=== PATIENT | female | born 1935 | race Caucasian/White ===

== ENCOUNTER → 2016-12-01 | Outpatient (CLI) | payer MEDICARE ==
[~2016-12-01] MED LIST: ASPIRIN81 M1 PO; BACTRIM DS 8001 TA1 PO; CENTRUM1 TA1 PO; CLINDAMYCIN HC300 MG PO; CLINDAMYCIN150 MG PO; COLACE100 MG PO; COUMADIN2.5 M1 PO; COUMADIN5 M2 PO; COUMADIN6 M2 PO; COUMADIN7.5 MG PO; DOCUSATE CALCI100 MG PO; ECOTRIN81 MG PO; ENALAPRIL PO; ENALAPRIL10 MG PO; FEROSUL325 MG PO; HCT PO; KEFLEX500 M1 PO; KEFLEX500 MG PO; LASIX20 MG PO; LASIX40 MG PO; MACROBID100 M1 PO; METOLAZONE10 MG PO; METOPROLOL SUCC25 M2 PO; MUPIROCIN15 GM TP; NORCO 5-325 TA1 EACH PO; POTASSIUM-9999 MG PO; PRINIVIL5 M1 PO; SLOW-K 8MEQ8 MEQ PO; STOOL SOFTENER100 M3 PO; VASERETIC 10 MG1 TAB PO
[2016-12-01 12:20] LABS: PROTHROMBIN TIME 21.5 SECONDS (9.0-12.4)
== END | disposition home or self-care (01) ==
LOC: LAB 11:22
DX: Z79.01 Long term (current) use of anticoagulants (principal)

== ENCOUNTER → 2017-01-29 | Outpatient (CLI) | payer MEDICARE ==
[2017-01-29 12:17] LABS: INTERNATIONAL NORM RATIO 1.8 (2.0-3.5)
== END | disposition home or self-care (01) ==
LOC: LAB 11:20
DX: R06.02 Shortness of breath (principal); I10 Essential (primary) hypertension; R60.0 Localized edema; R06.2 Wheezing; Z79.01 Long term (current) use of anticoagulants

== ENCOUNTER 2017-02-02 20:35 | Inpatient (IN) | payer MEDICARE ==
[2017-02-02] VITALS (7 sets, daily range): BP systolic 153–222; BP diastolic 62–100
[~2017-02-02] VITALS: Ht 170.1 cm; Wt 103.5 kg
[2017-02-02 21:14] LABS: BASO % 0.5 % (0.0-1.0); EOS # 0.2 10*3/uL (0.0-0.4); EOS % 3.7 % (1.0-4.0); HEMOGLOBIN 14.2 g/dl (12.0-16.0); LYMPH # 2.5 10*3/uL (1.3-4.4); LYMPH % 38.1 % (27.0-41.0); MEAN CELL VOLUME 94.4 fl (81.0-99.0); MEAN CORPUSCULAR HGB 31.9 pg (27.0-31.0); MEAN CORPUSCULAR HGB CONC 33.8 g/dl (33.0-37.0); MEAN PLATELET VOLUME 9.3 fl (9.6-12.3); MONO # 0.5 10*3/uL (0.1-1.0); MONO % 8.3 % (3.0-9.0); NEUT # 3.2 10*3/uL (2.3-7.9); NEUT % 49.2 % (47.0-73.0); PLATELET COUNT AUTOMATED 163 10*3/uL (130-400); RED BLOOD COUNT 4.45 10*6/uL (4.10-5.10); RED CELL DISTRI WIDTH 14.4 % (0-14.5); WHITE BLOOD COUNT 6.5 10*3/uL (4.8-10.8)
[2017-02-02 21:24] LABS: INTERNATIONAL NORM RATIO 1.6 (2.0-3.5)
[2017-02-02] MEDS ORDERED: LOPRESSOR50 M1 PO (21:34)
[2017-02-02 21:35] LABS: ALBUMIN 2.8 gm/dl (3.1-4.5); ALKALINE PHOSPHATASE 150 U/L (45-117); BILIRUBIN, TOTAL 0.3 mg/dl (0.2-1.0); BUN 33 mg/dl (7-24); CARBON DIOXIDE 20 mmol/L (21-32); CHLORIDE 110 mmol/L (98-107); CPK 63 U/L (26-192); EST GLOM FILT AFRICAN AMERICAN 30 ml/min; GLUCOSE 97 mg/dL (65-99); POTASSIUM 4.1 mmol/L (3.5-5.1); SGOT/AST 33 IU/L (3-35); SGPT/ALT 20 U/L (12-78); SODIUM 142 mmol/L (136-145)
[2017-02-02 21:36] LABS: CKMB 1.4 ng/ml (0.5-3.6)
[2017-02-02 21:38] LABS: TROPONIN I < 0.015 ng/ml (<0.045)
[2017-02-02 23:53] LABS: BILIRUBIN NEGATIVE (NEGATIVE); BLOOD 1+ (NEGATIVE); CLARITY SL CLOUDY (CLEAR); COLOR YELLOW (YELLOW); GLUCOSE NEGATIVE (NEGATIVE); KETONE NEGATIVE (NEGATIVE); LEUKO ESTERASE 2+ (NEGATIVE); NITRITE NEGATIVE (NEGATIVE); PROTEIN 2+ (NEGATIVE); SPECIFIC GRAVITY 1.025 (1.005-1.030); UROBILINOGEN 0.2 E.U./dl (0.2-1.0)
[2017-02-03 00:08] LABS: EPITHELIAL CELLS 35-40
[2017-02-03 00:09] LABS: BACTERIA TRACE; URINE REFLEX COMMENT YES (NO)
[2017-02-03 00:25] VITALS: BP 212/82
[2017-02-03 01:45] VITALS: BP 178/60
[2017-02-03 04:16] LABS: BASO % 0.5 % (0.0-1.0); EOS # 0.3 10*3/uL (0.0-0.4); EOS % 3.9 % (1.0-4.0); HEMOGLOBIN 13.1 g/dl (12.0-16.0); LYMPH # 1.8 10*3/uL (1.3-4.4); LYMPH % 28.8 % (27.0-41.0); MEAN CELL VOLUME 92.9 fl (81.0-99.0); MEAN CORPUSCULAR HGB 31.2 pg (27.0-31.0); MEAN CORPUSCULAR HGB CONC 33.6 g/dl (33.0-37.0); MEAN PLATELET VOLUME 9.1 fl (9.6-12.3); MONO # 0.6 10*3/uL (0.1-1.0); MONO % 8.6 % (3.0-9.0); NEUT # 3.7 10*3/uL (2.3-7.9); PLATELET COUNT AUTOMATED 137 10*3/uL (130-400); RED CELL DISTRI WIDTH 14.4 % (0-14.5); WHITE BLOOD COUNT 6.4 10*3/uL (4.8-10.8)
[2017-02-03 04:33] LABS: ALBUMIN 2.6 gm/dl (3.1-4.5); BILIRUBIN, TOTAL 0.4 mg/dl (0.2-1.0); MAGNESIUM 1.8 mg/dL (1.5-2.1); POTASSIUM 3.6 mmol/L (3.5-5.1)
[2017-02-03 04:34] LABS: FREE T4 1.17 ng/dl (0.76-1.46); INTERNATIONAL NORM RATIO 1.7 (2.0-3.5); PROTHROMBIN TIME 18.8 SECONDS (9.0-12.4)
[2017-02-03 04:39] LABS: THYROID STIM HORMONE (HS) 3.12 uIU/ml (0.358-4.75)
[2017-02-03 06:18] LABS: VITAMIN D, 25-HYDROXY 25.8 ng/mL (30-100)
[2017-02-03 06:19] LABS: FOLIC ACID > 24.00 ng/mL (>5.38)
[2017-02-03 08:00] VITALS: BP 150/68
[2017-02-03 12:00] VITALS: BP 136/54
[2017-02-03 16:00] VITALS: BP 128/71
[2017-02-03 20:00] VITALS: BP 145/60
[2017-02-04] VITALS: BP 119/49
[2017-02-04 07:04] LABS: INTERNATIONAL NORM RATIO 1.8 (2.0-3.5); PROTHROMBIN TIME 19.8 SECONDS (9.0-12.4)
[2017-02-04 08:00] VITALS: BP 144/84
[2017-02-04] MEDS ORDERED: AMLODIPINE BESYL5 MG PO (10:59)
[2017-02-04 12:00] VITALS: BP 144/84
== END 2017-02-04 13:36 | disposition home or self-care (01) | DRG 305 ==
LOC: ED 20:35 → 5E 21:52 → EDHOLD 21:52 → 5E 22:16
PROVIDERS: Emergency Medicine; Internal Medicine; Internal Medicine Hospice and Palliative Medicine
DX: I16.1 Hypertensive emergency (principal); E44.0 Moderate protein-calorie malnutrition; L97.909 Non-pressure chronic ulcer of unspecified part of unspecified lower leg with unspecified severity; D68.59 Other primary thrombophilia; N18.3 Chronic kidney disease, stage 3 (moderate); R74.8 Abnormal levels of other serum enzymes; I12.9 Hypertensive chronic kidney disease with stage 1 through stage 4 chronic kidney disease, or unspecified chronic kidney disease; I25.10 Atherosclerotic heart disease of native coronary artery without angina pectoris; E66.09 Other obesity due to excess calories; I89.0 Lymphedema, not elsewhere classified; Z96.653 Presence of artificial knee joint, bilateral; I25.2 Old myocardial infarction; Z86.718 Personal history of other venous thrombosis and embolism; Z98.42 Cataract extraction status, left eye; Z98.41 Cataract extraction status, right eye; Z90.710 Acquired absence of both cervix and uterus; Z82.3 Family history of stroke; Z88.1 Allergy status to other antibiotic agents; Z79.82 Long term (current) use of aspirin; Z79.01 Long term (current) use of anticoagulants; Z79.899 Other long term (current) drug therapy; Z68.35 Body mass index [BMI] 35.0-35.9, adult

== ENCOUNTER 2017-04-04 20:30 | Inpatient (IN) | payer MEDICARE ==
[~2017-04-04] VITALS: Ht 170.1 cm; Wt 106.4 kg
--- NOTE | ~2017-04-04 | CON ---
[place], [place] REPORT OF CONSULTATION NAME: DEEPTI BEST [facility] #: [id number] UNIT #: [id number] ROOM: 404 DOCTOR: ROSITA QUIROZ DPM BIRTHDATE: [birth year] DOS: 04/07/2017 SUBJECTIVE: The patient was seen for followup of venous stasis ulcerations, venous insufficiency of both lower extremities. The patient has been seen previously by Dr. Toro and also at the wound care center. PAST MEDICAL HISTORY: The patient has a past medical history of coronary artery disease, chronic ulcer lower extremity, chronic kidney disease stage 3, hypertension, history of DVT, history of MO, lymphedema, chronic protein calorie malnutrition, obesity. PAST SURGICAL HISTORY: History of bilateral knee replacement, history of bilateral cataract extraction, history of cardiac catheterization, history of hysterectomy. SOCIAL HISTORY: Denies alcohol, tobacco or illicit drug use. FAMILY HISTORY: Father of hernia. Mother , CVA. ALLERGIES: Cipro. PHYSICAL EXAMINATION: EXTREMITIES: Lower extremity examination: Pedal pulses diminished due to edema, venous insufficiency, and bilateral lower extremity. There is decreased hair growth bilateral. There is edema both lower extremities with venous stasis noted bilateral partial thickness ulceration of the anterior lower right leg, but no full thickness breakdown, no signs of abscess, no signs of purulent drainage or foul odor, venous insufficiency noted bilateral. Results of the patient's venous Doppler ordered by Dr. Toro yesterday was negative for DVT, bilateral. ASSESSMENT: Edema, venous insufficiency, venous stasis, bilateral lower extremity. PLAN: Evaluation and management. Unna boots were applied to both lower extremities. The patient is being discharged later today and will follow at the office next week for evaluation of both lower extremities. ROSITA QUIROZ DPM CM:CONSTR:REPORT OF CONSULTATION 1215 04/07/17 6931 interface
[~2017-04-04 20:30] MED LIST changes: +AMLODIPINE BESYL5 MG PO; +LOPRESSOR50 M1 PO
[2017-04-04 20:48] VITALS: BP 173/69
[2017-04-04 21:19] LABS: BASO % 0.5 % (0.0-1.0); EOS # 0.3 10*3/uL (0.0-0.4); EOS % 4.9 % (1.0-4.0); HEMATOCRIT 40.4 % (37.0-47.0); HEMOGLOBIN 13.4 g/dl (12.0-16.0); LYMPH % 34.5 % (27.0-41.0); MEAN CELL VOLUME 94.8 fl (81.0-99.0); MEAN CORPUSCULAR HGB 31.5 pg (27.0-31.0); MEAN CORPUSCULAR HGB CONC 33.2 g/dl (33.0-37.0); MEAN PLATELET VOLUME 9.3 fl (9.6-12.3); MONO # 0.4 10*3/uL (0.1-1.0); MONO % 6.8 % (3.0-9.0); NEUT # 3.2 10*3/uL (2.3-7.9); NEUT % 53.1 % (47.0-73.0); PLATELET COUNT AUTOMATED 145 10*3/uL (130-400); RED BLOOD COUNT 4.26 10*6/uL (4.10-5.10); RED CELL DISTRI WIDTH 14.4 % (0-14.5); WHITE BLOOD COUNT 5.9 10*3/uL (4.8-10.8)
[2017-04-04 21:35] LABS: ALBUMIN 2.8 gm/dl (3.1-4.5); BILIRUBIN, TOTAL 0.3 mg/dl (0.2-1.0); POTASSIUM 4.6 mmol/L (3.5-5.1); TOTAL PROTEIN 6.7 gm/dL (6.4-8.2)
[2017-04-04 22:54] VITALS: BP 180/65
[2017-04-05 00:03] VITALS: BP 180/65
[2017-04-05 00:30] VITALS: BP 157/61
[2017-04-05 00:36] LABS: CKMB 1.3 ng/ml (0.5-3.6)
[2017-04-05 06:19] LABS: BASO % 0.1 % (0.0-1.0); EOS # 0.3 10*3/uL (0.0-0.4); EOS % 3.7 % (1.0-4.0); HEMATOCRIT 41.2 % (37.0-47.0); HEMOGLOBIN 13.7 g/dl (12.0-16.0); LYMPH % 14.9 % (27.0-41.0); MEAN CELL VOLUME 95.2 fl (81.0-99.0); MEAN CORPUSCULAR HGB 31.6 pg (27.0-31.0); MEAN CORPUSCULAR HGB CONC 33.3 g/dl (33.0-37.0); MEAN PLATELET VOLUME 9.9 fl (9.6-12.3); MONO # 0.4 10*3/uL (0.1-1.0); MONO % 5.3 % (3.0-9.0); NEUT # 5.2 10*3/uL (2.3-7.9); NEUT % 75.7 % (47.0-73.0); PLATELET COUNT AUTOMATED 157 10*3/uL (130-400); RED BLOOD COUNT 4.33 10*6/uL (4.10-5.10); RED CELL DISTRI WIDTH 14.4 % (0-14.5); WHITE BLOOD COUNT 6.8 10*3/uL (4.8-10.8)
[2017-04-05 06:31] LABS: CKMB 1.2 ng/ml (0.5-3.6)
[2017-04-05 06:54] LABS: ALBUMIN 2.8 gm/dl (3.1-4.5); BILIRUBIN, TOTAL 0.4 mg/dl (0.2-1.0); MAGNESIUM 1.9 mg/dL (1.5-2.1); PHOSPHOROUS 3.3 mg/dL (2.5-4.9); TOTAL PROTEIN 6.6 gm/dL (6.4-8.2)
[2017-04-05 07:01] LABS: INTERNATIONAL NORM RATIO 2.4 (2.0-3.5); PROTHROMBIN TIME 27.2 SECONDS (9.0-12.4)
[2017-04-05 07:54] LABS: VITAMIN D, 25-HYDROXY 18.7 ng/mL (30-100)
[2017-04-05 08:00] VITALS: BP 152/56
[2017-04-05 12:00] VITALS: BP 148/67
[2017-04-05 16:00] VITALS: BP 152/66
[2017-04-05 20:00] VITALS: BP 137/53
[2017-04-06] VITALS: BP 105/52
[2017-04-06 06:42] LABS: BASO % 0.2 % (0.0-1.0); EOS # 0.3 10*3/uL (0.0-0.4); EOS % 7.3 % (1.0-4.0); HEMATOCRIT 37.1 % (37.0-47.0); HEMOGLOBIN 11.9 g/dl (12.0-16.0); LYMPH % 23.6 % (27.0-41.0); MEAN CELL VOLUME 96.4 fl (81.0-99.0); MEAN CORPUSCULAR HGB 30.9 pg (27.0-31.0); MEAN CORPUSCULAR HGB CONC 32.1 g/dl (33.0-37.0); MEAN PLATELET VOLUME 9.8 fl (9.6-12.3); MONO # 0.3 10*3/uL (0.1-1.0); MONO % 5.7 % (3.0-9.0); NEUT # 2.7 10*3/uL (2.3-7.9); PLATELET COUNT AUTOMATED 122 10*3/uL (130-400); RED BLOOD COUNT 3.85 10*6/uL (4.10-5.10); RED CELL DISTRI WIDTH 14.6 % (0-14.5); WHITE BLOOD COUNT 4.4 10*3/uL (4.8-10.8)
[2017-04-06 07:15] LABS: INTERNATIONAL NORM RATIO 2.7 (2.0-3.5); PROTHROMBIN TIME 30.1 SECONDS (9.0-12.4)
[2017-04-06 08:00] VITALS: BP 131/70
[2017-04-06 12:00] VITALS: BP 122/50
[2017-04-06 16:00] VITALS: BP 142/62
[2017-04-06 20:00] VITALS: BP 147/71
[2017-04-07] VITALS: BP 142/66
[2017-04-07 06:31] LABS: BASO % 0.4 % (0.0-1.0); EOS # 0.4 10*3/uL (0.0-0.4); EOS % 8.1 % (1.0-4.0); HEMATOCRIT 35.9 % (37.0-47.0); HEMOGLOBIN 11.8 g/dl (12.0-16.0); LYMPH # 1.1 10*3/uL (1.3-4.4); LYMPH % 20.4 % (27.0-41.0); MEAN CELL VOLUME 96.8 fl (81.0-99.0); MEAN CORPUSCULAR HGB 31.8 pg (27.0-31.0); MEAN CORPUSCULAR HGB CONC 32.9 g/dl (33.0-37.0); MEAN PLATELET VOLUME 9.7 fl (9.6-12.3); MONO # 0.3 10*3/uL (0.1-1.0); MONO % 6.5 % (3.0-9.0); NEUT # 3.4 10*3/uL (2.3-7.9); NEUT % 64.4 % (47.0-73.0); PLATELET COUNT AUTOMATED 124 10*3/uL (130-400); RED BLOOD COUNT 3.71 10*6/uL (4.10-5.10); RED CELL DISTRI WIDTH 14.6 % (0-14.5); WHITE BLOOD COUNT 5.2 10*3/uL (4.8-10.8)
[2017-04-07 06:45] LABS: ALBUMIN 2.3 gm/dl (3.1-4.5); BILIRUBIN, TOTAL 0.3 mg/dl (0.2-1.0); POTASSIUM 4.4 mmol/L (3.5-5.1); TOTAL PROTEIN 5.6 gm/dL (6.4-8.2)
[2017-04-07 07:09] LABS: INTERNATIONAL NORM RATIO 2.2 (2.0-3.5); PROTHROMBIN TIME 24.9 SECONDS (9.0-12.4)
[2017-04-07 08:00] VITALS: BP 150/66
[2017-04-07] MEDS ORDERED: DOXYCYCLINE100 M3 PO (09:37)
[2017-04-07] MEDS ORDERED: D-1000 185 MG-11 TAB PO (09:37)
== END 2017-04-07 14:36 | disposition home or self-care (01) | DRG 602 ==
LOC: ED 20:30 → 4E 21:33 → EDHOLD 21:33 → 4E 21:59
PROVIDERS: Internal Medicine; Internal Medicine Hospice and Palliative Medicine; Physician Assistant
PROC: 2W1LX6Z Compression of Right Lower Extremity using Pressure Dressing (ICD-10-PCS; principal; 2017-04-07)
PROC: 2W1MX6Z Compression of Left Lower Extremity using Pressure Dressing (ICD-10-PCS; principal; 2017-04-07)
DX: L03.116 Cellulitis of left lower limb (principal); E43 Unspecified severe protein-calorie malnutrition; D68.59 Other primary thrombophilia; L97.901 Non-pressure chronic ulcer of unspecified part of unspecified lower leg limited to breakdown of skin; D69.6 Thrombocytopenia, unspecified; I87.2 Venous insufficiency (chronic) (peripheral); R00.1 Bradycardia, unspecified; N18.3 Chronic kidney disease, stage 3 (moderate); L03.115 Cellulitis of right lower limb; I25.10 Atherosclerotic heart disease of native coronary artery without angina pectoris; I87.8 Other specified disorders of veins; I12.9 Hypertensive chronic kidney disease with stage 1 through stage 4 chronic kidney disease, or unspecified chronic kidney disease; E66.09 Other obesity due to excess calories; E55.9 Vitamin D deficiency, unspecified; Z96.653 Presence of artificial knee joint, bilateral; D64.9 Anemia, unspecified; R53.83 Other fatigue; I25.2 Old myocardial infarction; Z90.710 Acquired absence of both cervix and uterus; Z98.42 Cataract extraction status, left eye; Z98.41 Cataract extraction status, right eye; Z82.3 Family history of stroke; Z86.718 Personal history of other venous thrombosis and embolism; Z88.1 Allergy status to other antibiotic agents; Z79.82 Long term (current) use of aspirin; Z79.01 Long term (current) use of anticoagulants; Z79.899 Other long term (current) drug therapy; Z68.35 Body mass index [BMI] 35.0-35.9, adult

== ENCOUNTER → 2017-06-15 | Outpatient (CLI) | payer MEDICARE ==
[~2017-06-15] MED LIST changes: +D-1000 185 MG-11 TAB PO; +DOXYCYCLINE100 M3 PO
--- NOTE | ~2017-06-15 | WRIGHTHP ---
[place], [place] PATIENT HISTORY AND PHYSICAL EXAM NAME: DEEPTI BEST [facility] #: [id number] UNIT #: [id number] ROOM: DOCTOR: SHANA QuezadaKATHY BIRTHDATE: [birth year] DOS: 06/15/2017 NEW PATIENT EVALUATION This patient is new to me, but not new to the clinic. CHIEF COMPLAINT: Chronic ulcer of the right lower extremity. HISTORY OF PRESENT ILLNESS: This is an 81-year-old female with a history of venous insufficiency. She has been to the Wound Care Clinic before for an ulcer of the right leg, which did seem to respond to compression therapy. She had seen Dr. Stephen in the past. She has had a recurrence; however, of this ulcer and has been following up with Dr. Toro, who has been using Unna boots on her, which do seem to help when the Unna boot is being applied, but as soon the Unna boot has been taken off, the wound re-opens quite frequently, so it has been open for approximately the past 2 months. The Unna boots have not really seemed to help this time and she continues to have a lot of drainage coming even through the Unna boot. She has no fevers, chills or pain and the wound seems to be draining clear fluid. Her right leg is swollen and it has not been any more swollen than on normal occasion. She has had a recent venous Doppler done a few months ago, which was unremarkable. The patient does report being admitted to the hospital back in March for cellulitis of the left leg. PAST MEDICAL HISTORY: Significant for coronary artery disease, chronic ulcer of the lower extremity, chronic kidney disease, hypertension, history of DVT. She does not recall if it was the right leg or the left leg, but she does have chronic edema of the right lower extremity noted, history of myocardial infarction, hypercoagulable state, history of lymphedema, moderate protein calorie malnutrition, obesity due to excess calories. She is status post bilateral knee replacement, history of cataract extraction, cardiac catheterization and hysterectomy. She reports being evaluated by Vascular, it sounds like she has had studies on the veins before. She said she saw some specialist in [place], who said that her veins were okay. SOCIAL HISTORY: She denies alcohol consumption. She is a nontobacco user. FAMILY HISTORY: Significant for hernia in the father, CVA in the mother. ALLERGIES: CIPRO. MEDICATIONS: She was on while she was here in March because of medications not updated on the list. Presently, it is amlodipine 5 mg daily, aspirin 81 daily, Colace 100 twice a day, iron sulfate 325 p.o. b.i.d., Lasix 40 p.o. daily, metoprolol 50 p.o. b.i.d., multivitamin 1 tablet p.o. daily, potassium Slow-K 8 mEq daily and morphine 5 mg daily. REVIEW OF SYSTEMS: She says her breathing is okay. She denies any change in her breathing, no increase in edema, no chest pains, no shortness of breath. No [place], [place] PATIENT HISTORY AND PHYSICAL EXAM NAME: DEEPTI BEST [facility] #: [id number] UNIT #: [id number] ROOM: DOCTOR: KATHY SALDANA M.D. BIRTHDATE: [birth year] nausea, vomiting, abdominal pains, or diarrhea. She does not have any pain with her wound. She does have a lymphedema pump, which she uses a half an hour a day, but she says she really has not used it for the past 2 weeks now since the wound has been draining more. She also reports that she has Jobst stockings as well as ____ stockings, which she says she is not able to get them on at this time either. PHYSICAL EXAMINATION: GENERAL: This is an elderly female who appears about her stated age, slightly obese, pleasant and cooperative to examination. VITAL SIGNS: Stable. Blood pressure is slightly elevated at 160/66, pulse is 60, respirations 18, temperature is 97.8. HEENT: Oropharynx is clear. Extraocular movements are intact. She does have several areas of what appear to be actinic keratoses and a chronic ulceration noted on the right forehead that may be secondary to a squamous cell lesion. It is fairly small. NECK: No JVD. LUNGS: Clear. CARDIOVASCULAR: S1, S2 regular rate and rhythm. Systolic murmur is appreciable. ABDOMEN: Soft, obese and nontender. EXTREMITIES: She has evidence of chronic lymphedema, venous stasis. She has areas of what appear to be healed areas on the left lower extremity. The right lower extremity has chronic hemosiderin staining on the anterior tibia. There is an open wound that is present, it is essentially superficial cluster of an open area. I would not actually classify more as an ulcer, but it is open secondary to weeping from lymphedema and the measurements are 9.5 x 6.5 x 0.1. There is really no visible necrotic tissue, but there is some maceration noted. There is no evidence of cellulitis or an infection. Her BABAR was 1.11 on the right. Her pedal pulses are difficult to feel secondary to her edema. Her toes are warm. Capillary refill is normal. She has no calf tenderness. NEUROLOGIC: Seems to be alert and nonfocal. ASSESSMENT AND PLAN: Chronic venous stasis ulceration complicated by lymphedema, uncontrolled edema. At this point, the area is weepy. I would like to use a dressing to dry it up if we can such as Maxorb Ag and use Adaptic to help prevent the dressing from sticking to the wound. We will use a 3-layer compression wrap. She did have that applied in the past and tolerated it well. Her BABAR seems sufficient at this time, so we will go ahead and use at 3-layer multi-layer wrap and have her come back in 2 days for a wrap change In the meantime, we will see if we can get Home Health to come in to help change the wrap. It sounds like she needs to have the wrap changed more than once a week due to the drainage. Hopefully, when we get the drainage under control, she can go back to using her lymphedema pump. Followup is in 2 days for nursing visit and the wound clinic in 1 week. [place], [place] PATIENT HISTORY AND PHYSICAL EXAM NAME: DEEPTI BEST [facility] #: [id number] UNIT #: [id number] ROOM: DOCTOR: KATHY SALDANA M.D. BIRTHDATE: [birth year] KATHY SALDANA MD CM:HISPHYS:PATIENT HISTORY AND PHYSICAL EXAMINATION 161 21 KATHY SALDANA M.D. 06/15/17 172 interface
== END | disposition home or self-care (01) ==
LOC: WOUNDCARE 12:56
DX: I87.2 Venous insufficiency (chronic) (peripheral) (principal); L97.811 Non-pressure chronic ulcer of other part of right lower leg limited to breakdown of skin; I12.9 Hypertensive chronic kidney disease with stage 1 through stage 4 chronic kidney disease, or unspecified chronic kidney disease; N18.9 Chronic kidney disease, unspecified; I25.10 Atherosclerotic heart disease of native coronary artery without angina pectoris; I25.2 Old myocardial infarction; I89.0 Lymphedema, not elsewhere classified; E66.01 Morbid (severe) obesity due to excess calories; E44.0 Moderate protein-calorie malnutrition; Z68.1 Body mass index [BMI] 19.9 or less, adult; Z90.710 Acquired absence of both cervix and uterus; Z98.49 Cataract extraction status, unspecified eye; Z86.718 Personal history of other venous thrombosis and embolism

== ENCOUNTER → 2017-06-17 | Outpatient (CLI) | payer MEDICARE ==
[~2017-06-17] MED LIST changes: +Rocaltrol0.25 MCG PO; +SODIUM BICARBO650 MG PO
== END ==
LOC: WOUNDCARE 02:59
DX: I87.2 Venous insufficiency (chronic) (peripheral) (principal); L97.811 Non-pressure chronic ulcer of other part of right lower leg limited to breakdown of skin

== ENCOUNTER → 2017-06-24 | Outpatient (CLI) | payer MEDICARE ==
--- NOTE | ~2017-06-24 | PR ---
[place], [place] PROGRESS NOTE NAME: DEEPTI BEST [facility] #: [id number] UNIT #: [id number] ROOM: DOCTOR: SHANA QuezadaKATHY BIRTHDATE: [birth year] DOS: 06/24/2017 CHIEF COMPLAINT: Followup of ulcerations of the right lower extremity. SUBJECTIVE: This is an 81-year-old female with a history of venous insufficiency, which is chronic and recurrent. She was seen for the first time in the Wound Clinic last week. A 3-layer compression wrap was applied and she comes in for followup wound care appointment. The wound was relatively superficial, but with weeping quite a bit of clear fluid. She reports no problems with the wrap. She has home health coming and changing it as well. Apparently, it is being changed twice a week. She has no pain. No fevers or chills. She also does have a new wound, which she just noticed today on the left anterior leg. She went to wash her leg a little bit too aggressively and tore off a very small amount of skin. She has a new wound on her left leg. OBJECTIVE: VITAL SIGNS: Stable. Temperature is 98.4, pulse of 62, respirations 18, blood pressure is 170/70. EXTREMITIES: The wound, which is located on the anterior lower extremity is measuring slightly smaller at 5.5 x 7 x 0.1. Essentially, it is a superficial cluster of weeping skin, but it does appear slightly improved from last week. There is some devitalized hyperkeratosis on the area. This was debrided selectively with forceps and scissors. There was no bleeding. I would say approximately 50% of the area was debrided of devitalized tissue. The patient tolerated the debridement well. Forceps and scissors were utilized. Cetacaine spray was used for topical anesthesia. The patient tolerated the debridement well. On the left leg, she has a 1.1 x 1.5 x 0.1 superficial wound, it is clean. There is no necrotic tissue. Unfortunately, an BABAR was attempted last week on the left leg, but she was noncompressible. The issue was 1.11 on the right. ASSESSMENT AND PLAN: Venous stasis ulceration which is recurrent. She also has evidence of lymphedema. Her edema is definitely improved. The ulceration seems to be stable and starting to dry up a bit. I would like to continue with the Adaptic and a Maxorb and three-layer compression wrap for the left leg. We will also use Adaptic and Maxorb for the left leg as well and Tubigrip for edema control. She said she had some vascular studies done recently within probably this past year at a vascular lab somewhere in [place], [place]. She is going to call us and let us know who the doctor was. we will try to obtain those records, so hopefully see what her arterial status is of the left leg, in case we need to do compression on the left leg. I also think that the patient might benefit from lymphedema therapy. So I have encouraged her to followup with him. Followup in the Wound Clinic in one week. [place], [place] [facility]GR[id number] #: [id number] ROOM: DOCTOR: KATHY SALDANA M.D. BIRTHDATE: [birth year] KATHY SALDANA MD CM:VINOD 1354 21 KATHY SALDANA M.D. 06/24/172221 interface
== END | disposition home or self-care (01) ==
LOC: WOUNDCARE 03:16
DX: I87.2 Venous insufficiency (chronic) (peripheral) (principal); L97.811 Non-pressure chronic ulcer of other part of right lower leg limited to breakdown of skin; I89.0 Lymphedema, not elsewhere classified

== ENCOUNTER → 2017-06-25 | Day surgery (SDC) | payer MEDICARE ==
[~2017-06-25] VITALS: Ht 170.1 cm; Wt 99.8 kg
--- NOTE | ~2017-06-25 | PROC NOTE ---
[place], [place] PROCEDURE NOTE NAME: DEEPTI BEST [facility] #: [id number] UNIT #: [id number] ROOM: DOCTOR: GLENN ARMAS MD BIRTHDATE: [birth year] DOS: 06/25/2017 PREOPERATIVE DIAGNOSIS: Forehead skin lesions x2. POSTOPERATIVE DIAGNOSIS: Forehead skin lesions x2. PROCEDURE: Excision of forehead skin lesions x2. SURGEON: Glenn Armas MD [employer]LOOR WORK[employer] [place]AY: MS3. ANESTHESIA: MAC. INDICATIONS: This is an 81-year-old lady with a longstanding history of forehead skin lesions who is here for the above-mentioned procedure. The procedure and its complications were explained to the patient in detail preoperatively. Complications that were discussed included but were not limited to bleeding, infection, hematoma/seroma/abscess formation, and prolonged pain. She agreed to proceed. DESCRIPTION OF PROCEDURE: After identifying the patient, the patient was brought to the operating suite and laid in the supine position. After time-out procedure was called, IV sedation was administered and the parts were painted and draped in the usual sterile fashion. An elliptical incision was marked and 1% lidocaine with epinephrine was injected for local anesthesia. Incision was made with the help of a knife and the lesions were excised in the entirety, first the right-sided lesion was excised with the help of a knife and then the one on the midline was excised in an elliptical fashion. They were sent for histopathological diagnosis separately. Hemostasis was achieved with the help of electrocautery. Thereafter, the edges of the skin were approximated with the help of 3-0 Vicryl in an interrupted subcuticular fashion. Dressing was placed. The patient tolerated the procedure well and was taken to the recovery room in stable fashion. There were no complications. Dr. Glenn Armas, the attending surgeon, was present throughout the operating case. Glenn Armas MD CM:PROCNOTE:PROCEDURE NOTE 1215 [id number] GLENN ARMAS MD
[2017-06-25 10:25] VITALS: BP 193/60
[2017-06-25 12:05] VITALS: BP 148/57
[2017-06-25 12:20] VITALS: BP 148/55
[2017-06-25 12:35] VITALS: BP 165/60
== END | disposition home or self-care (01) ==
LOC: SDC 06-22 12:30
DX: L57.0 Actinic keratosis (principal); Z88.8 Allergy status to other drugs, medicaments and biological substances; Z86.718 Personal history of other venous thrombosis and embolism; Z79.01 Long term (current) use of anticoagulants; I12.9 Hypertensive chronic kidney disease with stage 1 through stage 4 chronic kidney disease, or unspecified chronic kidney disease; N18.4 Chronic kidney disease, stage 4 (severe); I25.10 Atherosclerotic heart disease of native coronary artery without angina pectoris; I25.2 Old myocardial infarction; Z79.899 Other long term (current) drug therapy; Z96.653 Presence of artificial knee joint, bilateral; Z90.710 Acquired absence of both cervix and uterus; Z98.890 Other specified postprocedural states

== ENCOUNTER → 2017-07-01 | Outpatient (CLI) | payer MEDICARE ==
--- NOTE | ~2017-07-01 | PR ---
[place], [place] PROGRESS NOTE NAME: DEEPTI BEST [facility] #: [id number] UNIT #: [id number] ROOM: DOCTOR: SHANA QuezadaKATHY BIRTHDATE: [birth year] DOS: 07/01/2017 CHIEF COMPLAINT: Followup of ulcerations of the right lower extremity. HISTORY OF PRESENT ILLNESS: This is an 81-year-old female with chronic venous insufficiency and severe lymphedema who has been coming to the wound clinic now for 2 weeks. She has been on 3-layer compression wraps and seems to like the 3-layer wraps better than the Unna boot that she has had in the past. She has home health coming and offers no specific complaints. PHYSICAL EXAMINATION: VITAL SIGNS: Temperature is 98, pulse is 64, respirations 18, and blood pressure is 170/64. The wound on the right lower extremity is measuring slightly larger 8 cm x 7 cm x 0.1 cm. There is some fibrin slough and devitalized tissue around this area. The entire area is relatively superficial and has the appearance of the stasis dermatitis, so it is a little bit larger than last week and somewhat macerated. A selective debridement was done. The tissue removed was just devitalized tissue only, fibrin, slough, biofilm, and hyperkeratosis. This was accomplished with a curette. The patient tolerated the debridement well. There was no bleeding. Post-debridement measurements are unchanged. Cetacaine spray was used for topical anesthesia and the left lower leg wound is measuring smaller at 0.7 cm x 1.2 cm and it looks stable and improved as well. ASSESSMENT AND PLAN: Chronic venous stasis ulceration and lymphedema, which seems to be a little bit more erythematous to me than last week. I would like to start the doxycycline empirically 100 twice a day and get rid of the Adaptic as there is some maceration noted. It is definitely not draining as much according to the patient and the family and we can use collagen and a Maxorb over this AG for absorptive purposed. The 3-layer wrap will be continued. I did ask her to go ahead and try her lymphedema pump as well and see if this improves things. Also, she should be seen by lymphedema management as well for lymphedema therapy. This should help her. Followup is in one week. [place], [place] PROGRESS NOTE NAME: DEEPTI BEST UNIT #: [id number] ROOM: DOCTOR: KATHY SALDANA M.D. BIRTHDATE: [birth year] KATHY SALDANA MD CM:VINOD 1500 0638 KATHY SALDANA M.D. 07/02/17 0638 interface
== END ==
LOC: WOUNDCARE 03:04
DX: I87.2 Venous insufficiency (chronic) (peripheral) (principal); L97.811 Non-pressure chronic ulcer of other part of right lower leg limited to breakdown of skin; I89.0 Lymphedema, not elsewhere classified

== ENCOUNTER → 2017-07-08 | Outpatient (CLI) | payer MEDICARE ==
--- NOTE | ~2017-07-08 | PR ---
[place], [place] PROGRESS NOTE NAME: DEEPTI BEST [facility] #: [id number] UNIT #: [id number] ROOM: DOCTOR: SHANA QuezadaKATHY BIRTHDATE: [birth year] DOS: 07/08/2017 WOUND CARE PROGRESS NOTE CHIEF COMPLAINT: Followup of ulcers of the bilateral lower extremities. SUBJECTIVE: This is an 81-year-old female with a history of venous insufficiency and chronic lymphedema and recurrent stasis dermatitis and weeping wounds. She has been following up in the Wound Clinic for 3 weeks now. She has been tolerating a 3-layer compression wrap on the right leg without any problem. She kept the three-layer compression wrap on for 1 week and did not have any problems. There was no strike through or pain or discomfort. She has a followup appointment with the Lymphedema Clinic this Thursday. OBJECTIVE: VITAL SIGNS: Stable. Temperature is 97.9, pulse of 62, respirations are 18. The wound on the right lower extremity is initially measuring 8 x 7 x 0.1; however, that is encompassing a lot of dry scaling areas where it is definitely much improved. The distal part of the wound; however, does have some obvious necrotic tissue still present. The lower extremity wound on the left leg is definitely improving and it is only measuring 0.4 x 0.5 x 0.1. There is little bit of devitalized tissue present as well. Debridement was done today. Selective forceps and scissors were utilized to remove devitalized tissue, dried, adherent fibrin and slough on the right anterior leg. Post-debridement, the open area was actually 3 x 4.7 x 0.1. The patient tolerated the debridement well. There was no bleeding. A curette was utilized to remove the devitalized tissue from the left lower extremity wound and that was tolerated well. There was no bleeding, it was still slightly open post-debridement 0.5 x 0.4 x 0.1. ASSESSMENT AND PLAN: Chronic venous stasis ulcerations and lymphedema that seemed to be responding to the present dressings and compression wrap. Now, lot of the wound is drying up nicely, it is not macerated, definitely the open area is much less. At this point, we would like to use Aquaphor to the dry skin and continue with a 3-layer wrap for now. She does have lymphedema appointment coming up on Thursday, so hopefully they will be able to advise something that she can use for lymphedema management, especially at home. She does have a history of chronic renal failure, has not had any recent lab work, so I did advise her to go ahead and get some lab work with her next Coumadin check. We want to see what her renal function has been doing. Follow up in Wound Clinic in one week. We can use a Tubigrip on the left leg that is what she has been using and seems to be responding well to it. [place], [place] PROGRESS [id number] #: [id number] ROOM: DOCTOR: KATHY SALDANA M.D. BIRTHDATE: [birth year] KATHY SALDANA MD CM:VINOD 1648 1356 KATHY SALDANA M.D. 07/09/17 1356 interface
[2017-07-08 15:06] LABS: BASO % 0.5 % (0.0-1.0); EOS # 0.2 10*3/uL (0.0-0.4); EOS % 3.5 % (1.0-4.0); HEMATOCRIT 42.1 % (37.0-47.0); HEMOGLOBIN 14.1 g/dl (12.0-16.0); LYMPH # 1.9 10*3/uL (1.3-4.4); LYMPH % 44.2 % (27.0-41.0); MEAN CELL VOLUME 96.6 fl (81.0-99.0); MEAN CORPUSCULAR HGB 32.3 pg (27.0-31.0); MEAN CORPUSCULAR HGB CONC 33.5 g/dl (33.0-37.0); MEAN PLATELET VOLUME 10.3 fl (9.6-12.3); MONO # 0.4 10*3/uL (0.1-1.0); MONO % 8.7 % (3.0-9.0); NEUT # 1.8 10*3/uL (2.3-7.9); NEUT % 42.9 % (47.0-73.0); PLATELET COUNT AUTOMATED 75 10*3/uL (130-400); RED BLOOD COUNT 4.36 10*6/uL (4.10-5.10); RED CELL DISTRI WIDTH 14.9 % (0-14.5); WHITE BLOOD COUNT 4.2 10*3/uL (4.8-10.8)
[2017-07-08 15:33] LABS: ALBUMIN 2.8 gm/dl (3.1-4.5); CREATININE 2.29 mg/dL (0.55-1.02); POTASSIUM 3.9 mmol/L (3.5-5.1); TOTAL PROTEIN 6.8 gm/dL (6.4-8.2)
== END | disposition home or self-care (01) ==
LOC: LAB 03:44 → WOUNDCARE 03:44
PROVIDERS: Internal Medicine
DX: L97.911 Non-pressure chronic ulcer of unspecified part of right lower leg limited to breakdown of skin (principal); L97.921 Non-pressure chronic ulcer of unspecified part of left lower leg limited to breakdown of skin; I87.2 Venous insufficiency (chronic) (peripheral); I82.591 Chronic embolism and thrombosis of other specified deep vein of right lower extremity; R79.89 Other specified abnormal findings of blood chemistry

== ENCOUNTER → 2017-07-15 | Outpatient (CLI) | payer MEDICARE ==
[~2017-07-15] MED LIST changes: +AMLODIPINE BESY10 MG PO
--- NOTE | ~2017-07-15 | PR ---
[place], [place] PROGRESS NOTE NAME: DEEPTI BEST [facility] #: [id number] UNIT #: [id number] ROOM: DOCTOR: SHANA QuezadaKATHY BIRTHDATE: [birth year] DOS: 07/15/2017 CHIEF COMPLAINT: Followup of ulcer of the right lower extremity. SUBJECTIVE: This is an 81-year-old female with a history of venous insufficiency and lymphedema and a chronic and recurrent open wound of the right lower extremity. She was evaluated at the Lymphedema Clinic last week and has had lymphedema manual drainage and compression wraps performed. The wound last week was definitely much improved and had started to dry up and was definitely measuring smaller. However, yesterday, the wound was dressed by present lymphedema therapist and she did have lotion applied and manual decompression to the area and today when the wrap was removed, although the measurements are better, the wound is definitely more weepy and seems to have extended a bit. There is some devitalized tissue noted. She has no pain, fevers, or chills. Overall drainage is well controlled. OBJECTIVE: VITAL SIGNS: Stable. Temperature 97.7, pulse 60, respirations 16, and blood pressure 120/60. WOUND: The wound is measuring smaller at 3 x 2.2 x 0.1; however, within that measurement, there is a lot of devitalized tissue, which was removed with forceps and scissors. There was really no bleeding. This is a selective debridement only. The patient tolerated the debridement well. Unfortunately, the post-debridement measurements are bigger as there are a few scattered clustered areas that are noted and so the measurements post-debridement are bigger at 11.2 x 5.5 x 0.1 and within those are large amounts of epithelialization and just a few clustered wounds, superficial wounds throughout. ASSESSMENT AND PLAN: Venous stasis ulcer with lymphedema. Overall, I think her wound looked better last week. I think that part of the starting with the lymphedema wrap and doing the manual therapy may have mobilized some of the fluid and is possibly starting to come through the wound and causing a little bit more weepiness and I think this is the reason that she has some increased wound margins today. We will continue with collagen and an alginate and have her use lymphedema wraps that the lymphedema therapist used until she sees them again. She is going to have lymphedema therapy twice a week, and hopefully we will see her in the Wound Clinic next week as well. Hopefully, the wound will be a little drier operator next time. Follow up in one week. [place], [place] PROGRESS NOTE NAME: DEEPTI BEST UNIT #: [id number] ROOM: DOCTOR: KATHY SALDANA M.D. BIRTHDATE: [birth year] KATHY SALDANA MD CM:VINOD 1428 0515 KATHY SALDANA M.D. 07/16/17 0515 interface
== END | disposition home or self-care (01) ==
LOC: WOUNDCARE 01:43
DX: I87.2 Venous insufficiency (chronic) (peripheral) (principal); L97.811 Non-pressure chronic ulcer of other part of right lower leg limited to breakdown of skin; I89.0 Lymphedema, not elsewhere classified

== ENCOUNTER 2017-07-17 09:39 | Inpatient (IN) | payer MEDICARE ==
[~2017-07-17] VITALS: Ht 170.1 cm; Wt 109.0 kg
[2017-07-17 09:39] VITALS: BP 162/96
[~2017-07-17 09:39] MED LIST changes: -AMLODIPINE BESY10 MG PO
[2017-07-17 10:21] LABS: BASO % 0.3 % (0.0-1.0); EOS # 0.1 10*3/uL (0.0-0.4); EOS % 3.6 % (1.0-4.0); HEMATOCRIT 41.2 % (37.0-47.0); HEMOGLOBIN 13.6 g/dl (12.0-16.0); LYMPH # 1.5 10*3/uL (1.3-4.4); LYMPH % 41.6 % (27.0-41.0); MEAN CELL VOLUME 95.8 fl (81.0-99.0); MEAN CORPUSCULAR HGB 31.6 pg (27.0-31.0); MEAN PLATELET VOLUME 11.1 fl (9.6-12.3); MONO # 0.4 10*3/uL (0.1-1.0); MONO % 10.8 % (3.0-9.0); NEUT # 1.6 10*3/uL (2.3-7.9); NEUT % 43.7 % (47.0-73.0); PLATELET COUNT AUTOMATED 73 10*3/uL (130-400); RED CELL DISTRI WIDTH 15.1 % (0-14.5); WHITE BLOOD COUNT 3.6 10*3/uL (4.8-10.8)
[2017-07-17 10:32] LABS: ACT PARTIAL THROMBO TIME 34.9 SECONDS (20.8-31.5)
[2017-07-17 10:35] LABS: ALBUMIN 2.6 gm/dl (3.1-4.5); ALKALINE PHOSPHATASE 127 U/L (45-117); BUN 32 mg/dl (7-24); CHLORIDE 107 mmol/L (98-107); CREATININE 2.32 mg/dL (0.55-1.02); LIPASE 227 U/L (73-393); MAGNESIUM 1.9 mg/dL (1.5-2.1); POTASSIUM 3.9 mmol/L (3.5-5.1); SGOT/AST 39 IU/L (3-35); SGPT/ALT 18 U/L (12-78); SODIUM 139 mmol/L (136-145); TOTAL PROTEIN 6.3 gm/dL (6.4-8.2)
[2017-07-17 10:38] LABS: TROPONIN I < 0.015 ng/ml (<0.045)
[2017-07-17 14:13] VITALS: BP 165/96
[2017-07-17 14:45] VITALS: BP 160/95
[2017-07-17 16:00] VITALS: BP 151/51
[2017-07-17 20:00] VITALS: BP 158/74
[2017-07-18] VITALS: BP 151/55
[2017-07-18 07:17] LABS: BASO % 0.6 % (0.0-1.0); EOS # 0.2 10*3/uL (0.0-0.4); EOS % 4.5 % (1.0-4.0); HEMATOCRIT 39.8 % (37.0-47.0); HEMOGLOBIN 13.3 g/dl (12.0-16.0); LYMPH # 1.6 10*3/uL (1.3-4.4); LYMPH % 47.6 % (27.0-41.0); MEAN CELL VOLUME 97.3 fl (81.0-99.0); MEAN CORPUSCULAR HGB 32.5 pg (27.0-31.0); MEAN CORPUSCULAR HGB CONC 33.4 g/dl (33.0-37.0); MEAN PLATELET VOLUME 10.7 fl (9.6-12.3); MONO # 0.4 10*3/uL (0.1-1.0); MONO % 11.7 % (3.0-9.0); NEUT # 1.2 10*3/uL (2.3-7.9); NEUT % 35.6 % (47.0-73.0); PLATELET COUNT AUTOMATED 74 10*3/uL (130-400); RED BLOOD COUNT 4.09 10*6/uL (4.10-5.10); RED CELL DISTRI WIDTH 15.2 % (0-14.5); WHITE BLOOD COUNT 3.3 10*3/uL (4.8-10.8)
[2017-07-18 07:30] LABS: CREATININE 2.25 mg/dL (0.55-1.02); MAGNESIUM 1.9 mg/dL (1.5-2.1); PHOSPHOROUS 3.4 mg/dL (2.5-4.9); POTASSIUM 3.8 mmol/L (3.5-5.1)
[2017-07-18 07:37] LABS: THYROID STIM HORMONE (HS) 3.12 uIU/ml (0.358-4.75)
[2017-07-18 07:51] LABS: INTERNATIONAL NORM RATIO 1.8 (2.0-3.5)
[2017-07-18 07:58] LABS: VITAMIN D, 25-HYDROXY 37.2 ng/mL (30-100)
[2017-07-18 08:00] VITALS: BP 185/63
[2017-07-18 12:00] VITALS: BP 154/57
[2017-07-18 16:00] VITALS: BP 154/84
[2017-07-18 20:00] VITALS: BP 176/66
[2017-07-19] VITALS: BP 152/75
[2017-07-19 06:52] LABS: BASO % 0.3 % (0.0-1.0); EOS # 0.2 10*3/uL (0.0-0.4); EOS % 4.5 % (1.0-4.0); HEMATOCRIT 38.6 % (37.0-47.0); HEMOGLOBIN 12.8 g/dl (12.0-16.0); LYMPH # 1.3 10*3/uL (1.3-4.4); MEAN CELL VOLUME 97.2 fl (81.0-99.0); MEAN CORPUSCULAR HGB 32.2 pg (27.0-31.0); MEAN CORPUSCULAR HGB CONC 33.2 g/dl (33.0-37.0); MEAN PLATELET VOLUME 10.1 fl (9.6-12.3); MONO # 0.3 10*3/uL (0.1-1.0); MONO % 9.5 % (3.0-9.0); NEUT # 1.6 10*3/uL (2.3-7.9); NEUT % 47.7 % (47.0-73.0); PLATELET COUNT AUTOMATED 77 10*3/uL (130-400); RED BLOOD COUNT 3.97 10*6/uL (4.10-5.10); RED CELL DISTRI WIDTH 15.1 % (0-14.5); WHITE BLOOD COUNT 3.4 10*3/uL (4.8-10.8)
[2017-07-19 06:58] LABS: INTERNATIONAL NORM RATIO 1.7 (2.0-3.5)
[2017-07-19 07:04] LABS: CREATININE 2.14 mg/dL (0.55-1.02); POTASSIUM 4.1 mmol/L (3.5-5.1)
[2017-07-19 08:00] VITALS: BP 175/62
[2017-07-19] MEDS ORDERED: AMLODIPINE BESY10 MG PO (10:39)
== END 2017-07-19 11:22 | disposition home or self-care (01) | DRG 308 ==
LOC: ED 09:39 → EDHOLD 12:27 → 5E 12:40
PROVIDERS: Internal Medicine; Nurse Practitioner Family; ADMIT Internal Medicine
DX: R00.1 Bradycardia, unspecified (principal); E43 Unspecified severe protein-calorie malnutrition; N18.4 Chronic kidney disease, stage 4 (severe); D68.59 Other primary thrombophilia; D69.6 Thrombocytopenia, unspecified; I13.10 Hypertensive heart and chronic kidney disease without heart failure, with stage 1 through stage 4 chronic kidney disease, or unspecified chronic kidney disease; D72.819 Decreased white blood cell count, unspecified; M19.90 Unspecified osteoarthritis, unspecified site; R74.0 Nonspecific elevation of levels of transaminase and lactic acid dehydrogenase [LDH]; E55.9 Vitamin D deficiency, unspecified; Z96.653 Presence of artificial knee joint, bilateral; I25.10 Atherosclerotic heart disease of native coronary artery without angina pectoris; E66.09 Other obesity due to excess calories; T46.1X5A Adverse effect of calcium-channel blockers, initial encounter; Z88.1 Allergy status to other antibiotic agents; Z98.42 Cataract extraction status, left eye; Z98.41 Cataract extraction status, right eye; Z90.710 Acquired absence of both cervix and uterus; I25.2 Old myocardial infarction; Z86.718 Personal history of other venous thrombosis and embolism; Z68.37 Body mass index [BMI] 37.0-37.9, adult; Z79.01 Long term (current) use of anticoagulants; Z79.82 Long term (current) use of aspirin; Z79.899 Other long term (current) drug therapy; Y92.89 Other specified places as the place of occurrence of the external cause; Z82.3 Family history of stroke; Z83.3 Family history of diabetes mellitus; Z82.49 Family history of ischemic heart disease and other diseases of the circulatory system; Z80.8 Family history of malignant neoplasm of other organs or systems; Z83.79 Family history of other diseases of the digestive system

== ENCOUNTER → 2017-07-29 | Outpatient (CLI) | payer MEDICARE ==
[~2017-07-29] MED LIST changes: +AMLODIPINE BESY10 MG PO
== END | disposition home or self-care (01) ==
LOC: WOUNDCARE 01:59
DX: I87.331 Chronic venous hypertension (idiopathic) with ulcer and inflammation of right lower extremity (principal); L97.811 Non-pressure chronic ulcer of other part of right lower leg limited to breakdown of skin; I87.2 Venous insufficiency (chronic) (peripheral); I10 Essential (primary) hypertension; I89.0 Lymphedema, not elsewhere classified; Z90.710 Acquired absence of both cervix and uterus

== ENCOUNTER → 2017-08-05 | Outpatient (CLI) | payer MEDICARE | END | disposition home or self-care (01) | LOC: WOUNDCARE 02:30 | DX: I87.331 Chronic venous hypertension (idiopathic) with ulcer and inflammation of right lower extremity (principal); L97.811 Non-pressure chronic ulcer of other part of right lower leg limited to breakdown of skin; S81.812D Laceration without foreign body, left lower leg, subsequent encounter; I89.0 Lymphedema, not elsewhere classified; Z90.710 Acquired absence of both cervix and uterus; X58.XXXD Exposure to other specified factors, subsequent encounter ==

== ENCOUNTER → 2017-08-12 | Outpatient (CLI) | payer MEDICARE | END | disposition home or self-care (01) | LOC: WOUNDCARE 01:11 | DX: I87.333 Chronic venous hypertension (idiopathic) with ulcer and inflammation of bilateral lower extremity (principal); L97.811 Non-pressure chronic ulcer of other part of right lower leg limited to breakdown of skin; L97.821 Non-pressure chronic ulcer of other part of left lower leg limited to breakdown of skin; I10 Essential (primary) hypertension; I89.0 Lymphedema, not elsewhere classified; Z90.710 Acquired absence of both cervix and uterus ==

== ENCOUNTER → 2017-08-24 | Outpatient (CLI) | payer MEDICARE | END | disposition home or self-care (01) | LOC: WOUNDCARE 03:44 | DX: S81.802D Unspecified open wound, left lower leg, subsequent encounter (principal); I87.331 Chronic venous hypertension (idiopathic) with ulcer and inflammation of right lower extremity; L97.811 Non-pressure chronic ulcer of other part of right lower leg limited to breakdown of skin; I10 Essential (primary) hypertension; I89.0 Lymphedema, not elsewhere classified; Z90.710 Acquired absence of both cervix and uterus; X58.XXXD Exposure to other specified factors, subsequent encounter ==

== ENCOUNTER → 2017-08-31 | Outpatient (CLI) | payer MEDICARE | END | disposition home or self-care (01) | LOC: WOUNDCARE 13:30 | DX: I87.331 Chronic venous hypertension (idiopathic) with ulcer and inflammation of right lower extremity (principal); L97.811 Non-pressure chronic ulcer of other part of right lower leg limited to breakdown of skin; I89.0 Lymphedema, not elsewhere classified; Z90.710 Acquired absence of both cervix and uterus ==

== ENCOUNTER → 2017-09-09 | Outpatient (CLI) | payer MEDICARE | END | disposition home or self-care (01) | LOC: WOUNDCARE 14:03 | DX: I87.331 Chronic venous hypertension (idiopathic) with ulcer and inflammation of right lower extremity (principal); L97.811 Non-pressure chronic ulcer of other part of right lower leg limited to breakdown of skin; I89.0 Lymphedema, not elsewhere classified; Z90.710 Acquired absence of both cervix and uterus ==

== ENCOUNTER → 2017-09-16 | Outpatient (CLI) | payer MEDICARE | END | disposition home or self-care (01) | LOC: WOUNDCARE 04:26 | DX: I87.331 Chronic venous hypertension (idiopathic) with ulcer and inflammation of right lower extremity (principal); L97.811 Non-pressure chronic ulcer of other part of right lower leg limited to breakdown of skin; I89.0 Lymphedema, not elsewhere classified; Z90.710 Acquired absence of both cervix and uterus ==

== ENCOUNTER → 2017-10-20 | Outpatient (CLI) | payer MEDICARE ==
[2017-10-20 12:11] LABS: CREATININE 2.42 mg/dL (0.55-1.02); POTASSIUM 4.2 mmol/L (3.5-5.1); TOTAL PROTEIN 6.8 gm/dL (6.4-8.2)
== END | disposition home or self-care (01) ==
LOC: LAB 11:21
PROVIDERS: Internal Medicine
DX: N18.4 Chronic kidney disease, stage 4 (severe) (principal)

== ENCOUNTER → 2017-11-24 | Outpatient (CLI) | payer MEDICARE | END | disposition home or self-care (01) | LOC: CARD 13:30 | DX: I08.3 Combined rheumatic disorders of mitral, aortic and tricuspid valves (principal); I11.0 Hypertensive heart disease with heart failure; I50.30 Unspecified diastolic (congestive) heart failure ==

== ENCOUNTER → 2017-12-18 | Outpatient (CLI) | payer MEDICARE ==
[2017-12-18 11:16] LABS: BASO % 0.5 % (0.0-1.0); EOS # 0.2 10*3/uL (0.0-0.4); EOS % 3.4 % (1.0-4.0); HEMATOCRIT 37.9 % (37.0-47.0); HEMOGLOBIN 12.8 g/dl (12.0-16.0); LYMPH # 1.9 10*3/uL (1.3-4.4); MEAN CELL VOLUME 97.2 fl (81.0-99.0); MEAN CORPUSCULAR HGB 32.8 pg (27.0-31.0); MEAN CORPUSCULAR HGB CONC 33.8 g/dl (33.0-37.0); MEAN PLATELET VOLUME 9.8 fl (9.6-12.3); MONO # 0.4 10*3/uL (0.1-1.0); MONO % 9.5 % (3.0-9.0); NEUT % 44.4 % (47.0-73.0); PLATELET COUNT AUTOMATED 85 10*3/uL (130-400); RED CELL DISTRI WIDTH 14.8 % (0-14.5); WHITE BLOOD COUNT 4.4 10*3/uL (4.8-10.8)
[2017-12-18 11:51] LABS: ALBUMIN 2.9 gm/dl (3.1-4.5); CREATININE 2.57 mg/dL (0.55-1.02); POTASSIUM 4.1 mmol/L (3.5-5.1); TOTAL PROTEIN 6.6 gm/dL (6.4-8.2)
[2017-12-18 11:57] LABS: THYROID STIM HORMONE (HS) 3.16 uIU/ml (0.358-4.75)
== END | disposition home or self-care (01) ==
LOC: LAB 10:46
PROVIDERS: Internal Medicine
DX: I11.0 Hypertensive heart disease with heart failure (principal); E55.9 Vitamin D deficiency, unspecified; I50.32 Chronic diastolic (congestive) heart failure

== ENCOUNTER → 2018-01-13 | Outpatient (CLI) | payer MEDICARE | END | disposition home or self-care (01) | LOC: US 12:22 | DX: I80.291 Phlebitis and thrombophlebitis of other deep vessels of right lower extremity (principal); I87.331 Chronic venous hypertension (idiopathic) with ulcer and inflammation of right lower extremity; I73.9 Peripheral vascular disease, unspecified ==

== ENCOUNTER → 2018-01-13 | Outpatient (CLI) | payer MEDICARE | LOC: WOUNDCARE 01:35 | DX: I87.331 Chronic venous hypertension (idiopathic) with ulcer and inflammation of right lower extremity (principal); L97.212 Non-pressure chronic ulcer of right calf with fat layer exposed; I89.0 Lymphedema, not elsewhere classified; Z90.710 Acquired absence of both cervix and uterus ==

== ENCOUNTER → 2018-01-19 | Outpatient (CLI) | payer MEDICARE | END | disposition home or self-care (01) | LOC: US 01:28 | DX: I25.10 Atherosclerotic heart disease of native coronary artery without angina pectoris (principal); I73.9 Peripheral vascular disease, unspecified; L97.212 Non-pressure chronic ulcer of right calf with fat layer exposed; I10 Essential (primary) hypertension ==

== ENCOUNTER 2018-01-25 18:26 | Inpatient (IN) | payer MEDICARE ==
[~2018-01-25] VITALS: Ht 170.2 cm; Wt 102.2 kg
[2018-01-25 18:29] VITALS: BP 150/98
[2018-01-25 19:18] LABS: BASO % 0.4 % (0.0-1.0); EOS # 0.2 10*3/uL (0.0-0.4); EOS % 3.2 % (1.0-4.0); HEMATOCRIT 36.4 % (37.0-47.0); HEMOGLOBIN 12.4 g/dl (12.0-16.0); LYMPH % 35.7 % (27.0-41.0); MEAN CORPUSCULAR HGB 32.4 pg (27.0-31.0); MEAN CORPUSCULAR HGB CONC 34.1 g/dl (33.0-37.0); MEAN PLATELET VOLUME 9.5 fl (9.6-12.3); MONO # 0.5 10*3/uL (0.1-1.0); MONO % 9.5 % (3.0-9.0); NEUT # 2.8 10*3/uL (2.3-7.9); NEUT % 50.8 % (47.0-73.0); PLATELET COUNT AUTOMATED 101 10*3/uL (130-400); RED BLOOD COUNT 3.83 10*6/uL (4.10-5.10); RED CELL DISTRI WIDTH 13.8 % (0-14.5); WHITE BLOOD COUNT 5.6 10*3/uL (4.8-10.8)
[2018-01-25 19:29] LABS: ACT PARTIAL THROMBO TIME 35.9 SECONDS (20.8-31.5)
[2018-01-25 19:37] LABS: ALBUMIN 3.3 gm/dl (3.1-4.5); ALKALINE PHOSPHATASE 149 U/L (45-117); BUN 64 mg/dl (7-24); CHLORIDE 103 mmol/L (98-107); CREATININE 2.82 mg/dL (0.55-1.02); POTASSIUM 3.4 mmol/L (3.5-5.1); SGOT/AST 30 IU/L (3-35); SGPT/ALT 22 U/L (12-78); SODIUM 136 mmol/L (136-145); TOTAL PROTEIN 7.2 gm/dL (6.4-8.2)
[2018-01-25 19:38] LABS: TROPONIN I < 0.015 ng/ml (<0.045)
[2018-01-25 21:33] VITALS: BP 138/72
[2018-01-26] VITALS: BP 160/63
[2018-01-26 07:00] LABS: BASO % 0.4 % (0.0-1.0); EOS # 0.1 10*3/uL (0.0-0.4); EOS % 2.2 % (1.0-4.0); HEMATOCRIT 35.3 % (37.0-47.0); LYMPH # 2.1 10*3/uL (1.3-4.4); LYMPH % 41.2 % (27.0-41.0); MEAN CELL VOLUME 95.9 fl (81.0-99.0); MEAN CORPUSCULAR HGB 32.6 pg (27.0-31.0); MEAN PLATELET VOLUME 9.5 fl (9.6-12.3); MONO # 0.5 10*3/uL (0.1-1.0); MONO % 9.7 % (3.0-9.0); NEUT # 2.3 10*3/uL (2.3-7.9); NEUT % 46.3 % (47.0-73.0); PLATELET COUNT AUTOMATED 104 10*3/uL (130-400); RED BLOOD COUNT 3.68 10*6/uL (4.10-5.10); RED CELL DISTRI WIDTH 13.8 % (0-14.5)
[2018-01-26 07:19] LABS: INTERNATIONAL NORM RATIO 1.9 (2.0-3.5)
[2018-01-26 07:21] LABS: CREATININE 2.77 mg/dL (0.55-1.02); PHOSPHOROUS 4.3 mg/dL (2.5-4.9); POTASSIUM 3.7 mmol/L (3.5-5.1)
[2018-01-26 07:53] LABS: THYROID STIM HORMONE (HS) 3.73 uIU/ml (0.358-4.75)
[2018-01-26 08:00] VITALS: BP 143/52
[2018-01-26 08:40] LABS: VITAMIN D, 25-HYDROXY 28.6 ng/mL (30-100)
[2018-01-26] MEDS ORDERED: METOLAZONE2.5 MG PO (10:55)
[2018-01-26] MEDS ORDERED: COREG12.5 M1 PO (10:56)
[2018-01-26 12:00] VITALS: BP 152/76
[2018-01-26 20:00] VITALS: BP 160/60
[2018-01-26 23:02] VITALS: BP 147/93
[2018-01-27] VITALS: BP 114/43
[2018-01-27 06:20] LABS: CREATININE 2.8 mg/dL (0.55-1.02); POTASSIUM 3.8 mmol/L (3.5-5.1)
[2018-01-27 06:24] LABS: BASO % 0.5 % (0.0-1.0); EOS # 0.1 10*3/uL (0.0-0.4); EOS % 1.8 % (1.0-4.0); HEMOGLOBIN 10.9 g/dl (12.0-16.0); LYMPH # 1.5 10*3/uL (1.3-4.4); LYMPH % 27.6 % (27.0-41.0); MEAN CELL VOLUME 96.1 fl (81.0-99.0); MEAN CORPUSCULAR HGB 32.7 pg (27.0-31.0); MEAN CORPUSCULAR HGB CONC 34.1 g/dl (33.0-37.0); MEAN PLATELET VOLUME 9.8 fl (9.6-12.3); MONO # 0.6 10*3/uL (0.1-1.0); MONO % 10.8 % (3.0-9.0); NEUT # 3.3 10*3/uL (2.3-7.9); NEUT % 59.1 % (47.0-73.0); PLATELET COUNT AUTOMATED 81 10*3/uL (130-400); RED BLOOD COUNT 3.33 10*6/uL (4.10-5.10); RED CELL DISTRI WIDTH 14.2 % (0-14.5); WHITE BLOOD COUNT 5.5 10*3/uL (4.8-10.8)
[2018-01-27 06:30] LABS: INTERNATIONAL NORM RATIO 1.8 (2.0-3.5)
[2018-01-27 08:00] VITALS: BP 125/53
[2018-01-27 12:00] VITALS: BP 133/97
[2018-01-27 16:00] VITALS: BP 125/51
[2018-01-27 20:00] VITALS: BP 112/45
[2018-01-28] VITALS: BP 114/56
[2018-01-28 06:17] LABS: BASO % 0.5 % (0.0-1.0); EOS # 0.2 10*3/uL (0.0-0.4); EOS % 5.4 % (1.0-4.0); HEMATOCRIT 31.8 % (37.0-47.0); HEMOGLOBIN 10.8 g/dl (12.0-16.0); LYMPH # 1.3 10*3/uL (1.3-4.4); LYMPH % 30.5 % (27.0-41.0); MEAN CORPUSCULAR HGB 32.9 pg (27.0-31.0); MEAN PLATELET VOLUME 9.7 fl (9.6-12.3); MONO # 0.4 10*3/uL (0.1-1.0); MONO % 9.8 % (3.0-9.0); NEUT # 2.2 10*3/uL (2.3-7.9); NEUT % 53.6 % (47.0-73.0); PLATELET COUNT AUTOMATED 69 10*3/uL (130-400); RED BLOOD COUNT 3.28 10*6/uL (4.10-5.10); RED CELL DISTRI WIDTH 14.1 % (0-14.5); WHITE BLOOD COUNT 4.1 10*3/uL (4.8-10.8)
[2018-01-28 06:44] LABS: INTERNATIONAL NORM RATIO 1.6 (2.0-3.5)
[2018-01-28 06:46] LABS: CREATININE 2.79 mg/dL (0.55-1.02); POTASSIUM 3.7 mmol/L (3.5-5.1)
[2018-01-28 08:00] VITALS: BP 126/45
[2018-01-28 12:00] VITALS: BP 117/44
[2018-01-28 16:00] VITALS: BP 114/38
[2018-01-28 20:00] VITALS: BP 130/51
[2018-01-29] VITALS: BP 120/50
[2018-01-29 07:27] LABS: CREATININE 3.11 mg/dL (0.55-1.02); POTASSIUM 3.8 mmol/L (3.5-5.1)
[2018-01-29 07:43] LABS: INTERNATIONAL NORM RATIO 1.5 (2.0-3.5)
[2018-01-29 08:00] VITALS: BP 128/48
[2018-01-29 12:00] VITALS: BP 110/50
[2018-01-29] MEDS ORDERED: DOXYCYCLINE100 M3 PO (14:18)
[2018-01-29] MEDS ORDERED: COUMADIN6 M2 PO (14:21)
[2018-01-29] MEDS ORDERED: KEFLEX500 M1 PO (14:24)
== END 2018-01-29 15:50 | disposition other institution (70) | DRG 592 ==
LOC: ED 18:26 → 4E 22:40 → EDHOLD 22:40 → 4E 23:09
PROVIDERS: Hospitalist; Internal Medicine; Internal Medicine Nephrology; Nurse Practitioner Family; Student in an Organized Health Care Education/Training Program
DX: L97.911 Non-pressure chronic ulcer of unspecified part of right lower leg limited to breakdown of skin (principal); N17.0 Acute kidney failure with tubular necrosis; N18.4 Chronic kidney disease, stage 4 (severe); D68.59 Other primary thrombophilia; D69.6 Thrombocytopenia, unspecified; E44.1 Mild protein-calorie malnutrition; I73.9 Peripheral vascular disease, unspecified; L08.9 Local infection of the skin and subcutaneous tissue, unspecified; M48.07 Spinal stenosis, lumbosacral region; I12.9 Hypertensive chronic kidney disease with stage 1 through stage 4 chronic kidney disease, or unspecified chronic kidney disease; R74.8 Abnormal levels of other serum enzymes; E87.6 Hypokalemia; M19.90 Unspecified osteoarthritis, unspecified site; E55.9 Vitamin D deficiency, unspecified; D72.821 Monocytosis (symptomatic); R73.9 Hyperglycemia, unspecified; M16.11 Unilateral primary osteoarthritis, right hip; Z96.653 Presence of artificial knee joint, bilateral; I89.0 Lymphedema, not elsewhere classified; I25.10 Atherosclerotic heart disease of native coronary artery without angina pectoris; E66.09 Other obesity due to excess calories; Z68.35 Body mass index [BMI] 35.0-35.9, adult; Z86.718 Personal history of other venous thrombosis and embolism; Z88.1 Allergy status to other antibiotic agents; I25.2 Old myocardial infarction; Z83.79 Family history of other diseases of the digestive system; Z98.42 Cataract extraction status, left eye; Z98.41 Cataract extraction status, right eye; Z90.710 Acquired absence of both cervix and uterus; Z83.3 Family history of diabetes mellitus; Z82.49 Family history of ischemic heart disease and other diseases of the circulatory system; Z80.9 Family history of malignant neoplasm, unspecified; Z79.899 Other long term (current) drug therapy; Z79.82 Long term (current) use of aspirin

== ENCOUNTER → 2018-02-10 | Outpatient (CLI) | payer MEDICARE ==
[~2018-02-10] MED LIST changes: +COREG12.5 M1 PO; +COUMADIN0.5 MG PO; +Lasix80 MG PO; +METOLAZONE2.5 MG PO; +NORVASC2.5 MG PO
== END | disposition home or self-care (01) ==
LOC: WOUNDCARE 03:57
DX: I87.331 Chronic venous hypertension (idiopathic) with ulcer and inflammation of right lower extremity (principal); L97.212 Non-pressure chronic ulcer of right calf with fat layer exposed; I80.291 Phlebitis and thrombophlebitis of other deep vessels of right lower extremity; I89.0 Lymphedema, not elsewhere classified; I10 Essential (primary) hypertension; Z90.710 Acquired absence of both cervix and uterus

== ENCOUNTER 2018-02-11 09:55 | Inpatient (IN) | payer MEDICARE ==
[~2018-02-11] VITALS: Ht 170.1 cm; Wt 104.1 kg
--- NOTE | ~2018-02-11 | CON ---
[place], [place] REPORT OF CONSULTATION NAME: DEEPTI BEST [facility] #: [id number] UNIT #: [id number] ROOM: 408 DOCTOR: LAVELL WYNN DPM BIRTHDATE: [birth year] DOS: SUBJECTIVE: This patient is seen as consulted for evaluation of a right leg ulcer. The patient does go to the wound care center here in the hospital and is seen routinely by them. She was admitted with nosebleed. She was just seen by wound care a couple of hours ago and they applied a 3-layer compression wrap to her right leg. Nurse did take a picture of the wound, it is small superficial and not infected. PAST MEDICAL HISTORY: Positive for coronary artery disease, chronic lower extremity ulcer, hypertension, chronic kidney disease, history of DVT, history of PR, lymphedema, osteoarthritis, peripheral arterial disease, spinal stenosis, vitamin D deficiency. ALLERGIES: CIPROFLOXACIN. CURRENT MEDICATIONS: Include Coumadin, Zithromax, Feosol, Colace, Coreg, Norvasc, Zaroxolyn, vancomycin, Zosyn, DuoNeb, Lasix, Restoril, [place]. OBJECTIVE: EXTREMITIES: Upon lower extremity physical examination, there is dependent edema noted bilaterally. It appears they just applied a 3-layer compression wrap to the right leg. There is no strike through drainage. No malodor. Negative Homans sign noted bilaterally. There is some again dependent edema noted bilaterally. The patient's wound appears to be being managed by wound care and again they just put a 3-layer compression on which can stay on up to 7 days. ASSESSMENT: Right leg wound edema bilaterally, venous insufficiency. PLAN: Consult is performed. Continue with 3-layer compression on the right leg as prescribed by the wound care center. The patient will continue to follow upon discharge with them, but right now, continue with current management. Thank you for the opportunity to take part in the care of this patient. LAVELL WYNN DPM CM:CONSTR:REPORT OF CONSULTATION 1202 02/12/18 1351 interface
[~2018-02-11 09:55] MED LIST changes: -COUMADIN0.5 MG PO; -Lasix80 MG PO; -NORVASC2.5 MG PO
[2018-02-11 09:56] VITALS: BP 158/65
[2018-02-11] MEDS ORDERED: COUMADIN5 M2 PO (10:00)
[2018-02-11] MEDS ORDERED: COUMADIN0.5 MG PO (10:02)
[2018-02-11] MEDS ORDERED: Lasix80 MG PO (10:10)
[2018-02-11] MEDS ORDERED: NORVASC2.5 MG PO (10:11)
[2018-02-11] MEDS ORDERED: METOLAZONE2.5 MG PO (10:11)
[2018-02-11 10:23] LABS: BASO % 0.5 % (0.0-1.0); EOS # 0.2 10*3/uL (0.0-0.4); EOS % 4.3 % (1.0-4.0); HEMATOCRIT 33.5 % (37.0-47.0); HEMOGLOBIN 11.1 g/dl (12.0-16.0); LYMPH # 1.2 10*3/uL (1.3-4.4); LYMPH % 31.6 % (27.0-41.0); MEAN CELL VOLUME 97.4 fl (81.0-99.0); MEAN CORPUSCULAR HGB 32.3 pg (27.0-31.0); MEAN CORPUSCULAR HGB CONC 33.1 g/dl (33.0-37.0); MEAN PLATELET VOLUME 9.1 fl (9.6-12.3); MONO # 0.3 10*3/uL (0.1-1.0); NEUT % 54.3 % (47.0-73.0); PLATELET COUNT AUTOMATED 54 10*3/uL (130-400); RED BLOOD COUNT 3.44 10*6/uL (4.10-5.10); RED CELL DISTRI WIDTH 14.9 % (0-14.5); WHITE BLOOD COUNT 3.8 10*3/uL (4.8-10.8)
[2018-02-11 10:32] LABS: ACT PARTIAL THROMBO TIME 37.9 SECONDS (20.8-31.5); INTERNATIONAL NORM RATIO 2.9 (2.0-3.5)
[2018-02-11 10:39] LABS: ALBUMIN 2.9 gm/dl (3.1-4.5); CREATININE 2.75 mg/dL (0.55-1.02); POTASSIUM 4.1 mmol/L (3.5-5.1); TOTAL PROTEIN 6.3 gm/dL (6.4-8.2)
[2018-02-11 11:43] VITALS: BP 150/66
[2018-02-11 16:00] VITALS: BP 160/58
[2018-02-11 19:00] VITALS: BP 160/58
[2018-02-12] VITALS: BP 120/60
[2018-02-12 05:29] LABS: ALBUMIN 2.5 gm/dl (3.1-4.5); CREATININE 2.72 mg/dL (0.55-1.02); PHOSPHOROUS 3.8 mg/dL (2.5-4.9); POTASSIUM 3.9 mmol/L (3.5-5.1); TOTAL PROTEIN 5.7 gm/dL (6.4-8.2)
[2018-02-12 06:11] LABS: BASO % 0.3 % (0.0-1.0); EOS # 0.2 10*3/uL (0.0-0.4); EOS % 4.7 % (1.0-4.0); HEMATOCRIT 30.4 % (37.0-47.0); HEMOGLOBIN 9.9 g/dl (12.0-16.0); LYMPH # 0.7 10*3/uL (1.3-4.4); LYMPH % 19.9 % (27.0-41.0); MEAN CELL VOLUME 98.1 fl (81.0-99.0); MEAN CORPUSCULAR HGB 31.9 pg (27.0-31.0); MEAN CORPUSCULAR HGB CONC 32.6 g/dl (33.0-37.0); MONO # 0.3 10*3/uL (0.1-1.0); MONO % 7.5 % (3.0-9.0); NEUT # 2.4 10*3/uL (2.3-7.9); NEUT % 67.3 % (47.0-73.0); PLATELET COUNT AUTOMATED 52 10*3/uL (130-400); RED CELL DISTRI WIDTH 14.7 % (0-14.5); WHITE BLOOD COUNT 3.6 10*3/uL (4.8-10.8)
[2018-02-12 06:19] LABS: INTERNATIONAL NORM RATIO 3.4 (2.0-3.5)
[2018-02-12 08:00] VITALS: BP 122/50
[2018-02-12 12:00] VITALS: BP 102/48
[2018-02-12 16:00] VITALS: BP 121/52
[2018-02-12 20:00] VITALS: BP 110/50
[2018-02-13] VITALS: BP 124/59
[2018-02-13 06:39] LABS: HEMOGLOBIN 10.3 g/dl (12.0-16.0); MEAN CELL VOLUME 98.1 fl (81.0-99.0); MEAN CORPUSCULAR HGB 32.6 pg (27.0-31.0); MEAN CORPUSCULAR HGB CONC 33.2 g/dl (33.0-37.0); MEAN PLATELET VOLUME 10.2 fl (9.6-12.3); PLATELET COUNT AUTOMATED 54 10*3/uL (130-400); RED BLOOD COUNT 3.16 10*6/uL (4.10-5.10); RED CELL DISTRI WIDTH 14.7 % (0-14.5)
[2018-02-13 06:42] LABS: ALBUMIN 2.3 gm/dl (3.1-4.5); CREATININE 3.22 mg/dL (0.55-1.02); PHOSPHOROUS 3.9 mg/dL (2.5-4.9); POTASSIUM 3.9 mmol/L (3.5-5.1)
[2018-02-13 07:00] LABS: INTERNATIONAL NORM RATIO 3.5 (2.0-3.5)
[2018-02-13 07:04] LABS: TOTAL CELLS COUNTED 100 #CELLS
[2018-02-13 07:05] LABS: PLATELET SUFFICIENCY LOW (NORMAL); POLYCHROMASIA SLIGHT
[2018-02-13 08:00] VITALS: BP 114/40
[2018-02-13 12:00] VITALS: BP 111/48
[2018-02-13 16:00] VITALS: BP 106/64
[2018-02-13 20:00] VITALS: BP 100/64
[2018-02-14] VITALS: BP 125/65
[2018-02-14 05:52] LABS: HEMATOCRIT 30.1 % (37.0-47.0); HEMOGLOBIN 9.9 g/dl (12.0-16.0); MEAN CELL VOLUME 98.4 fl (81.0-99.0); MEAN CORPUSCULAR HGB 32.4 pg (27.0-31.0); MEAN CORPUSCULAR HGB CONC 32.9 g/dl (33.0-37.0); PLATELET COUNT AUTOMATED 52 10*3/uL (130-400); RED BLOOD COUNT 3.06 10*6/uL (4.10-5.10); RED CELL DISTRI WIDTH 14.7 % (0-14.5); WHITE BLOOD COUNT 3.3 10*3/uL (4.8-10.8)
[2018-02-14 06:21] LABS: ATYPICAL LYMPHS 1 % (0-0); PLATELET SUFFICIENCY LOW (NORMAL); TOTAL CELLS COUNTED 100 #CELLS
[2018-02-14 06:25] LABS: INTERNATIONAL NORM RATIO 2.4 (2.0-3.5)
[2018-02-14 06:32] LABS: ALBUMIN 2.4 gm/dl (3.1-4.5); POTASSIUM 3.4 mmol/L (3.5-5.1)
[2018-02-14 06:36] LABS: CREATININE 3.37 mg/dL (0.55-1.02); TOTAL PROTEIN 5.5 gm/dL (6.4-8.2)
[2018-02-14 08:00] VITALS: BP 116/52
[2018-02-14 12:00] VITALS: BP 139/85
[2018-02-14 16:00] VITALS: BP 124/42
[2018-02-14 20:00] VITALS: BP 139/51
[2018-02-15] VITALS: BP 113/48
[2018-02-15 06:21] LABS: BASO % 0.6 % (0.0-1.0); EOS # 0.5 10*3/uL (0.0-0.4); EOS % 14.6 % (1.0-4.0); HEMATOCRIT 32.2 % (37.0-47.0); HEMOGLOBIN 10.4 g/dl (12.0-16.0); LYMPH # 1.6 10*3/uL (1.3-4.4); LYMPH % 43.4 % (27.0-41.0); MEAN CELL VOLUME 97.6 fl (81.0-99.0); MEAN CORPUSCULAR HGB 31.5 pg (27.0-31.0); MEAN CORPUSCULAR HGB CONC 32.3 g/dl (33.0-37.0); MEAN PLATELET VOLUME 10.1 fl (9.6-12.3); MONO # 0.3 10*3/uL (0.1-1.0); MONO % 9.4 % (3.0-9.0); NEUT # 1.2 10*3/uL (2.3-7.9); PLATELET COUNT AUTOMATED 56 10*3/uL (130-400); RED CELL DISTRI WIDTH 14.6 % (0-14.5); WHITE BLOOD COUNT 3.6 10*3/uL (4.8-10.8)
[2018-02-15 06:26] LABS: ALBUMIN 2.4 gm/dl (3.1-4.5); POTASSIUM 3.6 mmol/L (3.5-5.1)
[2018-02-15 06:29] LABS: CREATININE 3.35 mg/dL (0.55-1.02); TOTAL PROTEIN 5.9 gm/dL (6.4-8.2)
[2018-02-15 06:38] LABS: INTERNATIONAL NORM RATIO 2.2 (2.0-3.5)
[2018-02-15 08:00] VITALS: BP 120/42
[2018-02-15 12:00] VITALS: BP 111/43
[2018-02-15 16:00] VITALS: BP 136/44
[2018-02-15 20:00] VITALS: BP 134/41
[2018-02-16] VITALS: BP 133/48
[2018-02-16 06:39] LABS: CREATININE 3.13 mg/dL (0.55-1.02); POTASSIUM 3.3 mmol/L (3.5-5.1)
[2018-02-16 06:59] LABS: INTERNATIONAL NORM RATIO 1.9 (2.0-3.5)
[2018-02-16 08:00] VITALS: BP 140/51
[2018-02-16 12:00] VITALS: BP 149/68
[2018-02-16] MEDS ORDERED: COUMADIN5 M2 PO (12:59)
[2018-02-16] MEDS ORDERED: DOXYCYCLINE100 M3 PO (13:26)
== END 2018-02-16 14:00 | disposition home health service (06) | DRG 871 ==
LOC: ED 09:55 → 4E 18:24
PROVIDERS: Emergency Medicine; Internal Medicine; Internal Medicine Nephrology
DX: A41.9 Sepsis, unspecified organism (principal); I50.33 Acute on chronic diastolic (congestive) heart failure; J18.9 Pneumonia, unspecified organism; E44.0 Moderate protein-calorie malnutrition; D68.59 Other primary thrombophilia; D69.6 Thrombocytopenia, unspecified; D72.1 Eosinophilia; E66.01 Morbid (severe) obesity due to excess calories; N18.4 Chronic kidney disease, stage 4 (severe); I13.0 Hypertensive heart and chronic kidney disease with heart failure and stage 1 through stage 4 chronic kidney disease, or unspecified chronic kidney disease; L97.919 Non-pressure chronic ulcer of unspecified part of right lower leg with unspecified severity; E87.8 Other disorders of electrolyte and fluid balance, not elsewhere classified; D72.810 Lymphocytopenia; M19.90 Unspecified osteoarthritis, unspecified site; I73.9 Peripheral vascular disease, unspecified; Y95 Nosocomial condition; E87.6 Hypokalemia; I25.10 Atherosclerotic heart disease of native coronary artery without angina pectoris; E55.9 Vitamin D deficiency, unspecified; R73.9 Hyperglycemia, unspecified; D64.9 Anemia, unspecified; R04.0 Epistaxis; Z96.653 Presence of artificial knee joint, bilateral; Z68.39 Body mass index [BMI] 39.0-39.9, adult; Z79.899 Other long term (current) drug therapy; Z86.718 Personal history of other venous thrombosis and embolism; Z98.42 Cataract extraction status, left eye; Z98.41 Cataract extraction status, right eye; Z90.710 Acquired absence of both cervix and uterus; I25.2 Old myocardial infarction; Z79.01 Long term (current) use of anticoagulants; Z88.1 Allergy status to other antibiotic agents; Z82.49 Family history of ischemic heart disease and other diseases of the circulatory system; Z83.3 Family history of diabetes mellitus; Z80.8 Family history of malignant neoplasm of other organs or systems

== ENCOUNTER → 2018-02-17 | Outpatient (CLI) | payer MEDICARE ==
[~2018-02-17] MED LIST changes: +COUMADIN0.5 MG PO; +Lasix80 MG PO; +NORVASC2.5 MG PO
== END | disposition home or self-care (01) ==
LOC: WOUNDCARE 00:33
DX: I87.331 Chronic venous hypertension (idiopathic) with ulcer and inflammation of right lower extremity (principal); L97.212 Non-pressure chronic ulcer of right calf with fat layer exposed; I80.291 Phlebitis and thrombophlebitis of other deep vessels of right lower extremity; I89.0 Lymphedema, not elsewhere classified; Z90.710 Acquired absence of both cervix and uterus

== ENCOUNTER → 2018-02-24 | Outpatient (CLI) | payer MEDICARE | END | disposition home or self-care (01) | LOC: WOUNDCARE 01:45 | DX: I87.331 Chronic venous hypertension (idiopathic) with ulcer and inflammation of right lower extremity (principal); L97.212 Non-pressure chronic ulcer of right calf with fat layer exposed; I80.291 Phlebitis and thrombophlebitis of other deep vessels of right lower extremity; I89.0 Lymphedema, not elsewhere classified; Z90.710 Acquired absence of both cervix and uterus ==

== ENCOUNTER → 2018-03-03 | Outpatient (CLI) | payer MEDICARE | END | disposition home or self-care (01) | LOC: WOUNDCARE 01:47 | DX: I87.331 Chronic venous hypertension (idiopathic) with ulcer and inflammation of right lower extremity (principal); L97.212 Non-pressure chronic ulcer of right calf with fat layer exposed; I89.0 Lymphedema, not elsewhere classified; I80.291 Phlebitis and thrombophlebitis of other deep vessels of right lower extremity; Z90.710 Acquired absence of both cervix and uterus ==

== ENCOUNTER 2018-03-04 11:40 | Emergency (ER) | payer MEDICARE ==
[~2018-03-04] VITALS: Wt 94.8 kg
[2018-03-04 11:48] VITALS: BP 127/67
== END 2018-03-04 13:26 | disposition home or self-care (01) ==
LOC: ED 11:40
DX: S86.912A Strain of unspecified muscle(s) and tendon(s) at lower leg level, left leg, initial encounter (principal); I25.10 Atherosclerotic heart disease of native coronary artery without angina pectoris; I13.0 Hypertensive heart and chronic kidney disease with heart failure and stage 1 through stage 4 chronic kidney disease, or unspecified chronic kidney disease; N18.4 Chronic kidney disease, stage 4 (severe); I50.9 Heart failure, unspecified; I25.2 Old myocardial infarction; E66.01 Morbid (severe) obesity due to excess calories; M19.90 Unspecified osteoarthritis, unspecified site; Z96.653 Presence of artificial knee joint, bilateral; Z86.718 Personal history of other venous thrombosis and embolism; Z98.890 Other specified postprocedural states; Z79.899 Other long term (current) drug therapy; Z88.1 Allergy status to other antibiotic agents; Z79.01 Long term (current) use of anticoagulants; X58.XXXA Exposure to other specified factors, initial encounter; Y93.89 Activity, other specified; Y92.89 Other specified places as the place of occurrence of the external cause; Y99.9 Unspecified external cause status

== ENCOUNTER → 2018-03-12 | Outpatient (CLI) | payer MEDICARE | END | disposition home or self-care (01) | LOC: WOUNDCARE 02:02 | DX: I87.331 Chronic venous hypertension (idiopathic) with ulcer and inflammation of right lower extremity (principal); L97.212 Non-pressure chronic ulcer of right calf with fat layer exposed; I80.291 Phlebitis and thrombophlebitis of other deep vessels of right lower extremity; I89.0 Lymphedema, not elsewhere classified; I10 Essential (primary) hypertension; Z90.710 Acquired absence of both cervix and uterus ==

== ENCOUNTER → 2018-04-14 | Outpatient (CLI) | payer MEDICARE | END | disposition home or self-care (01) | LOC: WOUNDCARE 01:29 | DX: I87.331 Chronic venous hypertension (idiopathic) with ulcer and inflammation of right lower extremity (principal); I80.291 Phlebitis and thrombophlebitis of other deep vessels of right lower extremity; L97.212 Non-pressure chronic ulcer of right calf with fat layer exposed; L97.828 Non-pressure chronic ulcer of other part of left lower leg with other specified severity; Z90.710 Acquired absence of both cervix and uterus ==

== ENCOUNTER → 2018-04-21 | Outpatient (CLI) | payer MEDICARE | END | disposition home or self-care (01) | LOC: WOUNDCARE 00:29 | DX: I87.331 Chronic venous hypertension (idiopathic) with ulcer and inflammation of right lower extremity (principal); L97.212 Non-pressure chronic ulcer of right calf with fat layer exposed; I80.291 Phlebitis and thrombophlebitis of other deep vessels of right lower extremity; I89.0 Lymphedema, not elsewhere classified; Z90.710 Acquired absence of both cervix and uterus ==

== ENCOUNTER → 2018-04-28 | Outpatient (CLI) | payer MEDICARE | END | disposition home or self-care (01) | LOC: WOUNDCARE 03:43 | DX: I87.331 Chronic venous hypertension (idiopathic) with ulcer and inflammation of right lower extremity (principal); L97.212 Non-pressure chronic ulcer of right calf with fat layer exposed; I80.291 Phlebitis and thrombophlebitis of other deep vessels of right lower extremity; I89.0 Lymphedema, not elsewhere classified; Z90.710 Acquired absence of both cervix and uterus; Z96.653 Presence of artificial knee joint, bilateral ==

== ENCOUNTER → 2018-05-05 | Outpatient (CLI) | payer MEDICARE ==
[~2018-05-05] MED LIST changes: +AUGMENTIN 875875 MG PO
== END | disposition home or self-care (01) ==
LOC: WOUNDCARE 03:14
DX: I87.331 Chronic venous hypertension (idiopathic) with ulcer and inflammation of right lower extremity (principal); L97.212 Non-pressure chronic ulcer of right calf with fat layer exposed; L97.828 Non-pressure chronic ulcer of other part of left lower leg with other specified severity; I80.291 Phlebitis and thrombophlebitis of other deep vessels of right lower extremity; I89.0 Lymphedema, not elsewhere classified; Z90.710 Acquired absence of both cervix and uterus

== ENCOUNTER → 2018-05-11 | Outpatient (CLI) | payer MEDICARE | END | disposition home or self-care (01) | LOC: WOUNDCARE 03:19 | DX: I87.331 Chronic venous hypertension (idiopathic) with ulcer and inflammation of right lower extremity (principal); L97.212 Non-pressure chronic ulcer of right calf with fat layer exposed; I80.291 Phlebitis and thrombophlebitis of other deep vessels of right lower extremity; I89.0 Lymphedema, not elsewhere classified; Z90.710 Acquired absence of both cervix and uterus ==

== ENCOUNTER → 2018-05-19 | Outpatient (CLI) | payer MEDICARE ==
[2018-05-19 12:35] LABS: BILIRUBIN NEGATIVE (NEGATIVE); BLOOD 1+ (NEGATIVE); CLARITY CLOUDY (CLEAR); COLOR YELLOW (YELLOW); GLUCOSE NEGATIVE (NEGATIVE); KETONE NEGATIVE (NEGATIVE); LEUKO ESTERASE 3+ (NEGATIVE); NITRITE NEGATIVE (NEGATIVE); UROBILINOGEN 0.2 E.U./dl (0.2-1.0)
[2018-05-19 12:40] LABS: URINE CREATININE RANDOM 87.1 mg/dL
[2018-05-19 12:42] LABS: BASO % 0.4 % (0.0-1.0); EOS # 0.3 10*3/uL (0.0-0.4); EOS % 3.8 % (1.0-4.0); HEMATOCRIT 35.1 % (37.0-47.0); HEMOGLOBIN 11.3 g/dl (12.0-16.0); LYMPH # 3.9 10*3/uL (1.3-4.4); LYMPH % 48.3 % (27.0-41.0); MEAN CELL VOLUME 95.9 fl (81.0-99.0); MEAN CORPUSCULAR HGB 30.9 pg (27.0-31.0); MEAN CORPUSCULAR HGB CONC 32.2 g/dl (33.0-37.0); MEAN PLATELET VOLUME 9.9 fl (9.6-12.3); MONO # 0.6 10*3/uL (0.1-1.0); MONO % 7.2 % (3.0-9.0); NEUT # 3.3 10*3/uL (2.3-7.9); NEUT % 40.2 % (47.0-73.0); PLATELET COUNT AUTOMATED 110 10*3/uL (130-400); RED BLOOD COUNT 3.66 10*6/uL (4.10-5.10); WHITE BLOOD COUNT 8.1 10*3/uL (4.8-10.8)
[2018-05-19 13:04] LABS: ALBUMIN 3.1 gm/dl (3.1-4.5); CREATININE 2.7 mg/dL (0.55-1.02); PHOSPHOROUS 3.5 mg/dL (2.5-4.9); POTASSIUM 3.6 mmol/L (3.5-5.1)
[2018-05-19 13:20] LABS: FERRITIN 202.7 ng/mL (10.0-291.0); VITAMIN D, 25-HYDROXY 27.2 ng/mL (30-100)
[2018-05-19 13:21] LABS: PTH INTACT 204.4 pg/mL (18.5-88.0)
[2018-05-19 13:48] LABS: BACTERIA 2+; EPITHELIAL CELLS TNTC; RBC 16-20 rbc/hpf (0-2); WBC TNTC wbc/hpf (0-5)
== END | disposition home or self-care (01) ==
LOC: WOUNDCARE 04:24 → LAB 04:24 → WOUNDCARE 14:12
PROVIDERS: Internal Medicine Nephrology
DX: I12.9 Hypertensive chronic kidney disease with stage 1 through stage 4 chronic kidney disease, or unspecified chronic kidney disease (principal); N18.4 Chronic kidney disease, stage 4 (severe); I51.7 Cardiomegaly; J84.10 Pulmonary fibrosis, unspecified; D63.1 Anemia in chronic kidney disease; N25.81 Secondary hyperparathyroidism of renal origin; E55.9 Vitamin D deficiency, unspecified; R06.02 Shortness of breath; Z79.899 Other long term (current) drug therapy

== ENCOUNTER → 2018-05-26 | Outpatient (CLI) | payer MEDICARE | END | disposition home or self-care (01) | LOC: WOUNDCARE 02:06 | DX: I87.331 Chronic venous hypertension (idiopathic) with ulcer and inflammation of right lower extremity (principal); L97.212 Non-pressure chronic ulcer of right calf with fat layer exposed; L97.222 Non-pressure chronic ulcer of left calf with fat layer exposed; I80.291 Phlebitis and thrombophlebitis of other deep vessels of right lower extremity; I89.0 Lymphedema, not elsewhere classified; Z90.710 Acquired absence of both cervix and uterus; Z96.653 Presence of artificial knee joint, bilateral ==

== ENCOUNTER → 2018-06-02 | Outpatient (CLI) | payer MEDICARE | END | disposition home or self-care (01) | LOC: WOUNDCARE 03:37 | DX: I87.331 Chronic venous hypertension (idiopathic) with ulcer and inflammation of right lower extremity (principal); L97.212 Non-pressure chronic ulcer of right calf with fat layer exposed; L97.222 Non-pressure chronic ulcer of left calf with fat layer exposed; I80.291 Phlebitis and thrombophlebitis of other deep vessels of right lower extremity; I89.0 Lymphedema, not elsewhere classified; I73.9 Peripheral vascular disease, unspecified; Z90.710 Acquired absence of both cervix and uterus; Z96.653 Presence of artificial knee joint, bilateral ==

== ENCOUNTER 2018-06-07 18:53 | Inpatient (IN) | payer MEDICARE ==
[~2018-06-07] VITALS: Ht 170.1 cm; Wt 94.1 kg
[2018-06-07] VITALS (7 sets, daily range): BP systolic 125–198; BP diastolic 47–92
--- NOTE | ~2018-06-07 | PR ---
[place], [place] PROGRESS NOTE NAME: DEEPTI BEST [facility] #: [id number] UNIT #: [id number] ROOM: 424 DOCTOR: JOSE ROBERTO MURCIA MD BIRTHDATE: [birth year] DOS: 06/09/2018 I saw the patient with Internal Medicine resident, Dr. Richy Yates on 06/09/2018. I independently confirmed appropriate portions of the history and examination. I discussed my findings with the patient and Dr. Yates, I agree with Dr. Yates's comments as listed on 06/09/2018. She presented with a urinary tract infection and elevated troponins due to a type 2 myocardial injury. Clinically, she is doing well with appropriate therapy of her infection. No other invasive or advanced cardiac diagnostics or therapeutics are planned at this time. [facility] and I thank the hospitalist physicians for asking our advice regarding her care. JOSE ROBERTO MURCIA MD CM:PNTRANS [phone] JOSE ROBERTO MURCIA MD 06/11/18 0616 interface
--- NOTE | ~2018-06-07 | EKG ---
[place], [place] ELECTROCARDIOGRAM REPORT NAME: DEEPTI BEST UNIT #: [id number] ROOM: 424 DOCTOR: JALYN DRAFT REPORT BIRTHDATE: [birth year] [facility] Test Date: 2018-06-07 Test Time: 19:51:00 Pat Name: DEEPTI BEST Department: Room: 424 Gender: F Fiberglass Container Winding Operator: Lashell Johnson : 1935 Requested By: FRED LOWE Order Number: [id number] Reading MD: Gio Parker MD Measurements Intervals [place] Rate: 84 P: 38 UT: 181 QRS: 24 QRSD: 151 T: -13 QT: 386 QTc: 457 Interpretive Statements Sinus rhythm Right bundle branch block Electronically Signed On 06-08-2018 20:35:17 PDT by Gio Parker MD CM:EKGRPT:ELECTROCARDIOGRAM REPORT 50 34 FRED PRADHAN DRAFT REPORT FRED LOWE DO
[~2018-06-07 18:53] MED LIST changes: -AUGMENTIN 875875 MG PO
[2018-06-07 20:01] LABS: BASO % 0.2 % (0.0-1.0); EOS # 0.2 10*3/uL (0.0-0.4); EOS % 1.9 % (1.0-4.0); HEMOGLOBIN 12.3 g/dl (12.0-16.0); LYMPH # 2.4 10*3/uL (1.3-4.4); LYMPH % 21.3 % (27.0-41.0); MEAN CELL VOLUME 94.6 fl (81.0-99.0); MEAN CORPUSCULAR HGB 31.5 pg (27.0-31.0); MEAN CORPUSCULAR HGB CONC 33.2 g/dl (33.0-37.0); MONO # 0.4 10*3/uL (0.1-1.0); NEUT % 72.3 % (47.0-73.0); PLATELET COUNT AUTOMATED 126 10*3/uL (130-400); RED BLOOD COUNT 3.91 10*6/uL (4.10-5.10); RED CELL DISTRI WIDTH 14.9 % (0-14.5); WHITE BLOOD COUNT 11.1 10*3/uL (4.8-10.8)
[2018-06-07 20:39] LABS: ACT PARTIAL THROMBO TIME 33.9 SECONDS (20.8-31.5); INTERNATIONAL NORM RATIO 1.9 (2.0-3.5)
[2018-06-07 20:41] LABS: BILIRUBIN NEGATIVE (NEGATIVE); BLOOD TRACE-INTACT (NEGATIVE); CLARITY SL CLOUDY (CLEAR); COLOR YELLOW (YELLOW); GLUCOSE NEGATIVE (NEGATIVE); KETONE NEGATIVE (NEGATIVE); LEUKO ESTERASE 2+ (NEGATIVE); NITRITE NEGATIVE (NEGATIVE); UROBILINOGEN 0.2 E.U./dl (0.2-1.0)
[2018-06-07 20:47] LABS: BACTERIA 2+; WBC TNTC wbc/hpf (0-5)
[2018-06-07 21:44] LABS: ALBUMIN 3.1 gm/dl (3.1-4.5); CREATININE 2.84 mg/dL (0.55-1.02); POTASSIUM 3.7 mmol/L (3.5-5.1); TOTAL PROTEIN 6.9 gm/dL (6.4-8.2)
[2018-06-07 21:46] LABS: TROPONIN I 0.139 ng/ml (<0.045)
[2018-06-08 04:00] VITALS: BP 111/42
[2018-06-08 05:35] LABS: INTERNATIONAL NORM RATIO 1.9 (2.0-3.5)
[2018-06-08 05:53] LABS: BASO % 0.2 % (0.0-1.0); CREATININE 2.75 mg/dL (0.55-1.02); EOS % 0.3 % (1.0-4.0); FREE T4 0.97 ng/dl (0.76-1.46); HEMATOCRIT 33.6 % (37.0-47.0); LYMPH # 3.6 10*3/uL (1.3-4.4); LYMPH % 30.8 % (27.0-41.0); MEAN CELL VOLUME 95.5 fl (81.0-99.0); MEAN CORPUSCULAR HGB 31.3 pg (27.0-31.0); MEAN CORPUSCULAR HGB CONC 32.7 g/dl (33.0-37.0); MEAN PLATELET VOLUME 10.1 fl (9.6-12.3); MONO # 0.4 10*3/uL (0.1-1.0); MONO % 3.7 % (3.0-9.0); NEUT # 7.5 10*3/uL (2.3-7.9); NEUT % 64.8 % (47.0-73.0); PHOSPHOROUS 3.7 mg/dL (2.5-4.9); PLATELET COUNT AUTOMATED 104 10*3/uL (130-400); POTASSIUM 3.7 mmol/L (3.5-5.1); RED BLOOD COUNT 3.52 10*6/uL (4.10-5.10); RED CELL DISTRI WIDTH 14.9 % (0-14.5); WHITE BLOOD COUNT 11.5 10*3/uL (4.8-10.8)
[2018-06-08 06:00] LABS: THYROID STIM HORMONE (HS) 1.61 uIU/ml (0.358-4.75)
[2018-06-08 08:00] VITALS: BP 130/50
[2018-06-08 12:00] VITALS: BP 139/51
[2018-06-08 16:00] VITALS: BP 151/58
[2018-06-08 20:00] VITALS: BP 140/54
[2018-06-09] VITALS: BP 155/64
[2018-06-09 06:05] LABS: CREATININE 2.57 mg/dL (0.55-1.02); POTASSIUM 3.5 mmol/L (3.5-5.1)
[2018-06-09 06:22] LABS: BASO % 0.5 % (0.0-1.0); EOS # 0.3 10*3/uL (0.0-0.4); EOS % 5.3 % (1.0-4.0); HEMATOCRIT 31.7 % (37.0-47.0); HEMOGLOBIN 10.3 g/dl (12.0-16.0); LYMPH % 33.3 % (27.0-41.0); MEAN CELL VOLUME 96.6 fl (81.0-99.0); MEAN CORPUSCULAR HGB 31.4 pg (27.0-31.0); MEAN CORPUSCULAR HGB CONC 32.5 g/dl (33.0-37.0); MONO # 0.3 10*3/uL (0.1-1.0); MONO % 5.4 % (3.0-9.0); NEUT # 3.3 10*3/uL (2.3-7.9); NEUT % 55.2 % (47.0-73.0); PLATELET COUNT AUTOMATED 97 10*3/uL (130-400); RED BLOOD COUNT 3.28 10*6/uL (4.10-5.10); RED CELL DISTRI WIDTH 15.3 % (0-14.5); WHITE BLOOD COUNT 6.1 10*3/uL (4.8-10.8)
[2018-06-09 06:31] LABS: INTERNATIONAL NORM RATIO 2.1 (2.0-3.5)
[2018-06-09 06:49] LABS: TROPONIN I 0.225 ng/ml (<0.045)
[2018-06-09 12:00] VITALS: BP 145/63
[2018-06-09 16:00] VITALS: BP 152/64
[2018-06-09 20:00] VITALS: BP 162/65
[2018-06-10] VITALS: BP 123/50
[2018-06-10 07:07] LABS: BASO % 0.2 % (0.0-1.0); EOS # 0.4 10*3/uL (0.0-0.4); HEMATOCRIT 31.4 % (37.0-47.0); HEMOGLOBIN 10.2 g/dl (12.0-16.0); LYMPH # 1.8 10*3/uL (1.3-4.4); MEAN CELL VOLUME 97.2 fl (81.0-99.0); MEAN CORPUSCULAR HGB 31.6 pg (27.0-31.0); MEAN CORPUSCULAR HGB CONC 32.5 g/dl (33.0-37.0); MEAN PLATELET VOLUME 9.6 fl (9.6-12.3); MONO # 0.3 10*3/uL (0.1-1.0); MONO % 5.7 % (3.0-9.0); NEUT # 2.8 10*3/uL (2.3-7.9); NEUT % 52.9 % (47.0-73.0); PLATELET COUNT AUTOMATED 106 10*3/uL (130-400); RED BLOOD COUNT 3.23 10*6/uL (4.10-5.10); RED CELL DISTRI WIDTH 15.2 % (0-14.5); WHITE BLOOD COUNT 5.3 10*3/uL (4.8-10.8)
[2018-06-10 07:13] LABS: INTERNATIONAL NORM RATIO 1.9 (2.0-3.5)
[2018-06-10 07:17] LABS: CREATININE 2.59 mg/dL (0.55-1.02); POTASSIUM 3.7 mmol/L (3.5-5.1)
[2018-06-10 08:00] VITALS: BP 110/52
[2018-06-10] MEDS ORDERED: AUGMENTIN 875875 MG PO (11:50)
[2018-06-10 12:00] VITALS: BP 105/53
[2018-06-20] MEDS ORDERED: MACROBID100 M1 PO (12:27)
== END 2018-06-10 13:49 | disposition home or self-care (01) | DRG 853 ==
LOC: ED 18:53 → ICCU 21:51 → 4E 21:51 → EDHOLD 21:51 → ICCU 22:08 → 4E 06-08 13:23
PROVIDERS: Internal Medicine; Student in an Organized Health Care Education/Training Program
PROC: 0JBP0ZZ Excision of Left Lower Leg Subcutaneous Tissue and Fascia, Open Approach (ICD-10-PCS; principal; 2018-06-09)
DX: A41.9 Sepsis, unspecified organism (principal); G93.41 Metabolic encephalopathy; I21.4 Non-ST elevation (NSTEMI) myocardial infarction; E44.0 Moderate protein-calorie malnutrition; D69.6 Thrombocytopenia, unspecified; E87.8 Other disorders of electrolyte and fluid balance, not elsewhere classified; N18.4 Chronic kidney disease, stage 4 (severe); I50.32 Chronic diastolic (congestive) heart failure; E66.01 Morbid (severe) obesity due to excess calories; E83.51 Hypocalcemia; I13.0 Hypertensive heart and chronic kidney disease with heart failure and stage 1 through stage 4 chronic kidney disease, or unspecified chronic kidney disease; I21.9 Acute myocardial infarction, unspecified; N39.0 Urinary tract infection, site not specified; I16.1 Hypertensive emergency; I24.8 Other forms of acute ischemic heart disease; D64.9 Anemia, unspecified; I35.0 Nonrheumatic aortic (valve) stenosis; M19.90 Unspecified osteoarthritis, unspecified site; R65.20 Severe sepsis without septic shock; I87.2 Venous insufficiency (chronic) (peripheral); R79.1 Abnormal coagulation profile; Z96.653 Presence of artificial knee joint, bilateral; I73.9 Peripheral vascular disease, unspecified; I25.10 Atherosclerotic heart disease of native coronary artery without angina pectoris; I25.2 Old myocardial infarction; Z98.42 Cataract extraction status, left eye; Z98.41 Cataract extraction status, right eye; Z90.710 Acquired absence of both cervix and uterus; Z83.79 Family history of other diseases of the digestive system; Z86.718 Personal history of other venous thrombosis and embolism; Z88.1 Allergy status to other antibiotic agents; Z79.899 Other long term (current) drug therapy; Z79.82 Long term (current) use of aspirin; Z68.32 Body mass index [BMI] 32.0-32.9, adult

== ENCOUNTER → 2018-06-11 | Outpatient (CLI) | payer MEDICARE ==
[~2018-06-11] MED LIST changes: +AUGMENTIN 875875 MG PO
== END | disposition home or self-care (01) ==
LOC: WOUNDCARE 06-09 10:47
DX: I87.333 Chronic venous hypertension (idiopathic) with ulcer and inflammation of bilateral lower extremity (principal); L97.212 Non-pressure chronic ulcer of right calf with fat layer exposed; L97.222 Non-pressure chronic ulcer of left calf with fat layer exposed; I80.291 Phlebitis and thrombophlebitis of other deep vessels of right lower extremity; I89.0 Lymphedema, not elsewhere classified

== ENCOUNTER → 2018-07-21 | Outpatient (CLI) | payer MEDICARE | END | disposition home or self-care (01) | LOC: WOUNDCARE 04:18 | DX: I87.331 Chronic venous hypertension (idiopathic) with ulcer and inflammation of right lower extremity (principal); L97.212 Non-pressure chronic ulcer of right calf with fat layer exposed; I80.291 Phlebitis and thrombophlebitis of other deep vessels of right lower extremity; L97.222 Non-pressure chronic ulcer of left calf with fat layer exposed; I89.0 Lymphedema, not elsewhere classified ==

== ENCOUNTER → 2018-07-28 | Outpatient (CLI) | payer MEDICARE | END | disposition home or self-care (01) | LOC: WOUNDCARE 00:41 | DX: I87.331 Chronic venous hypertension (idiopathic) with ulcer and inflammation of right lower extremity (principal); L97.212 Non-pressure chronic ulcer of right calf with fat layer exposed; L97.222 Non-pressure chronic ulcer of left calf with fat layer exposed; I80.291 Phlebitis and thrombophlebitis of other deep vessels of right lower extremity; I89.0 Lymphedema, not elsewhere classified ==

== ENCOUNTER → 2018-08-02 | Outpatient (CLI) | payer MEDICARE | END | disposition home or self-care (01) | LOC: WOUNDCARE 09:48 | DX: I87.331 Chronic venous hypertension (idiopathic) with ulcer and inflammation of right lower extremity (principal); L97.212 Non-pressure chronic ulcer of right calf with fat layer exposed; L97.222 Non-pressure chronic ulcer of left calf with fat layer exposed; I80.291 Phlebitis and thrombophlebitis of other deep vessels of right lower extremity; I89.0 Lymphedema, not elsewhere classified ==

== ENCOUNTER → 2018-08-11 | Outpatient (CLI) | payer MEDICARE | END | disposition home or self-care (01) | LOC: WOUNDCARE 01:20 | DX: I87.331 Chronic venous hypertension (idiopathic) with ulcer and inflammation of right lower extremity (principal); L97.212 Non-pressure chronic ulcer of right calf with fat layer exposed; L97.222 Non-pressure chronic ulcer of left calf with fat layer exposed; I80.291 Phlebitis and thrombophlebitis of other deep vessels of right lower extremity; I89.0 Lymphedema, not elsewhere classified ==

== ENCOUNTER → 2018-08-18 | Outpatient (CLI) | payer MEDICARE | END | disposition home or self-care (01) | LOC: WOUNDCARE 01:30 | DX: I87.331 Chronic venous hypertension (idiopathic) with ulcer and inflammation of right lower extremity (principal); L97.212 Non-pressure chronic ulcer of right calf with fat layer exposed; L97.222 Non-pressure chronic ulcer of left calf with fat layer exposed; I80.291 Phlebitis and thrombophlebitis of other deep vessels of right lower extremity; I89.0 Lymphedema, not elsewhere classified ==

== ENCOUNTER → 2018-08-25 | Outpatient (CLI) | payer MEDICARE | END | disposition home or self-care (01) | LOC: WOUNDCARE 04:27 | DX: I87.333 Chronic venous hypertension (idiopathic) with ulcer and inflammation of bilateral lower extremity (principal); L97.212 Non-pressure chronic ulcer of right calf with fat layer exposed; L97.222 Non-pressure chronic ulcer of left calf with fat layer exposed; I80.291 Phlebitis and thrombophlebitis of other deep vessels of right lower extremity; I89.0 Lymphedema, not elsewhere classified ==

== ENCOUNTER → 2018-09-08 | Outpatient (CLI) | payer MEDICARE | END | disposition home or self-care (01) | LOC: WOUNDCARE 04:32 | DX: I87.331 Chronic venous hypertension (idiopathic) with ulcer and inflammation of right lower extremity (principal); L97.222 Non-pressure chronic ulcer of left calf with fat layer exposed; L97.212 Non-pressure chronic ulcer of right calf with fat layer exposed; I80.291 Phlebitis and thrombophlebitis of other deep vessels of right lower extremity; I89.0 Lymphedema, not elsewhere classified; N28.9 Disorder of kidney and ureter, unspecified ==

== ENCOUNTER → 2018-09-15 | Outpatient (CLI) | payer MEDICARE ==
[2018-09-15 12:26] LABS: BASO % 0.4 % (0.0-1.0); EOS # 0.2 10*3/uL (0.0-0.4); EOS % 2.1 % (1.0-4.0); HEMATOCRIT 31.2 % (37.0-47.0); HEMOGLOBIN 10.5 g/dl (12.0-16.0); LYMPH # 2.7 10*3/uL (1.3-4.4); LYMPH % 37.6 % (27.0-41.0); MEAN CELL VOLUME 96.3 fl (81.0-99.0); MEAN CORPUSCULAR HGB 32.4 pg (27.0-31.0); MEAN CORPUSCULAR HGB CONC 33.7 g/dl (33.0-37.0); MEAN PLATELET VOLUME 9.5 fl (9.6-12.3); MONO # 0.5 10*3/uL (0.1-1.0); MONO % 6.9 % (3.0-9.0); NEUT # 3.8 10*3/uL (2.3-7.9); NEUT % 52.9 % (47.0-73.0); PLATELET COUNT AUTOMATED 128 10*3/uL (130-400); RED BLOOD COUNT 3.24 10*6/uL (4.10-5.10); RED CELL DISTRI WIDTH 15.2 % (0-14.5); WHITE BLOOD COUNT 7.1 10*3/uL (4.8-10.8)
[2018-09-15 12:37] LABS: ALBUMIN 2.8 gm/dl (3.1-4.5); CREATININE 2.77 mg/dL (0.55-1.02); PHOSPHOROUS 3.8 mg/dL (2.5-4.9); POTASSIUM 3.9 mmol/L (3.5-5.1)
[2018-09-15 13:10] LABS: FERRITIN 152.4 ng/mL (10.0-291.0); VITAMIN D, 25-HYDROXY 30.4 ng/mL (30-100)
[2018-09-15 13:11] LABS: PTH INTACT 184.3 pg/mL (18.5-88.0)
== END | disposition home or self-care (01) ==
LOC: LAB 11:13 → WOUNDCARE 11:13
PROVIDERS: Internal Medicine Nephrology
DX: I87.333 Chronic venous hypertension (idiopathic) with ulcer and inflammation of bilateral lower extremity (principal); L97.212 Non-pressure chronic ulcer of right calf with fat layer exposed; L97.222 Non-pressure chronic ulcer of left calf with fat layer exposed; I80.291 Phlebitis and thrombophlebitis of other deep vessels of right lower extremity; I89.0 Lymphedema, not elsewhere classified; N18.4 Chronic kidney disease, stage 4 (severe)

== ENCOUNTER → 2018-09-16 | Outpatient (CLI) | payer MEDICARE ==
[2018-09-16 12:04] LABS: BILIRUBIN NEGATIVE (NEGATIVE); BLOOD NEGATIVE (NEGATIVE); CLARITY SL CLOUDY (CLEAR); COLOR YELLOW (YELLOW); GLUCOSE NEGATIVE (NEGATIVE); KETONE NEGATIVE (NEGATIVE); LEUKO ESTERASE TRACE (NEGATIVE); NITRITE NEGATIVE (NEGATIVE); SPECIFIC GRAVITY <= 1.005 (1.005-1.030); UROBILINOGEN 0.2 E.U./dl (0.2-1.0)
[2018-09-16 12:14] LABS: BACTERIA TRACE; URINE CREATININE RANDOM 33.9 mg/dL; WBC 16-20 wbc/hpf (0-5)
== END | disposition home or self-care (01) ==
LOC: LAB 10:48
PROVIDERS: Internal Medicine Nephrology
DX: E55.9 Vitamin D deficiency, unspecified (principal); N18.4 Chronic kidney disease, stage 4 (severe); D63.1 Anemia in chronic kidney disease; N25.81 Secondary hyperparathyroidism of renal origin; Z79.899 Other long term (current) drug therapy

== ENCOUNTER → 2018-09-29 | Outpatient (CLI) | payer MEDICARE | END | disposition home or self-care (01) | LOC: WOUNDCARE 02:59 | DX: I87.313 Chronic venous hypertension (idiopathic) with ulcer of bilateral lower extremity (principal); L97.212 Non-pressure chronic ulcer of right calf with fat layer exposed; L97.222 Non-pressure chronic ulcer of left calf with fat layer exposed; I80.291 Phlebitis and thrombophlebitis of other deep vessels of right lower extremity; I89.0 Lymphedema, not elsewhere classified ==

== ENCOUNTER → 2018-10-06 | Outpatient (CLI) | payer MEDICARE | END | disposition home or self-care (01) | LOC: WOUNDCARE 04:45 | DX: I87.333 Chronic venous hypertension (idiopathic) with ulcer and inflammation of bilateral lower extremity (principal); L97.222 Non-pressure chronic ulcer of left calf with fat layer exposed; L97.212 Non-pressure chronic ulcer of right calf with fat layer exposed; I89.0 Lymphedema, not elsewhere classified ==

== ENCOUNTER → 2018-10-14 | Outpatient (CLI) | payer MEDICARE | END | disposition home or self-care (01) | LOC: WOUNDCARE 04:14 | DX: I87.333 Chronic venous hypertension (idiopathic) with ulcer and inflammation of bilateral lower extremity (principal); L97.212 Non-pressure chronic ulcer of right calf with fat layer exposed; L97.222 Non-pressure chronic ulcer of left calf with fat layer exposed; I89.0 Lymphedema, not elsewhere classified ==

== ENCOUNTER → 2018-10-20 | Outpatient (CLI) | payer MEDICARE | END | disposition home or self-care (01) | LOC: WOUNDCARE 02:32 | DX: I87.333 Chronic venous hypertension (idiopathic) with ulcer and inflammation of bilateral lower extremity (principal); L97.222 Non-pressure chronic ulcer of left calf with fat layer exposed; L97.212 Non-pressure chronic ulcer of right calf with fat layer exposed; I89.0 Lymphedema, not elsewhere classified; I10 Essential (primary) hypertension; I73.9 Peripheral vascular disease, unspecified ==

== ENCOUNTER → 2018-10-27 | Outpatient (CLI) | payer MEDICARE | END | disposition home or self-care (01) | LOC: WOUNDCARE 02:22 | DX: I87.331 Chronic venous hypertension (idiopathic) with ulcer and inflammation of right lower extremity (principal); L97.212 Non-pressure chronic ulcer of right calf with fat layer exposed; L97.222 Non-pressure chronic ulcer of left calf with fat layer exposed; I10 Essential (primary) hypertension; I89.0 Lymphedema, not elsewhere classified ==

== ENCOUNTER → 2018-11-03 | Outpatient (CLI) | payer MEDICARE ==
[~2018-11-03] MED LIST changes: +AMOXICILLIN500 M3 PO; +BUMETANIDE2 MG PO; +VITAMIN B-650 M1 PO; +VITAMIN D-32000 UNI1 PO
== END | disposition home or self-care (01) ==
LOC: WOUNDCARE 11:23
DX: I87.333 Chronic venous hypertension (idiopathic) with ulcer and inflammation of bilateral lower extremity (principal); L97.212 Non-pressure chronic ulcer of right calf with fat layer exposed; L97.222 Non-pressure chronic ulcer of left calf with fat layer exposed; I89.0 Lymphedema, not elsewhere classified

== ENCOUNTER → 2018-11-10 | Outpatient (CLI) | payer MEDICARE ==
[~2018-11-10] MED LIST changes: +AMITRIPTYLINE10 MG PO; +CARVEDILOL6.25 MG PO; +CELEXA10 MG PO; +CELEXA20 MG PO; +Coumadin5 MG PO; +EFFER-K20 MEQ PO; +FERROUS SULFAT325 MG PO; +K-TAB20 MEQ PO; +KEFLEX250 MG PO; +OMEPRAZOLE D/R20 MG PO; +POTASSIUM CHLO20 ME3 PO; +SODIUM BICARBO325 M1 PO; +VIBRAMYCIN100 MG PO; +Zaroxolyn,Diul2.5 MG PO; +[UNRECOGNIZED DRUG - OTHER] PO
== END | disposition home or self-care (01) ==
LOC: WOUNDCARE 01:46
DX: I87.333 Chronic venous hypertension (idiopathic) with ulcer and inflammation of bilateral lower extremity (principal); L97.212 Non-pressure chronic ulcer of right calf with fat layer exposed; L97.222 Non-pressure chronic ulcer of left calf with fat layer exposed; I89.0 Lymphedema, not elsewhere classified; I73.9 Peripheral vascular disease, unspecified

== ENCOUNTER → 2018-11-17 | Outpatient (CLI) | payer MEDICARE ==
[~2018-11-17] MED LIST changes: -AMITRIPTYLINE10 MG PO; -CARVEDILOL6.25 MG PO; -CELEXA10 MG PO; -CELEXA20 MG PO; -Coumadin5 MG PO; -EFFER-K20 MEQ PO; -FERROUS SULFAT325 MG PO; -K-TAB20 MEQ PO; -KEFLEX250 MG PO; -OMEPRAZOLE D/R20 MG PO; -POTASSIUM CHLO20 ME3 PO; -SODIUM BICARBO325 M1 PO; -VIBRAMYCIN100 MG PO; -Zaroxolyn,Diul2.5 MG PO; -[UNRECOGNIZED DRUG - OTHER] PO
[2018-11-17 12:55] LABS: BASO % 0.1 % (0.0-1.0); EOS # 0.1 10*3/uL (0.0-0.4); EOS % 1.4 % (1.0-4.0); HEMATOCRIT 30.1 % (37.0-47.0); HEMOGLOBIN 10.3 g/dl (12.0-16.0); LYMPH # 2.5 10*3/uL (1.3-4.4); LYMPH % 25.9 % (27.0-41.0); MEAN CELL VOLUME 94.7 fl (81.0-99.0); MEAN CORPUSCULAR HGB 32.4 pg (27.0-31.0); MEAN CORPUSCULAR HGB CONC 34.2 g/dl (33.0-37.0); MEAN PLATELET VOLUME 9.1 fl (9.6-12.3); MONO # 0.7 10*3/uL (0.1-1.0); NEUT # 6.3 10*3/uL (2.3-7.9); NEUT % 65.1 % (47.0-73.0); PLATELET COUNT AUTOMATED 165 10*3/uL (130-400); RED BLOOD COUNT 3.18 10*6/uL (4.10-5.10); RED CELL DISTRI WIDTH 14.6 % (0-14.5); WHITE BLOOD COUNT 9.7 10*3/uL (4.8-10.8)
[2018-11-17 13:16] LABS: ALBUMIN 2.9 gm/dl (3.1-4.5); CREATININE 3.58 mg/dL (0.55-1.02); PHOSPHOROUS 5.1 mg/dL (2.5-4.9); POTASSIUM 3.3 mmol/L (3.5-5.1)
== END | disposition home or self-care (01) ==
LOC: WOUNDCARE 05:04 → LAB 05:04 → WOUNDCARE 10:52
PROVIDERS: Internal Medicine Nephrology
DX: N18.4 Chronic kidney disease, stage 4 (severe) (principal)

== ENCOUNTER → 2018-11-24 | Outpatient (CLI) | payer MEDICARE ==
[~2018-11-24] MED LIST changes: +AMITRIPTYLINE10 MG PO; +CARVEDILOL6.25 MG PO; +CELEXA10 MG PO; +CELEXA20 MG PO; +Coumadin5 MG PO; +EFFER-K20 MEQ PO; +FERROUS SULFAT325 MG PO; +K-TAB20 MEQ PO; +KEFLEX250 MG PO; +OMEPRAZOLE D/R20 MG PO; +POTASSIUM CHLO20 ME3 PO; +SODIUM BICARBO325 M1 PO; +VIBRAMYCIN100 MG PO; +Zaroxolyn,Diul2.5 MG PO; +[UNRECOGNIZED DRUG - OTHER] PO
== END | disposition home or self-care (01) ==
LOC: WOUNDCARE 01:48
DX: I87.331 Chronic venous hypertension (idiopathic) with ulcer and inflammation of right lower extremity (principal); L97.212 Non-pressure chronic ulcer of right calf with fat layer exposed; L97.222 Non-pressure chronic ulcer of left calf with fat layer exposed; I89.0 Lymphedema, not elsewhere classified; I87.8 Other specified disorders of veins; I73.9 Peripheral vascular disease, unspecified

== ENCOUNTER → 2018-12-01 | Outpatient (CLI) | payer MEDICARE ==
[~2018-12-01] MED LIST changes: -AMITRIPTYLINE10 MG PO; -CARVEDILOL6.25 MG PO; -CELEXA10 MG PO; -CELEXA20 MG PO; -Coumadin5 MG PO; -EFFER-K20 MEQ PO; -FERROUS SULFAT325 MG PO; -K-TAB20 MEQ PO; -KEFLEX250 MG PO; -OMEPRAZOLE D/R20 MG PO; -POTASSIUM CHLO20 ME3 PO; -SODIUM BICARBO325 M1 PO; -VIBRAMYCIN100 MG PO; -Zaroxolyn,Diul2.5 MG PO; -[UNRECOGNIZED DRUG - OTHER] PO
== END | disposition home or self-care (01) ==
LOC: WOUNDCARE 02:59
DX: I87.331 Chronic venous hypertension (idiopathic) with ulcer and inflammation of right lower extremity (principal); L97.212 Non-pressure chronic ulcer of right calf with fat layer exposed; L97.222 Non-pressure chronic ulcer of left calf with fat layer exposed; I89.0 Lymphedema, not elsewhere classified; I80.291 Phlebitis and thrombophlebitis of other deep vessels of right lower extremity

== ENCOUNTER 2018-12-05 12:20 | Inpatient (IN) | payer MEDICARE ==
[~2018-12-05] VITALS: Ht 170.2 cm; Wt 89.4 kg
--- NOTE | ~2018-12-05 | EKG ---
[place], [place] ELECTROCARDIOGRAM REPORT NAME: DEEPTI BEST UNIT #: [id number] ROOM: 523 DOCTOR: EPIPHANY DRAFT REPORT BIRTHDATE: [birth year] [facility] Test Date: 2018-12-05 Test Time: 12:34:28 Pat Name: DEEPTI BEST Department: Room: 523 Gender: F Metrologist: : 1935 Requested By: VERO HILLMAN DNP Order Number: [id number] Reading MD: Gio Parker MD Measurements Intervals [place] Rate: 54 P: 4 WY: 203 QRS: 9 QRSD: 181 T: -15 QT: 472 QTc: 448 Interpretive Statements Sinus bradycardia Right bundle branch block Compared to ECG 10/28/2018 15:10:19 No significant changes Electronically Signed On 12-06-2018 21:18:42 PST by Gio Parker MD CM:EKGRPT:ELECTROCARDIOGRAM REPORT 1234 VERO HILLMAN DNP EPIPHANY DRAFT REPORT VERO HILLMAN DNP
[~2018-12-05 12:20] MED LIST changes: -AMOXICILLIN500 M3 PO; -BUMETANIDE2 MG PO; -VITAMIN B-650 M1 PO; -VITAMIN D-32000 UNI1 PO
[2018-12-05 12:26] VITALS: BP 150/57
[2018-12-05 13:03] LABS: BILIRUBIN NEGATIVE (NEGATIVE); BLOOD 2+ (NEGATIVE); CLARITY SL CLOUDY (CLEAR); COLOR YELLOW (YELLOW); GLUCOSE NEGATIVE (NEGATIVE); KETONE NEGATIVE (NEGATIVE); LEUKO ESTERASE 1+ (NEGATIVE); NITRITE NEGATIVE (NEGATIVE); PH 5.5 (5.0-9.0); SPECIFIC GRAVITY 1.015 (1.005-1.030); UROBILINOGEN 0.2 E.U./dl (0.2-1.0)
[2018-12-05 13:13] LABS: RBC 21-30 rbc/hpf (0-2)
[2018-12-05 13:14] LABS: BACTERIA 1+
[2018-12-05 13:21] LABS: BASO % 0.1 % (0.0-1.0); EOS # 0.1 10*3/uL (0.0-0.4); EOS % 1.2 % (1.0-4.0); HEMATOCRIT 28.2 % (37.0-47.0); HEMOGLOBIN 9.8 g/dl (12.0-16.0); LYMPH % 27.4 % (27.0-41.0); MEAN CELL VOLUME 92.5 fl (81.0-99.0); MEAN CORPUSCULAR HGB 32.1 pg (27.0-31.0); MEAN CORPUSCULAR HGB CONC 34.8 g/dl (33.0-37.0); MEAN PLATELET VOLUME 8.6 fl (9.6-12.3); MONO # 0.5 10*3/uL (0.1-1.0); MONO % 7.1 % (3.0-9.0); NEUT # 4.7 10*3/uL (2.3-7.9); NEUT % 63.8 % (47.0-73.0); PLATELET COUNT AUTOMATED 144 10*3/uL (130-400); RED BLOOD COUNT 3.05 10*6/uL (4.10-5.10); RED CELL DISTRI WIDTH 14.3 % (0-14.5); WHITE BLOOD COUNT 7.3 10*3/uL (4.8-10.8)
[2018-12-05 13:37] LABS: ACT PARTIAL THROMBO TIME 56.9 SECONDS (20.8-31.5)
[2018-12-05 13:38] LABS: ALBUMIN 2.7 gm/dl (3.1-4.5); ALKALINE PHOSPHATASE 118 U/L (45-117); BUN 119 mg/dl (7-24); CHLORIDE 103 mmol/L (98-107); CREATININE 3.86 mg/dL (0.55-1.02); POTASSIUM 2.6 mmol/L (3.5-5.1); SGOT/AST 22 IU/L (3-35); SGPT/ALT 17 U/L (12-78); SODIUM 139 mmol/L (136-145); TOTAL PROTEIN 6.6 gm/dL (6.4-8.2)
[2018-12-05 13:39] LABS: INTERNATIONAL NORM RATIO 4.8 (2.0-3.5)
[2018-12-05 13:41] LABS: TROPONIN I < 0.015 ng/ml (<0.045)
[2018-12-05 15:40] VITALS: BP 151/63
[2018-12-05] MEDS ORDERED: BUMETANIDE2 MG PO (15:44)
[2018-12-05] MEDS ORDERED: VITAMIN D-32000 UNI1 PO (15:46)
[2018-12-05] MEDS ORDERED: VITAMIN B-650 M1 PO (15:48)
[2018-12-05] MEDS ORDERED: METOLAZONE2.5 MG PO (15:49)
--- NOTE | 2018-12-05 15:50 | NUR ---
A 83, admitted to 5E, under the services of VIOLETA Singh DO with a diagnosis of SYNCOPE, DIZZY, HYPOKALEMIA. Chief complaint is DIZZINESS. Patient arrived via stretcher from ER. Monitor applied. Initial assessment completed. Vital signs taken and recorded. VIOLETA SINGH DO notified of admission to the unit. Orders received. See assessment for past medical history, medications and allergies. Patient and/or family oriented to unit. [facility] visitation policy reviewed. Clothing/patient valuable form completed. ANITA WATSON
--- NOTE | 2018-12-05 15:53 | NUR ---
MED REC UPDATED BY LIST PROVIDED BY FAMILY.
--- NOTE | 2018-12-05 17:52 | NUR ---
DR CHILD ANSWERING SERVICE NOTIFIED OF CONSULT
--- NOTE | 2018-12-05 18:16 | NUR ---
DR CLEMENTE SALINAS NOTIFIED OF SMALL AMOUNT OF VAGINAL BLEEDING NOTED PT STATES " IT PROB FROM THEM STRAIGHT CATH ME IN ER' DR SALINAS STATES TO MONITOR IT FOR NOW
[2018-12-05 20:00] VITALS: BP 137/48
--- NOTE | 2018-12-05 22:38 | NUR ---
24 HR chart check completed.
--- NOTE | 2018-12-05 23:00 | NUR ---
BEDSIDE REPORT OBTAINED FROM [facility]. PATIENT IS RESTING IN BED EYES CLOSED. NO DISTRESS NOTED , RESP ARE ERND ON ROOM AIR. BED IS LOCKED IN LOWEST POSITION, ALARM MAINTAINED. CALL LIGHT LEFT WITHIN REACH.
[2018-12-06] VITALS: BP 133/39
--- NOTE | 2018-12-06 04:47 | NUR ---
PATIENT ASSISTED TO BATHROOM. BLOOD SPOTTING STILL NOTED TO UNDERGARMENTS. [facility] PROVIDED AND ASSISTED BACK TO BED. CALL LIGHT LEFT WITHIN REACH.
[2018-12-06 06:35] LABS: BASO % 0.3 % (0.0-1.0); EOS # 0.2 10*3/uL (0.0-0.4); EOS % 2.3 % (1.0-4.0); HEMATOCRIT 28.1 % (37.0-47.0); HEMOGLOBIN 9.7 g/dl (12.0-16.0); LYMPH % 30.5 % (27.0-41.0); MEAN CORPUSCULAR HGB 32.1 pg (27.0-31.0); MEAN CORPUSCULAR HGB CONC 34.5 g/dl (33.0-37.0); MEAN PLATELET VOLUME 8.7 fl (9.6-12.3); MONO # 0.5 10*3/uL (0.1-1.0); MONO % 7.8 % (3.0-9.0); NEUT # 3.8 10*3/uL (2.3-7.9); NEUT % 58.8 % (47.0-73.0); PLATELET COUNT AUTOMATED 151 10*3/uL (130-400); RED BLOOD COUNT 3.02 10*6/uL (4.10-5.10); RED CELL DISTRI WIDTH 14.4 % (0-14.5); WHITE BLOOD COUNT 6.4 10*3/uL (4.8-10.8)
[2018-12-06 06:49] LABS: ACT PARTIAL THROMBO TIME 59.3 SECONDS (20.8-31.5)
[2018-12-06 06:53] LABS: ALBUMIN 2.5 gm/dl (3.1-4.5); CREATININE 3.39 mg/dL (0.55-1.02); FREE T4 1.35 ng/dl (0.76-1.46); INTERNATIONAL NORM RATIO 4.8 (2.0-3.5); PHOSPHOROUS 4.6 mg/dL (2.5-4.9); POTASSIUM 3.1 mmol/L (3.5-5.1); TOTAL PROTEIN 6.2 gm/dL (6.4-8.2)
[2018-12-06 06:58] LABS: THYROID STIM HORMONE (HS) 2.05 uIU/ml (0.358-4.75)
[2018-12-06 08:00] LABS: VITAMIN D, 25-HYDROXY 39.1 ng/mL (30-100)
[2018-12-06 08:03] VITALS: BP 128/48
--- NOTE | 2018-12-06 11:03 | NUR ---
PATIENT POSITIVE FOR ORTHOSTATIC BLOOD PRESSURE FROM SITTING TO STANDING, AND REPORTS DIZZINESS WITH STANDING. SEE ORTHO BP FLOW SCREEN FOR DETAILS.
--- NOTE | 2018-12-06 11:30 | NUR ---
Water Control Station Engineer in to talk to patient. Patient states lives at HOME with ALONE, 3 SONS LIVE NEAR BY AND HELP HER. There are NO steps in the home. Physician: REYNA WALKER Pharmacy: [facility]: [facility] Patient's level of ADLs: INDEPENDENT Patient has working utilities: YES DME: [facility] Follow-up physician's appointment after d/c: WILL BE MADE BY HOSPITALIST NURSE DIRECTOR ON DISCHARGE Does patient want to access PORTAL?: NO Discharge plan PT STATES SHE LIVES AT HOME ALONE AND HER 3 SONS LIVE BY AND ARE AT HER HOUSE DAILY. SHE ALSO STATES THAT SHE HAS HOME HEALTH WITH [facility]. PT STATES SHE PLANS ON GOING HOME ON DISCHARGE WITH RESUMPTION OF [facility]. STATES ONE OF HER SONS WILL TAKE HER HOME ON DISCHARGE. WILL CONTINUE TO FOLLOW. MIC VALDOVINOS
[2018-12-06 11:42] VITALS: BP 94/44
--- NOTE | 2018-12-06 11:43 | NUR ---
BP 94/44 MANUALLY WITH PATIENT SITTING UP IN CHAIR.
--- NOTE | 2018-12-06 13:59 | NUR ---
Nursing screen received and chart review completed. Patient admitted with dizziness and near syncope. If patient has a decline in ADLs or safety consider Occupational Therapy referral. Thank you. Nova Rivera OTR/L
--- NOTE | 2018-12-06 14:40 | NUR ---
ORDER TO RESUME HOME HEALTH FAXED TO [facility].
--- NOTE | 2018-12-06 14:59 | NUR ---
DEEPTI BEST [id number] Please refer to the physician's history and physical for past medical history, comorbid conditions, and allergies. Diagnosis: DYSPNEA ON EXERTION,DIZZINESS,NEAR SYNCOPE, Matt Score: 17,AT RISK WOUND DESCRIPTIONS: Location of the wound: left lateral lower leg Type of wound: Thickness: Partial Size: 9.3CM x 2.2CM x 0.1CM Tunneling: none Undermining: none Sinus Tract: none Presence of Exudate: Serous Amount: Light Color: Red Odor: None Periwound Skin Appearance: Erythema Wound edges: approximated Pain (associated with wound): denied at time of assessment How does patient state this happened? patient unsure how this happened. Patient states her legs "itch all time." If wound is on legs/feet or hands, capillary refill time, pulses, color temp, sensation: Cap refill < 3 seconds. Patient's right leg dry and scaly. No open areas noted. No drainage noted. Surface the patient is resting on: Isoflex SKIN PREVENTION RECOMMENDATION: 1. Pressure redistribution support surface as appropriate 2. Elevate heels 3. Remove boots/TEDS every shift and reapply 4. Head of bed 30 degrees as tolerated 5. Assess nutrition and hydration 6. Manage moisture 7. Avoid the use of containment devices while in bed 8. Use absorptive products on surfaces limit layers of linens on bed 9. Turn and reposition every 1-2 hours in bed and every 1 hour in chair as tolerated 10. Weight shifts every 15 minutes while up in chair 11. Offloading with pillows or device to keep heels elevated off bed 12. Monitor skin at least every shift 13. Inspect under medical devices twice a day WOUND TREATMENT RECOMMENDATIONS: Cleanse Left and right lower leg with soap and water. Apply hydrocortisone 0.5% cream to leg avoiding open areas. Apply adaptic to open area to left lateral lower leg cover with 4x4s, kerlix and coban.
--- NOTE | 2018-12-06 15:35 | NUR ---
CLEANSED DRAINING WOUND TO LEFT LEG WITH NSS, APPLIED HYDROGEL AND OPTIFOAM GENTLE AND COVERED WITH STOCKINETTE.
--- NOTE | 2018-12-06 15:56 | NUR ---
Dr. Harris notified of wound care recommendations.
[2018-12-06 16:00] VITALS: BP 117/58
--- NOTE | 2018-12-06 18:59 | NUR ---
PATIENT CONTINUES TO HAVE POSITIVE ORTHOSTATIC HYPOTENSION RESULTS. SEE ORTHOSTATIC BP FLOW SCREEN FOR DETAILS.
[2018-12-06 20:00] VITALS: BP 122/46
--- NOTE | 2018-12-06 20:43 | NUR ---
PATIENT PULLED UP IN THE BED AND REPOSITIONED FOR COMFORT. PT REQUESTED AND RECEIVED PO TYLENOL PER PRN ORDER FOR C/O PAIN IN R LEG 04/18. WILL MONITOR EFFECTIVENESS. CALL LIGHT LEFT IN REACH.
[2018-12-07] VITALS: BP 125/40
[2018-12-07 08:00] VITALS: BP 118/52
--- NOTE | 2018-12-07 08:41 | NUR ---
MEDICATED WITH PRN PO DULCOLAX FOR CONSTIPATION.
[2018-12-07 12:00] VITALS: BP 149/59
--- NOTE | 2018-12-07 13:40 | NUR ---
DR. CHILD IN TO SEE PATIENT RE: PLAN OF CARE. PER DR. CHILD PATIENT OK FOR DISCHARGE. DR PATTON NOTIFIED.
--- NOTE | 2018-12-07 15:21 | NUR ---
PATIENT HAS FOLLOW UP APPOINTMENT IN THE WOUND CARE CENTER at 1130 am.
[2018-12-07 16:00] VITALS: BP 151/60
--- NOTE | 2018-12-07 16:15 | NUR ---
Discharge instructions reviewed with patient. Patient receptive and verbalizes understanding. Follow-up care arranged. Written instructions given to patient. PALMIRA SUBRAMANIAN
--- NOTE | 2018-12-07 16:22 | NUR ---
PATIENT AWAITING RIDE HOME FROM HER SON FOR DISCHARGE.
--- NOTE | 2018-12-07 16:58 | NUR ---
PATIENT DISCHARGED TO [facility] BY WHEELCHAIR, ACCOMPANIED BY [facility], FOR TRANSPORT HOME BY PRIVATE VEHICLE WITH HER SON.
--- NOTE | 2018-12-08 07:41 | NUR ---
PHYSICAL THERAPY Nursing screen received. Patient discharged at is time. Thank you. Keeley Venegas,PT
[2019-01-11] MEDS ORDERED: AUGMENTIN 875875 MG PO (23:19)
[2019-01-11] MEDS ORDERED: AMOXICILLIN500 M3 PO (23:26)
[2019-02-23] MEDS ORDERED: EFFER-K20 MEQ PO (16:19)
[2019-02-23] MEDS ORDERED: [UNRECOGNIZED DRUG - OTHER] PO (16:20)
[2019-02-23] MEDS ORDERED: AMITRIPTYLINE10 MG PO (16:22)
[2019-02-23] MEDS ORDERED: Zaroxolyn,Diul2.5 MG PO (16:22)
[2019-02-26] MEDS ORDERED: VIBRAMYCIN100 MG PO (14:21)
[2019-02-26] MEDS ORDERED: Zaroxolyn,Diul2.5 MG PO (14:21)
== END 2018-12-07 16:58 | disposition home health service (06) | DRG 682 ==
LOC: ED 12:20 → EDHOLD 13:51 → 5E 13:51
PROVIDERS: Nurse Practitioner Family; ADMIT Internal Medicine
DX: N17.9 Acute kidney failure, unspecified (principal); E43 Unspecified severe protein-calorie malnutrition; J98.59 Other diseases of mediastinum, not elsewhere classified; N39.0 Urinary tract infection, site not specified; D68.9 Coagulation defect, unspecified; I50.32 Chronic diastolic (congestive) heart failure; I13.2 Hypertensive heart and chronic kidney disease with heart failure and with stage 5 chronic kidney disease, or end stage renal disease; Z68.30 Body mass index [BMI] 30.0-30.9, adult; N18.5 Chronic kidney disease, stage 5; R55 Syncope and collapse; K46.9 Unspecified abdominal hernia without obstruction or gangrene; R06.82 Tachypnea, not elsewhere classified; D64.9 Anemia, unspecified; L89.891 Pressure ulcer of other site, stage 1; M48.00 Spinal stenosis, site unspecified; I35.0 Nonrheumatic aortic (valve) stenosis; E87.8 Other disorders of electrolyte and fluid balance, not elsewhere classified; I87.2 Venous insufficiency (chronic) (peripheral); Z96.653 Presence of artificial knee joint, bilateral; E87.6 Hypokalemia; E21.3 Hyperparathyroidism, unspecified; I89.0 Lymphedema, not elsewhere classified; I25.10 Atherosclerotic heart disease of native coronary artery without angina pectoris; M19.90 Unspecified osteoarthritis, unspecified site; E66.01 Morbid (severe) obesity due to excess calories; I73.9 Peripheral vascular disease, unspecified; I25.2 Old myocardial infarction; Z86.718 Personal history of other venous thrombosis and embolism; Z88.1 Allergy status to other antibiotic agents; Z98.41 Cataract extraction status, right eye; Z98.42 Cataract extraction status, left eye; Z90.710 Acquired absence of both cervix and uterus; Z82.49 Family history of ischemic heart disease and other diseases of the circulatory system; Z83.3 Family history of diabetes mellitus; Z80.9 Family history of malignant neoplasm, unspecified; Z83.79 Family history of other diseases of the digestive system; Z79.899 Other long term (current) drug therapy; Z79.01 Long term (current) use of anticoagulants

== ENCOUNTER → 2018-12-24 | Outpatient (CLI) | payer MEDICARE ==
[~2018-12-24] MED LIST changes: +AMITRIPTYLINE10 MG PO; +AMOXICILLIN500 M3 PO; +BUMETANIDE2 MG PO; +CARVEDILOL6.25 MG PO; +CELEXA10 MG PO; +CELEXA20 MG PO; +Coumadin5 MG PO; +EFFER-K20 MEQ PO; +FERROUS SULFAT325 MG PO; +K-TAB20 MEQ PO; +KEFLEX250 MG PO; +OMEPRAZOLE D/R20 MG PO; +POTASSIUM CHLO20 ME3 PO; +SODIUM BICARBO325 M1 PO; +VIBRAMYCIN100 MG PO; +VITAMIN B-650 M1 PO; +VITAMIN D-32000 UNI1 PO; +Zaroxolyn,Diul2.5 MG PO; +[UNRECOGNIZED DRUG - OTHER] PO
== END | disposition home or self-care (01) ==
LOC: WOUNDCARE 02:36
DX: I87.333 Chronic venous hypertension (idiopathic) with ulcer and inflammation of bilateral lower extremity (principal); L97.212 Non-pressure chronic ulcer of right calf with fat layer exposed; L97.222 Non-pressure chronic ulcer of left calf with fat layer exposed; I80.291 Phlebitis and thrombophlebitis of other deep vessels of right lower extremity; I89.0 Lymphedema, not elsewhere classified

== ENCOUNTER → 2018-12-30 | Outpatient (CLI) | payer MEDICARE | END | disposition home or self-care (01) | LOC: WOUNDCARE 03:09 | DX: I87.333 Chronic venous hypertension (idiopathic) with ulcer and inflammation of bilateral lower extremity (principal); L97.212 Non-pressure chronic ulcer of right calf with fat layer exposed; L97.222 Non-pressure chronic ulcer of left calf with fat layer exposed; I89.0 Lymphedema, not elsewhere classified; I80.291 Phlebitis and thrombophlebitis of other deep vessels of right lower extremity ==

== ENCOUNTER → 2019-01-05 | Outpatient (CLI) | payer MEDICARE | LOC: WOUNDCARE 01:14 | DX: S81.802D Unspecified open wound, left lower leg, subsequent encounter (principal); S81.801D Unspecified open wound, right lower leg, subsequent encounter; I89.0 Lymphedema, not elsewhere classified; I10 Essential (primary) hypertension; X58.XXXD Exposure to other specified factors, subsequent encounter ==

== ENCOUNTER → 2019-01-26 | Outpatient (CLI) | payer MEDICARE | END | disposition home or self-care (01) | LOC: WOUNDCARE 01:51 | DX: I87.333 Chronic venous hypertension (idiopathic) with ulcer and inflammation of bilateral lower extremity (principal); L97.212 Non-pressure chronic ulcer of right calf with fat layer exposed; L97.222 Non-pressure chronic ulcer of left calf with fat layer exposed; I80.291 Phlebitis and thrombophlebitis of other deep vessels of right lower extremity; I89.0 Lymphedema, not elsewhere classified; N28.9 Disorder of kidney and ureter, unspecified ==

== ENCOUNTER → 2019-01-27 | Outpatient (CLI) | payer MEDICARE ==
[2019-01-27 13:55] LABS: BILIRUBIN NEGATIVE (NEGATIVE); BLOOD TRACE-LYSED (NEGATIVE); CLARITY SL CLOUDY (CLEAR); COLOR YELLOW (YELLOW); GLUCOSE NEGATIVE (NEGATIVE); KETONE NEGATIVE (NEGATIVE); LEUKO ESTERASE 3+ (NEGATIVE); NITRITE NEGATIVE (NEGATIVE); PH 5.5 (5.0-9.0); UROBILINOGEN 0.2 E.U./dl (0.2-1.0)
[2019-01-27 14:05] LABS: URINE CREATININE RANDOM 36.2 mg/dL
[2019-01-27 14:13] LABS: BACTERIA 3+; WBC TNTC wbc/hpf (0-5)
== END | disposition home or self-care (01) ==
LOC: LAB 13:28
PROVIDERS: Internal Medicine Nephrology
DX: N18.4 Chronic kidney disease, stage 4 (severe) (principal); D63.1 Anemia in chronic kidney disease; Z79.899 Other long term (current) drug therapy

== ENCOUNTER → 2019-02-02 | Outpatient (CLI) | payer MEDICARE | END | disposition home or self-care (01) | LOC: WOUNDCARE 01:25 | DX: I87.333 Chronic venous hypertension (idiopathic) with ulcer and inflammation of bilateral lower extremity (principal); L97.212 Non-pressure chronic ulcer of right calf with fat layer exposed; L97.222 Non-pressure chronic ulcer of left calf with fat layer exposed; I89.0 Lymphedema, not elsewhere classified; I80.291 Phlebitis and thrombophlebitis of other deep vessels of right lower extremity; I10 Essential (primary) hypertension ==

== ENCOUNTER → 2019-02-16 | Outpatient (CLI) | payer MEDICARE | END | disposition home or self-care (01) | LOC: WOUNDCARE 02:46 | DX: I87.333 Chronic venous hypertension (idiopathic) with ulcer and inflammation of bilateral lower extremity (principal); L97.212 Non-pressure chronic ulcer of right calf with fat layer exposed; L97.222 Non-pressure chronic ulcer of left calf with fat layer exposed; I89.0 Lymphedema, not elsewhere classified; I80.291 Phlebitis and thrombophlebitis of other deep vessels of right lower extremity ==

== ENCOUNTER → 2019-03-02 | Outpatient (CLI) | payer MEDICARE | END | disposition home or self-care (01) | LOC: WOUNDCARE 01:38 | DX: I87.333 Chronic venous hypertension (idiopathic) with ulcer and inflammation of bilateral lower extremity (principal); L97.212 Non-pressure chronic ulcer of right calf with fat layer exposed; L97.222 Non-pressure chronic ulcer of left calf with fat layer exposed; I89.0 Lymphedema, not elsewhere classified; I73.9 Peripheral vascular disease, unspecified; I87.8 Other specified disorders of veins; N28.9 Disorder of kidney and ureter, unspecified ==

== ENCOUNTER → 2019-03-09 | Outpatient (CLI) | payer MEDICARE | END | disposition home or self-care (01) | LOC: WOUNDCARE 01:23 → EDSTATUS 15:59 | DX: I87.333 Chronic venous hypertension (idiopathic) with ulcer and inflammation of bilateral lower extremity (principal); L97.218 Non-pressure chronic ulcer of right calf with other specified severity; L97.222 Non-pressure chronic ulcer of left calf with fat layer exposed; I89.0 Lymphedema, not elsewhere classified; I80.291 Phlebitis and thrombophlebitis of other deep vessels of right lower extremity; N28.9 Disorder of kidney and ureter, unspecified ==

== ENCOUNTER 2019-03-17 19:21 | Inpatient (IN) | payer MEDICARE ==
[~2019-03-17] VITALS: Ht 162.6 cm; Wt 88.5 kg
--- NOTE | ~2019-03-17 | PR ---
[place], [place] PROGRESS NOTE NAME: DEEPTI BEST [facility] #: [id number] UNIT #: [id number] ROOM: 409 DOCTOR: CORBY CHILD MD BIRTHDATE: [birth year] DOS: 03/21/2019 NEPHROLOGY PROGRESS NOTE TIME OF SERVICE: 10:30 SUBJECTIVE: The patient was in dialysis earlier this morning. Dialysis nurses were able to get an arterial needle, but unable to get a venous needle with adequate flow and she was not able to get any treatment today. Her Thursday treatment was complicated by a venous infiltrate about 45 minutes into treatment. In total, she really has not received much dialysis at all. That said she has a stable potassium. Her breathing is stable. She has saturations of 98% on room air and afebrile. PT has been working with her. There was some talk of her going to a retirement facility. She does have some mild anemia. We did not give her any further Procrit shots since admission as there was some question whether or not she may have had some reaction from it, but I doubt that was the case as does her granddaughter when I spoke with her on Thursday. She had a good Mother's Day. She had a good weekend. In general, she is eating and drinking except she does not like the food. Her creatinine is stable and her urine output continues. Her weight is fairly stable. I had a call out to the granddaughter today to inquire as to the plan whether the patient would be going home versus retirement facility. There is no case management note at this point yet OBJECTIVE: VITAL SIGNS: 97.7, 66, 18, 114/40, 96% on room air. GENERAL: She is awake and alert, age appropriate woman lying comfortably in bed. Speech is clear and cogent. Orientation is intact. No JVD, no lymphadenopathy. No chest tightness, bruit or wheezing. Slightly diminished at the base. CARDIOVASCULAR: Regular rate. No rub. No palpable lift or heave. ABDOMEN: Soft, nontender, nondistended, without rebound or guarding. EXTREMITIES: With mild edema dependent areas stable and at her baseline. No other cyanosis. 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 LABORATORIES AND DIAGNOSTICS: Sodium is 137, potassium 3.7, chloride 100, bicarbonate 25, BUN 58, creatinine 3.8, EGFR 11, glucose 86, calcium 9.2, phosphorus 4.2, albumin 2.5, calcium 9.2. White blood cell count 5, hemoglobin 8.8, platelets 113 and stable. ASSESSMENT AND PLAN: 1. Chronic kidney disease, stage 5. Overall, renal function remains stable. We did try to initiate dialysis, but she has had inefficient treatment on Thursday and no treatment today because of difficulty with venous needle cannulation. I think she will require a fistulogram and what I will recommend would be an outpatient followup with her regular vascular surgeon at [facility], Dr. Velasquez or Ranulfo and at this time I would recommend she is stable for discharge from renal standpoint to either home or retirement facility as long as they are able to get her to her outpatient vascular surgeon. I suspect she needs a fistulogram and if there is a problem with her fistula, [place], [place] PROGRESS NOTE NAME: DEEPTI BEST UNIT #: [id number] ROOM: 409 DOCTOR: CORBY CHILD MD BIRTHDATE: [birth year] she may require a tunneled dialysis catheter placement, but I would like to avoid this if at all possible as does the patient. Her anemia is stable. I will resume Procrit shots as an outpatient and continue oral iron. Metabolic bone disease parameters are acceptable with mild adjusted hypercalcemia, but phosphorus is well controlled. 2. Volume and hypertension. Continue diuretics, but hold metolazone and use p.r.n. only for edema or shortness of breath. Electrolytes and acid base are otherwise stable. Case was discussed with the nurse and dialysis. CORBY CHILD MD CM:PNTRANS [id number] CORBY CHILD MD 03/22/19 0615 interface
--- NOTE | ~2019-03-17 | EKG ---
[place], [place] ELECTROCARDIOGRAM REPORT NAME: DEEPTI BEST UNIT #: [id number] ROOM: 409 DOCTOR: EPIPHANY DRAFT REPORT BIRTHDATE: [birth year] [facility] Test Date: 2019-03-17 Test Time: 20:49:19 Pat Name: DEEPTI BEST Department: Room: 409 Gender: F Railcar Switchman: Lou Lazaro : 1935 Requested By: RU SCOTT Order Number: [id number] Reading MD: Collin Ford MD Measurements Intervals [place] Rate: 64 P: -45 NE: 194 QRS: 0 QRSD: 156 T: -8 QT: 450 QTc: 465 Interpretive Statements Sinus or ectopic atrial rhythm Right bundle branch block Compared to ECG 02/23/2019 12:24:04 Ectopic atrial rhythm now present Sinus rhythm no longer present Electronically Signed On 03-21-2019 14:25:24 PDT by Collin Ford MD CM:EKGRPT:ELECTROCARDIOGRAM REPORT [id number] RU SCOTT DO EPIPHRAYMUNDO DRAFT REPORT RU SCOTT DO
[~2019-03-17 19:21] MED LIST changes: -CARVEDILOL6.25 MG PO; -CELEXA10 MG PO; -CELEXA20 MG PO; -Coumadin5 MG PO; -FERROUS SULFAT325 MG PO; -K-TAB20 MEQ PO; -KEFLEX250 MG PO; -OMEPRAZOLE D/R20 MG PO; -POTASSIUM CHLO20 ME3 PO; -SODIUM BICARBO325 M1 PO
[2019-03-17 19:25] VITALS: BP 136/43
[2019-03-17 20:55] LABS: BASO % 0.2 % (0.0-1.0); EOS # 0.1 10*3/uL (0.0-0.4); EOS % 2.2 % (1.0-4.0); HEMATOCRIT 28.8 % (37.0-47.0); HEMOGLOBIN 9.3 g/dl (12.0-16.0); LYMPH # 2.4 10*3/uL (1.3-4.4); MEAN CELL VOLUME 97.6 fl (81.0-99.0); MEAN CORPUSCULAR HGB 31.5 pg (27.0-31.0); MEAN CORPUSCULAR HGB CONC 32.3 g/dl (33.0-37.0); MEAN PLATELET VOLUME 8.8 fl (9.6-12.3); MONO # 0.5 10*3/uL (0.1-1.0); MONO % 8.8 % (3.0-9.0); NEUT # 2.5 10*3/uL (2.3-7.9); NEUT % 44.6 % (47.0-73.0); PLATELET COUNT AUTOMATED 106 10*3/uL (130-400); RED BLOOD COUNT 2.95 10*6/uL (4.10-5.10); RED CELL DISTRI WIDTH 14.2 % (0-14.5); WHITE BLOOD COUNT 5.5 10*3/uL (4.8-10.8)
[2019-03-17 20:56] LABS: BILIRUBIN NEGATIVE (NEGATIVE); BLOOD NEGATIVE (NEGATIVE); CLARITY CLEAR (CLEAR); COLOR YELLOW (YELLOW); GLUCOSE NEGATIVE (NEGATIVE); KETONE NEGATIVE (NEGATIVE); LEUKO ESTERASE 1+ (NEGATIVE); NITRITE NEGATIVE (NEGATIVE); SPECIFIC GRAVITY <= 1.005 (1.005-1.030); UROBILINOGEN 0.2 E.U./dl (0.2-1.0)
[2019-03-17 21:03] LABS: BACTERIA 1+; HYALINE CAST 0-2
[2019-03-17 21:08] LABS: INTERNATIONAL NORM RATIO 2.4 (2.0-3.5)
[2019-03-17 21:10] LABS: ALBUMIN 2.8 gm/dl (3.1-4.5); ALKALINE PHOSPHATASE 95 U/L (45-117); BUN 67 mg/dl (7-24); CHLORIDE 97 mmol/L (98-107); CREATININE 4.08 mg/dL (0.55-1.02); POTASSIUM 3.9 mmol/L (3.5-5.1); SGOT/AST 21 IU/L (3-35); SGPT/ALT 14 U/L (12-78); SODIUM 136 mmol/L (136-145); TOTAL PROTEIN 6.1 gm/dL (6.4-8.2)
[2019-03-17 21:12] LABS: TROPONIN I < 0.015 ng/ml (<0.045)
--- NOTE | 2019-03-17 22:21 | NUR ---
DR SCOTT WAS IN AND SPOKE WITH THE PATIENT AND HER FAMILY ABOUT ADMITTING THE PATIENT. VERBAL UNDERSTANDING WAS NOTED
[2019-03-17 22:49] VITALS: BP 148/48
--- NOTE | 2019-03-17 22:52 | NUR ---
NURSE REPORT GIVEN TO THIS RN.PT RESTING IN BED WITH FAMILY AT BEDSIDE.NO COMPLAINTS AT THIS TIME.PT EDHOLD AWAITING ADMISSION TO THE FLOOR UNIT.
--- NOTE | 2019-03-17 23:04 | NUR ---
THE PT WAS TRANSFERED FROM AND ED BED TO A IN-PATIENT BED
[2019-03-18] VITALS (8 sets, daily range): BP systolic 123–157; BP diastolic 34–68
--- NOTE | 2019-03-18 00:24 | NUR ---
THIS RN SPOKE WITH DR JEFFREY WHO PER VERBAL ORDER REQUEST TO HAVE DR CHILD CONTACTED FOR ORDERS FOR PT.
--- NOTE | 2019-03-18 00:31 | NUR ---
CONSULT CALLED TO DR. CHILD'S ANSWERING SERVICE.
--- NOTE | 2019-03-18 01:09 | NUR ---
REPORT RECEIVED FROM ALEXA CARBALLO
--- NOTE | 2019-03-18 03:41 | NUR ---
PT ASSISTED ON AND OFF BEDPAN.
--- NOTE | 2019-03-18 04:35 | NUR ---
RESTIG QUIETLY. NO COMPLAINTS.
--- NOTE | 2019-03-18 06:19 | NUR ---
RESTING QUIETLY. NO SIGN OF DISTRESS.
[2019-03-18 06:20] LABS: BASO % 0.2 % (0.0-1.0); EOS # 0.1 10*3/uL (0.0-0.4); EOS % 3.1 % (1.0-4.0); HEMATOCRIT 28.2 % (37.0-47.0); HEMOGLOBIN 8.9 g/dl (12.0-16.0); LYMPH # 2.2 10*3/uL (1.3-4.4); LYMPH % 47.6 % (27.0-41.0); MEAN CELL VOLUME 98.6 fl (81.0-99.0); MEAN CORPUSCULAR HGB 31.1 pg (27.0-31.0); MEAN CORPUSCULAR HGB CONC 31.6 g/dl (33.0-37.0); MEAN PLATELET VOLUME 9.3 fl (9.6-12.3); MONO # 0.4 10*3/uL (0.1-1.0); MONO % 9.3 % (3.0-9.0); NEUT # 1.8 10*3/uL (2.3-7.9); NEUT % 39.6 % (47.0-73.0); PLATELET COUNT AUTOMATED 118 10*3/uL (130-400); RED BLOOD COUNT 2.86 10*6/uL (4.10-5.10); RED CELL DISTRI WIDTH 14.1 % (0-14.5); WHITE BLOOD COUNT 4.5 10*3/uL (4.8-10.8)
--- NOTE | 2019-03-18 06:28 | NUR ---
EASILY AWAKENED. RESP EASY AND NONLABORED ON ROOM AIR. CALL LIGHT IN REACH. PLEASANT AND COOPERATIVE.
[2019-03-18 06:37] LABS: ALBUMIN 2.5 gm/dl (3.1-4.5); CREATININE 4.01 mg/dL (0.55-1.02); FREE T4 1.38 ng/dl (0.76-1.46); PHOSPHOROUS 4.9 mg/dL (2.5-4.9); POTASSIUM 3.4 mmol/L (3.5-5.1); TOTAL PROTEIN 5.7 gm/dL (6.4-8.2)
[2019-03-18 06:42] LABS: VITAMIN D, 25-HYDROXY 42.8 ng/mL (30-100)
[2019-03-18 06:43] LABS: THYROID STIM HORMONE (HS) 1.5 uIU/ml (0.358-4.75)
[2019-03-18 06:59] LABS: INTERNATIONAL NORM RATIO 2.3 (2.0-3.5)
--- NOTE | 2019-03-18 08:02 | NUR ---
PT SITTING UP IN BED WITH NO VOICED COMPLAINTS AT THIS TIME.
--- NOTE | 2019-03-18 09:25 | NUR ---
A 83, admitted to , under the services of RORO Negro DO with a diagnosis of WEAKNESS,RENAL FAILURE ACUTE ON CHRONIC. Chief complaint is WEAKNESS. Patient arrived via ambulatory from ER. Monitor applied. Initial assessment completed. Vital signs taken and recorded. RORO NEGRO DO notified of admission to the unit. Orders received. See assessment for past medical history, medications and allergies. Patient and/or family oriented to unit. [facility] visitation policy reviewed. Clothing/patient valuable form completed. BHARAT ESTEBAN
--- NOTE | 2019-03-18 10:32 | NUR ---
MED REC UP TO DATE PER [facility]. DR LOVELL NOTIFIED.
--- NOTE | 2019-03-18 11:00 | NUR ---
PHYSICAL THERAPY Patient evaluated on 4, full evaluation to follow. Continue with PT as per plan of care with fall, UIT and acute debility precautions. Will require SNF. PAtient is moderate complexity via chart review, tests and evaluation: 13430. Thank you for this referral. Keeley Venegas,PT
--- NOTE | 2019-03-18 11:13 | NUR ---
Occupational Therapy evaluation completed on 4 with full eval to follow. Precautions include fall risk,impaired strength, balance, safety with moderate complexity 39775 via chart review, testing and evaluation. Recommend OT per pOC and SNF to enable safe return home alone. Thank you for this referral. Wendy Rivera OTR/l
--- NOTE | 2019-03-18 13:52 | NUR ---
case management visits with patient, son present, patient lives at home alone with family checking in on her, she states she thinks she needs to go to a [facility] for [facility]hab. [facility] and [facility] as second choice, case management faxed patient's inforamtion to Sheryl at [facility]
--- NOTE | 2019-03-18 14:05 | NUR ---
AWAITING WOUND CARE ORDERS.
--- NOTE | 2019-03-18 14:24 | NUR ---
WOUND CARE ORDERS PLACED BY DR LOVELL.
--- NOTE | 2019-03-18 22:00 | NUR ---
PT RESTING IN BED, EYES OPEN, ALERT ORIENTED AND PLEASANT MOOD. WITH NO COMPLAINTS VOICED AT THIS TIME. SPOKE WITH PT FAMILY REGARDING HER DIALYSIS TREATMENT ON 03/19/19. PT DENIES NEEDING ANYTHING AT THIS TIME. WILL CONTINUE TO MONITOR. CALL LIGHT IN REACH.
[2019-03-19] VITALS: BP 148/58
[2019-03-19 06:10] LABS: ALBUMIN 2.5 gm/dl (3.1-4.5); BASO % 0.2 % (0.0-1.0); CREATININE 3.9 mg/dL (0.55-1.02); EOS # 0.2 10*3/uL (0.0-0.4); EOS % 3.4 % (1.0-4.0); HEMATOCRIT 28.2 % (37.0-47.0); LYMPH # 2.4 10*3/uL (1.3-4.4); LYMPH % 47.7 % (27.0-41.0); MEAN CELL VOLUME 98.3 fl (81.0-99.0); MEAN CORPUSCULAR HGB 31.4 pg (27.0-31.0); MEAN CORPUSCULAR HGB CONC 31.9 g/dl (33.0-37.0); MEAN PLATELET VOLUME 9.4 fl (9.6-12.3); MONO # 0.4 10*3/uL (0.1-1.0); MONO % 8.6 % (3.0-9.0); NEUT % 39.7 % (47.0-73.0); PHOSPHOROUS 5.1 mg/dL (2.5-4.9); PLATELET COUNT AUTOMATED 119 10*3/uL (130-400); POTASSIUM 3.5 mmol/L (3.5-5.1); RED BLOOD COUNT 2.87 10*6/uL (4.10-5.10); RED CELL DISTRI WIDTH 14.1 % (0-14.5)
--- NOTE | 2019-03-19 06:29 | NUR ---
PT RESTING IN BED AT THIS TIME. RESPIRATIONS EASY AND UNLABORED ON ROOM AIR. NO S/S OF DISTRESS NOTED. NO COMPLAINTS VOICED. WILL CONTINUE TO MONITOR. CALL LIGHT IN REACH.
[2019-03-19 08:00] VITALS: BP 110/58
[2019-03-19 08:39] LABS: INTERNATIONAL NORM RATIO 2.3 (2.0-3.5)
[2019-03-19 12:00] VITALS: BP 114/36
[2019-03-19 16:00] VITALS: BP 138/49
[2019-03-19 20:00] VITALS: BP 112/40
[2019-03-20] VITALS: BP 126/45
[2019-03-20 06:05] LABS: CREATININE 3.72 mg/dL (0.55-1.02); PHOSPHOROUS 4.6 mg/dL (2.5-4.9); POTASSIUM 3.6 mmol/L (3.5-5.1)
[2019-03-20 06:07] LABS: HEMATOCRIT 26.7 % (37.0-47.0); HEMOGLOBIN 8.5 g/dl (12.0-16.0); MEAN CELL VOLUME 98.5 fl (81.0-99.0); MEAN CORPUSCULAR HGB 31.4 pg (27.0-31.0); MEAN CORPUSCULAR HGB CONC 31.8 g/dl (33.0-37.0); MEAN PLATELET VOLUME 9.2 fl (9.6-12.3); PLATELET COUNT AUTOMATED 102 10*3/uL (130-400); RED BLOOD COUNT 2.71 10*6/uL (4.10-5.10); RED CELL DISTRI WIDTH 14.3 % (0-14.5)
[2019-03-20 07:00] LABS: INTERNATIONAL NORM RATIO 2.6 (2.0-3.5)
[2019-03-20 07:35] LABS: ATYPICAL LYMPHS 2 % (0-0); TOTAL CELLS COUNTED 100 #CELLS
[2019-03-20 07:39] LABS: PLATELET SUFFICIENCY LOW (NORMAL)
--- NOTE | 2019-03-20 08:00 | NUR ---
PT SEEN AT THIS TIME. PT STILL SLEEPING. PT IS IN BED. NO SIGNS OR SYMPTOMS OF DISTRESS OR SHORTNESS OF BREATH AT THIS TIME. BED IN LOWEST LOCKED POSITION AND CALL LIGHT WITHIN REACH.
--- NOTE | 2019-03-20 10:00 | NUR ---
PT SEEN AT THIS TIME. PT SITTING IN CHAIR EATING BREAKFAST. FAMILY IN THE ROOM. PT IS TAKEN OFF OF THE MONITOR FOR A SHOWER. PT HAS NO COMPLAINTS AT THIS TIME. WILL CONTINUE TO MONITOR.
[2019-03-20 12:00] VITALS: BP 118/50
--- NOTE | 2019-03-20 12:31 | NUR ---
PHYSICAL THERAPY Patient seen this PM for her therapy session-- sitting in recliner chair upon arrival. Pt completed STS transfer chair>FWW requiring CGA-SBA, followed by gait training with use of FWW and CGA for strength, endurance and balance ~150'x2-- with emphasis on obstacle/spatial awareness. Pt demo no LOB during gait. RESEARCH LABORATORY SPECIALIST providing cues for walker proximity, increased step height, upright posture and safety. Seated B LE ther-ex peformed for LE strength, endurance and function; marchkaty, LARebekah, hip ABD/ADD (OKC), donnie PF/DF 2x10 reps. Intermittent rest breaks provided throughout. Bed mobility: pt completed sit>supine requiring SBA this date. Pt supine in bed at session end with call light within reach. Libby Saxena, RESEARCH LABORATORY SPECIALIST
[2019-03-20 13:07] LABS: HEPATITIS B SURFACE AG Negative (Negative); HEPATITIS C VIRUS ANTIBODY <0.1 s/co (0.0-0.9)
--- NOTE | 2019-03-20 14:00 | NUR ---
FAMILY IN ROOM WITH PATIENT. PT IN BED. BED IN LOWEST LOCKED POSITION. TUBEY RIPSAW GRADER TAKEN OFF AT THIS TIME PER PATIENTS WISHES. CALL LIGHT WITHIN REACH.
--- NOTE | 2019-03-20 14:29 | NUR ---
Discharge instructions reviewed with patient/family. Patient receptive and verbalizes understanding. Follow-up care arranged. Written instructions given to patient/family. RADHA LANDEROS
[2019-03-20 16:00] VITALS: BP 133/44
--- NOTE | 2019-03-20 17:36 | NUR ---
PT UP WALKING IN HALLS WITH WALKER. STEADY GAIT ASSESSED. PT IS ALERT AND ORIENTED. TUBEY POWER DIGGER OPERATOR REAPPLIED.
[2019-03-20 18:00] VITALS: BP 118/49
[2019-03-20 20:00] VITALS: BP 149/53
[2019-03-21] VITALS: BP 120/44
[2019-03-21 06:28] LABS: BASO % 0.4 % (0.0-1.0); EOS # 0.2 10*3/uL (0.0-0.4); EOS % 3.6 % (1.0-4.0); HEMATOCRIT 27.5 % (37.0-47.0); HEMOGLOBIN 8.8 g/dl (12.0-16.0); LYMPH # 2.2 10*3/uL (1.3-4.4); LYMPH % 43.5 % (27.0-41.0); MEAN CELL VOLUME 98.2 fl (81.0-99.0); MEAN CORPUSCULAR HGB 31.4 pg (27.0-31.0); MEAN PLATELET VOLUME 9.1 fl (9.6-12.3); MONO # 0.3 10*3/uL (0.1-1.0); MONO % 6.8 % (3.0-9.0); NEUT # 2.3 10*3/uL (2.3-7.9); NEUT % 45.5 % (47.0-73.0); PLATELET COUNT AUTOMATED 113 10*3/uL (130-400); RED CELL DISTRI WIDTH 14.3 % (0-14.5)
[2019-03-21 06:37] LABS: ALBUMIN 2.5 gm/dl (3.1-4.5); CREATININE 3.8 mg/dL (0.55-1.02); PHOSPHOROUS 4.2 mg/dL (2.5-4.9); POTASSIUM 3.7 mmol/L (3.5-5.1)
[2019-03-21 07:02] LABS: INTERNATIONAL NORM RATIO 2.5 (2.0-3.5)
[2019-03-21 08:00] VITALS: BP 114/40
--- NOTE | 2019-03-21 08:29 | NUR ---
DEEPTI BEST [id number] Please refer to the physician's history and physical for past medical history, comorbid conditions, and allergies. Diagnosis: WEAKNESS,RENAL FAILURE ACUTE ON CHRONIC Matt Score: 18,AT RISK WOUND DESCRIPTIONS: Wound Number: 1 Location of the wound: right anterior lower extremity Thickness: Partial Size: 2.0cm x 1.2cm x 0.1cm Tunneling: none Undermining: none Sinus Tract: none Presence of Exudate: Serous Amount: Light Color: Red Odor: None Periwound Skin Appearance: Erythema Wound edges: approximated Pain (associated with wound): none at time of assessment How does patient state this happened? pt states this is an ongoing issue and follows up in the wound care center Wound Number: 2 Coccyx is red and blanchable at time of assessment. No open areas or drainage noted at time of assessment. Wound Number: 3 Location of the wound: right medial buttocks proximal Type of wound: stage 2 Thickness: Partial Size: 1.5cm x 0.5cm x 0.1cm Tunneling: none Undermining: none Sinus Tract: none Presence of Exudate: Serosanguineous Amount: Light Color: Red Odor: None Periwound Skin Appearance: Macerated Wound edges: approximated Pain (associated with wound): none at time of assessment How does patient state this happened? pt stated this has been going on for about 2 weeks Wound Number: 4 Location of the wound: right medial buttocks distal Type of wound: stage 2 Thickness: Partial Size: 1.0cm x 0.7cm x 0.1cm Tunneling: none Undermining: none Sinus Tract: none Presence of Exudate: Serosanguineous Amount: Light Color: Red Odor: None Periwound Skin Appearance: Macerated Wound edges: approximated Pain (associated with wound): none at time of assessment How does patient state this happened? pt stated this has been going on for about 2 weeks Patient's BLE's are pigment is dark in color with dry flaky skin noted. No open areas noted to the left lower extremities see above for right lower extremity. Surface the patient is resting on: Position Pro SKIN PREVENTION RECOMMENDATION: 1. Pressure redistribution support surface as appropriate 2. Elevate heels 3. Remove boots/TEDS every shift and reapply 4. Head of bed 30 degrees as tolerated 5. Assess nutrition and hydration 6. Manage moisture 7. Avoid the use of containment devices while in bed 8. Use absorptive products on surfaces limit layers of linens on bed 9. Turn and reposition every 1-2 hours in bed and every 1 hour in chair as tolerated 10. Weight shifts every 15 minutes while up in chair 11. Offloading with pillows or device to keep heels elevated off bed 12. Monitor skin at least every shift 13. Inspect under medical devices twice a day WOUND TREATMENT RECOMMENDATIONS: Wheelchair cushion when oob. Heel raiser pro boots while in bed. Continue lac-hydrin 12% BID. Clarify calazime order: Cleanse right medial buttock proximal and right medial buttock distal with nss and apply sureprep around the wound calazime to wound bed every shift and prn for soiling.
--- NOTE | 2019-03-21 09:00 | NUR ---
case management visits with patient, patient will be going to the [facility] when medically stable, case mangaement will follow
--- NOTE | 2019-03-21 09:35 | NUR ---
Dr. Barry notified of wound care recommendations.
--- NOTE | 2019-03-21 11:30 | NUR ---
case management recieved a message from holly at [facility] that insurance authorization was obtained, informed Holly that patient will potentially be ready for discharge tomorrow, case management will follow, hospitalist nurse director notified that insurance authorization has been obtained
[2019-03-21 12:00] VITALS: BP 105/43
--- NOTE | 2019-03-21 13:00 | NUR ---
OT Note Pt was seen this PM 1;1 for 20 minutes of OT session. Upon arrival pt was laying supine in bed. Pt identified by name and and had complaints of left UE pain 2/3 out of 10. Pt transferred to EOB supine to sit with min A and sit to stand with stand by assist. Dressing task was addressed while standing that consisted of donning robe requiring min assist to put arms in due to limited ROM. Functional mobility completed with w/w for UE support and contact guard assist for safety awareness due to being impulsive. Pt transferred on and off standard commode with stand by assist needing verbal cues to complete turn before sitting for safety precautions. Self-care tasks at sink side were completed consisting of washing hands with CGA for safety. Pt then completed functional mobility back to bed side, where she sat on EOB with contact guard. Attempted to complete AROM to left UE over shoulder flexion, internal rotation, and abduction. However, pt was unable to complete AROM due to pain in left UE requiring AAROM. Pt then completed AROM to BUE over all planes of motion for 1x10 to increase and restore max funtion use during daily and self care tasks. Educated and provided pt with AROM handout. Pt performed bed mobility sit to supine with min assist. Pt was left lying supine in bed with call light in reach. Continue with rec D/C to SNF. Richar PATTERSON/Student SARAH Tripp/Becky
--- NOTE | 2019-03-21 14:00 | NUR ---
PHYSICAL THERAPY Patient seen this pm 1:1 for therapy visit and was in the bathroom with family member present upon therapist arrival. Patient voices no new c/o's at this time and ambulates BATTERY VENT PLUG INSERTER/CGA, 50'x 2, demonstrating slow, "waddling" gait pattern, with decreased stride. Patient fatigues easily with bouts of mild SOB and able to take 5-6 steps backward with caution. Patient returned to bedside chair and remained with call light and telephone. Patient would benefit from SNF to improve standing balance, activity tolerance and safe, functional mobility to return to PLOF. Will continue per POC as tolerated, total treatment time 16 minutes. Nicola Almazan, PRACTICAL NURSE CLINICAL COORDINATOR
[2019-03-21 16:00] VITALS: BP 120/50
--- NOTE | 2019-03-21 19:50 | NUR ---
24 HOUR CHART CHECK COMPLETE.
[2019-03-21 20:00] VITALS: BP 121/49
[2019-03-22] VITALS: BP 111/43
[2019-03-22 06:41] LABS: BASO % 0.2 % (0.0-1.0); EOS # 0.2 10*3/uL (0.0-0.4); EOS % 3.7 % (1.0-4.0); HEMATOCRIT 25.3 % (37.0-47.0); LYMPH # 2.3 10*3/uL (1.3-4.4); LYMPH % 46.2 % (27.0-41.0); MEAN CELL VOLUME 98.4 fl (81.0-99.0); MEAN CORPUSCULAR HGB 31.1 pg (27.0-31.0); MEAN CORPUSCULAR HGB CONC 31.6 g/dl (33.0-37.0); MEAN PLATELET VOLUME 9.4 fl (9.6-12.3); MONO # 0.4 10*3/uL (0.1-1.0); MONO % 7.5 % (3.0-9.0); NEUT # 2.1 10*3/uL (2.3-7.9); NEUT % 42.2 % (47.0-73.0); PLATELET COUNT AUTOMATED 111 10*3/uL (130-400); RED BLOOD COUNT 2.57 10*6/uL (4.10-5.10); RED CELL DISTRI WIDTH 14.2 % (0-14.5); WHITE BLOOD COUNT 4.9 10*3/uL (4.8-10.8)
[2019-03-22 07:05] LABS: ALBUMIN 2.3 gm/dl (3.1-4.5); CREATININE 3.76 mg/dL (0.55-1.02); PHOSPHOROUS 4.9 mg/dL (2.5-4.9); POTASSIUM 3.6 mmol/L (3.5-5.1); TOTAL PROTEIN 5.3 gm/dL (6.4-8.2)
[2019-03-22 08:00] VITALS: BP 115/49
--- NOTE | 2019-03-22 08:32 | NUR ---
IN TO SEE PT AT THIS TIME. PT SITTING UP IN CHAIR AND PHYSICAL THERAPY IN WITH PATIENT. NO SIGNS OF SOB OR DISTRESS. PT HAS NO COMPLAINTS. WILL CONTINUE TO MONITOR.
--- NOTE | 2019-03-22 08:39 | NUR ---
PHYSICAL THERAPY Informed consent given. Patient has no complaint of pain. Patient performed sit to stand with CGA X 1. Patient stood with no assistive device for 1 minute with 1 LOB with MIN A X 1 to correct. Patient stood staggered stance for 1 minutes 8 seconds with CGA X 1 with 1 LOB which she corrected herself. Patient sit to stand 5 x in 31 seconds. Patient ambulated 60' x 1 with CGA X 1 with no LOB. Patient ambulated another 60' x 1 with CGA X 1 with no LOB. Patient performed TUG TEST IN 37 seconds with wh walker and CGA X 1 AND no lob. Patient was left in seated position with call light within reach, tray table in front of patient. Patient was 1:1 with this SHAKE TABLE OPERATOR for 23 minutes total. NITHYA GRAY SHAKE TABLE OPERATOR
--- NOTE | 2019-03-22 09:00 | NUR ---
case management visits with patient, educated her that insurance authorization for [facility] was obtained and she could potentially be discharged today, patient states her son will transport her, case management will follow
--- NOTE | 2019-03-22 11:21 | NUR ---
OT NOTE Pt was seen this A.M. 1:1 for 25 minute OT session. Upon arrival pt was supine in bed. Pt identified by name and and had no complaints at this time. Pt transferred supine to sit EOB with Ld for assist with UB. While sitting EOB pt completed AROM to BUE over all planes of motion for 1 X 10 to increase and restore maximum functional use during ADL/IADL tasks. Pt's LUE required AAROM over shoulder flexion, abduction, and internal rotation due to lmitied range with pain. Sit to stand completed from bed level with Ld and use of w/w for UE support. Functional mobility completed into the bathroom with CGA for safety and use of w/w. There she transferred on/off standard commode with CGA for safety. Pt then stood sink side while washing her hands and face with CGA. Functional mobility completed back to the EOB where she transferred sit to supine with SBA. There she was left supine in bed with call light in hand, tray table in place, and phone in reach. Continue with rec D/C plan to SNF. SARAH Tripp/Becky
[2019-03-22 12:00] VITALS: BP 115/63
--- NOTE | 2019-03-22 12:07 | NUR ---
case management received the discharge order, contacted [facility] at [facility] and informed her that patient is discharged and will be brought to their facility by her son. no other needs at this time
--- NOTE | 2019-03-22 13:12 | NUR ---
NURSE TO NURSE REPORT CALLED TO CRISTI
--- NOTE | 2019-03-22 13:13 | NUR ---
Discharge instructions reviewed with patient/family. Patient receptive and verbalizes understanding. Follow-up care arranged. Written instructions given to patient/family. RADHA LANDEROS
--- NOTE | 2019-03-22 15:15 | NUR ---
PHYSICAL THERAPY CO-SIGN I approve of the Phyical Therapy notes written above. CESAR RODRIGES PT
--- NOTE | 2019-03-23 08:22 | NUR ---
OCCUPATIONAL THERAPY CO-SIGN I approve of the Occupational Therapy notes written above. FIORELLA AGUIRRE OTR/Becky
== END 2019-03-22 13:13 | disposition other institution (70) | DRG 70 ==
LOC: ED 19:21 → 4E 22:36 → EDHOLD 22:36 → 4E 03-18 09:00
PROVIDERS: Emergency Medicine; Internal Medicine; Internal Medicine Nephrology; Student in an Organized Health Care Education/Training Program; ADMIT Internal Medicine
DX: G93.41 Metabolic encephalopathy (principal); N17.0 Acute kidney failure with tubular necrosis; E43 Unspecified severe protein-calorie malnutrition; I50.32 Chronic diastolic (congestive) heart failure; N39.0 Urinary tract infection, site not specified; I13.0 Hypertensive heart and chronic kidney disease with heart failure and stage 1 through stage 4 chronic kidney disease, or unspecified chronic kidney disease; N18.5 Chronic kidney disease, stage 5; E87.6 Hypokalemia; D69.6 Thrombocytopenia, unspecified; D72.819 Decreased white blood cell count, unspecified; I89.0 Lymphedema, not elsewhere classified; I25.10 Atherosclerotic heart disease of native coronary artery without angina pectoris; E78.5 Hyperlipidemia, unspecified; M19.90 Unspecified osteoarthritis, unspecified site; Z96.653 Presence of artificial knee joint, bilateral; M48.00 Spinal stenosis, site unspecified; I73.9 Peripheral vascular disease, unspecified; E66.01 Morbid (severe) obesity due to excess calories; I35.0 Nonrheumatic aortic (valve) stenosis; I87.2 Venous insufficiency (chronic) (peripheral); I48.0 Paroxysmal atrial fibrillation; D53.9 Nutritional anemia, unspecified; Z79.01 Long term (current) use of anticoagulants; Z88.1 Allergy status to other antibiotic agents; I25.2 Old myocardial infarction; Z98.42 Cataract extraction status, left eye; Z98.41 Cataract extraction status, right eye; Z90.711 Acquired absence of uterus with remaining cervical stump; Z82.49 Family history of ischemic heart disease and other diseases of the circulatory system; Z83.3 Family history of diabetes mellitus; Z80.9 Family history of malignant neoplasm, unspecified; Z68.33 Body mass index [BMI] 33.0-33.9, adult

== ENCOUNTER → 2019-05-04 | Outpatient (CLI) | payer MEDICARE ==
[~2019-05-04] MED LIST changes: +CARVEDILOL6.25 MG PO; +CELEXA10 MG PO; +CELEXA20 MG PO; +Coumadin5 MG PO; +FERROUS SULFAT325 MG PO; +K-TAB20 MEQ PO; +KEFLEX250 MG PO; +OMEPRAZOLE D/R20 MG PO; +POTASSIUM CHLO20 ME3 PO; +SODIUM BICARBO325 M1 PO
== END | disposition home or self-care (01) ==
LOC: WOUNDCARE 00:45
DX: I87.331 Chronic venous hypertension (idiopathic) with ulcer and inflammation of right lower extremity (principal); L97.211 Non-pressure chronic ulcer of right calf limited to breakdown of skin; I73.9 Peripheral vascular disease, unspecified; I89.0 Lymphedema, not elsewhere classified; Z90.710 Acquired absence of both cervix and uterus; Z96.653 Presence of artificial knee joint, bilateral

== ENCOUNTER 2019-05-06 14:42 | Inpatient (IN) | payer MEDICARE ==
[~2019-05-06] VITALS: Ht 162.6 cm; Wt 86.7 kg
--- NOTE | ~2019-05-06 | EKG ---
[place], [place] ELECTROCARDIOGRAM REPORT NAME: DEEPTI BEST UNIT #: [id number] ROOM: 410 DOCTOR: JALYN DRAFT REPORT BIRTHDATE: [birth year] [facility] Test Date: 2019-05-06 Test Time: 20:30:44 Pat Name: DEEPTI BEST Department: Room: 410 Gender: F Outside Installer Apprentice: ONEIDA : 1935 Requested By: SHERIDAN MEDINA Order Number: [id number] Reading MD: Collin Ford MD Measurements Intervals [place] Rate: 80 P: -9 AZ: 274 QRS: -2 QRSD: 159 T: -25 QT: 444 QTc: 513 Interpretive Statements Sinus rhythm Prolonged [place] interval Right bundle branch block Baseline wander in lead(s) V4,V6 Compared to ECG 05/06/2019 17:33:14 First degree AV block now present Electronically Signed On 05-07-2019 15:24:49 PDT by Collin Ford MD CM:EKGRPT:ELECTROCARDIOGRAM REPORT [id number] SHERIDAN MEDINA DO EPIPHRAYMUNDO DRAFT REPORT SHERIDAN MEDINA DO
--- NOTE | ~2019-05-06 | EKG ---
[place], [place] ELECTROCARDIOGRAM REPORT NAME: DEEPTI BEST UNIT #: [id number] ROOM: 410 DOCTOR: JALYN DRAFT REPORT BIRTHDATE: [birth year] [facility] Test Date: 2019-05-06 Test Time: 17:33:14 Pat Name: DEEPTI BEST Department: Room: 410 Gender: F Fine Hairer: Alexandra Kolb : 1935 Requested By: SHERIDAN MEDINA Order Number: [id number] Reading MD: Collin Ford MD Measurements Intervals [place] Rate: 60 P: 23 CT: 185 QRS: 0 QRSD: 156 T: -6 QT: 475 QTc: 475 Interpretive Statements Sinus rhythm Right bundle branch block Compared to ECG 03/17/2019 20:49:19 Ectopic atrial rhythm no longer present Electronically Signed On 05-06-2019 15:00:51 PDT by Collin Ford MD CM:EKGRPT:ELECTROCARDIOGRAM REPORT [id number] SHERIDAN PRADHAN DRAFT REPORT SHERIDAN MEDINA DO
[2019-05-06 14:42] VITALS: BP 154/50
[~2019-05-06 14:42] MED LIST changes: -CARVEDILOL6.25 MG PO; -CELEXA10 MG PO; -CELEXA20 MG PO; -Coumadin5 MG PO; -FERROUS SULFAT325 MG PO; -K-TAB20 MEQ PO; -KEFLEX250 MG PO; -OMEPRAZOLE D/R20 MG PO; -POTASSIUM CHLO20 ME3 PO; -SODIUM BICARBO325 M1 PO
[2019-05-06 15:34] LABS: BASO % 0.5 % (0.0-1.0); EOS # 0.1 10*3/uL (0.0-0.4); EOS % 1.6 % (1.0-4.0); HEMATOCRIT 28.6 % (37.0-47.0); HEMOGLOBIN 9.4 g/dl (12.0-16.0); LYMPH % 44.6 % (27.0-41.0); MEAN CELL VOLUME 95.7 fl (81.0-99.0); MEAN CORPUSCULAR HGB 31.4 pg (27.0-31.0); MEAN CORPUSCULAR HGB CONC 32.9 g/dl (33.0-37.0); MEAN PLATELET VOLUME 9.2 fl (9.6-12.3); MONO # 0.3 10*3/uL (0.1-1.0); MONO % 6.3 % (3.0-9.0); NEUT # 2.1 10*3/uL (2.3-7.9); NEUT % 46.8 % (47.0-73.0); PLATELET COUNT AUTOMATED 84 10*3/uL (130-400); RED BLOOD COUNT 2.99 10*6/uL (4.10-5.10); RED CELL DISTRI WIDTH 14.5 % (0-14.5); WHITE BLOOD COUNT 4.4 10*3/uL (4.8-10.8)
[2019-05-06 15:46] LABS: ACT PARTIAL THROMBO TIME 32.1 SECONDS (20.0-32.1); INTERNATIONAL NORM RATIO 1.3 (2.0-3.5)
[2019-05-06 15:53] LABS: ALBUMIN 2.8 gm/dl (3.1-4.5); ALKALINE PHOSPHATASE 91 U/L (45-117); BUN 54 mg/dl (7-24); CHLORIDE 101 mmol/L (98-107); CREATININE 4.35 mg/dL (0.55-1.02); POTASSIUM 3.8 mmol/L (3.5-5.1); SGOT/AST 18 IU/L (3-35); SGPT/ALT 13 U/L (12-78); SODIUM 139 mmol/L (136-145); TOTAL PROTEIN 6.2 gm/dL (6.4-8.2)
[2019-05-06 15:58] LABS: BILIRUBIN NEGATIVE (NEGATIVE); BLOOD TRACE-INTACT (NEGATIVE); CLARITY CLEAR (CLEAR); COLOR YELLOW (YELLOW); GLUCOSE NEGATIVE (NEGATIVE); KETONE NEGATIVE (NEGATIVE); LEUKO ESTERASE 2+ (NEGATIVE); NITRITE NEGATIVE (NEGATIVE); UROBILINOGEN 0.2 E.U./dl (0.2-1.0)
[2019-05-06 16:09] LABS: TROPONIN I < 0.015 ng/ml (<0.045)
[2019-05-06 16:13] LABS: BACTERIA 1+; WBC 41-50 wbc/hpf (0-5)
--- NOTE | 2019-05-06 16:20 | NUR ---
RIGHT LEG NOTED TO HAVE WRAP ON IT, PT STATES SHE SEES WOUND CARE FOR THIS AND THE DRESSING JUST GOT WRAPPED TODAY AND DOES NOT WANT IT TAKEN OFF. VERO TRAVIS NOTIFIED.
[2019-05-06] MEDS ORDERED: BUMETANIDE2 MG PO (17:28)
[2019-05-06] MEDS ORDERED: POTASSIUM CHLO20 ME3 PO ×2 (17:30→17:34)
--- NOTE | 2019-05-06 17:30 | NUR ---
A 83, admitted to 4E, under the services of JORDY Freeman DO with a diagnosis of DIZZINESS, RENAL FAILURE, PANCYTOPENIA. Chief complaint is WEAKNESS, DIZZINESS. Patient arrived via bed from ER. Monitor applied. Initial assessment completed. Vital signs taken and recorded. JORDY FREEMAN DO notified of admission to the unit. Orders received. See assessment for past medical history, medications and allergies. Patient and/or family oriented to unit. [facility] visitation policy reviewed. Clothing/patient valuable form completed. NICOLETTE MUNOZ
[2019-05-06] MEDS ORDERED: SODIUM BICARBO325 M1 PO (17:31)
[2019-05-06] MEDS ORDERED: CELEXA10 MG PO (17:32)
[2019-05-06] MEDS ORDERED: METOLAZONE2.5 MG PO (17:33)
--- NOTE | 2019-05-06 17:42 | NUR ---
DR. CHILD'S ANSWERING SERVICE NOTIFIED OF CONSULT.
[2019-05-06 18:37] VITALS: BP 174/83
[2019-05-06 20:00] VITALS: BP 137/52
[2019-05-07] VITALS: BP 128/55
--- NOTE | 2019-05-07 02:38 | NUR ---
24 HR chart check completed.
[2019-05-07 06:32] LABS: BASO % 0.5 % (0.0-1.0); EOS # 0.1 10*3/uL (0.0-0.4); EOS % 2.8 % (1.0-4.0); HEMATOCRIT 29.1 % (37.0-47.0); HEMOGLOBIN 9.2 g/dl (12.0-16.0); LYMPH # 1.9 10*3/uL (1.3-4.4); LYMPH % 43.7 % (27.0-41.0); MEAN CORPUSCULAR HGB 30.4 pg (27.0-31.0); MEAN CORPUSCULAR HGB CONC 31.6 g/dl (33.0-37.0); MEAN PLATELET VOLUME 9.7 fl (9.6-12.3); MONO # 0.4 10*3/uL (0.1-1.0); MONO % 8.7 % (3.0-9.0); NEUT # 1.9 10*3/uL (2.3-7.9); NEUT % 44.1 % (47.0-73.0); RED BLOOD COUNT 3.03 10*6/uL (4.10-5.10); RED CELL DISTRI WIDTH 14.4 % (0-14.5); WHITE BLOOD COUNT 4.2 10*3/uL (4.8-10.8)
[2019-05-07 06:33] LABS: PLATELET COUNT AUTOMATED 119 10*3/uL (130-400)
[2019-05-07 06:47] LABS: ALBUMIN 2.8 gm/dl (3.1-4.5); CREATININE 3.91 mg/dL (0.55-1.02); POTASSIUM 3.5 mmol/L (3.5-5.1)
[2019-05-07 09:35] LABS: INTERNATIONAL NORM RATIO 1.3 (2.0-3.5)
[2019-05-07 12:00] VITALS: BP 130/42
[2019-05-07 16:00] VITALS: BP 153/51
[2019-05-07 20:00] VITALS: BP 159/52
[2019-05-08] VITALS: BP 139/56
[2019-05-08 03:47] VITALS: BP 122/64
[2019-05-08 06:09] LABS: BASO % 0.3 % (0.0-1.0); EOS # 0.2 10*3/uL (0.0-0.4); HEMATOCRIT 28.4 % (37.0-47.0); HEMOGLOBIN 9.1 g/dl (12.0-16.0); LYMPH # 1.7 10*3/uL (1.3-4.4); LYMPH % 43.8 % (27.0-41.0); MEAN CELL VOLUME 95.9 fl (81.0-99.0); MEAN CORPUSCULAR HGB 30.7 pg (27.0-31.0); MEAN PLATELET VOLUME 9.8 fl (9.6-12.3); MONO # 0.3 10*3/uL (0.1-1.0); MONO % 7.1 % (3.0-9.0); NEUT # 1.7 10*3/uL (2.3-7.9); NEUT % 44.8 % (47.0-73.0); PLATELET COUNT AUTOMATED 99 10*3/uL (130-400); RED BLOOD COUNT 2.96 10*6/uL (4.10-5.10); RED CELL DISTRI WIDTH 14.3 % (0-14.5); WHITE BLOOD COUNT 3.8 10*3/uL (4.8-10.8)
[2019-05-08 06:28] LABS: POTASSIUM 3.5 mmol/L (3.5-5.1)
[2019-05-08 06:40] LABS: INTERNATIONAL NORM RATIO 1.5 (2.0-3.5)
[2019-05-08 06:55] LABS: CREATININE 3.64 mg/dL (0.55-1.02)
--- NOTE | 2019-05-08 08:30 | NUR ---
Patient resting quietly with no c/o discomfort. Respirations easy and regular. Vital signs stable. No overt distress. DONITA PHILLIPS R
[2019-05-08 12:00] VITALS: BP 123/52
[2019-05-08 16:00] VITALS: BP 151/52
[2019-05-08 20:00] VITALS: BP 151/47
[2019-05-09] VITALS: BP 152/68
[2019-05-09 04:09] VITALS: BP 142/78
[2019-05-09 07:25] LABS: BASO % 0.3 % (0.0-1.0); EOS # 0.1 10*3/uL (0.0-0.4); EOS % 3.1 % (1.0-4.0); HEMATOCRIT 28.5 % (37.0-47.0); HEMOGLOBIN 9.2 g/dl (12.0-16.0); LYMPH # 1.7 10*3/uL (1.3-4.4); LYMPH % 42.9 % (27.0-41.0); MEAN CELL VOLUME 95.6 fl (81.0-99.0); MEAN CORPUSCULAR HGB 30.9 pg (27.0-31.0); MEAN CORPUSCULAR HGB CONC 32.3 g/dl (33.0-37.0); MEAN PLATELET VOLUME 9.4 fl (9.6-12.3); MONO # 0.3 10*3/uL (0.1-1.0); NEUT # 1.8 10*3/uL (2.3-7.9); NEUT % 46.4 % (47.0-73.0); PLATELET COUNT AUTOMATED 80 10*3/uL (130-400); RED BLOOD COUNT 2.98 10*6/uL (4.10-5.10); RED CELL DISTRI WIDTH 14.5 % (0-14.5); WHITE BLOOD COUNT 3.9 10*3/uL (4.8-10.8)
[2019-05-09 07:35] LABS: CREATININE 3.36 mg/dL (0.55-1.02); POTASSIUM 3.3 mmol/L (3.5-5.1)
--- NOTE | 2019-05-09 07:43 | NUR ---
PHYSICAL THERAPY Nursing screen received. Chart review complete. Recommend normal daily mobility with nursing prn. If difficulties with mobilty arise, please order PT when medically appropriate. Thank you. Keeley Venegas,PT
--- NOTE | 2019-05-09 07:44 | NUR ---
DEEPTI BEST [id number] Please refer to the physician's history and physical for past medical history, comorbid conditions, and allergies. Diagnosis: DIZZINESS CHRONIC KIDNEY DISEASE PANCYTOPENIA Matt Score: 17,AT RISK WOUND DESCRIPTIONS: Patient's LLE's are pigment is dark in color with dry flaky skin noted. No open areas noted to the left lower extremity. Left heel red and blanchable at time of assessment. Right lower extremity dressing intact from wound care center patient wishes the dressing stay in place until her visit on thursday. No strike through drainage noted at time of assessment. Surface the patient is resting on: Isoflex SKIN PREVENTION RECOMMENDATION: 1. Pressure redistribution support surface as appropriate 2. Elevate heels 3. Remove boots/TEDS every shift and reapply 4. Head of bed 30 degrees as tolerated 5. Assess nutrition and hydration 6. Manage moisture 7. Avoid the use of containment devices while in bed 8. Use absorptive products on surfaces limit layers of linens on bed 9. Turn and reposition every 1-2 hours in bed and every 1 hour in chair as tolerated 10. Weight shifts every 15 minutes while up in chair 11. Offloading with pillows or device to keep heels elevated off bed 12. Monitor skin at least every shift 13. Inspect under medical devices twice a day WOUND TREATMENT RECOMMENDATIONS: Heel raiser pro boot to bilateral heels while in bed. Lac-hydrin 12% BID. Follow up in wound care center on 05/11/19 @ 1:00pm with Geneva THORNTON.
[2019-05-09 07:49] LABS: INTERNATIONAL NORM RATIO 1.8 (2.0-3.5)
[2019-05-09 08:00] VITALS: BP 158/58
--- NOTE | 2019-05-09 08:56 | NUR ---
Dr. Harris notified of wound care recommendations.
--- NOTE | 2019-05-09 09:00 | NUR ---
Clinical Practitioner in to talk to patient. Patient states lives at home with alone. There are no steps in the home. Physician: frank mondragon Pharmacy: [facility] Home health services: none Patient's level of ADLs: MINIMAL ASSIST Patient has working utilities: all working DME: walker Follow-up physician's appointment after d/c: will be made by hospitalist nurse director upon discharge Does patient want to access PORTAL?: no Discharge plan discussed with patient, patient lives at home alone, she has sone that check on her on a daily basis, discussed with patient a short term skill nursing for rehab prior to going home, patient declines, also discussed with her VNA and she also declines this, patient stated she would be going home when able and denies any home needs, case management will follow. LAUREANO LI
--- NOTE | 2019-05-09 10:11 | NUR ---
ECHO BEING PERFORMED AT THE BEDSIDE.
--- NOTE | 2019-05-09 11:45 | NUR ---
PHYSICAL THERAPY Patient evaluated on 4, full evaluation to follow. Continue with PT as per plan of care with fall and acute debility precautions. Home with home health RN, PT and aides, as prior. PAtient is moderate complexity via chart review, tests and evaluation: 99387. Thank you for this referral. Keeley Venegas,PT
[2019-05-09 12:00] VITALS: BP 142/80
--- NOTE | 2019-05-09 12:38 | NUR ---
Occupational Therapy evaluation completed on 4 with full eval to follow. Precautions include fall risk,dizziness,slow rate of performance, impaired ROM both shoulders, moderate arthritic jt changes right>hand, moderate complexity level 60608 via chart review, testing and evaluation. Recommend return home with home health SN, OT,PT. Thank you for this referral. Wendy Rivera OTR/l
[2019-05-09] MEDS ORDERED: CARVEDILOL6.25 MG PO (14:20)
--- NOTE | 2019-05-09 14:21 | NUR ---
IN TO SEE PATIENT.
[2019-05-09] MEDS ORDERED: KEFLEX250 MG PO (14:26)
--- NOTE | 2019-05-09 16:18 | NUR ---
Nursing screen received and Occupational Therapy referral received. Thank you. Wendy Rivera Otr/L
--- NOTE | 2019-05-09 17:06 | NUR ---
Discharge instructions reviewed with patient/family. Patient receptive and verbalizes understanding. Follow-up care arranged. Written instructions given to patient/family. BRITT DAVIES.
== END 2019-05-09 17:06 | disposition home or self-care (01) | DRG 689 ==
LOC: ED 14:42 → 4E 16:44 → EDHOLD 16:44 → 4E 17:05
PROVIDERS: Internal Medicine; Nurse Practitioner Family; Student in an Organized Health Care Education/Training Program; ADMIT Emergency Medicine
PROC: 30233R1 Transfusion of Nonautologous Platelets into Peripheral Vein, Percutaneous Approach (ICD-10-PCS; principal; 2019-05-06)
DX: N39.0 Urinary tract infection, site not specified (principal); N17.0 Acute kidney failure with tubular necrosis; N18.5 Chronic kidney disease, stage 5; I13.2 Hypertensive heart and chronic kidney disease with heart failure and with stage 5 chronic kidney disease, or end stage renal disease; D61.818 Other pancytopenia; I50.32 Chronic diastolic (congestive) heart failure; L97.909 Non-pressure chronic ulcer of unspecified part of unspecified lower leg with unspecified severity; Z68.45 Body mass index [BMI] 70 or greater, adult; R00.1 Bradycardia, unspecified; R55 Syncope and collapse; I48.91 Unspecified atrial fibrillation; I25.10 Atherosclerotic heart disease of native coronary artery without angina pectoris; E66.01 Morbid (severe) obesity due to excess calories; M19.90 Unspecified osteoarthritis, unspecified site; I73.9 Peripheral vascular disease, unspecified; R73.9 Hyperglycemia, unspecified; Z96.653 Presence of artificial knee joint, bilateral; I89.0 Lymphedema, not elsewhere classified; I87.2 Venous insufficiency (chronic) (peripheral); I35.0 Nonrheumatic aortic (valve) stenosis; I25.2 Old myocardial infarction; Z86.718 Personal history of other venous thrombosis and embolism; Z88.8 Allergy status to other drugs, medicaments and biological substances; Z79.01 Long term (current) use of anticoagulants; Z79.899 Other long term (current) drug therapy; Z90.710 Acquired absence of both cervix and uterus; Z98.42 Cataract extraction status, left eye; Z98.41 Cataract extraction status, right eye; Z83.3 Family history of diabetes mellitus; Z82.49 Family history of ischemic heart disease and other diseases of the circulatory system; Z83.79 Family history of other diseases of the digestive system; Z80.8 Family history of malignant neoplasm of other organs or systems

== ENCOUNTER 2019-05-16 14:07 | Inpatient (IN) | payer MEDICARE ==
[~2019-05-16] VITALS: Ht 170.2 cm; Wt 88.5 kg
--- NOTE | ~2019-05-16 | EKG ---
[place], [place] ELECTROCARDIOGRAM REPORT NAME: DEEPTI BEST UNIT #: [id number] ROOM: 410 DOCTOR: DIAZANY DRAFT REPORT BIRTHDATE: [birth year] [facility] [place] [facility] Test Date: 2019-05-16 Test Time: 14:54:10 Pat Name: DEEPTI BEST Department: Room: 410 Gender: F Neurology Epilepsy Physician: 17 : 1935 Requested By: EMERSON BELCHER Order Number: [id number] Reading MD: Collin Ford MD Measurements Intervals [place] Rate: 55 P: 2 NC: 168 QRS: -11 QRSD: 158 T: -17 QT: 498 QTc: 477 Interpretive Statements Sinus rhythm Right bundle branch block Compared to ECG 05/06/2019 20:30:44 First degree AV block no longer present Electronically Signed On 05-18-2019 5:51:02 PDT by Collin Ford MD CM:EKGRPT:ELECTROCARDIOGRAM REPORT [id number] EMERSON PRADHAN DRAFT REPORT EMERSON BELCHER DO
--- NOTE | ~2019-05-16 | CON ---
[place], [place] REPORT OF CONSULTATION NAME[id number] UNIT #: [id number] ROOM: 410 DOCTOR: DIANE SANDRINE BIRTHDATE: [birth year] DOS: 05/17/2019 RENAL CONSULTATION REASON FOR CONSULTATION: Chronic kidney disease. HISTORY OF PRESENT ILLNESS: The patient is a pleasant 83-year-old female, a vague historian, prior history of coronary artery disease with aortic stenosis, atrial fibrillation. She has chronic venous stasis dermatitis of both lower extremities, diastolic heart failure, hypertension, NSTEMI, details of this are unclear, CKD stage V and follows in our office with Dr. Parker. Baseline creatinine is approximately 3.5, fluctuating up to 4. She had an AV fistula and AV graft created in the past, both of which have thrombosed. Recent concerns of her depression as well, presents to this institution yesterday after she apparently lost consciousness. She apparently for the past month has been feeling fatigued, has been eating somewhat poorly per her own words. She has not felt like cooking. She walked out to her sling yesterday, apparently was sitting there when per H and P she lost consciousness. The patient does recall walking out to the sling and her next memory is waking up in the ambulance. Per the H and P, the family stated that she suddenly passed out with her eyes rolling up into her head. Reportedly, she was incontinent of bowel and bladder, but no reported tonic-clonic type movements were appreciated. The patient denied any prodromal symptoms of chest pain, palpitations, presyncope, nausea or dyspnea diaphoresis. In the Emergency Room, she was given a gram of Rocephin with a 1 liter bolus of saline with an additional 500 mL bolus of saline. She underwent a CT scan of the head that did not show any acute findings. A chest x-ray was performed, which showed haziness at the left lung base. No other anomalies were noted. Admission lab work notable for a white count of 5.9, hemoglobin of 10.0. Note previous hemoglobin most recently from 05/09/2019 was 9.2. She had a normal differential. Chemistries revealed a potassium of 3.4, BUN and creatinine of 64 and 4.18, glucose was 97. Chemistry is otherwise unremarkable. She had blood and urine cultures obtained and she has been started on ceftriaxone 1 gram IV daily for question of a UTI. Urinalysis in the Emergency Room was yellow and cloudy in color, specific gravity 1.015 with 1+ protein, 1+ blood, 3+ leukocyte esterase; however, there are numerous epithelial cells. Urine cultures are pending. Since being admitted, she has been afebrile. Hemoglobin is stable. States that she is still feeling fatigued. Otherwise, offers no additional complaints. She denies any specific uremic symptoms at present. Denies cough, hemoptysis, orthopnea, PND, dyspnea. Denies dysuria, suprapubic pain, or CVA pain. She denies any fevers, chills, rigors, or diaphoresis preceding this admission or currently. PAST MEDICAL HISTORY: See above. ALLERGIES: LISTED TO CIPROFLOXACIN. CURRENT MEDICATIONS: Aquaphor daily, hydrocortisone topically b.i.d., Coumadin as directed, Rocephin 1 gram IV every day, multivitamin 1 p.o. every day, iron sulfate 325 mg b.i.d., K-Dur 20 mEq b.i.d. now discontinued, Celexa 10 mg daily, carvedilol 6.25 mg q. 12 hours, normal saline IV at 100 mL an hour, Dulcolax 5 [place], [place] REPORT OF CONSULTATION NAME: DEEPTI BEST UNIT #: [id number] ROOM: [facility] DOCTOR: SANDRINE CONTRERAS DO BIRTHDATE: [birth year] mg daily. SOCIAL HISTORY: She resides at home. FAMILY HISTORY: Noncontributory. REVIEW OF SYSTEMS: Please see HPI. Full 10-point review of systems was performed. We obtained the above noted measures, was unremarkable except as noted in HPI. PHYSICAL EXAMINATION: VITAL SIGNS: Blood pressure 151/58, pulse 53, respirations 18, temperature is 97.4 degrees Fahrenheit. GENERAL APPEARANCE: An obese elderly female, awake, alert, oriented x 3, currently in no apparent distress. HEAD AND NECK: Conjunctivae are pink and moist. Oral mucosa is pink and moist. There is no carotid bruit, thyromegaly, adenopathy. There is no JVD appreciated HEART: Currently, regular without an S3 or rub. A murmur could not be appreciated. LUNGS: Exhibit crackles at the right base, otherwise clear to auscultation and percussion. ABDOMEN: Soft, positive bowel sounds x 4, nontender, without CVA tenderness noted. No rebound, guarding or rigidity noted. No abdominal or flank bruits appreciated. NEUROLOGIC: Grossly nonfocal motor and sensation. EXTREMITIES: No clubbing or cyanosis. She has trace pedal edema noted. Pulses positive by radial, absent dorsalis pedis. SKIN: Warm and dry. LABORATORY DATA: Labs from today, WBCs are 4.4, hemoglobin 9.3, hematocrit 28.4, platelets 76,000. Sodium is 140, potassium 3.3, chloride of 102, CO2 of 28, BUN 61, creatinine 4.36, glucose is 91, phosphorus 5.1, magnesium 2.0, calcium 9.1, albumin is 2.5, corrected calcium is 10.3. Total protein is 5.7, ALT is 11, AST is 24, alkaline phosphatase is 90. Troponin Is x 3 are negative. Urinalysis is noted. Urine cultures are pending. Blood cultures are pending. ASSESSMENT AND PLAN: 1. Chronic kidney disease, stage V, volume status is satisfactory. Electrolytes are notable for low potassium. She is on supplementation. No clearcut uremic signs or symptoms, though it is somewhat concerning with her poor appetite and fatigue of one month duration. This may be infectious in nature . 2. Hypokalemia, being supplemented. 3. Hypertension. Blood pressure under satisfactory control. 4. Syncope, etiology is unclear. Cardiology is evaluating the patient does not feel it is cardiac in nature, may be due to volume depletion, apparently she is on diuretics as an outpatient, has been eating poorly. 5. Questionable urinary tract infection. No symptoms. Urine culture is pending, but the urinalysis itself appeared dirty. [place], [place] REPORT OF CONSULTATION NAME: DEEPTI BEST Becky UNIT #: [id number] ROOM: 410 DOCTOR: SANDRINE CONTRERAS DO BIRTHDATE: [birth year] RECOMMENDATIONS: Agree with current management. Follow intake and output as well as renal function and electrolytes closely and await results of pending culture studies. No indication for renal replacement therapy given, we will check a chest x-ray. Thank you for allowing us to participate in the care of the patient. SANDRINE CONTRERAS DO CM:CONSTR:REPORT OF CONSULTATION 1654 06/02/19 0801 interface
--- NOTE | ~2019-05-16 | PROC NOTE ---
[place], [place] PROCEDURE NOTE NAME: DEEPTI BEST [facility] #: [id number] UNIT #: [id number] ROOM: 410 DOCTOR: DINORA ZEE BIRTHDATE: [birth year] DOS: 05/18/2019 MODIFIED BARIUM SWALLOW LOCATION: [facility], room 410, bed 1. ORDERING PHYSICIAN: Dr. Resendez. RADIOLOGIST: Dr. Gan. BACKGROUND INFORMATION: The patient is an 83-year-old female who was seen for modified barium swallow. This test was ordered due to difficulty swallowing. The patient was admitted with UTI, metabolic encephalopathy, and sepsis after passing out at home. Further history includes SC, hypertension, renal disease, malnutrition and CHF. The patient endorsed difficulty swallowing as well as decreased appetite at home. A CT of the chest revealed a large hiatal hernia with chronic dilatation of esophagus and atelectasis of left lower lobe. The patient received a regular diet and thin liquid. For the assessment, she was alert and able to follow all commands. Oral peripheral examination revealed presence of upper and lower dentures. Lower dentures were noted to be ill-fitting. Lingual, labial, and buccal skills were within normal limits in terms of strength, range of motion, and coordination. The patient was able to volitionally cough and swallow. METHODS AND MATERIALS USED FOR THE EXAM: The patient was positioned in the lateral plane and the exam was viewed under fluoroscopy. The patient was presented with a variety of consistencies to assess swallowing skills including applesauce mixed with barium presented in half teaspoon amounts, barium-coated cookie taken in bite size piece and thin liquid barium taken by cup and straw. The patient was given the cup and swallowed in sip size amounts with both small sips and larger sips as well with chin neutral and chin down. ORAL PHASE: Unremarkable. PHARYNGEAL PHASE: The pharyngeal swallow occurred within a timely manner with all consistencies given. Following the swallow, there was no residue in the pharynx. Silent aspiration occurred with thin liquids due to reduced laryngeal elevation and epiglottic function. Aspiration occurred inconsistently with thin liquids taken both by straw and cup. When implementing a chin tuck maneuver, no penetration or aspiration occurred. ESOPHAGEAL PHASE: This phase of the swallow was not formally assessed during this examination. IMPRESSIONS AND RECOMMENDATIONS: Based upon assessment results, this 83-year-old patient presents with a mild pharyngeal stage dysphagia characterized by silent aspiration with thin liquids. This occurred inconsistently and both with cup and straw. When implementing a chin tuck maneuver, no penetration or aspiration occurred. Recommend the patient continue with regular diet and thin liquid using a chin tuck with liquids. Followup [place], [place] PROCEDURE NOTE NAME: DEEPTI BEST UNIT #: [id number] ROOM: 410 DOCTOR: DINORA ZEE BIRTHDATE: [birth year] therapy is recommended focusing on adherence to safe swallow precautions and pharyngeal strengthening exercises. Results and recommendations were shared with the patient and her nurse and they verbalized understanding. Thank you very much for this referral. Should you have any questions regarding this patient, please contact the speech pathologist at [phone]. DINORA ZEE CM:PROCNOTE:PROCEDURE NOTE [id number] DINORA ZEE
--- NOTE | ~2019-05-16 | PR ---
[place], [place] PROGRESS NOTE NAME: DEEPTI BEST UNIT #: [id number] ROOM: 410 DOCTOR: TUSHAR OLSEN MD BIRTHDATE: [birth year] DOS: 05/19/2019 NEPHROLOGY FOLLOWUP NOTE SUBJECTIVE: The patient was seen and examined. She appears to be doing well. She denies shortness of breath, nausea, vomiting, fevers or chills. She is eating better. She is awaiting placement. PHYSICAL EXAMINATION: VITAL SIGNS: Temperature 98.5, pulse 60, respiration 20, blood pressure 146/58. HEENT: Shows no JVD. RESPIRATORY: Clear. No wheeze. HEART: S1, S2. No rub. ABDOMEN: Soft, nontender. There is no organomegaly. EXTREMITIES: Showed no edema. LABORATORY DATA: Hemoglobin 8.5, white count 3.4 and platelets 55. Sodium is 140, potassium 3.7, CO2 of 27, BUN 56, creatinine 3.36, glucose 85 and calcium 9.3. ASSESSMENT AND PLAN: 1. Stage 4-5 chronic kidney disease. The patient did appear to have an acute element which is resolving. Renal function is stable and at baseline. Continue ongoing supportive care. Dose medications for creatinine clearance. Replace electrolytes as felt needed. 2. Anemia/pancytopenia. The patient will be evaluated for Epogen as an outpatient. This can be discussed with Dr. Parker. 3. Metabolic acidosis. Continue sodium bicarbonate tablets. 4. Hypertension. Continue medications. Blood pressure is stable. 5. Questionable syncope/change in mental status. The patient has a questionable urinary tract infection and is on antibiotics and has what appears to be improvement and resolution of her mental status issues. The patient is stable from a renal standpoint for discharge to a care home facility. She can follow up with Dr. Parker as an outpatient. [place], [place] PROGRESS NOTE NAME: DEEPTI BEST UNIT #: [id number] ROOM: 410 DOCTOR: TUSHAR OLSEN MD BIRTHDATE: [birth year] TUSHAR OLSEN MD CM:PNTRANS [id number] TUSHAR OLSEN MD 05/20/19 0111 interface
--- NOTE | ~2019-05-16 | EKG ---
[place], [place] ELECTROCARDIOGRAM REPORT NAME: DEEPTI BEST UNIT #: [id number] ROOM: 410 DOCTOR: JALYN DRAFT REPORT BIRTHDATE: [birth year] [facility] Test Date: 2019-05-17 Test Time: 10:20:42 Pat Name: DEEPTI BEST Department: Room: 410 1 Gender: F Assessor: : 1935 Requested By: DEREK BRUMFIELD Order Number: [id number] Reading MD: Collin Ford MD Measurements Intervals [place] Rate: 61 P: 2 MD: 196 QRS: -3 QRSD: 164 T: -25 QT: 491 QTc: 495 Interpretive Statements Sinus rhythm Right bundle branch block Baseline wander in lead(s) II,III,aVR,aVL,aVF,V3,V5 Compared to ECG 05/06/2019 20:30:44 First degree AV block no longer present Electronically Signed On 05-18-2019 5:57:28 PDT by Collin Ford MD CM:EKGRPT:ELECTROCARDIOGRAM REPORT [id number] DEREK GUNDERSON DRAFT REPORT DEREK BRUMFIELD
--- NOTE | ~2019-05-16 | PR ---
[place], [place] PROGRESS NOTE NAME: DEEPTI BEST [facility] #: [id number] UNIT #: [id number] ROOM: 410 DOCTOR: RAÚL COLONTUSHAR Shilo BIRTHDATE: [birth year] DOS: 05/18/2019 NEPHROLOGY FOLLOWUP NOTE SUBJECTIVE: The patient was seen and examined. Her son was at the bedside. We had an extensive discussion. She just came back from what sounds like an MBS. She tells me she feels better today and apparently she was better appearing as per her son. She has not had nausea or vomiting. PHYSICAL EXAMINATION: VITAL SIGNS: Temperature 98.2, pulse 55, respiratory rate 18, blood pressure 152/56. HEENT: Shows no JVD. LUNGS: Diminished breath sounds with no wheeze. HEART: S1, S2. No rub. ABDOMEN: Soft, nontender. EXTREMITIES: Showed no edema. SKIN: Showed no rash. LABORATORY DATA: Hemoglobin 9.0, white count 3.5, platelets 71. Sodium 139, potassium 3.4, CO2 of 25, BUN 57, creatinine 3.7, glucose 88, calcium 9.3, phosphorus 4.4, magnesium 2.0, albumin 2.5. ASSESSMENT AND PLAN: 1. Stage 5 chronic kidney disease. The patient's creatinine is near baseline. Continue supportive care. Replace potassium and electrolytes as needed. Dose meds for current creatinine clearance. Continue sodium bicarbonate tablets for metabolic acidosis, which seems to be controlled. Currently, there is no urgent need for dialysis. We did discuss her poor nutrition situation and fatigue that her renal failure may be playing a role due to uremia. We will continue to monitor her progress and hopefully dialysis can be avoided. She has had failed dialysis access now on 2 occasions and unfortunately if dialysis will be needed, dialysis catheter will have to be placed. Again, for now there is no urgent need and we will continue to monitor. 2. Anemia/pancytopenia. Transfuse as needed. Continue to follow counts. She will require erythropoietin stimulating agents at some point. 3. Questionable syncope/change in mental status. Apparently, the patient has a questionable urinary tract infection and is on antibiotics. She appears to be stable presently. 4. Malnutrition/dysphagia. The patient did have an MBS today. We will await results. From a renal standpoint, she would be stable for discharge. [place], [place] PROGRESS NOTE NAME: DEEPTI BEST UNIT #: [id number] ROOM: 410 DOCTOR: RAÚL COLON,TUSHAR Lao BIRTHDATE: [birth year] TUSHAR OLSEN MD CM:PNTRANS [phone] TUSHAR OLSEN MD 05/19/19 0236 interface
[~2019-05-16 14:07] MED LIST changes: +CARVEDILOL6.25 MG PO; +CELEXA10 MG PO; +KEFLEX250 MG PO; +POTASSIUM CHLO20 ME3 PO; +SODIUM BICARBO325 M1 PO
[2019-05-16 14:15] VITALS: BP 157/48
[2019-05-16 15:00] LABS: BASO % 0.3 % (0.0-1.0); EOS # 0.1 10*3/uL (0.0-0.4); EOS % 1.9 % (1.0-4.0); HEMATOCRIT 29.9 % (37.0-47.0); LYMPH # 2.5 10*3/uL (1.3-4.4); LYMPH % 42.4 % (27.0-41.0); MEAN CELL VOLUME 93.1 fl (81.0-99.0); MEAN CORPUSCULAR HGB 31.2 pg (27.0-31.0); MEAN CORPUSCULAR HGB CONC 33.4 g/dl (33.0-37.0); MEAN PLATELET VOLUME 9.5 fl (9.6-12.3); MONO # 0.4 10*3/uL (0.1-1.0); MONO % 5.9 % (3.0-9.0); NEUT # 2.9 10*3/uL (2.3-7.9); NEUT % 49.2 % (47.0-73.0); PLATELET COUNT AUTOMATED 84 10*3/uL (130-400); RED BLOOD COUNT 3.21 10*6/uL (4.10-5.10); RED CELL DISTRI WIDTH 14.3 % (0-14.5); WHITE BLOOD COUNT 5.9 10*3/uL (4.8-10.8)
[2019-05-16 15:11] LABS: ACT PARTIAL THROMBO TIME 35.7 SECONDS (20.0-32.1); INTERNATIONAL NORM RATIO 1.7 (2.0-3.5)
[2019-05-16 15:16] LABS: ALBUMIN 2.7 gm/dl (3.1-4.5); ALKALINE PHOSPHATASE 97 U/L (45-117); BUN 64 mg/dl (7-24); CHLORIDE 99 mmol/L (98-107); CREATININE 4.18 mg/dL (0.55-1.02); LIPASE 166 U/L (73-393); POTASSIUM 3.4 mmol/L (3.5-5.1); SGOT/AST 23 IU/L (3-35); SGPT/ALT 14 U/L (12-78); SODIUM 136 mmol/L (136-145); TOTAL PROTEIN 6.6 gm/dL (6.4-8.2)
[2019-05-16 15:18] LABS: TROPONIN I < 0.015 ng/ml (<0.045)
--- NOTE | 2019-05-16 15:20 | NUR ---
LACTIC ACID @ 2.4 PER LAB,DR BELCHER NOTIFIED.
[2019-05-16 15:25] LABS: BILIRUBIN NEGATIVE (NEGATIVE); BLOOD 1+ (NEGATIVE); CLARITY CLOUDY (CLEAR); COLOR YELLOW (YELLOW); GLUCOSE NEGATIVE (NEGATIVE); KETONE NEGATIVE (NEGATIVE); LEUKO ESTERASE 3+ (NEGATIVE); NITRITE NEGATIVE (NEGATIVE); PH 8.5 (5.0-9.0); SPECIFIC GRAVITY 1.015 (1.005-1.030); UROBILINOGEN 0.2 E.U./dl (0.2-1.0)
[2019-05-16 15:36] LABS: BACTERIA 2+; EPITHELIAL CELLS 51-100; WBC 51-100 wbc/hpf (0-5)
[2019-05-16 17:54] VITALS: BP 150/80
--- NOTE | 2019-05-16 18:15 | NUR ---
A 83, admitted to , under the services of JORDY Freeman DO with a diagnosis of UTI,METABOLIC ENCEPHALOPATHY,SEVERE SEPSIS. Chief complaint is CHANGE IN MENTAL STATUS. Patient arrived via stretcher from ER. Monitor applied. Initial assessment completed. Vital signs taken and recorded. JORDY FREEMAN DO notified of admission to the unit. Orders received. See assessment for past medical history, medications and allergies. Patient and/or family oriented to unit. [facility] visitation policy reviewed. Clothing/patient valuable form completed. LEVI TRINH
[2019-05-16 18:33] VITALS: BP 151/70
--- NOTE | 2019-05-16 23:14 | NUR ---
24 HR chart check completed.
[2019-05-17] VITALS: BP 152/58
[2019-05-17 06:16] LABS: BASO % 0.2 % (0.0-1.0); EOS # 0.2 10*3/uL (0.0-0.4); EOS % 4.1 % (1.0-4.0); HEMATOCRIT 28.4 % (37.0-47.0); HEMOGLOBIN 9.3 g/dl (12.0-16.0); LYMPH # 1.6 10*3/uL (1.3-4.4); LYMPH % 35.7 % (27.0-41.0); MEAN CORPUSCULAR HGB 30.8 pg (27.0-31.0); MEAN CORPUSCULAR HGB CONC 32.7 g/dl (33.0-37.0); MEAN PLATELET VOLUME 9.9 fl (9.6-12.3); MONO # 0.3 10*3/uL (0.1-1.0); MONO % 7.3 % (3.0-9.0); NEUT # 2.3 10*3/uL (2.3-7.9); PLATELET COUNT AUTOMATED 76 10*3/uL (130-400); RED BLOOD COUNT 3.02 10*6/uL (4.10-5.10); RED CELL DISTRI WIDTH 14.4 % (0-14.5); WHITE BLOOD COUNT 4.4 10*3/uL (4.8-10.8)
[2019-05-17 06:28] LABS: ALBUMIN 2.5 gm/dl (3.1-4.5); CREATININE 4.06 mg/dL (0.55-1.02); PHOSPHOROUS 5.1 mg/dL (2.5-4.9); POTASSIUM 3.3 mmol/L (3.5-5.1); TOTAL PROTEIN 5.7 gm/dL (6.4-8.2)
--- NOTE | 2019-05-17 07:36 | NUR ---
PHYSICAL THERAPY Nursing screen received. PT orders also received. Thank you. Keeley Venegas,PT
--- NOTE | 2019-05-17 07:42 | NUR ---
DEEPTI BEST [id number] Please refer to the physician's history and physical for past medical history, comorbid conditions, and allergies. Diagnosis: UTI METABOLIC ENCEPHALOPATHY Matt Score: 16,AT RISK WOUND DESCRIPTIONS: Patient's BLE's are pigment is dark in color with dry flaky skin noted. Several partial thickness areas noted. No drainage at time of assessment. Pericare provided for patient due to stool in underpants. Underpants changed at this time and pericare provided. Scant amount of serous drainage noted. Multiple small partial thickness areas open at time of assessment. Surface patient is resting on: Isoflex SKIN PREVENTION RECOMMENDATION: 1. Pressure redistribution support surface as appropriate 2. Elevate heels 3. Remove boots/TEDS every shift and reapply 4. Head of bed 30 degrees as tolerated 5. Assess nutrition and hydration 6. Manage moisture 7. Avoid the use of containment devices while in bed 8. Use absorptive products on surfaces limit layers of linens on bed 9. Turn and reposition every 1-2 hours in bed and every 1 hour in chair as tolerated 10. Weight shifts every 15 minutes while up in chair 11. Offloading with pillows or device to keep heels elevated off bed 12. Monitor skin at least every shift 13. Inspect under medical devices twice a day WOUND TREATMENT RECOMMENDATIONS: Orders from wound care center: Cleanse with normal saline. Apply hydrocortisone and aquaphore to red areas. Apply abd. and kerlix. Change three times a week. Do not use coban or any compression until after ultrasound and results are back Heel raiser pro boots to bilateral feet while in bed. Wheelchair cushion when oob. Cleanse buttocks with soap and water and apply calazime every shift and prn for soiling. Patient stated she has a follow up appointment in the wound care center on Thursday at 1:00pm.
[2019-05-17 08:00] VITALS: BP 146/56
--- NOTE | 2019-05-17 08:19 | NUR ---
CALLED DR. MENDENHALL AND [facility] ANSWERING [facility] NOTIFIED OF CONSULTS.
--- NOTE | 2019-05-17 08:25 | NUR ---
Nursing screen received and Occupational Therapy referral received. Thank you. Wendy Rivera OTR/L
--- NOTE | 2019-05-17 08:40 | NUR ---
PATIENT CALLED RN TO ROOM COUGHING AND SPIT UP A LITTLE BIT OF BRIGHT RED BLOOD WITH ONE CLOT ON WASH RAG. DR. BRUMFIELD AWARE.
[2019-05-17 09:44] LABS: ACT PARTIAL THROMBO TIME 39.1 SECONDS (20.0-32.1); INTERNATIONAL NORM RATIO 1.8 (2.0-3.5)
--- NOTE | 2019-05-17 09:53 | NUR ---
Dr. Resendez notified of wound care recommendations.
--- NOTE | 2019-05-17 10:36 | NUR ---
SPEECH PATHOLOGY Orders for MBS received and chart review completed. Clinician was informed that this is to be scheduled for tomorrow due to patient undergoing other procedures today. Will complete assessment tomorrow with results to follow. Thank you for this referral. DINORA ZEE MSCCC-LAUNDRY HELPER
--- NOTE | 2019-05-17 11:37 | NUR ---
Occupational therapy eval completed on 4 with full eval to follow. Precautions include fall risk, bed alarm, IV UE, moderate complexity level 16496 via chart review, testing, and eval. Recommend OT per POC and SNF to allow safe return to prior level of independence. Thank you for this referral. Orlin Rivera OTR/l
--- NOTE | 2019-05-17 11:48 | NUR ---
Naphthalene Operator Helper in to talk to patient. Patient states lives at home with alone. There are few steps in the home. Physician: frank mondragon Pharmacy: [facility] Home health services: none Patient's level of ADLs: MINIMAL ASSIST Patient has working utilities: all working DME: [facility]er Follow-up physician's appointment after d/c: will be made by hospitalist nurse director upon discharge Does patient want to access PORTAL?: no Discharge plan discussed with patient, son present, patient currently lives at home alone, she is having difficulty with adls and ambulation, discussed with her and her son a short term [facility] for rehab prior to going back home, both were in agreement with this, given choice of facilities they chose [facility], development planner will make referral to [place]. patient will need an approval from insurance company prior to going to the [place]. LAUREANO LI
[2019-05-17 12:00] VITALS: BP 147/62
--- NOTE | 2019-05-17 12:00 | NUR ---
Nutritional Support Services Note: Pt and her family reported her appetite has decreased in past few months dt her not having a desire to cook and nothing sounds appealing to her. It was stated she only eats when encouraged/monitored. She has severe temporal wasting, as well as protein calorie malnutrition so HS snack high in PRO is recommended. She refused Ensure because she said it gives her diarrhea. She and her family requested an appetite stimulant (option: Megace) to increase her PO intake. Richar CHANU CPD Student
--- NOTE | 2019-05-17 12:10 | NUR ---
PHYSICAL THERAPY Patient evaluated on 4, full evaluation to follow. Continue with PT as per plan of care with fall, bed alarm and acute debility precautions. Will require SNF. PAtient is moderate complexity via chart review, tests and evaluation: 36329. Thank you for this referral. Keeley Venegas,PT
--- NOTE | 2019-05-17 12:36 | NUR ---
Patient requested referral to the [facility]hab [facility]. Contacted facility and faxed referral. waiting on review/acceptance and benefits check.
--- NOTE | 2019-05-17 14:42 | NUR ---
Patient has been [facility], asked facility to start precert. Waiting on auth.
[2019-05-17 16:00] VITALS: BP 151/58
[2019-05-17 20:00] VITALS: BP 147/53
--- NOTE | 2019-05-17 20:00 | NUR ---
RESTING IN BED WITH HOB SLIGHT ELEVATED. HEP LOCK INTACT TO RIGHT THUMB. PT. VOICES NO C/O AT THIS TIME. CALL LIGHT WITHIN REACH.
--- NOTE | 2019-05-17 22:00 | NUR ---
TOOK PO MEDICATIONS WITHOUT DIFFICULTY. VOICES NO C/O. CALL LIGHT WITHIN REACH.
[2019-05-18] VITALS: BP 139/48
--- NOTE | 2019-05-18 04:00 | NUR ---
RESTING IN BED WITH EYES CLOSED. RESPIRATIONS EASY & UNLABORED ON ROOM AIR. CALL LIGHT WITHIN REACH.
[2019-05-18 07:10] LABS: BASO % 0.3 % (0.0-1.0); EOS # 0.2 10*3/uL (0.0-0.4); EOS % 4.8 % (1.0-4.0); LYMPH # 1.4 10*3/uL (1.3-4.4); LYMPH % 40.2 % (27.0-41.0); MEAN CELL VOLUME 94.3 fl (81.0-99.0); MEAN CORPUSCULAR HGB 30.3 pg (27.0-31.0); MEAN CORPUSCULAR HGB CONC 32.1 g/dl (33.0-37.0); MEAN PLATELET VOLUME 9.9 fl (9.6-12.3); MONO # 0.2 10*3/uL (0.1-1.0); MONO % 6.8 % (3.0-9.0); NEUT # 1.7 10*3/uL (2.3-7.9); NEUT % 47.6 % (47.0-73.0); PLATELET COUNT AUTOMATED 71 10*3/uL (130-400); RED BLOOD COUNT 2.97 10*6/uL (4.10-5.10); RED CELL DISTRI WIDTH 14.4 % (0-14.5); WHITE BLOOD COUNT 3.5 10*3/uL (4.8-10.8)
[2019-05-18 07:16] LABS: ALBUMIN 2.5 gm/dl (3.1-4.5); CREATININE 3.74 mg/dL (0.55-1.02); PHOSPHOROUS 4.4 mg/dL (2.5-4.9); POTASSIUM 3.4 mmol/L (3.5-5.1); TOTAL PROTEIN 5.9 gm/dL (6.4-8.2)
[2019-05-18 07:46] LABS: INTERNATIONAL NORM RATIO 1.8 (2.0-3.5)
--- NOTE | 2019-05-18 09:00 | NUR ---
case management visits with patient, patient has been referred to [facility] and is waiting insurance authorization before going, case management/digital sales planner are following
--- NOTE | 2019-05-18 09:50 | NUR ---
Dr. Resendez notified of wound care recommendations.
[2019-05-18 12:00] VITALS: BP 152/56
--- NOTE | 2019-05-18 12:15 | NUR ---
OT NOTE Pt was seen this P.M. 1:1 for 15 minute OT session. Upon arrival pt was supine in bed. Pt identified by name and and had complaints of increased fatigue due to "not sleeping last night." Pt transferred supine to sit EOB with Ld for assist with UB. Multiple sit to stand transfers completed from bed level with Ld MORILLO. Challenged pt's static standing tolerance needed for increased I in self care tasks and functional transfers. Pt was able to tolerate aprox 1-2 minutes at a time before sitting due to fatigue. Pt then completed functional mobility around the room with Ld MORILLO. Pt declined any ADL tasks at this time stating she had just done them. Pt transferred back into bed sit to supine with Ld and was repositioned with maxA x 2. There she was left with call light in hand, tray table in place, and bed alarm activated for safety. Continue with rec D/C plan to SNF. SARAH Tripp/Becky
--- NOTE | 2019-05-18 12:16 | NUR ---
PHYSICAL THERAPY Patient seen this pm 1;1 for therapy visit and was supine in bed upon therapist arrival. Patient reports not sleeping well last night, stating she feels exhausted. Patient is scheduled for MBS this pm and voices no c/o's pain at this time. Patient agreed to and transfers supine to sit EOB MIN A x 1, needing a minutes or so of static sitting to collect herself. Patient performed sit to stand transfer, CGA and ambulates RETURN AGENT/CGA, 50'x 1, demonstrating very slow gamal, decreased stride and increased fatigue. Patient returned to supine in bed and needed assist with bed positioning, while remaining in bed with call light, tray table, and telephone. Will continue per POC as tolerated, total treatment time 13 minutes. Nicola Almazan, FOOD SERVICES DIRECTOR
--- NOTE | 2019-05-18 14:03 | NUR ---
SPEECH PATHOLOGY Modified barium swallow completed due to difficulty swallowing. Patient was admitted with UTI, sepsis and metabolic encephalopathy after passing out at home. Further history includes LA, HTN, renal disease, CHF. Patient endorsed difficulty swallowing as well as decreased appetite at home. CT of chest revealed a large hiatal hernia with chronic dilatation of esophagus and atelectasis of left lower lobe. Patient receives a regular diet and thin liquid. Patient wore upper and lower dentures, with noted ill fitting bottoms. She was assessed with puree, solid and thin liquids by straw and cup. Results revealed a mild pharyngeal stage dysphagia characterized by silent aspiration with thin liquids. This occurred inconsistently with cup and straw. When implementing a chin tuck, no penetration or aspiration occurred. Recommend patient continue with regular diet and thin liquid, using a chin tuck with liquids. Follow up therapy is recommended focusing on adherence to safe swallow precautions and pharyngeal strengthening exercises. Results and ashwini. were shared with patient and her nurse and they verbalized understanding. Dictated report to follow. Thank you for this referral. DINORA ZEE MSCCC-RESEARCH ELECTRICIAN
--- NOTE | 2019-05-18 14:13 | NUR ---
Patient accepted to the [facility]hab [facility], precert started 05/17/19, waiting on auth.
[2019-05-18 20:00] VITALS: BP 153/60
[2019-05-19] VITALS: BP 160/65
[2019-05-19 06:48] LABS: BASO % 0.3 % (0.0-1.0); EOS # 0.1 10*3/uL (0.0-0.4); EOS % 3.6 % (1.0-4.0); HEMATOCRIT 26.5 % (37.0-47.0); HEMOGLOBIN 8.5 g/dl (12.0-16.0); LYMPH # 1.6 10*3/uL (1.3-4.4); LYMPH % 47.8 % (27.0-41.0); MEAN CELL VOLUME 94.3 fl (81.0-99.0); MEAN CORPUSCULAR HGB 30.2 pg (27.0-31.0); MEAN CORPUSCULAR HGB CONC 32.1 g/dl (33.0-37.0); MEAN PLATELET VOLUME 9.8 fl (9.6-12.3); MONO # 0.2 10*3/uL (0.1-1.0); MONO % 5.3 % (3.0-9.0); NEUT # 1.4 10*3/uL (2.3-7.9); NEUT % 42.7 % (47.0-73.0); PLATELET COUNT AUTOMATED 55 10*3/uL (130-400); RED BLOOD COUNT 2.81 10*6/uL (4.10-5.10); RED CELL DISTRI WIDTH 14.5 % (0-14.5); WHITE BLOOD COUNT 3.4 10*3/uL (4.8-10.8)
[2019-05-19 07:09] LABS: CREATININE 3.36 mg/dL (0.55-1.02); POTASSIUM 3.7 mmol/L (3.5-5.1)
[2019-05-19 07:18] LABS: INTERNATIONAL NORM RATIO 1.8 (2.0-3.5)
[2019-05-19 08:00] VITALS: BP 146/58
--- NOTE | 2019-05-19 08:33 | NUR ---
PHYSICAL THERAPY Patient gives informed consent for treatment. Patient was identified by name and . Patient has no complaints this AM. Patient was sitting at EOB upon this KETTLE COORDINATOR arriving in the patient's room. Patient performed sit to stand transfer with MIN A X 1. Patient performed gait with Wh Walker and CGA X 1 for 60' x 2 and 1 LOB requiring MIN A X 1 to correct from therapist. Patient performed TUG TEST in 33 seconds total with patient using UEs to sit to stand out of low chair during test. 5 Xs sit to stand out of low chair in 25 seconds with use of UEs to push off of armrests of chair. Patient performed standing tolerance 30 seconds eyes open and 30 seconds eyes close closed and no LOB during EO and 1 LOB during EC. Patient sit to stand out of LOW CHAIR wih SBA. Patient ambulated another 30' x 1 with SBA and Wh Walker and no LOB. Patient was left sitting on EOB with call light within reach and tray table in front of patient. Patient was 1:1 with this KETTLE COORDINATOR for 25 minutes. NITHYA GRAY KETTLE COORDINATOR
--- NOTE | 2019-05-19 08:54 | NUR ---
SPEECH PATHOLOGY Patient was seen for dysphagia treatment this am. She was alert and cooperative. Clinician reviewed results and ashwini. from yesterday's MBS. Patient's questions were answered and she verbalized understanding of information provided. Pharyngeal exercises were introduced and performed with cue and model. Patient then took sips of liquid. She needed minimal cues to correctly implement chin tuck. She admitted that she forgot to use chin tuck yesterday evening but that her family reminded her. She was recommended to continue to use chin tuck for safety. Continue therapy plan to ensure safe tolerance of diet. DINORA ZEE MSCCC-ADJUNCT BUSINESS INSTRUCTOR
--- NOTE | 2019-05-19 09:00 | NUR ---
case management visits with patient, patient will be going to [facility]hab [facility] when medically stable and insurance precert has been obtained, no other needs at this time
--- NOTE | 2019-05-19 10:23 | NUR ---
Follow up with Geneva THORNTON in wound care clinic on 05/27/19 @ 1:00pm, call [phone] with any concerns
--- NOTE | 2019-05-19 10:25 | NUR ---
Dr. Resendez notified of wound care recommendations.
[2019-05-19 12:00] VITALS: BP 136/50
--- NOTE | 2019-05-19 12:35 | NUR ---
Patient has received auth for [facility]. Patient is ok to go if medically stable for discharge.
--- NOTE | 2019-05-19 13:40 | NUR ---
OT NOTE Pt was seen this P.M. 1:1 for 20 minute OT session. Upon arrival pt was supine in bed. Pt identified by name and and had no complaints at this time. Pt transferred supine to sit EOB with Ld for assist with UB. Sit to stand completed from bed level with CGA for safety and use of w/w for UE support. Functional mobility completed into the bathroom with CGA and use of w/w for UE support. There she transferred on to standard commode with CGA and off with Ld due to low surface. Clothing management completed with Ld and toilet hygiene completed with supervision while seated. Pt then stood sink side while washing her hands with CGA for safety. Pt then sat EOB for a seated rest break. Challenged pt's static standing tolerance needed for increased I in self care tasks and functional transfers. Pt was able to tolerate aprox 6 minutes at a time before sitting due to fatigue. Pt transferred sit to supine with SBA. There she was left with call light in hand, tray table in place, and bed alarm activated for safety. Continue with rec D/C plan to SNF. SARAH Tripp/Becky
--- NOTE | 2019-05-19 14:13 | NUR ---
INFORMED OF UC RESULTS AND INFORMED THAT ROCEPHIN IS NOT SENSITIVE
--- NOTE | 2019-05-19 14:20 | NUR ---
PHYSICAL THERAPY Patient ambulated 60' x 3 with Wh Walker and Close Supervision with 1 LOB requiring MIN A X 1 to correct. Patient transfers in and out of bed with MIN A X 1. Patient's TUG TEST was performed this AM. 5 Xs STS test also performed this AM. Patient was left in supine with head of bed elevated , bed alarm activated, and call light within reach. Her son was visitng in the room. Patient was 1:1 with this ANESTHESIOLOGY PHYSICIAN ASSISTANT for 12 minutes total. NITHYA GRAY ANESTHESIOLOGY PHYSICIAN ASSISTANT
[2019-05-19 16:00] VITALS: BP 149/51
[2019-05-19 20:00] VITALS: BP 148/66
[2019-05-20] VITALS: BP 145/53
[2019-05-20 06:42] LABS: HEMATOCRIT 26.6 % (37.0-47.0); HEMOGLOBIN 8.6 g/dl (12.0-16.0); MEAN CORPUSCULAR HGB 30.7 pg (27.0-31.0); MEAN CORPUSCULAR HGB CONC 32.3 g/dl (33.0-37.0); MEAN PLATELET VOLUME 10.4 fl (9.6-12.3); PLATELET COUNT AUTOMATED 51 10*3/uL (130-400); RED CELL DISTRI WIDTH 14.2 % (0-14.5); WHITE BLOOD COUNT 3.3 10*3/uL (4.8-10.8)
[2019-05-20 06:49] LABS: CREATININE 3.24 mg/dL (0.55-1.02); POTASSIUM 3.7 mmol/L (3.5-5.1)
[2019-05-20 07:15] LABS: INTERNATIONAL NORM RATIO 1.9 (2.0-3.5)
--- NOTE | 2019-05-20 07:55 | NUR ---
Patient has received auth for [facility]; If patient is not discharged today we will have to restart precert.
[2019-05-20 08:00] VITALS: BP 152/74
[2019-05-20 08:07] LABS: TOTAL CELLS COUNTED 100 #CELLS
[2019-05-20 08:08] LABS: PLATELET SUFFICIENCY LOW (NORMAL)
--- NOTE | 2019-05-20 09:30 | NUR ---
PRESENT ON FLOOR. INFORMED OF RECEN PLT COUNT AND INR LEVEL. STATED OK'D TO GIVE COUMADIN TODAY.
--- NOTE | 2019-05-20 09:52 | NUR ---
OT NOTE PATIENT SEEN 1:1 OT THIS DATE. PATIENT IDENTIIFED BY NAME AND DATE OF .PATIENT REPORTS NO COMPLAIN OF PAIN. PATIENT COMPLETED 10 MINUTES OF OT THIS DATE. PATIENT COMPLETED GROOMING TASK STANDING BRUSHING TEETH AND COMBING HAIR AT SINK CGA WITH VERBAL CUES TO PACE SELF WITH TASK. COMPLETD FUNCTIONAL AMBULATION BATHROOM TO BED CGA AND STAND TO SIT CGA. PATIENT WITH NURSING END OF SESSION THIS DATE. CONTINE TOWARDS PLAN OF CARE. ANGEL SMITH/Becky
--- NOTE | 2019-05-20 10:24 | NUR ---
SPEECH THERAPY Patient seen for follow up speech therapy treatment during morning meal. Patient observed independently utilizing compensatory chin tuck maneuver upon clinicain arrival. Patient educated on results and recommendations of MBS, and patient reported that she was remembering to use chin tuck. Adjustments were made to improve patient's technique of chin tuck maneuver, to ensure chin is completely tucked before the swallow, and maintains tucked throughout duration of swallow. Patient demonstrating appropraite use and carryover of chin tuck maneuver throughout meal, and was also observed to use chin tuck while taking oral medications with clinicain cues. Patient educated on impotance of continued use of chin tuck once she leaves this facility. Pharyngeal exercises continued with limited trials this date. Hard/effortful swallow performed 3 times, and patient not able to perform Mehdelsohn maneuver. Patient demonstrating independent use and carryover of compensatory chin tuck maneuver. Continue toward plan of care for pharyngeal strengthening exercises. Kimmie Costa MA CCC-SUPERVISOR WORD PROCESSING
--- NOTE | 2019-05-20 10:49 | NUR ---
PHYSICAL THERAPY PT SITTINGIN RECLINER WITH WITH FEEL ELEVATED UPON ARRIVAL WITH NO ALARM ON. PT IDENTIFIED BY NAME AND . PT AGREED TO ALL PT TREATMENT THIS VISIT. PT HADNO REPORT OF PAIN THIS WITH. PT PERFORMED THE FOLLOWING SEATED EXERCISES TO INCREASE LE AND TRUNK STRENGTH. EACH EXERCISES DONE 15X EACH WITH VC'S AND DEMO FOR EACH EXERCISE TECHNIQUE. LAQ, MARCH, TOE RAISE, HEEL RAISE, GLUT SET, HIP ADD, TRUNK FLEX. PT ASKED FOR A SHORT BREAK AFTER THESE EXERCISES DUE TO C/O A SLIGHT FATIGUE. PT PERFORMED STS TO AND FROM CHAIR WITH SBA AND VC'S FOR SAFETY AND TECHNIQUE. PT HAD GOOD CARRY OVER WITH VC'S. PT GAIT TRAINED 30FT X 1 WITH CGA PT IS UNSTEADY AT TIME AND HAS SLIGHT SHUFFLING GAIT. VC'S FOR HEEL TOE GAIT GIVEN. PT IN RECLINER WITH LE ELEVATED WITH PHONE AND CALL LIGHT IN HAND. PT STATED SHE DIDNT WANT HER TRAY AT THIS TIME. PT SEEN 1:1 FOR 19MINS. JAI BECERRIL PTA
[2019-05-20 12:00] VITALS: BP 146/47
--- NOTE | 2019-05-20 13:40 | NUR ---
PHYSICAL THERAPY CO-SIGN I approve of the Phyical Therapy notes written above. CESAR RODRIGES PT
--- NOTE | 2019-05-20 14:18 | NUR ---
Patient is discharged to [facility], family is here to transport. NH notified.
--- NOTE | 2019-05-20 14:40 | NUR ---
nurse to nurse report called to [facility]hab [facility] to amarilis
--- NOTE | 2019-05-20 14:40 | NUR ---
Discharge instructions reviewed with patient/family. Patient receptive and verbalizes understanding. Follow-up care arranged. Written instructions given to patient/family. IV CATH REMOVED, DIVIDEND DEPOSIT VOUCHER CLERK ACCOUNTED FOR. WOUND PICTURES TAKEN. FAMILY TAKING TO REHAB SUITE IN PERSONAL VEHICLE ANDRE GALLAGHER
--- NOTE | 2019-05-24 08:28 | NUR ---
OCCUPATIONAL THERAPY CO-SIGN I approve of the Occupational Therapy notes written above. FIORELLA AGUIRRE OTR/Becky
--- NOTE | 2019-05-24 16:46 | NUR ---
PHYSICAL THERAPY CO-SIGN I approve of the Physical Therapy notes written above. MARIANN PAZ
== END 2019-05-20 14:40 | disposition other institution (70) | DRG 70 ==
LOC: ED 14:07 → EDHOLD 16:29 → 4E 16:29
PROVIDERS: Family Medicine; Internal Medicine; Student in an Organized Health Care Education/Training Program; ADMIT Emergency Medicine
PROC: BD1BYZZ Fluoroscopy of Mouth/Oropharynx using Other Contrast (ICD-10-PCS; principal; 2019-05-18)
DX: G93.41 Metabolic encephalopathy (principal); E43 Unspecified severe protein-calorie malnutrition; N17.0 Acute kidney failure with tubular necrosis; N39.0 Urinary tract infection, site not specified; L97.919 Non-pressure chronic ulcer of unspecified part of right lower leg with unspecified severity; I50.32 Chronic diastolic (congestive) heart failure; N18.5 Chronic kidney disease, stage 5; D68.59 Other primary thrombophilia; I13.2 Hypertensive heart and chronic kidney disease with heart failure and with stage 5 chronic kidney disease, or end stage renal disease; D68.9 Coagulation defect, unspecified; D61.818 Other pancytopenia; I45.10 Unspecified right bundle-branch block; Z66 Do not resuscitate; T45.515A Adverse effect of anticoagulants, initial encounter; L89.151 Pressure ulcer of sacral region, stage 1; I48.2 Chronic atrial fibrillation; M48.00 Spinal stenosis, site unspecified; R31.9 Hematuria, unspecified; Z96.653 Presence of artificial knee joint, bilateral; Z82.49 Family history of ischemic heart disease and other diseases of the circulatory system; I89.0 Lymphedema, not elsewhere classified; I25.10 Atherosclerotic heart disease of native coronary artery without angina pectoris; M19.90 Unspecified osteoarthritis, unspecified site; I73.9 Peripheral vascular disease, unspecified; E66.01 Morbid (severe) obesity due to excess calories; I35.0 Nonrheumatic aortic (valve) stenosis; I87.2 Venous insufficiency (chronic) (peripheral); E87.6 Hypokalemia; B95.2 Enterococcus as the cause of diseases classified elsewhere; Z88.1 Allergy status to other antibiotic agents; I25.2 Old myocardial infarction; Z86.718 Personal history of other venous thrombosis and embolism; Z98.41 Cataract extraction status, right eye; Z98.42 Cataract extraction status, left eye; Z90.710 Acquired absence of both cervix and uterus; Z83.3 Family history of diabetes mellitus; Z80.9 Family history of malignant neoplasm, unspecified; Y92.89 Other specified places as the place of occurrence of the external cause; Z68.29 Body mass index [BMI] 29.0-29.9, adult

== ENCOUNTER → 2019-06-08 | Outpatient (CLI) | payer MEDICARE ==
[2019-06-08 13:04] LABS: HEMATOCRIT 27.6 % (37.0-47.0); HEMOGLOBIN 9.1 g/dl (12.0-16.0); LYMPH # 1.7 10*3/uL (1.3-4.4); LYMPH % 42.3 % (27.0-41.0); MEAN CELL VOLUME 94.5 fl (81.0-99.0); MEAN CORPUSCULAR HGB 31.2 pg (27.0-31.0); MEAN PLATELET VOLUME 9.3 fl (9.6-12.3); MONO # 0.2 10*3/uL (0.1-1.0); MONO % 5.6 % (3.0-9.0); NEUT # 2.1 10*3/uL (2.3-7.9); NEUT % 50.9 % (47.0-73.0); PLATELET COUNT AUTOMATED 59 10*3/uL (130-400); RED BLOOD COUNT 2.92 10*6/uL (4.10-5.10); RED CELL DISTRI WIDTH 16.4 % (0-14.5); WHITE BLOOD COUNT 4.1 10*3/uL (4.8-10.8)
[2019-06-08 13:27] LABS: ALBUMIN 3.1 gm/dl (3.1-4.5); CREATININE 4.02 mg/dL (0.55-1.02); PHOSPHOROUS 4.1 mg/dL (2.5-4.9); POTASSIUM 3.6 mmol/L (3.5-5.1)
[2019-06-08 13:55] LABS: FERRITIN 177.1 ng/mL (10.0-291.0); PTH INTACT 236.7 pg/mL (18.5-88.0)
[2019-06-08 13:56] LABS: VITAMIN D, 25-HYDROXY 43.7 ng/mL (30-100)
[2019-06-09 08:08] LABS: HEPATITIS B SURFACE AB 006395 Non Reactive (.); HEPATITIS B SURFACE AG Negative (Negative); HEPATITIS C VIRUS ANTIBODY <0.1 s/co (0.0-0.9)
== END | disposition home or self-care (01) ==
LOC: LAB 12:36
PROVIDERS: Internal Medicine Nephrology
DX: N25.81 Secondary hyperparathyroidism of renal origin (principal); D63.1 Anemia in chronic kidney disease; N18.5 Chronic kidney disease, stage 5; N39.0 Urinary tract infection, site not specified; Z79.899 Other long term (current) drug therapy

== ENCOUNTER → 2019-06-09 | Outpatient (CLI) | payer MEDICARE ==
[~2019-06-09] MED LIST changes: +CELEXA20 MG PO; +Coumadin5 MG PO; +FERROUS SULFAT325 MG PO; +K-TAB20 MEQ PO; +OMEPRAZOLE D/R20 MG PO
[2019-06-09 11:40] LABS: BILIRUBIN NEGATIVE (NEGATIVE); BLOOD NEGATIVE (NEGATIVE); CLARITY SL CLOUDY (CLEAR); COLOR YELLOW (YELLOW); GLUCOSE NEGATIVE (NEGATIVE); KETONE NEGATIVE (NEGATIVE); LEUKO ESTERASE 2+ (NEGATIVE); NITRITE NEGATIVE (NEGATIVE); PH 6.5 (5.0-9.0); SPECIFIC GRAVITY <= 1.005 (1.005-1.030); UROBILINOGEN 0.2 E.U./dl (0.2-1.0)
[2019-06-09 12:10] LABS: BACTERIA 2+; EPITHELIAL CELLS 15-20; WBC TNTC wbc/hpf (0-5)
== END | disposition home or self-care (01) ==
LOC: LAB 11:11
PROVIDERS: Internal Medicine Nephrology
DX: N25.81 Secondary hyperparathyroidism of renal origin (principal); D63.1 Anemia in chronic kidney disease; N18.5 Chronic kidney disease, stage 5; E55.9 Vitamin D deficiency, unspecified; Z79.899 Other long term (current) drug therapy

== ENCOUNTER → 2019-06-15 | Outpatient (CLI) | payer MEDICARE | END | disposition home or self-care (01) | LOC: US 05-20 13:00 | DX: I73.9 Peripheral vascular disease, unspecified (principal); I10 Essential (primary) hypertension ==

== ENCOUNTER → 2019-06-17 | Day surgery (SDC) | payer MEDICARE ==
[~2019-06-17] VITALS: Ht 170.1 cm; Wt 88.0 kg
--- NOTE | ~2019-06-17 | O ---
[place], [place] OPERATIVE NOTE NAME: DEEPTI BEST UNIT #: [id number] ROOM: DOCTOR: SABINO COLON,NATALIYA BIRTHDATE: [birth year] DOS: 06/17/2019 GASTROENDOSCOPIC REPORT HISTORY OF PRESENT ILLNESS: An 83-year-old patient who has presented with chief complaint of drop in H and H has agreed only to be studied by EGD. No colonoscopy was accepted by her. She is off the aspirin. She is already on iron pills. ALLERGIES: CIPROFLOXACIN. FAMILY HISTORY: Noncontributory. PAST SURGICAL HISTORY: Hysterectomy, bilateral total knee. PAST MEDICAL HISTORY: Myocardial infarction, degenerative joint disease, hypertension, constipation, renal insufficiency, and atrial fibrillation. SOCIAL HISTORY: Nonsmoker, nonalcohol consumer. PROCEDURE: Today's procedure part of investigation is panendoscopy plus biopsy. PREMEDICATION: Propofol. SCOPE: Olympus forward-viewing gastroscope Q10 video. REPORT: After putting the patient in left lateral position and application of lubricant to the scope, the scope was introduced. Thereafter, under direct visualization, advanced through the length of esophagus without difficulty. Gastric pouch was entered. Large hiatal hernia was noticed. A few spots of drops of old blood in the stomach was identified. Gastritis was seen. Antrum approach. Antral biopsy obtained. Duodenal bulb, second and third part within normal limits. GI reflection of the scope confirms moderate size hiatal hernia. The patient extubated, tolerated the procedure well. IMPRESSION: Hiatal hernia, moderate size gastritis, gastric erosions, status post antral biopsy. PLAN AND DISCUSSION: We will continue with Protonix 40 mg 1 every day, antireflux measures with elevation of the head of the bed. I have discussed with the daughter regarding the need of colonoscopy on her. However, so far I have no concern neither from family or patient for organizing a colonoscopy. A case was presented to the daughter. [place], [place] OPERATIVE NOTE NAME: DEEPTI BEST UNIT #: [id number] ROOM: DOCTOR: NATALIYA GALLO MD BIRTHDATE: [birth year] NATALIYA GALLO MD CM:OPRECORD:OPERATIVE NOTE [id number] NATALIYA GALLO MD 06/17/19 1421 interface
[2019-06-17 10:03] VITALS: BP 131/78
[2019-06-17 12:50] VITALS: BP 127/38
[2019-06-17 13:13] VITALS: BP 130/84
== END | disposition home or self-care (01) ==
LOC: US 05-20 13:00 → SDC 05-20 13:00
DX: K29.50 Unspecified chronic gastritis without bleeding (principal); D64.9 Anemia, unspecified; K44.9 Diaphragmatic hernia without obstruction or gangrene; I11.0 Hypertensive heart disease with heart failure; I50.9 Heart failure, unspecified; E66.9 Obesity, unspecified; Z68.30 Body mass index [BMI] 30.0-30.9, adult; I25.2 Old myocardial infarction; Z98.890 Other specified postprocedural states; Z88.8 Allergy status to other drugs, medicaments and biological substances; Z79.899 Other long term (current) drug therapy; Z90.710 Acquired absence of both cervix and uterus; Z96.653 Presence of artificial knee joint, bilateral; Z80.9 Family history of malignant neoplasm, unspecified; Z83.3 Family history of diabetes mellitus; Z82.49 Family history of ischemic heart disease and other diseases of the circulatory system

== ENCOUNTER 2019-06-20 12:22 | Inpatient (IN) | payer MEDICARE ==
[~2019-06-20] VITALS: Ht 162.5 cm; Wt 85.0 kg
--- NOTE | ~2019-06-20 | EKG ---
[place], [place] ELECTROCARDIOGRAM REPORT NAME: DEEPTI BEST UNIT #: [id number] ROOM: 408 DOCTOR: JALYN DRAFT REPORT BIRTHDATE: [birth year] [facility] Test Date: 2019-06-20 Test Time: 15:53:26 Pat Name: DEEPTI BEST Department: Room: 408 Gender: F Honeycomb Decapper: Alexandra Kolb : 1935 Requested By: SUHAIL MOURA Order Number: [id number] Reading MD: Brian Orourke MD Measurements Intervals [place] Rate: 58 P: 12 WV: 185 QRS: -15 QRSD: 155 T: -11 QT: 519 QTc: 510 Interpretive Statements Sinus bradycardia Right bundle branch block Possible inferior infarct, old Electronically Signed On 06-20-2019 16:49:13 PDT by Brian Orourke MD CM:EKGRPT:ELECTROCARDIOGRAM REPORT [id number] SUHAIL GUNDERSON DRAFT REPORT SUHAIL MOURA M.D.
--- NOTE | ~2019-06-20 | EKG ---
[place], [place] ELECTROCARDIOGRAM REPORT NAME: DEEPTI BEST UNIT #: [id number] ROOM: 408 DOCTOR: JALYN DRAFT REPORT BIRTHDATE: [birth year] [facility] Test Date: 2019-06-20 Test Time: 19:04:33 Pat Name: DEEPTI BEST Department: Room: 408 Gender: F Open Hearth Helper: SS RESP : 1935 Requested By: SUHAIL MOURA Order Number: [id number] Reading MD: Brian Orourke MD Measurements Intervals [place] Rate: 59 P: -22 [place]: 175 QRS: -3 QRSD: 151 T: -7 QT: 513 QTc: 509 Interpretive Statements Sinus bradycardia Right bundle branch block Compared to ECG 05/17/2019 10:20:42 No significant changes Electronically Signed On 06-21-2019 11:45:36 PDT by Brian Orourke MD CM:EKGRPT:ELECTROCARDIOGRAM REPORT [id number] SUHAIL GUNDERSON DRAFT REPORT SUHAIL MOURA M.D.
--- NOTE | ~2019-06-20 | CON ---
[place], [place] REPORT OF CONSULTATION NAME: [id number] UNIT #: [id number] ROOM: 408 DOCTOR: PHD ESVIN ALEXANDRU BIRTHDATE: [birth year] DOS: 06/22/2019 HISTORY OF PRESENT ILLNESS: The patient is an 83-year-old female referred by the hospitalist with concerns for visual hallucinations of her . At the present time, the patient is on the 4th floor at [facility]. She lives alone and has 4 children. Her 6 years ago. She denied alcohol, tobacco and illegal drug use. She presented to the ED for shortness of breath and generalized weakness. PAST MEDICAL HISTORY: Aortic stenosis, atrial fibrillation, coronary artery disease, chronic kidney disease stage 5, chronic ulcer of lower extremity, chronic venous stasis dermatitis of both lower extremities, diastolic congestive heart failure, Enterococcus UTI, hypertension, history of deep venous thrombosis, history of myocardial infarction, hypercoagulable state, normocytic anemia, NSTEMI, osteoarthritis, peripheral artery disease, seizure, severe protein-calorie malnutrition, spinal stenosis, syncope. MEDICATIONS: Bumex, Theragran, Celexa, Coreg, Coumadin, sodium bicarbonate, Feosol, Dulcolax, milk of magnesia, Tylenol, nystatin, [place] 5/325. NEUROLOGIC EXAMINATION: The patient was lying comfortably in bed, in no apparent distress. She was awake, alert and oriented to person, place and generally to time. She could name the current president, but not the past president. Mood was depressed. Affect was restricted in range. She denied suicidal and homicidal ideation, plan and intent. She states that she used to enjoy cooking, but she has not been doing that or eating as much as she should be. She states that she also loves to clean and she is not doing that as well. She has been socially withdrawn, not leaving the house and not enjoying things she used to she states. Speech and language were within normal limits conversationally. Thought process was linear and goal directed. There is no evidence of hallucinations or delusions. She states that she has seen her , standing over the edge of her bed and in the window of her neighbor's house when she walks outside. She states she has not seen him in some time. She is not bothered by these hallucinations. DIAGNOSIS: Unspecified depressive disorder. PLAN: The patient denies active hallucinations at this time. I left the message for Dr. Sousa regarding possible medication changes. The patient does not appear to be at risk to herself or others at this time. Thank you very much for this consult. [place], [place] REPORT OF CONSULTATION NAME: DEEPTI BEST UNIT #: [id number] ROOM: 408 DOCTOR: ESVIN, PHD ALEXANDRU BIRTHDATE: [birth year] Elisa Cleary, PhD CM:CONSTR:REPORT OF CONSULTATION 1603 06/23/19 0948 interface
--- NOTE | ~2019-06-20 | EKG ---
[place], [place] ELECTROCARDIOGRAM REPORT NAME: DEEPTI BEST UNIT #: [id number] ROOM: 408 DOCTOR: JALYN DRAFT REPORT BIRTHDATE: [birth year] [facility] Test Date: 2019-06-20 Test Time: 12:25:33 Pat Name: DEEPTI BEST Department: Room: 408 Gender: F Complaint Investigator: Alexandra Kolb : 1935 Requested By: SUHAIL MOURA Order Number: [id number] Reading MD: Brian Orourke MD Measurements Intervals [place] Rate: 61 P: 10 [place]: 155 QRS: 13 QRSD: 153 T: -3 QT: 497 QTc: 501 Interpretive Statements Sinus rhythm Right bundle branch block Compared to ECG 05/17/2019 10:20:42 No significant changes Electronically Signed On 06-20-2019 16:32:27 PDT by Brian Orourke MD CM:EKGRPT:ELECTROCARDIOGRAM REPORT [id number] SUHAIL GUNDERSON DRAFT REPORT SUHAIL MOURA M.D.
[~2019-06-20 12:22] MED LIST changes: -CELEXA20 MG PO; -Coumadin5 MG PO; -FERROUS SULFAT325 MG PO; -K-TAB20 MEQ PO; -OMEPRAZOLE D/R20 MG PO
[2019-06-20 12:46] VITALS: BP 139/56
--- NOTE | 2019-06-20 13:01 | NUR ---
Pt self transfered from bedside toliet to bed.
[2019-06-20 13:10] LABS: BASO % 0.3 % (0.0-1.0); EOS # 0.1 10*3/uL (0.0-0.4); EOS % 1.2 % (1.0-4.0); HEMATOCRIT 28.7 % (37.0-47.0); HEMOGLOBIN 9.5 g/dl (12.0-16.0); LYMPH # 2.2 10*3/uL (1.3-4.4); LYMPH % 37.4 % (27.0-41.0); MEAN CELL VOLUME 94.7 fl (81.0-99.0); MEAN CORPUSCULAR HGB 31.4 pg (27.0-31.0); MEAN CORPUSCULAR HGB CONC 33.1 g/dl (33.0-37.0); MEAN PLATELET VOLUME 9.4 fl (9.6-12.3); MONO # 0.2 10*3/uL (0.1-1.0); MONO % 3.9 % (3.0-9.0); NEUT # 3.4 10*3/uL (2.3-7.9); NEUT % 56.9 % (47.0-73.0); PLATELET COUNT AUTOMATED 123 10*3/uL (130-400); RED BLOOD COUNT 3.03 10*6/uL (4.10-5.10); RED CELL DISTRI WIDTH 16.6 % (0-14.5)
[2019-06-20 13:21] LABS: ACT PARTIAL THROMBO TIME 25.9 SECONDS (20.0-32.1)
--- NOTE | 2019-06-20 13:32 | NUR ---
Notifed by lab, Pt has lactic acid of 3.0, Blessing TRAVIS notifed.
[2019-06-20 13:50] LABS: ALBUMIN 2.8 gm/dl (3.1-4.5); ALKALINE PHOSPHATASE 95 U/L (45-117); BUN 74 mg/dl (7-24); CHLORIDE 98 mmol/L (98-107); CREATININE 5.22 mg/dL (0.55-1.02); POTASSIUM 3.7 mmol/L (3.5-5.1); SGOT/AST 24 IU/L (3-35); SGPT/ALT 12 U/L (12-78); SODIUM 136 mmol/L (136-145); TOTAL PROTEIN 6.5 gm/dL (6.4-8.2)
[2019-06-20 13:51] LABS: TROPONIN I < 0.015 ng/ml (<0.045)
--- NOTE | 2019-06-20 15:23 | NUR ---
poke with jd edwards consultant, stated that the room given for the Pt was not ready at the time and the Pt woul dbe getting another room, stated that the room would call when the room was ready.
--- NOTE | 2019-06-20 15:35 | NUR ---
Call into Pt room, stated that she was atttempting to have a Bm and noticed some blood in the toliet, luis antonio PHARMACEUTICAL SCIENTIST notifed.
--- NOTE | 2019-06-20 15:38 | NUR ---
Spoke with Pearl stated that the room with be ready in 5 mins.
[2019-06-20] MEDS ORDERED: CELEXA20 MG PO (15:39)
[2019-06-20] MEDS ORDERED: EFFER-K20 MEQ PO (15:44)
[2019-06-20] MEDS ORDERED: OMEPRAZOLE D/R20 MG PO (15:44)
--- NOTE | 2019-06-20 15:48 | NUR ---
Pt not in room at this time, Pt taking to NM at this time.
--- NOTE | 2019-06-20 15:58 | NUR ---
DR. CHILD NOTIFIED OF CONSULT, ALSO DR. SAHA NOTIFIED OF MOST RECENT LACTIC ACID RESULT.
[2019-06-20] MEDS ORDERED: Coumadin5 MG PO (17:13)
[2019-06-20] MEDS ORDERED: K-TAB20 MEQ PO (17:14)
[2019-06-20] MEDS ORDERED: Zaroxolyn,Diul2.5 MG PO (17:16)
[2019-06-20] MEDS ORDERED: VITAMIN B-650 M1 PO (17:18)
[2019-06-20] MEDS ORDERED: FERROUS SULFAT325 MG PO (17:20)
[2019-06-20] MEDS ORDERED: SODIUM BICARBO325 M1 PO (17:20)
--- NOTE | 2019-06-20 19:30 | NUR ---
PT RESTING IN BED AT THIS TIME. NO OBVIOUS SIGNS/SYMPTOMS OF PAIN OR DISCOMFORT. RESPIRATIONS EASY AND NONLABORED. SAFETY MEASURES INTACT. CALL LIGHT WIHTIN REACH. WILL CONTINUE TO MONITOR.
[2019-06-20 20:00] VITALS: BP 152/61
[2019-06-20 21:28] VITALS: BP 152/68
[2019-06-21] VITALS: BP 150/60
[2019-06-21 06:57] LABS: BASO % 0.2 % (0.0-1.0); EOS # 0.1 10*3/uL (0.0-0.4); EOS % 1.7 % (1.0-4.0); HEMATOCRIT 27.4 % (37.0-47.0); LYMPH # 1.5 10*3/uL (1.3-4.4); LYMPH % 37.9 % (27.0-41.0); MEAN CELL VOLUME 95.8 fl (81.0-99.0); MEAN CORPUSCULAR HGB 31.5 pg (27.0-31.0); MEAN CORPUSCULAR HGB CONC 32.8 g/dl (33.0-37.0); MEAN PLATELET VOLUME 9.2 fl (9.6-12.3); MONO # 0.3 10*3/uL (0.1-1.0); MONO % 6.2 % (3.0-9.0); NEUT # 2.2 10*3/uL (2.3-7.9); NEUT % 53.8 % (47.0-73.0); PLATELET COUNT AUTOMATED 95 10*3/uL (130-400); RED BLOOD COUNT 2.86 10*6/uL (4.10-5.10); RED CELL DISTRI WIDTH 16.6 % (0-14.5); WHITE BLOOD COUNT 4.1 10*3/uL (4.8-10.8)
--- NOTE | 2019-06-21 07:15 | NUR ---
DEEPTI BEST [id number] Please refer to the physician's history and physical for past medical history, comorbid conditions, and allergies. Diagnosis: DYSPNEA GENERALIZED WEAKNESS AC CHRONIC KIDNEY Matt Score: 17,AT RISK WOUND DESCRIPTIONS: Wound Number: 1 Location of the wound: right griffith Thickness: Full Size: 15.0cm x 17.0cm x 0.1cm Tunneling: none Undermining: none Sinus Tract: none Presence of Exudate: Serosanguineous Amount: Light Color: Yellow, red, brown Odor: Foul Periwound Skin Appearance: Erythema Wound edges: approximated Pain (associated with wound): none at time of assessment How does patient state this happened? pt stated she has had this area for quite sometime now and follows in the wound care center. Patient abdominal folds and bilateral groins have red satelitte areas noted at time of assessment. Musty odor noted. No drainage at time of assessment. Entire buttocks is red and blanchable at time of assessment. No open areas noted at time of assessment. No drainage noted at time of assessment. Surface the patient is resting on: Isoflex SKIN PREVENTION RECOMMENDATION: 1. Pressure redistribution support surface as appropriate 2. Elevate heels 3. Remove boots/TEDS every shift and reapply 4. Head of bed 30 degrees as tolerated 5. Assess nutrition and hydration 6. Manage moisture 7. Avoid the use of containment devices while in bed 8. Use absorptive products on surfaces limit layers of linens on bed 9. Turn and reposition every 1-2 hours in bed and every 1 hour in chair as tolerated 10. Weight shifts every 15 minutes while up in chair 11. Offloading with pillows or device to keep heels elevated off bed 12. Monitor skin at least every shift 13. Inspect under medical devices twice a day WOUND TREATMENT RECOMMENDATIONS: Wheelchair cushion when oob. Heel raiser pro boots to bilaterl feet while in bed. Cleanse abdominal folds and bilateral groin areas with soap and water pat areas dry then apply nystatin powder every 8 hours. Full thickness guidelines: Cleanse right lower extremity with nss and apply sureprep around the wound thereahoney sheet to wound bed cover with abd and lightly wrap with kerlix daily and prn for soiling. Arterial studies were done on 06/15/19 may need vascular consult regarding results. Consult podiatry for possible debridement.
[2019-06-21 07:22] LABS: CREATININE 4.69 mg/dL (0.55-1.02); PHOSPHOROUS 4.8 mg/dL (2.5-4.9); POTASSIUM 3.5 mmol/L (3.5-5.1)
--- NOTE | 2019-06-21 07:43 | NUR ---
PHYSICAL THERAPY Nursing screen received and chart reviewed. Physical therapy order received. Thank you. Gianna Hopson,PT,DPT.
[2019-06-21 08:00] VITALS: BP 144/62
--- NOTE | 2019-06-21 08:42 | NUR ---
Nursing screen received and occupational therapy referral received. Thank you. Wendy Rivera OTR/l
--- NOTE | 2019-06-21 08:57 | NUR ---
Dr. Castro notified of wound care recommendations.
--- NOTE | 2019-06-21 09:00 | NUR ---
Peanut Grader in to talk to patient. Patient states lives at home with alone. There are few steps in the home. Physician: frank mondragon Pharmacy: [facility] Home health services: none Patient's level of ADLs: MODERATE ASSIST Patient has working utilities: all working DME: walker Follow-up physician's appointment after d/c: will be made by hospitalist nurse director upon discharge Does patient want to access PORTAL?: no Discharge plan discussed with patient, she lives at home alone, she requires assistance with adls and uses a walker for ambulation, she stated she [facility] and has been home 2 weeks, she states she isn't able to function independently at home and may need to return to [facility], but wants case management to return to her room when her son is present, case management will follow. LAUREANO LI
[2019-06-21 10:18] LABS: BILIRUBIN NEGATIVE (NEGATIVE); BLOOD 2+ (NEGATIVE); CLARITY CLOUDY (CLEAR); COLOR YELLOW (YELLOW); GLUCOSE NEGATIVE (NEGATIVE); KETONE NEGATIVE (NEGATIVE); LEUKO ESTERASE 3+ (NEGATIVE); NITRITE NEGATIVE (NEGATIVE); UROBILINOGEN 0.2 E.U./dl (0.2-1.0); WBC TNTC wbc/hpf (0-5)
[2019-06-21 10:19] LABS: BACTERIA 3+
--- NOTE | 2019-06-21 10:34 | NUR ---
Occupational Therapy evaluation completed on 4 with full eval to follow. PRecautions include +2 transfer assist, lethargic, acute debility,IV UE,appears more anxious and fearful of movement,high complexity level 77857 via chart review, testing and evaluation. Recommend OT per pOC and SNF to enable max ability to function. Thank you for this referral. Wendy Rivera OTR/l
--- NOTE | 2019-06-21 11:07 | NUR ---
case management visits with patient, son present, discussed with them a short term fci for rehab. both were inagreement, they chose [facility], patient will need an isurance precert prior to going to [facility]. also discussed with them a residential plan when her skilled time is completed.encouraged both of them to talk with the social services counselor at [facility] to determine a pattern illustrator plan that is suitable to patient and also to check and see if she would qualify for any funding for the payment of the residential care. case management will follow
--- NOTE | 2019-06-21 11:55 | NUR ---
YESIU NOTIFIED OF DR. ELENA CHUNG.
[2019-06-21 12:00] VITALS: BP 155/58
--- NOTE | 2019-06-21 12:23 | NUR ---
PHYSICAL THERAPY Physical therapy evaluation complete, 4E. Full evaluation/details to follow. Moderate complexity evaluation (50086) per chart review and evaluation. PT to progress with balance, LE strength, transfers, and gait per POC. Recommend SNF at discharge. Thank you. Gianna Hopson,PT,DPT.
--- NOTE | 2019-06-21 15:06 | NUR ---
patient requesting a referral to the [facility]. Contacted facility and faxed referral. waiting on review/acceptance.
[2019-06-21 16:00] VITALS: BP 136/47
--- NOTE | 2019-06-21 19:30 | NUR ---
PT RESTING IN BED AT THIS TIME AND DENIES ANY PAIN OR DISCOMFORT. RESPIRATIONS EASY AND NONLABORED. SHE DENIES ANY NEEDS AT THIS TIME. BED LOCKED AND IN THE LOWEST POSITION, CALL LIGHT WITHIN REACH. WILL CONTINUE TO MONITOR PT.
[2019-06-21 20:00] VITALS: BP 150/50
[2019-06-22] VITALS: BP 147/55
--- NOTE | 2019-06-22 04:46 | NUR ---
Upon discharge recommend patient to follow up for wound care in outpatient setting continue current wound care orders at discharging facility.
[2019-06-22 06:36] LABS: HEMATOCRIT 27.2 % (37.0-47.0); HEMOGLOBIN 8.8 g/dl (12.0-16.0); MEAN CELL VOLUME 96.5 fl (81.0-99.0); MEAN CORPUSCULAR HGB 31.2 pg (27.0-31.0); MEAN CORPUSCULAR HGB CONC 32.4 g/dl (33.0-37.0); MEAN PLATELET VOLUME 9.3 fl (9.6-12.3); PLATELET COUNT AUTOMATED 77 10*3/uL (130-400); RED BLOOD COUNT 2.82 10*6/uL (4.10-5.10); RED CELL DISTRI WIDTH 16.7 % (0-14.5); WHITE BLOOD COUNT 3.7 10*3/uL (4.8-10.8)
[2019-06-22 06:49] LABS: INTERNATIONAL NORM RATIO 1.2 (2.0-3.5)
[2019-06-22 07:05] LABS: CREATININE 4.1 mg/dL (0.55-1.02); PHOSPHOROUS 4.7 mg/dL (2.5-4.9); POTASSIUM 3.4 mmol/L (3.5-5.1)
[2019-06-22 07:14] LABS: ATYPICAL LYMPHS 2 % (0-0); PLATELET SUFFICIENCY LOW (NORMAL); TOTAL CELLS COUNTED 100 #CELLS
[2019-06-22 08:15] VITALS: BP 156/62
--- NOTE | 2019-06-22 08:41 | NUR ---
Dr. Chen notified of wound care recommendations.
--- NOTE | 2019-06-22 09:00 | NUR ---
case management visits with patient, she will be going to [facility] for therapy prior to going back home, patient requires an insurance precert prior to going, information systems planner and case management will follow
--- NOTE | 2019-06-22 09:40 | NUR ---
PHYSICAL THERAPY Patient seen this am 1;1 for therapy visit and was supine in bed upon therapist arrival. Patient transfers supine to sit EOB with MIN A and sit to stand MIN A x 1. Patient ambulates with use of wh walker, 35'x 2, Min/CGA, demonstrating very slow, cautious gait pattern and decreased stride. Patient needed v/c for improved walker safety /navigation especially during 180 degree turn arounds. Patient returned to EOB sit and remained as OT internal medicine physician assistant arrived for a visit. Will continue per POC as tolerated, total treatment time 16 minutes. Nicola Almazan, PROJECT ADMINISTRATIVE ASSISTANT
--- NOTE | 2019-06-22 11:14 | NUR ---
Pt was treated in OT x 25 minutes beginning with a standing activity (grooming) tolerated standing x 4 minutes with CGA. Fair stand balance when grooming. Fxl mobility with w/walker required Min A due to hx of falls throughout bedroom & hallway. Call light within reach. Continue with OT POC. Yaritza PATTERSON/Becky
[2019-06-22 12:00] VITALS: BP 153/52
--- NOTE | 2019-06-22 14:48 | NUR ---
Patient has received auth for [facility], she is ok to go if medically stable for discharge.
[2019-06-22] MEDS ORDERED: Coumadin5 MG PO (15:01)
--- NOTE | 2019-06-22 15:22 | NUR ---
Patient is [facility] to the [facility]. In to discuss transportation options with her. She stated she will have her son transport, he gets off work at 3:30 and will be here shortly after that. She stated she didn't want anyone to call him, she would let him know. Notified [facility], steward/stewardess bath/nursing. Faxed dc orders
[2019-06-22 15:44] VITALS: BP 154/54
--- NOTE | 2019-06-22 16:24 | NUR ---
PHYSICAL THERAPY CO-SIGN I approve of the Physical Therapy notes written above. MARIANN PAZ PT,DPT
--- NOTE | 2019-06-22 16:30 | NUR ---
Discharge instructions reviewed with patient/family. Patient receptive and verbalizes understanding. Follow-up care arranged. Written instructions given to patient/family. PATIENT DISCHARTED TO [facility] BY WHEELCHAIR, ACCOMPANIED BY [facility], FOR TRANSPORT TO [facility] BY PRIVATE CAR WITH HER SON; DISCHARGE PACKET IN CARE OF SON. REPORT CALLED TO RECEIVING NURSE AT [facility]. PALMIRA SUBRAMANIAN
--- NOTE | 2019-06-23 16:40 | NUR ---
OCCUPATIONAL THERAPY CO-SIGN I approve of the Occupational Therapy notes written above. FIORELLA AGUIRRE OTR/Becky
== END 2019-06-22 15:24 | disposition other institution (70) | DRG 682 ==
LOC: ED 12:22 → 4E 14:27 → EDHOLD 14:27 → 4E 15:12
PROVIDERS: Emergency Medicine; Internal Medicine; ADMIT Internal Medicine
DX: N17.9 Acute kidney failure, unspecified (principal); E43 Unspecified severe protein-calorie malnutrition; E87.2 Acidosis; L97.919 Non-pressure chronic ulcer of unspecified part of right lower leg with unspecified severity; N39.0 Urinary tract infection, site not specified; I50.32 Chronic diastolic (congestive) heart failure; I13.2 Hypertensive heart and chronic kidney disease with heart failure and with stage 5 chronic kidney disease, or end stage renal disease; N18.6 End stage renal disease; I87.2 Venous insufficiency (chronic) (peripheral); I48.0 Paroxysmal atrial fibrillation; R56.9 Unspecified convulsions; I73.9 Peripheral vascular disease, unspecified; I48.91 Unspecified atrial fibrillation; Z96.653 Presence of artificial knee joint, bilateral; Z60.2 Problems related to living alone; I25.10 Atherosclerotic heart disease of native coronary artery without angina pectoris; I35.0 Nonrheumatic aortic (valve) stenosis; R79.1 Abnormal coagulation profile; D64.9 Anemia, unspecified; R00.1 Bradycardia, unspecified; D72.819 Decreased white blood cell count, unspecified; R31.9 Hematuria, unspecified; E83.41 Hypermagnesemia; M19.90 Unspecified osteoarthritis, unspecified site; M48.00 Spinal stenosis, site unspecified; D69.6 Thrombocytopenia, unspecified; F32.9 Major depressive disorder, single episode, unspecified; I25.2 Old myocardial infarction; Z88.8 Allergy status to other drugs, medicaments and biological substances; Z79.899 Other long term (current) drug therapy; Z79.01 Long term (current) use of anticoagulants; Z90.710 Acquired absence of both cervix and uterus; Z98.42 Cataract extraction status, left eye; Z98.41 Cataract extraction status, right eye; Z82.49 Family history of ischemic heart disease and other diseases of the circulatory system; Z83.3 Family history of diabetes mellitus; Z84.89 Family history of other specified conditions; Z80.8 Family history of malignant neoplasm of other organs or systems; Z87.440 Personal history of urinary (tract) infections; Z86.718 Personal history of other venous thrombosis and embolism; Z68.32 Body mass index [BMI] 32.0-32.9, adult

== ENCOUNTER → 2019-07-13 | Outpatient (CLI) | payer MEDICARE ==
[~2019-07-13] MED LIST changes: +CELEXA20 MG PO; +Coumadin5 MG PO; +FERROUS SULFAT325 MG PO; +K-TAB20 MEQ PO; +OMEPRAZOLE D/R20 MG PO
[2019-07-13 16:13] LABS: BASO % 0.1 % (0.0-1.0); EOS % 0.3 % (1.0-4.0); HEMATOCRIT 22.9 % (37.0-47.0); HEMOGLOBIN 7.5 g/dl (12.0-16.0); LYMPH # 1.9 10*3/uL (1.3-4.4); LYMPH % 26.9 % (27.0-41.0); MEAN CORPUSCULAR HGB 32.8 pg (27.0-31.0); MEAN CORPUSCULAR HGB CONC 32.8 g/dl (33.0-37.0); MEAN PLATELET VOLUME 9.2 fl (9.6-12.3); MONO # 0.3 10*3/uL (0.1-1.0); MONO % 4.5 % (3.0-9.0); NEUT # 4.7 10*3/uL (2.3-7.9); NEUT % 67.9 % (47.0-73.0); PLATELET COUNT AUTOMATED 71 10*3/uL (130-400); RED BLOOD COUNT 2.29 10*6/uL (4.10-5.10); RED CELL DISTRI WIDTH 19.2 % (0-14.5); WHITE BLOOD COUNT 6.9 10*3/uL (4.8-10.8)
[2019-07-13 16:42] LABS: CREATININE 4.01 mg/dL (0.55-1.02); POTASSIUM 4.3 mmol/L (3.5-5.1)
== END | disposition home or self-care (01) ==
LOC: LAB 15:50
PROVIDERS: Physician Assistant
DX: I73.9 Peripheral vascular disease, unspecified (principal); L97.211 Non-pressure chronic ulcer of right calf limited to breakdown of skin; I13.0 Hypertensive heart and chronic kidney disease with heart failure and stage 1 through stage 4 chronic kidney disease, or unspecified chronic kidney disease; I50.32 Chronic diastolic (congestive) heart failure; N18.4 Chronic kidney disease, stage 4 (severe); I89.0 Lymphedema, not elsewhere classified

== ENCOUNTER 2019-10-08 11:15 | Inpatient (IN) | payer MEDICARE ==
[~2019-10-08] VITALS: Ht 170.1 cm; Wt 89.0 kg
[2019-10-08 11:17] VITALS: BP 152/47
[2019-10-08 12:00] VITALS: BP 156/53
[2019-10-08 12:17] LABS: BASO % 0.2 % (0.0-1.0); EOS # 0.1 10*3/uL (0.0-0.4); EOS % 1.5 % (1.0-4.0); HEMATOCRIT 24.3 % (37.0-47.0); LYMPH # 2.1 10*3/uL (1.3-4.4); LYMPH % 39.1 % (27.0-41.0); MEAN CELL VOLUME 101.7 fl (81.0-99.0); MEAN CORPUSCULAR HGB 33.5 pg (27.0-31.0); MEAN CORPUSCULAR HGB CONC 32.9 g/dl (33.0-37.0); MONO # 0.3 10*3/uL (0.1-1.0); MONO % 6.1 % (3.0-9.0); NEUT # 2.8 10*3/uL (2.3-7.9); NEUT % 52.9 % (47.0-73.0); PLATELET COUNT AUTOMATED 102 10*3/uL (130-400); RED BLOOD COUNT 2.39 10*6/uL (4.10-5.10); RED CELL DISTRI WIDTH 15.1 % (0-14.5); WHITE BLOOD COUNT 5.4 10*3/uL (4.8-10.8)
[2019-10-08 12:22] LABS: BILIRUBIN NEGATIVE (NEGATIVE); BLOOD 1+ (NEGATIVE); CLARITY CLOUDY (CLEAR); COLOR YELLOW (YELLOW); GLUCOSE NEGATIVE (NEGATIVE); KETONE NEGATIVE (NEGATIVE); LEUKO ESTERASE 3+ (NEGATIVE); NITRITE NEGATIVE (NEGATIVE); PH 8.5 (5.0-9.0); UROBILINOGEN 0.2 E.U./dl (0.2-1.0)
[2019-10-08 12:35] LABS: ALBUMIN 2.6 gm/dl (3.1-4.5); CREATININE 5.45 mg/dL (0.55-1.02)
[2019-10-08 12:38] LABS: RBC 16-20 rbc/hpf (0-2)
[2019-10-08 12:39] LABS: BACTERIA 4+; WBC TNTC wbc/hpf (0-5)
[2019-10-08 14:02] VITALS: BP 148/68
[2019-10-08 14:30] VITALS: BP 156/53
--- NOTE | 2019-10-08 14:39 | NUR ---
The assessment has been completed. Time: 1429 A 84 year old FEMALE admitted to 5E under services of VIOLETA SINGH DO. Pt. arrived via bed from ER. Chief complaint: PRODUCTIVE COUGH FOR PAST WEEK, C/O BEING TIRED AND GENERAL WEAKNESS. HISSOM,MANDIE
--- NOTE | 2019-10-08 14:56 | NUR ---
DR BRUMFIELD IN TO SEE PATIENT
--- NOTE | 2019-10-08 15:24 | NUR ---
INFORMED DR CHILD'S OFFICE OF CONSULT
--- NOTE | 2019-10-08 16:41 | NUR ---
Patient resting quietly with no c/o discomfort. Respirations easy and regular. Vital signs stable. No overt distress. CALL LIGHT WITHIN REACH. HISSOM,MANDIE
[2019-10-08 16:49] VITALS: BP 148/60
--- NOTE | 2019-10-08 16:54 | NUR ---
DR. BUCKNER NOTIFIED OF PTS BLOOD PRESSURES RUNNING AROUND 150/70'S. STATED TO GIVE THE SCHEDULED DOSE OF COREG AT THE SCHEDULED TIME TONIGHT . ORDERS REPEATED BACK.
--- NOTE | 2019-10-08 18:14 | NUR ---
FAMILY AT BEDSIDE. PT RESTING IN BED. CALL LIGHT WITHIN REACH.
[2019-10-08 20:00] VITALS: BP 145/50
--- NOTE | 2019-10-08 20:15 | NUR ---
Neurological: AAOX3 Respiratory: ROOM AIR, NONLABORED Breath sounds: DIMINISHED T/O Cough: NONE NOTED Cardiovascular: DENIES CP/PRESSURE, TRACE BLE EDEMA, PPP Gastrointestinal: NORMOACTIVE X4 QUADS, DENIES N/V/D/C, ABD SOFT/NONTENDER/NONDISTENDED, BM 10/06/19 Genito/Urinary: DENIES DYSURIA, URINE ODORUS Musculoskeketal: AMBULATORY W/ ASSIST AND WALKER, MULTIPLE WOUNDS. PATIENT IS RESTING IN BED WITH EASY AND REGULAR RESPERS ON ROOM AIR. ASSESSMENT IS COMPLETE WITH NO C/O OR S/S OF DISTRESS NOTED AT THIS TIME. IV TO RIGHT AC IS PATENT WITH BLOOD RETURN. BED IS LOW, LOCKED, AND CALL LIGHT IS WITHIN REACH. WILL CONTINUE TO MONITOR, SEE SHIFT ASSESSMENT.
[2019-10-09] VITALS: BP 142/45
[2019-10-09 06:42] LABS: BASO % 0.3 % (0.0-1.0); EOS # 0.1 10*3/uL (0.0-0.4); EOS % 2.8 % (1.0-4.0); HEMATOCRIT 22.8 % (37.0-47.0); HEMOGLOBIN 7.2 g/dl (12.0-16.0); LYMPH # 1.5 10*3/uL (1.3-4.4); LYMPH % 38.8 % (27.0-41.0); MEAN CELL VOLUME 103.6 fl (81.0-99.0); MEAN CORPUSCULAR HGB 32.7 pg (27.0-31.0); MEAN CORPUSCULAR HGB CONC 31.6 g/dl (33.0-37.0); MONO # 0.3 10*3/uL (0.1-1.0); MONO % 7.1 % (3.0-9.0); NEUT % 50.7 % (47.0-73.0); PLATELET COUNT AUTOMATED 95 10*3/uL (130-400); RED CELL DISTRI WIDTH 15.6 % (0-14.5)
[2019-10-09 07:01] LABS: ALBUMIN 2.3 gm/dl (3.1-4.5); CREATININE 4.59 mg/dL (0.55-1.02); FREE T4 1.05 ng/dl (0.76-1.46); PHOSPHOROUS 4.2 mg/dL (2.5-4.9); POTASSIUM 3.9 mmol/L (3.5-5.1); TOTAL PROTEIN 5.3 gm/dL (6.4-8.2)
[2019-10-09 07:05] LABS: THYROID STIM HORMONE (HS) 1.28 uIU/ml (0.358-4.75)
[2019-10-09 07:15] LABS: ACT PARTIAL THROMBO TIME 58.9 SECONDS (20.0-32.1); INTERNATIONAL NORM RATIO 3.5 (2.0-3.5)
[2019-10-09 08:00] VITALS: BP 155/61
[2019-10-09 08:28] LABS: VITAMIN D, 25-HYDROXY 59.1 ng/mL (30-100)
--- NOTE | 2019-10-09 08:46 | NUR ---
NOTIFIED DR BRUMFIELD THAT THIS RN , TAMMY SCOTT AND KEKE TAVAREZ WERE UNABLE TO GAIN IV ACCESS AFTER 7 ATTEMPTS. WHICH INCLUDED 1 ATTEMPT WITH ULTRASOUND BY KEKE TAVAREZ.AT THIS TIME DR BRUMFIELD REQUESTED A UNIT NURSE ATTEMPT. I NOTIFIED ASHISH BAIN WHO STATED THAT THEY ARE UNAVAILABLE AT THIS TIME TO ATTEMPT IV ACCESS.
--- NOTE | 2019-10-09 11:18 | NUR ---
IV started right antecubital with #22 protective cath after 1 attempts. Site prepped with Chloroprep. Sterile dressing applied. Patient tolerated procedure well. ISAI BECERRA
[2019-10-09 12:00] VITALS: BP 139/50
--- NOTE | 2019-10-09 14:11 | NUR ---
Patient resting quietly with no c/o discomfort. Respirations easy and regular. ON ra,SPO2 98%.Vital signs stable. No overt distress. RHONDA DESIR
[2019-10-09 16:00] VITALS: BP 136/57
[2019-10-09 20:00] VITALS: BP 147/50
--- NOTE | 2019-10-09 20:30 | NUR ---
IN TO ASSESS PATIENT, PATIENT ALERT AND ORIENTED, PLEASANT AND COOPERATIVE. BREATHING IS EASY AND REGULAR ON ROOM AIR. IV FLUIDS INFUSING PER ORDER. LUNGS DIMINISHED T/O WITH FAINT CRACKLES TO BASES. +1 PITTING EDEMA NOTED. NORMOACTIVE BOWELS X4 QUADS. PATIENT STATES SHE MOVED HER BOWELS TODAY. CALL LIGHT WIHTIN REACH,WILL MONITOR
--- NOTE | 2019-10-09 21:56 | NUR ---
PATIENTS GROIN EXCORIATED AND REDDENED. STATES IT'S BOTHERING HER. ORDER RECIEVED FROM DR. PATTON FOR MAINATIN
--- NOTE | 2019-10-09 22:30 | NUR ---
PRN NYSTATIN GIVEN FOR PT COMPLAINTS OF EXCORIATION UNDER ABD FOLDS AND GROIN. CALL LIGHT WITHIN REACH, WILL LIBIA
[2019-10-10] VITALS (10 sets, daily range): BP systolic 120–175; BP diastolic 41–80
--- NOTE | 2019-10-10 00:33 | NUR ---
PATIENT RESTING IN BED. NO DISTRESS NOTED. IV FLUIDS INFUSING PER ORDER. CALL LIGHT WITHIN REACH, WILL MONITOR
--- NOTE | 2019-10-10 02:40 | NUR ---
PATIENT SLEEPING, NO DISTRESS NOTED. CALL LIGHT WITHIN REACH
--- NOTE | 2019-10-10 04:43 | NUR ---
IV BAG CHANGED. PATIENT SLEEPING. NO DISTRESS NOTED. CALL LIGHT WITHIN REACH
--- NOTE | 2019-10-10 04:45 | NUR ---
24 HR chart check completed.
[2019-10-10 06:13] LABS: BASO % 0.2 % (0.0-1.0); EOS # 0.2 10*3/uL (0.0-0.4); EOS % 2.9 % (1.0-4.0); HEMATOCRIT 22.2 % (37.0-47.0); HEMOGLOBIN 7.1 g/dl (12.0-16.0); LYMPH # 1.8 10*3/uL (1.3-4.4); MEAN CELL VOLUME 103.3 fl (81.0-99.0); MEAN PLATELET VOLUME 8.8 fl (9.6-12.3); MONO # 0.4 10*3/uL (0.1-1.0); MONO % 7.3 % (3.0-9.0); NEUT # 3.1 10*3/uL (2.3-7.9); NEUT % 57.2 % (47.0-73.0); PLATELET COUNT AUTOMATED 86 10*3/uL (130-400); RED BLOOD COUNT 2.15 10*6/uL (4.10-5.10); RED CELL DISTRI WIDTH 15.3 % (0-14.5); WHITE BLOOD COUNT 5.5 10*3/uL (4.8-10.8)
[2019-10-10 06:40] LABS: CREATININE 4.09 mg/dL (0.55-1.02); POTASSIUM 3.9 mmol/L (3.5-5.1)
--- NOTE | 2019-10-10 06:44 | NUR ---
NOTIFIED DR. PATTON OF PATIENTS WEIGHT GAIN. NOTIFIED HIM PATIENT HAS FINE RALES IN THE BASES BUT OTHERWISE IS JUST DIMINISHED. NOTIFIED HIM THAT PATIENT IS ON FLUIDS AT THIS TIME FOR ACUTE ON CHRONIC RENAL FAILURE. HE STATED TO SEE WHAT DR. CHILD SAYS TODAY
--- NOTE | 2019-10-10 09:00 | NUR ---
Neurological: AAOX3 Respiratory: ROOM AIR, NONLABORED Breath sounds: DIMINISHED T/O Cough: NONE NOTED Cardiovascular: DENIES CP/PRESSURE, TRACE BLE EDEMA, PPP Gastrointestinal: NORMOACTIVE X4 QUADS, DENIES N/V/D/C, ABD SOFT/NONTENDER/NONDISTENDED, BM 10/06/19 Genito/Urinary: DENIES DYSURIA, URINE ODORUS Musculoskeketal: AMBULATORY W/ ASSIST AND WALKER, MULTIPLE WOUNDS. PATIENT IS RESTING IN BED WITH NO C/O OR S/S OF DISTRESS NOTED AT THIS TIME.BED IS LOW, LOCKED, AND CALL LIGHT IS WITHIN REACH. WILL CONTINUE TO MONITOR, SEE SHIFT ASSESSMENT.
--- NOTE | 2019-10-10 09:06 | NUR ---
DEEPTI BEST [id number] Please refer to the physician's history and physical for past medical history, comorbid conditions, and allergies. Diagnosis: UTI ACUTE ON CHRONIC KIDNEY FAILURE Matt Score: 22,LOW OR NO RISK WOUND DESCRIPTIONS: WOUND #1 LEFT MEDIAL HEEL DRY SCALY SKIN INTACT. NO DRAINAGE, ERYTHEMA OR ODOR AT TIME OF ASSESSMENT. WOUND #2 RIGHT LOWER LEG DRY SCALY. RED PARTIAL THICKNESS OPEN AREA 0.6cm X 0.4cm X 0.1cm NOTED AT TIME OF ASSESSMENT. PATIENT STATES SHE SCRATCHES THIS AREA BECAUSE OF IT BEING SO DRY. Surface the patient is resting on: Isoflex SKIN PREVENTION RECOMMENDATION: 1. Pressure redistribution support surface as appropriate 2. Elevate heels 3. Remove boots/TEDS every shift and reapply 4. Head of bed 30 degrees as tolerated 5. Assess nutrition and hydration 6. Manage moisture 7. Avoid the use of containment devices while in bed 8. Use absorptive products on surfaces limit layers of linens on bed 9. Turn and reposition every 1-2 hours in bed and every 1 hour in chair as tolerated 10. Weight shifts every 15 minutes while up in chair 11. Offloading with pillows or device to keep heels elevated off bed 12. Monitor skin at least every shift 13. Inspect under medical devices twice a day WOUND TREATMENT RECOMMENDATIONS: AQUAPHOR TO DRY AREAS ON BLE DAILY.
--- NOTE | 2019-10-10 09:40 | NUR ---
Dr. Castro notified of wound care recommendations.
[2019-10-10 11:02] LABS: IRON 37 ug/dL (50-170); TOTAL IRON BINDING CAPACITY 225 ug/dl (250-450)
--- NOTE | 2019-10-10 11:03 | NUR ---
Patient not available for Occupational Therapy evaluation as she reports she will be getting blood soon. Son present and agrees. Wendy Rivera OTR/l
--- NOTE | 2019-10-10 11:15 | NUR ---
PHYSICAL THERAPY Chart reviewed low H&H for possible blood transfusion per pt will follow Cristiana Hre PT
--- NOTE | 2019-10-10 12:25 | NUR ---
Informed consent obtained from patient for Blood transfussion by Dr. MEDINA. Patient identified by arm band. Vital signs recorded. Blood unit number verified by 2 R.N.'s. I.V. site satisfactory. Unit 1 started at a KVO rate with Normal Saline. KEKE TAVAREZ
--- NOTE | 2019-10-10 12:36 | NUR ---
GEODETIC SURVEY DIRECTOR received notice the patient would like to be referred to [facility]. GEODETIC SURVEY DIRECTOR [facility] Patient requires a PRECERT. Will need PT/OT Evals to complete referral. -SHADE Cardenas
--- NOTE | 2019-10-10 12:38 | NUR ---
Nutritional Support Services Note: Appetite is good for meals, she receives a regular diet. Family felt appetite had declined, although she is eating well here. Ht.5'6 Wt.193#. Pt refuses any type of supplement intake. Will send pt high protein snacks BID to help increase po intake. Severe protein calorie malnutrition noted. Will follow. Kristen Kim Rdn Ld
--- NOTE | 2019-10-10 14:55 | NUR ---
BLOOD TRANSFUSION COMPLETE. PATIENT TOLERATED WELL, CALL LIGHT IS WITHIN REACH.
--- NOTE | 2019-10-10 14:56 | NUR ---
Primary Care Sales Representative in to talk to patient. Patient states lives at HOME with ALONE. There are FEW steps in the home. Physician: REYNA WALKER Pharmacy: [facility] Home health services: NONE AT THIS TIME, HAS HAD [facility] IN PAST Patient's level of ADLs: MODERATE ASSIST Patient has working utilities: YES DME: WALKER Follow-up physician's appointment after d/c: WILL BE MADE BY HOSPITALIST NURSE DIRECTOR ON DISCHRE Does patient want to access PORTAL?: NO Discharge plan PT LIVES AT HOME ALONE WITH SON LIVING NEARBY AND LOOKING IN ON HER. SON IS PRESENT ON ADMISSION. PER SON AND PT THEY WANT HER TO GO TO [facility] FOR REHAB ON DISCHARGE. ACID ADJUSTER INFORMED AND WILL MAKE REFERRAL. WILL CONTINUE TO FOLLOW.. MIC VALDOVINOS
--- NOTE | 2019-10-10 22:00 | NUR ---
PATIENT RESTING IN BED. NO COMPLAINTS AT THIS TIME. BREATHING IS EASY AND REGULAR WITHOUT DISTRESS. CALL LIGHT WITHIN REACH, WILL MONITOR
[2019-10-11] VITALS: BP 152/54
--- NOTE | 2019-10-11 02:00 | NUR ---
PT SLEEPING, NO DISTRESS NOTED, CALL LIGHT WITHIN REACH
--- NOTE | 2019-10-11 05:02 | NUR ---
Recommend follow up for wound care in outpatient setting patient refused at this time.
[2019-10-11 06:34] LABS: CREATININE 3.84 mg/dL (0.55-1.02); PHOSPHOROUS 4.8 mg/dL (2.5-4.9); POTASSIUM 3.7 mmol/L (3.5-5.1)
[2019-10-11 06:38] LABS: BASO % 0.2 % (0.0-1.0); EOS # 0.2 10*3/uL (0.0-0.4); EOS % 3.3 % (1.0-4.0); HEMOGLOBIN 7.9 g/dl (12.0-16.0); LYMPH # 1.8 10*3/uL (1.3-4.4); LYMPH % 40.2 % (27.0-41.0); MEAN CORPUSCULAR HGB 31.9 pg (27.0-31.0); MEAN CORPUSCULAR HGB CONC 32.9 g/dl (33.0-37.0); MEAN PLATELET VOLUME 9.3 fl (9.6-12.3); MONO # 0.4 10*3/uL (0.1-1.0); MONO % 7.7 % (3.0-9.0); NEUT # 2.2 10*3/uL (2.3-7.9); NEUT % 48.2 % (47.0-73.0); PLATELET COUNT AUTOMATED 93 10*3/uL (130-400); RED BLOOD COUNT 2.48 10*6/uL (4.10-5.10); RED CELL DISTRI WIDTH 17.5 % (0-14.5); WHITE BLOOD COUNT 4.5 10*3/uL (4.8-10.8)
[2019-10-11 06:39] LABS: MEAN CELL VOLUME 96.8 fl (81.0-99.0)
[2019-10-11 08:00] VITALS: BP 119/51
--- NOTE | 2019-10-11 08:40 | NUR ---
Occupational Therapy evaluation completed on 5 with full eval to follow. Precautions include fall risk;bed alarm, SOB w/ min exertion, ww use,poor BUE ROM at shoulders and right hand, moderate complexity level 76100 via chart review, testing and evaluation. Recommend OT per POC and SNF to enable return home alone at independent level. Thank you. Wendy Rivera OTR/L
--- NOTE | 2019-10-11 08:59 | NUR ---
PHYSICAL THERAPY Paul completed full details to follow moderate level of [id number] recomend SNF at discharge. PT to work on transfers, amb, strengthening, balance and safety. Cristiana Her PT
--- NOTE | 2019-10-11 09:04 | NUR ---
Dr. Morgan notified of wound care recommendations.
--- NOTE | 2019-10-11 10:32 | NUR ---
Patient requires PRECERT. NEMATOLOGIST faxed PT/OT Ev[facility] to [facility]. -SHADE Cardenas
--- NOTE | 2019-10-11 11:23 | NUR ---
PT HAS BEEN REFERRED TO [facility]. WILL REQUIRE A PRECERT. WILL CONTINUE TO FOLLOW.
[2019-10-11 12:00] VITALS: BP 152/60
--- NOTE | 2019-10-11 12:22 | NUR ---
PHYSICAL THERAPY Patient was back in bed this pm when approached for therapy visit and joined by several family members upon therapist arrival. Patient also had just received her lunch and requested to be seen later today if possible. Will continue per POC as able. Nicola Almazan, AFTER SCHOOL PROGRAM ASSISTANT
--- NOTE | 2019-10-11 15:02 | NUR ---
SALVAGE SUPERVISOR spoke with patient and both her sons at bedside. SALVAGE SUPERVISOR explained no beds at [facility]. Patient son stated the patient would return home until a bed opened up at [facility] as the patients granddaughter is the PT there. Patients son asked for SALVAGE SUPERVISOR to reach out to granddaughter Yi at [phone] to confirm discharge plans. SALVAGE SUPERVISOR reached out to Yi. SALVAGE SUPERVISOR explained no time frame on when a bed could open up. Patients granddaughter agreed to have HHC in the mean time. Patient has a history with [facility] and wants them again for the patient. SALVAGE SUPERVISOR spoke with Kathya CARBALLO Hospitalist Coordinator about needing an HHC order. SALVAGE SUPERVISOR will notify Java Manager Grace. Patients son stated he would be available to transport the patient. -SHADE Cardenas
[2019-10-11 16:00] VITALS: BP 122/50
--- NOTE | 2019-10-11 19:00 | NUR ---
ASSUMED CARE FOR THIS PT AT THIS TIME. PT C/O URINARY FREQUENCY. PT REMINDED [facility] WAS RESTARTED TODAY. PT STATES SHE STILL HAS GENERALIZED WEAKNESS BUT IT HAS IMPROVED. BED ALARM ON W/CALL LIGHT IN REACH.
[2019-10-11 20:00] VITALS: BP 157/54
[2019-10-12] VITALS: BP 146/50
[2019-10-12 07:33] LABS: INTERNATIONAL NORM RATIO 1.4 (2.0-3.5)
[2019-10-12 08:00] VITALS: BP 138/70
--- NOTE | 2019-10-12 08:00 | NUR ---
VITALS STABLE. A&OX3. TIAN. PT PLEASANT. HEART SOUNDS NORMAL. RHONCHI RIGHT LUNG MID TO BASE, CLEARED WITH COUGH. ACTIVE BSX4, NON TENDER NON DISTENDED. SKIN TURGUR NON TENTING. <3 SEC CAP REFILL. GENERALIZED EDEMA IN BLE, SKIN RED, UNOPENED SCRATCH ROBLEDO NOTED ON BLE, NO DRAINAGE. RAN IV DRESSING INTACT, NO REDNESS OR SWELLING. NO COMPLAINTS OF PAIN AT THIS TIME. WILL CONTINUE TO ASSESS. MARTHA BOND
--- NOTE | 2019-10-12 08:45 | NUR ---
PHYSICAL THERAPY Patient seen this am 1:1 for therapy visit and was sitting up in her bedside chair upon therapist arrival. Patient identified by name / , voicing no new c/o's and was joined by Student Nurse during entire therapy visit. Patient transfers sit to stand from low chair surface MIN A x 1. Patient ambulates with use of wh walker, CGA, 45'x 2, demonstrating slow gamal, decreased stride and cautious gait pattern. Patient returned to bedside chair with increased fatigue and needed brief seated rest between gait trials. Patient remained semi reclined in chair with call light, tray table and telephone under Student Nurse Supervision. Will continue per POC as tolerated, total treatment time 17 minutes. Nicola Almazan, BUNCHER OPERATOR
--- NOTE | 2019-10-12 09:07 | NUR ---
PT RESTING IN CHAIR . NO DISTRESS NOTED. WILL MONITOR
--- NOTE | 2019-10-12 10:00 | NUR ---
PT RESTING QUIETLY IN CHAIR WITH EYES CLOSED. FEET ELEVATED. WILL CONTINUE TO ASSESS. MARTHA BOND
[2019-10-12 12:00] VITALS: BP 126/62
--- NOTE | 2019-10-12 13:27 | NUR ---
PT IS BEING DICHARGED TO HOME TODAY. REFERRAL FAXED TO [facility]. WILL CONTINUE TO FOLLOW.
--- NOTE | 2019-10-12 13:30 | NUR ---
Discharge instructions reviewed with patient/family. Patient receptive and verbalizes understanding. Follow-up care arranged. Written instructions given to patient/family with understanding. Heplock removed. Patient discharged via wheelchair to car with son. Condition stable. MARTHA Steele KATHY P
--- NOTE | 2019-10-13 08:01 | NUR ---
PHYSICAL THERAPY CO-SIGN I approve of the Physical Therapy notes written above. Cristiana Her PT
--- NOTE | 2019-10-14 09:15 | NUR ---
SHADE was asked by [facility] to send patient clinicals over to her as they are trying to admit the patient. Clinicals were faxed. -SHADE Cardenas
== END 2019-10-12 13:30 | disposition home health service (06) | DRG 682 ==
LOC: ED 11:15 → EDHOLD 13:33 → 5E 13:33
PROVIDERS: Internal Medicine; Internal Medicine Nephrology; Nurse Practitioner Family; ADMIT Internal Medicine
PROC: 30233N1 Transfusion of Nonautologous Red Blood Cells into Peripheral Vein, Percutaneous Approach (ICD-10-PCS; principal; 2019-10-10)
DX: N17.0 Acute kidney failure with tubular necrosis (principal); E43 Unspecified severe protein-calorie malnutrition; N39.0 Urinary tract infection, site not specified; L97.909 Non-pressure chronic ulcer of unspecified part of unspecified lower leg with unspecified severity; I13.2 Hypertensive heart and chronic kidney disease with heart failure and with stage 5 chronic kidney disease, or end stage renal disease; J98.11 Atelectasis; I50.32 Chronic diastolic (congestive) heart failure; I48.91 Unspecified atrial fibrillation; R56.9 Unspecified convulsions; I73.9 Peripheral vascular disease, unspecified; E83.41 Hypermagnesemia; N18.5 Chronic kidney disease, stage 5; D72.819 Decreased white blood cell count, unspecified; D53.9 Nutritional anemia, unspecified; I35.0 Nonrheumatic aortic (valve) stenosis; D63.8 Anemia in other chronic diseases classified elsewhere; M19.90 Unspecified osteoarthritis, unspecified site; M48.00 Spinal stenosis, site unspecified; Z96.653 Presence of artificial knee joint, bilateral; B96.20 Unspecified Escherichia coli [E. coli] as the cause of diseases classified elsewhere; R79.1 Abnormal coagulation profile; I87.2 Venous insufficiency (chronic) (peripheral); D69.6 Thrombocytopenia, unspecified; I25.10 Atherosclerotic heart disease of native coronary artery without angina pectoris; Z86.718 Personal history of other venous thrombosis and embolism; Z88.1 Allergy status to other antibiotic agents; Z98.42 Cataract extraction status, left eye; Z98.41 Cataract extraction status, right eye; Z90.711 Acquired absence of uterus with remaining cervical stump; Z83.79 Family history of other diseases of the digestive system; Z82.49 Family history of ischemic heart disease and other diseases of the circulatory system; Z83.3 Family history of diabetes mellitus; Z80.8 Family history of malignant neoplasm of other organs or systems; Z87.440 Personal history of urinary (tract) infections; I25.2 Old myocardial infarction; Z79.899 Other long term (current) drug therapy; Z79.01 Long term (current) use of anticoagulants; Z68.29 Body mass index [BMI] 29.0-29.9, adult

== ENCOUNTER 2019-10-22 10:57 | Emergency (ER) | payer MEDICARE ==
[~2019-10-22] VITALS: Ht 170.1 cm; Wt 90.3 kg
[2019-10-22 11:19] VITALS: BP 138/47
[2019-10-22 11:56] LABS: BASO % 0.3 % (0.0-1.0); EOS # 0.2 10*3/uL (0.0-0.4); EOS % 2.9 % (1.0-4.0); HEMATOCRIT 26.2 % (37.0-47.0); HEMOGLOBIN 8.2 g/dl (12.0-16.0); LYMPH # 2.3 10*3/uL (1.3-4.4); LYMPH % 37.7 % (27.0-41.0); MEAN CELL VOLUME 100.8 fl (81.0-99.0); MEAN CORPUSCULAR HGB 31.5 pg (27.0-31.0); MEAN CORPUSCULAR HGB CONC 31.3 g/dl (33.0-37.0); MONO # 0.5 10*3/uL (0.1-1.0); MONO % 8.1 % (3.0-9.0); NEUT # 3.1 10*3/uL (2.3-7.9); NEUT % 50.8 % (47.0-73.0); PLATELET COUNT AUTOMATED 111 10*3/uL (130-400); WHITE BLOOD COUNT 6.2 10*3/uL (4.8-10.8)
[2019-10-22 12:15] LABS: INTERNATIONAL NORM RATIO 4.9 (2.0-3.5)
[2019-10-22 12:31] LABS: ALBUMIN 2.5 gm/dl (3.1-4.5); CREATININE 4.34 mg/dL (0.55-1.02); TOTAL PROTEIN 5.9 gm/dL (6.4-8.2)
== END 2019-10-22 13:19 | disposition home or self-care (01) ==
LOC: ED 10:57
PROVIDERS: Nurse Practitioner Family
DX: R04.0 Epistaxis (principal); R79.1 Abnormal coagulation profile; I25.2 Old myocardial infarction; I11.0 Hypertensive heart disease with heart failure; I50.9 Heart failure, unspecified; Z79.01 Long term (current) use of anticoagulants; Z88.1 Allergy status to other antibiotic agents; Z79.899 Other long term (current) drug therapy; Z86.718 Personal history of other venous thrombosis and embolism

== ENCOUNTER 2019-11-17 19:32 | Inpatient (IN) | payer MEDICARE ==
[~2019-11-17] VITALS: Ht 170 cm; Wt 89.1 kg
[2019-11-17 19:40] VITALS: BP 159/90
[2019-11-17 20:06] LABS: BASO % 0.1 % (0.0-1.0); EOS # 0.1 10*3/uL (0.0-0.4); EOS % 0.6 % (1.0-4.0); HEMATOCRIT 27.4 % (37.0-47.0); HEMOGLOBIN 8.6 g/dl (12.0-16.0); LYMPH # 1.2 10*3/uL (1.3-4.4); LYMPH % 10.7 % (27.0-41.0); MEAN CELL VOLUME 101.5 fl (81.0-99.0); MEAN CORPUSCULAR HGB 31.9 pg (27.0-31.0); MEAN CORPUSCULAR HGB CONC 31.4 g/dl (33.0-37.0); MEAN PLATELET VOLUME 9.4 fl (9.6-12.3); MONO # 0.4 10*3/uL (0.1-1.0); MONO % 3.2 % (3.0-9.0); NEUT # 9.5 10*3/uL (2.3-7.9); PLATELET COUNT AUTOMATED 144 10*3/uL (130-400); RED CELL DISTRI WIDTH 15.9 % (0-14.5); WHITE BLOOD COUNT 11.2 10*3/uL (4.8-10.8)
[2019-11-17 20:20] LABS: ACT PARTIAL THROMBO TIME 37.6 SECONDS (20.0-32.1); INTERNATIONAL NORM RATIO 1.5 (2.0-3.5)
[2019-11-17 20:26] LABS: ALKALINE PHOSPHATASE 110 U/L (45-117); BUN 55 mg/dl (7-24); CHLORIDE 101 mmol/L (98-107); CREATININE 4.79 mg/dL (0.55-1.02); POTASSIUM 4.2 mmol/L (3.5-5.1); SGOT/AST 26 IU/L (3-35); SGPT/ALT 17 U/L (12-78); SODIUM 136 mmol/L (136-145); TOTAL PROTEIN 6.5 gm/dL (6.4-8.2)
[2019-11-17 20:29] LABS: TROPONIN I < 0.015 ng/ml (<0.045)
[2019-11-17 20:39] LABS: BILIRUBIN NEGATIVE (NEGATIVE); BLOOD TRACE-INTACT (NEGATIVE); CLARITY SL CLOUDY (CLEAR); COLOR YELLOW (YELLOW); GLUCOSE NEGATIVE (NEGATIVE); KETONE NEGATIVE (NEGATIVE); LEUKO ESTERASE 1+ (NEGATIVE); NITRITE NEGATIVE (NEGATIVE); PH 7.5 (5.0-9.0); UROBILINOGEN 0.2 E.U./dl (0.2-1.0)
[2019-11-17 21:00] VITALS: BP 176/90
[2019-11-17 21:14] LABS: BACTERIA 2+; RBC 0-2 rbc/hpf (0-2); WBC 16-20 wbc/hpf (0-5)
[2019-11-17 21:33] VITALS: BP 160/70
[2019-11-17 23:03] VITALS: BP 154/47
[2019-11-18 05:32] VITALS: BP 114/42
[2019-11-18 06:37] LABS: CREATININE 4.92 mg/dL (0.55-1.02); PHOSPHOROUS 4.3 mg/dL (2.5-4.9); POTASSIUM 3.8 mmol/L (3.5-5.1)
[2019-11-18 06:40] LABS: BASO % 0.2 % (0.0-1.0); EOS % 0.1 % (1.0-4.0); HEMATOCRIT 22.9 % (37.0-47.0); HEMOGLOBIN 7.3 g/dl (12.0-16.0); LYMPH # 1.5 10*3/uL (1.3-4.4); LYMPH % 17.1 % (27.0-41.0); MEAN CELL VOLUME 100.9 fl (81.0-99.0); MEAN CORPUSCULAR HGB 32.2 pg (27.0-31.0); MEAN CORPUSCULAR HGB CONC 31.9 g/dl (33.0-37.0); MEAN PLATELET VOLUME 9.6 fl (9.6-12.3); MONO # 0.3 10*3/uL (0.1-1.0); MONO % 3.7 % (3.0-9.0); NEUT % 78.5 % (47.0-73.0); PLATELET COUNT AUTOMATED 114 10*3/uL (130-400); RED BLOOD COUNT 2.27 10*6/uL (4.10-5.10); RED CELL DISTRI WIDTH 15.9 % (0-14.5)
[2019-11-18 06:43] LABS: THYROID STIM HORMONE (HS) 1.32 uIU/ml (0.358-4.75)
[2019-11-18 06:50] LABS: ACT PARTIAL THROMBO TIME 58.8 SECONDS (20.0-32.1); INTERNATIONAL NORM RATIO 1.6 (2.0-3.5)
[2019-11-18 09:41] LABS: VITAMIN D, 25-HYDROXY 56.8 ng/mL (30-100)
[2019-11-18 10:54] VITALS: BP 138/60
[2019-11-18 16:00] VITALS: BP 149/47
[2019-11-18 20:00] VITALS: BP 137/52
[2019-11-19] VITALS: BP 119/44
[2019-11-19 03:40] LABS: BASO % 0.3 % (0.0-1.0); EOS # 0.2 10*3/uL (0.0-0.4); EOS % 4.3 % (1.0-4.0); HEMATOCRIT 22.9 % (37.0-47.0); HEMOGLOBIN 7.4 g/dl (12.0-16.0); LYMPH # 1.3 10*3/uL (1.3-4.4); LYMPH % 32.7 % (27.0-41.0); MEAN CELL VOLUME 100.4 fl (81.0-99.0); MEAN CORPUSCULAR HGB 32.5 pg (27.0-31.0); MEAN CORPUSCULAR HGB CONC 32.3 g/dl (33.0-37.0); MEAN PLATELET VOLUME 9.1 fl (9.6-12.3); MONO # 0.2 10*3/uL (0.1-1.0); NEUT # 2.3 10*3/uL (2.3-7.9); NEUT % 56.4 % (47.0-73.0); PLATELET COUNT AUTOMATED 100 10*3/uL (130-400); RED BLOOD COUNT 2.28 10*6/uL (4.10-5.10); RED CELL DISTRI WIDTH 15.9 % (0-14.5)
[2019-11-19 03:58] LABS: ALBUMIN 2.4 gm/dl (3.1-4.5); CREATININE 4.82 mg/dL (0.55-1.02); POTASSIUM 3.7 mmol/L (3.5-5.1); TOTAL PROTEIN 5.3 gm/dL (6.4-8.2)
[2019-11-19 08:00] VITALS: BP 130/40
[2019-11-19 10:10] LABS: INTERNATIONAL NORM RATIO 1.5 (2.0-3.5)
[2019-11-19 12:55] VITALS: BP 117/48
[2019-11-19 16:00] VITALS: BP 144/62
[2019-11-19 20:00] VITALS: BP 150/60
[2019-11-20] VITALS (8 sets, daily range): BP systolic 125–1430; BP diastolic 42–75
[2019-11-20 06:06] LABS: BASO % 0.5 % (0.0-1.0); EOS # 0.2 10*3/uL (0.0-0.4); EOS % 5.4 % (1.0-4.0); HEMATOCRIT 22.3 % (37.0-47.0); HEMOGLOBIN 7.2 g/dl (12.0-16.0); LYMPH # 1.7 10*3/uL (1.3-4.4); MEAN CELL VOLUME 101.8 fl (81.0-99.0); MEAN CORPUSCULAR HGB 32.9 pg (27.0-31.0); MEAN CORPUSCULAR HGB CONC 32.3 g/dl (33.0-37.0); MEAN PLATELET VOLUME 9.7 fl (9.6-12.3); MONO # 0.4 10*3/uL (0.1-1.0); MONO % 8.8 % (3.0-9.0); NEUT # 1.8 10*3/uL (2.3-7.9); NEUT % 44.1 % (47.0-73.0); PLATELET COUNT AUTOMATED 122 10*3/uL (130-400); RED BLOOD COUNT 2.19 10*6/uL (4.10-5.10); RED CELL DISTRI WIDTH 15.8 % (0-14.5); WHITE BLOOD COUNT 4.1 10*3/uL (4.8-10.8)
[2019-11-20 06:07] LABS: ALBUMIN 2.3 gm/dl (3.1-4.5); CREATININE 4.91 mg/dL (0.55-1.02); POTASSIUM 3.6 mmol/L (3.5-5.1); TOTAL PROTEIN 5.2 gm/dL (6.4-8.2)
[2019-11-20 06:30] LABS: INTERNATIONAL NORM RATIO 1.5 (2.0-3.5)
[2019-11-21] VITALS (8 sets, daily range): BP systolic 128–170; BP diastolic 47–62
[2019-11-21 06:12] LABS: BASO % 0.3 % (0.0-1.0); EOS # 0.2 10*3/uL (0.0-0.4); EOS % 5.4 % (1.0-4.0); HEMOGLOBIN 7.3 g/dl (12.0-16.0); LYMPH # 1.6 10*3/uL (1.3-4.4); LYMPH % 44.1 % (27.0-41.0); MEAN CELL VOLUME 101.8 fl (81.0-99.0); MEAN CORPUSCULAR HGB 32.3 pg (27.0-31.0); MEAN CORPUSCULAR HGB CONC 31.7 g/dl (33.0-37.0); MEAN PLATELET VOLUME 9.4 fl (9.6-12.3); MONO # 0.4 10*3/uL (0.1-1.0); MONO % 9.4 % (3.0-9.0); NEUT # 1.5 10*3/uL (2.3-7.9); NEUT % 40.5 % (47.0-73.0); PLATELET COUNT AUTOMATED 100 10*3/uL (130-400); RED BLOOD COUNT 2.26 10*6/uL (4.10-5.10); RED CELL DISTRI WIDTH 15.4 % (0-14.5); WHITE BLOOD COUNT 3.7 10*3/uL (4.8-10.8)
[2019-11-21 06:23] LABS: INTERNATIONAL NORM RATIO 1.2 (2.0-3.5)
[2019-11-21 06:25] LABS: ACT PARTIAL THROMBO TIME 90.8 SECONDS (20.0-32.1)
[2019-11-22] VITALS: BP 165/50
[2019-11-22 06:00] LABS: CREATININE 4.36 mg/dL (0.55-1.02); POTASSIUM 3.6 mmol/L (3.5-5.1)
[2019-11-22 06:05] LABS: BASO % 0.5 % (0.0-1.0); EOS # 0.3 10*3/uL (0.0-0.4); EOS % 5.9 % (1.0-4.0); HEMATOCRIT 25.1 % (37.0-47.0); HEMOGLOBIN 8.1 g/dl (12.0-16.0); LYMPH % 45.4 % (27.0-41.0); MEAN CELL VOLUME 99.6 fl (81.0-99.0); MEAN CORPUSCULAR HGB 32.1 pg (27.0-31.0); MEAN CORPUSCULAR HGB CONC 32.3 g/dl (33.0-37.0); MEAN PLATELET VOLUME 9.7 fl (9.6-12.3); MONO # 0.4 10*3/uL (0.1-1.0); MONO % 8.6 % (3.0-9.0); NEUT # 1.8 10*3/uL (2.3-7.9); NEUT % 39.4 % (47.0-73.0); PLATELET COUNT AUTOMATED 111 10*3/uL (130-400); RED BLOOD COUNT 2.52 10*6/uL (4.10-5.10); RED CELL DISTRI WIDTH 15.6 % (0-14.5); WHITE BLOOD COUNT 4.4 10*3/uL (4.8-10.8)
[2019-11-22 06:15] LABS: INTERNATIONAL NORM RATIO 1.2 (2.0-3.5)
[2019-11-22 06:20] LABS: ACT PARTIAL THROMBO TIME 78.1 SECONDS (20.0-32.1)
[2019-11-22 08:00] VITALS: BP 168/60
[2019-11-22 16:00] VITALS: BP 150/69
[2019-11-22 20:00] VITALS: BP 114/58
[2019-11-23] VITALS: BP 125/42
[2019-11-23 06:34] LABS: INTERNATIONAL NORM RATIO 1.1 (2.0-3.5)
[2019-11-23 08:30] VITALS: BP 114/42
[2019-11-23 10:01] LABS: BASO % 0.3 % (0.0-1.0); EOS # 0.2 10*3/uL (0.0-0.4); EOS % 3.7 % (1.0-4.0); HEMATOCRIT 29.4 % (37.0-47.0); HEMOGLOBIN 9.3 g/dl (12.0-16.0); LYMPH # 1.8 10*3/uL (1.3-4.4); LYMPH % 29.5 % (27.0-41.0); MEAN CELL VOLUME 101.4 fl (81.0-99.0); MEAN CORPUSCULAR HGB 32.1 pg (27.0-31.0); MEAN CORPUSCULAR HGB CONC 31.6 g/dl (33.0-37.0); MEAN PLATELET VOLUME 9.7 fl (9.6-12.3); MONO # 0.2 10*3/uL (0.1-1.0); MONO % 3.4 % (3.0-9.0); NEUT # 3.9 10*3/uL (2.3-7.9); NEUT % 62.8 % (47.0-73.0); PLATELET COUNT AUTOMATED 145 10*3/uL (130-400); RED CELL DISTRI WIDTH 15.8 % (0-14.5); WHITE BLOOD COUNT 6.1 10*3/uL (4.8-10.8)
[2019-11-23 10:14] LABS: CREATININE 4.69 mg/dL (0.55-1.02); POTASSIUM 3.7 mmol/L (3.5-5.1)
[2019-11-23 12:30] VITALS: BP 124/46
[2019-11-23 16:00] VITALS: BP 155/56
[2019-11-23 20:00] VITALS: BP 148/48
[2019-11-24] VITALS: BP 135/38
[2019-11-24 06:13] LABS: BASO % 0.4 % (0.0-1.0); EOS # 0.2 10*3/uL (0.0-0.4); EOS % 4.5 % (1.0-4.0); HEMATOCRIT 27.8 % (37.0-47.0); HEMOGLOBIN 8.9 g/dl (12.0-16.0); LYMPH # 2.1 10*3/uL (1.3-4.4); LYMPH % 41.3 % (27.0-41.0); MEAN CELL VOLUME 101.5 fl (81.0-99.0); MEAN CORPUSCULAR HGB 32.5 pg (27.0-31.0); MEAN PLATELET VOLUME 9.6 fl (9.6-12.3); MONO # 0.3 10*3/uL (0.1-1.0); MONO % 6.7 % (3.0-9.0); NEUT # 2.4 10*3/uL (2.3-7.9); NEUT % 46.5 % (47.0-73.0); PLATELET COUNT AUTOMATED 124 10*3/uL (130-400); RED BLOOD COUNT 2.74 10*6/uL (4.10-5.10); RED CELL DISTRI WIDTH 15.6 % (0-14.5); WHITE BLOOD COUNT 5.1 10*3/uL (4.8-10.8)
[2019-11-24 06:18] LABS: ACT PARTIAL THROMBO TIME 71.8 SECONDS (20.0-32.1)
[2019-11-24 06:20] LABS: CREATININE 4.55 mg/dL (0.55-1.02); POTASSIUM 3.5 mmol/L (3.5-5.1)
[2019-11-24 08:00] VITALS: BP 152/47
[2019-11-24 12:00] VITALS: BP 143/53
[2019-11-24 16:00] VITALS: BP 155/50
[2019-11-24 20:00] VITALS: BP 148/50
[2019-11-25] VITALS: BP 154/56
[2019-11-25 06:11] LABS: BASO % 0.2 % (0.0-1.0); EOS # 0.3 10*3/uL (0.0-0.4); EOS % 5.4 % (1.0-4.0); HEMATOCRIT 27.4 % (37.0-47.0); HEMOGLOBIN 8.5 g/dl (12.0-16.0); LYMPH # 2.3 10*3/uL (1.3-4.4); LYMPH % 43.5 % (27.0-41.0); MEAN CELL VOLUME 99.6 fl (81.0-99.0); MEAN CORPUSCULAR HGB 30.9 pg (27.0-31.0); MEAN PLATELET VOLUME 9.4 fl (9.6-12.3); MONO # 0.4 10*3/uL (0.1-1.0); MONO % 7.7 % (3.0-9.0); NEUT # 2.3 10*3/uL (2.3-7.9); PLATELET COUNT AUTOMATED 130 10*3/uL (130-400); RED BLOOD COUNT 2.75 10*6/uL (4.10-5.10); RED CELL DISTRI WIDTH 15.7 % (0-14.5); WHITE BLOOD COUNT 5.2 10*3/uL (4.8-10.8)
[2019-11-25 06:43] LABS: ACT PARTIAL THROMBO TIME 60.1 SECONDS (20.0-32.1); INTERNATIONAL NORM RATIO 1.1 (2.0-3.5)
[2019-11-25 08:00] VITALS: BP 148/39
[2019-11-25 12:00] VITALS: BP 90/71
[2019-11-25 16:00] VITALS: BP 149/44
[2019-11-25 20:00] VITALS: BP 153/53
[2019-11-26] VITALS: BP 153/43
[2019-11-26 05:59] LABS: CREATININE 4.65 mg/dL (0.55-1.02); POTASSIUM 4.1 mmol/L (3.5-5.1)
[2019-11-26 06:06] LABS: BASO % 0.2 % (0.0-1.0); EOS # 0.2 10*3/uL (0.0-0.4); EOS % 5.3 % (1.0-4.0); HEMATOCRIT 26.4 % (37.0-47.0); HEMOGLOBIN 8.4 g/dl (12.0-16.0); LYMPH # 1.9 10*3/uL (1.3-4.4); LYMPH % 44.8 % (27.0-41.0); MEAN CELL VOLUME 101.1 fl (81.0-99.0); MEAN CORPUSCULAR HGB 32.2 pg (27.0-31.0); MEAN CORPUSCULAR HGB CONC 31.8 g/dl (33.0-37.0); MEAN PLATELET VOLUME 9.5 fl (9.6-12.3); MONO # 0.3 10*3/uL (0.1-1.0); MONO % 7.7 % (3.0-9.0); NEUT # 1.7 10*3/uL (2.3-7.9); NEUT % 41.5 % (47.0-73.0); PLATELET COUNT AUTOMATED 127 10*3/uL (130-400); RED BLOOD COUNT 2.61 10*6/uL (4.10-5.10); RED CELL DISTRI WIDTH 15.8 % (0-14.5); WHITE BLOOD COUNT 4.2 10*3/uL (4.8-10.8)
[2019-11-26 06:37] LABS: ACT PARTIAL THROMBO TIME 70.6 SECONDS (20.0-32.1); INTERNATIONAL NORM RATIO 1.2 (2.0-3.5)
[2019-11-26 12:00] VITALS: BP 138/41
[2019-11-26 16:00] VITALS: BP 154/50
[2019-11-26 20:00] VITALS: BP 163/58
[2019-11-27] VITALS: BP 136/57
[2019-11-27 07:05] LABS: CREATININE 4.62 mg/dL (0.55-1.02); POTASSIUM 3.9 mmol/L (3.5-5.1)
[2019-11-27 07:10] LABS: BASO % 0.4 % (0.0-1.0); EOS # 0.2 10*3/uL (0.0-0.4); EOS % 3.6 % (1.0-4.0); HEMATOCRIT 27.2 % (37.0-47.0); HEMOGLOBIN 8.6 g/dl (12.0-16.0); LYMPH # 2.1 10*3/uL (1.3-4.4); LYMPH % 46.7 % (27.0-41.0); MEAN CELL VOLUME 101.1 fl (81.0-99.0); MEAN CORPUSCULAR HGB CONC 31.6 g/dl (33.0-37.0); MEAN PLATELET VOLUME 9.2 fl (9.6-12.3); MONO # 0.4 10*3/uL (0.1-1.0); MONO % 9.3 % (3.0-9.0); NEUT # 1.8 10*3/uL (2.3-7.9); NEUT % 39.8 % (47.0-73.0); PLATELET COUNT AUTOMATED 118 10*3/uL (130-400); RED BLOOD COUNT 2.69 10*6/uL (4.10-5.10); WHITE BLOOD COUNT 4.5 10*3/uL (4.8-10.8)
[2019-11-27 07:36] LABS: ACT PARTIAL THROMBO TIME 74.7 SECONDS (20.0-32.1); INTERNATIONAL NORM RATIO 1.4 (2.0-3.5)
[2019-11-27 12:00] VITALS: BP 133/50
[2019-11-27 16:00] VITALS: BP 148/43
[2019-11-27 20:00] VITALS: BP 166/50
[2019-11-28] VITALS: BP 157/53
[2019-11-28 06:50] LABS: BASO % 0.4 % (0.0-1.0); EOS # 0.2 10*3/uL (0.0-0.4); EOS % 3.3 % (1.0-4.0); HEMATOCRIT 26.5 % (37.0-47.0); HEMOGLOBIN 8.4 g/dl (12.0-16.0); LYMPH % 41.5 % (27.0-41.0); MEAN CELL VOLUME 100.4 fl (81.0-99.0); MEAN CORPUSCULAR HGB 31.8 pg (27.0-31.0); MEAN CORPUSCULAR HGB CONC 31.7 g/dl (33.0-37.0); MEAN PLATELET VOLUME 9.5 fl (9.6-12.3); MONO # 0.4 10*3/uL (0.1-1.0); MONO % 9.1 % (3.0-9.0); NEUT # 2.2 10*3/uL (2.3-7.9); NEUT % 45.3 % (47.0-73.0); PLATELET COUNT AUTOMATED 121 10*3/uL (130-400); RED BLOOD COUNT 2.64 10*6/uL (4.10-5.10); RED CELL DISTRI WIDTH 16.2 % (0-14.5); WHITE BLOOD COUNT 4.8 10*3/uL (4.8-10.8)
[2019-11-28 06:58] LABS: CREATININE 4.71 mg/dL (0.55-1.02); POTASSIUM 3.9 mmol/L (3.5-5.1)
[2019-11-28 07:03] LABS: INTERNATIONAL NORM RATIO 1.6 (2.0-3.5)
[2019-11-28 08:00] VITALS: BP 136/46
[2019-11-28 12:00] VITALS: BP 107/31
[2019-11-28 16:00] VITALS: BP 140/58
[2019-11-28 20:00] VITALS: BP 130/39
[2019-11-29] VITALS: BP 140/38
[2019-11-29 01:30] VITALS: BP 118/40
[2019-11-29 06:16] LABS: ACT PARTIAL THROMBO TIME 70.9 SECONDS (20.0-32.1); INTERNATIONAL NORM RATIO 1.7 (2.0-3.5)
[2019-11-29 08:00] VITALS: BP 132/52
[2019-11-29 12:00] VITALS: BP 115/48
[2019-11-29 16:00] VITALS: BP 142/48
[2019-11-29 20:00] VITALS: BP 120/32
[2019-11-30] VITALS: BP 144/40; BP 154/57
[2019-11-30 06:44] LABS: ACT PARTIAL THROMBO TIME 54.2 SECONDS (20.0-32.1)
[2019-11-30 08:00] VITALS: BP 144/49
[2019-11-30 08:34] LABS: ALBUMIN 2.5 gm/dl (3.1-4.5); CREATININE 4.76 mg/dL (0.55-1.02); PHOSPHOROUS 4.3 mg/dL (2.5-4.9)
[2019-11-30 09:08] LABS: PTH INTACT 76.9 pg/mL (18.5-88.0); VITAMIN D, 25-HYDROXY 38.4 ng/mL (30-100)
[2019-11-30 12:00] VITALS: BP 132/40
[2019-11-30 16:00] VITALS: BP 135/43
[2019-11-30 20:00] VITALS: BP 119/62
[2019-12-01] VITALS: BP 154/57
[2019-12-01 06:22] LABS: ALBUMIN 2.5 gm/dl (3.1-4.5); CREATININE 4.74 mg/dL (0.55-1.02); PHOSPHOROUS 4.5 mg/dL (2.5-4.9); POTASSIUM 3.9 mmol/L (3.5-5.1)
[2019-12-01 06:29] LABS: INTERNATIONAL NORM RATIO 2.8 (2.0-3.5)
[2019-12-01 08:00] VITALS: BP 112/48
[2019-12-01 12:00] VITALS: BP 131/49
[2019-12-01] MEDS ORDERED: Metolazone5 MG PO (15:06)
[2019-12-01] MEDS ORDERED: BUMETANIDE1 MG PO (15:06)
[2019-12-01] MEDS ORDERED: COUMADIN7.5 M1 PO (15:06)
== END 2019-12-01 15:25 | disposition home health service (06) | DRG 602 ==
LOC: ED 19:32 → EDHOLD 23:34 → 4E 23:34 → 5E 11-23 17:41
PROVIDERS: Emergency Medicine; Family Medicine; Hospitalist; Internal Medicine; Internal Medicine Nephrology; Nurse Practitioner Family; Student in an Organized Health Care Education/Training Program; ADMIT Internal Medicine
PROC: 0DJ08ZZ Inspection of Upper Intestinal Tract, Via Natural or Artificial Opening Endoscopic (ICD-10-PCS; principal; 2019-11-20)
PROC: 30233N1 Transfusion of Nonautologous Red Blood Cells into Peripheral Vein, Percutaneous Approach (ICD-10-PCS; 2019-11-21)
DX: L03.116 Cellulitis of left lower limb (principal); I21.4 Non-ST elevation (NSTEMI) myocardial infarction; N39.0 Urinary tract infection, site not specified; N18.5 Chronic kidney disease, stage 5; J90 Pleural effusion, not elsewhere classified; E44.0 Moderate protein-calorie malnutrition; I50.32 Chronic diastolic (congestive) heart failure; D61.818 Other pancytopenia; I13.2 Hypertensive heart and chronic kidney disease with heart failure and with stage 5 chronic kidney disease, or end stage renal disease; L03.115 Cellulitis of right lower limb; I48.0 Paroxysmal atrial fibrillation; E83.41 Hypermagnesemia; R73.9 Hyperglycemia, unspecified; I73.9 Peripheral vascular disease, unspecified; I25.10 Atherosclerotic heart disease of native coronary artery without angina pectoris; Z51.5 Encounter for palliative care; Z66 Do not resuscitate; I87.2 Venous insufficiency (chronic) (peripheral); K25.9 Gastric ulcer, unspecified as acute or chronic, without hemorrhage or perforation; M15.0 Primary generalized (osteo)arthritis; E66.09 Other obesity due to excess calories; D53.9 Nutritional anemia, unspecified; Z96.653 Presence of artificial knee joint, bilateral; L98.9 Disorder of the skin and subcutaneous tissue, unspecified; I08.3 Combined rheumatic disorders of mitral, aortic and tricuspid valves; E83.52 Hypercalcemia; R31.29 Other microscopic hematuria; I45.10 Unspecified right bundle-branch block; K44.9 Diaphragmatic hernia without obstruction or gangrene; Z98.42 Cataract extraction status, left eye; Z88.1 Allergy status to other antibiotic agents; Z98.41 Cataract extraction status, right eye; Z90.711 Acquired absence of uterus with remaining cervical stump; I25.2 Old myocardial infarction; Z82.49 Family history of ischemic heart disease and other diseases of the circulatory system; Z83.3 Family history of diabetes mellitus; Z80.9 Family history of malignant neoplasm, unspecified; Z79.01 Long term (current) use of anticoagulants; Z79.899 Other long term (current) drug therapy; Z68.31 Body mass index [BMI] 31.0-31.9, adult

== ENCOUNTER → 2019-11-17 | Outpatient (CLI) | payer MEDICARE ==
[2019-11-17 15:46] LABS: BASO % 0.2 % (0.0-1.0); EOS # 0.1 10*3/uL (0.0-0.4); EOS % 1.2 % (1.0-4.0); HEMATOCRIT 26.3 % (37.0-47.0); HEMOGLOBIN 8.3 g/dl (12.0-16.0); LYMPH # 2.2 10*3/uL (1.3-4.4); LYMPH % 22.4 % (27.0-41.0); MEAN CORPUSCULAR HGB 31.6 pg (27.0-31.0); MEAN CORPUSCULAR HGB CONC 31.6 g/dl (33.0-37.0); MEAN PLATELET VOLUME 9.6 fl (9.6-12.3); MONO # 0.5 10*3/uL (0.1-1.0); MONO % 5.2 % (3.0-9.0); NEUT % 70.8 % (47.0-73.0); PLATELET COUNT AUTOMATED 142 10*3/uL (130-400); RED BLOOD COUNT 2.63 10*6/uL (4.10-5.10); RED CELL DISTRI WIDTH 15.9 % (0-14.5)
[2019-11-17 15:55] LABS: URINE CREATININE RANDOM 48.5 mg/dL
[2019-11-17 16:18] LABS: ALBUMIN 2.9 gm/dl (3.1-4.5); CREATININE 4.83 mg/dL (0.55-1.02); PHOSPHOROUS 4.4 mg/dL (2.5-4.9); POTASSIUM 4.1 mmol/L (3.5-5.1)
[2019-11-17 16:20] LABS: CREATININE 4.77 mg/dL (0.55-1.02); POTASSIUM 4.1 mmol/L (3.5-5.1)
[2019-11-17 16:29] LABS: FERRITIN 94.6 ng/mL (10.0-291.0); PTH INTACT 178.3 pg/mL (18.5-88.0); VITAMIN D, 25-HYDROXY 48.8 ng/mL (30-100)
== END | disposition home or self-care (01) ==
LOC: LAB 14:36
PROVIDERS: Internal Medicine Nephrology; Physician Assistant
DX: I82.591 Chronic embolism and thrombosis of other specified deep vein of right lower extremity (principal); I12.0 Hypertensive chronic kidney disease with stage 5 chronic kidney disease or end stage renal disease; N18.5 Chronic kidney disease, stage 5; M19.041 Primary osteoarthritis, right hand; R53.82 Chronic fatigue, unspecified; D50.8 Other iron deficiency anemias; D63.1 Anemia in chronic kidney disease; Z79.899 Other long term (current) drug therapy

== ENCOUNTER 2020-02-02 05:45 | Inpatient (IN) | payer MEDICARE ==
[~2020-02-02] VITALS: Ht 167.6 cm; Wt 91.2 kg
[~2020-02-02 05:45] MED LIST changes: +BUMETANIDE1 MG PO; +COUMADIN7.5 M1 PO; +Metolazone5 MG PO
[2020-02-02 05:50] VITALS: BP 183/68
--- NOTE | 2020-02-02 07:17 | NUR ---
REPORT FROM KARLA RN AT THIS TIME. PATIENT LAYING IN BED APPEARS IN NO DISTRESS. WILL CONTINUE TO MONITOR.
[2020-02-02 07:30] VITALS: BP 175/67
[2020-02-02 07:32] LABS: HEMATOCRIT 26.5 % (37.0-47.0); HEMOGLOBIN 8.4 g/dl (12.0-16.0); MEAN CELL VOLUME 97.4 fl (81.0-99.0); MEAN CORPUSCULAR HGB 30.9 pg (27.0-31.0); MEAN CORPUSCULAR HGB CONC 31.7 g/dl (33.0-37.0); PLATELET COUNT AUTOMATED 40 10*3/uL (130-400); RED BLOOD COUNT 2.72 10*6/uL (4.10-5.10); RED CELL DISTRI WIDTH 17.8 % (0-14.5); WHITE BLOOD COUNT 6.4 10*3/uL (4.8-10.8)
[2020-02-02 07:39] LABS: INTERNATIONAL NORM RATIO 1.1 (2.0-3.5)
[2020-02-02 07:49] LABS: ALBUMIN 2.3 gm/dl (3.1-4.5); CREATININE 4.14 mg/dL (0.55-1.02)
[2020-02-02 07:51] LABS: ATYPICAL LYMPHS 1 % (0-0); BURR CELLS FEW; OVALOCYTES FEW; TOTAL CELLS COUNTED 100 #CELLS
[2020-02-02 07:52] LABS: PLATELET SUFFICIENCY LOW (NORMAL)
[2020-02-02 07:59] LABS: TROPONIN I 0.052 ng/ml (<0.045)
--- NOTE | 2020-02-02 08:15 | NUR ---
ATTEMPTED TO STRAIGHT CATH PATIENT FOR URINE ALSO HAD ANOTHER NURSE ATTEMPT TO STRAIGHT CATH FOR URINE. NO URINE OBTAINED AT THIS TIME. DR SALINAS NOTIFIED.
--- NOTE | 2020-02-02 08:36 | NUR ---
OK TO SPEAK TO SHANE PER PATIENT.
[2020-02-02 09:52] LABS: BILIRUBIN NEGATIVE (NEGATIVE); BLOOD 3+ (NEGATIVE); CLARITY SL CLOUDY (CLEAR); COLOR YELLOW (YELLOW); GLUCOSE NEGATIVE (NEGATIVE); KETONE NEGATIVE (NEGATIVE); LEUKO ESTERASE 2+ (NEGATIVE); NITRITE NEGATIVE (NEGATIVE); UROBILINOGEN 0.2 E.U./dl (0.2-1.0)
[2020-02-02 09:57] LABS: BACTERIA 3+; RBC TNTC rbc/hpf (0-2)
[2020-02-02 10:38] VITALS: BP 156/62
--- NOTE | 2020-02-02 11:16 | NUR ---
PATIENT DAUGHTER IN LAW IS "JOYCE" AND PATIENT ALSO STATED "TIFF" TO BE ABLE TO CALL AND ASK ABOUT HER.
--- NOTE | 2020-02-02 11:18 | NUR ---
BEDSIDE REPORT GIVEN TO REY CARBALLO. PATIENT TRANSPORTED BY THIS NURSE TO . NO CHANGE IN PATIENT STATUS.
--- NOTE | 2020-02-02 11:34 | NUR ---
MSADMTime: N A 84 year old FEMALE admitted to 4E under services of EMERSON MICHELLE DO. Pt. arrived via bed from ER. Chief complaint: DENIES C/O AT PRESENT. REY LAGOS
[2020-02-02 12:00] VITALS: BP 144/47
--- NOTE | 2020-02-02 15:05 | NUR ---
Occupational therapy orders received and chart reviewed. Patient was supine with HOB elevated upon arrival. Patient refusing an OT evaluation at this time stating she had back pain, nausea, and was fatigued. She "just want to get some sleep." Nursing notified of patient's back pain. Will attempt OT evaluation at a later date, all needs within reach. Thank you. Liset Mathew, OTR/L
--- NOTE | 2020-02-02 15:12 | NUR ---
PHYSICAL THERAPY Physical therapy evaluation attempted. Patient reporting increased nausea, back pain, and fatigue at this time. Patient requesting pain medication and rest, stating "I'm so tired. I wish I could go to sleep." Nursing notified that patient was requesting medication for pain. Will try PT evaluation at a later date. Thank you. Gianna Hopson,PT,DPT.
[2020-02-02] MEDS ORDERED: ELIQUIS2.5 M1 PO (15:21)
[2020-02-02] MEDS ORDERED: METOLAZONE2.5 MG PO (15:31)
[2020-02-02] MEDS ORDERED: PROCRIT20000 UNIT IJ (15:32)
[2020-02-02] MEDS ORDERED: K-LOR 20MEQ20 ME1 PO (15:33)
[2020-02-02] MEDS ORDERED: SODIUM BICARBO650 MG PO (15:33)
[2020-02-02 16:00] VITALS: BP 148/51
--- NOTE | 2020-02-02 18:50 | NUR ---
DR. CHILD'S OFFICE NOTIFIED OF CONSULT.
[2020-02-02 20:00] VITALS: BP 155/71
--- NOTE | 2020-02-02 21:30 | NUR ---
PATIENT MEDICATED WITH TYLENOL FOR C/O OF BACK AND HIP PAIN.. RATES 04/18. WILL CHECK EFFECTIVENESS.
[2020-02-03] VITALS: BP 123/45
--- NOTE | 2020-02-03 01:38 | NUR ---
PATIENT MEDICATED WITH NORCO FOR HIP AND BACK PAIN. RATES 08/18. WILL CHECK EFFECTIVENESS.
--- NOTE | 2020-02-03 03:10 | NUR ---
PATIENT STILL COMPLAINING OF PAIN. REQUESTING TYLENOL. STATES THE TYLENOL GIVEN EARLIER HELPED MUCH MORE THAN THE NORCO. WILL CHECK EFFECTIVENES..
--- NOTE | 2020-02-03 04:19 | NUR ---
DEEPTI BEST [id number] Please refer to the physician's history and physical for past medical history, comorbid conditions, and allergies. Diagnosis: FALL UNSTEADY GAIT GENERAL WEAKNESS Matt Score: 15,AT RISK WOUND DESCRIPTIONS: Wound Number: 1 Location of the wound: intergluteal fold Type of wound: MASD Thickness: Partial Size: 3.0cm x 3.5cm x 0.1cm Tunneling: none Undermining: none Sinus Tract: none Presence of Exudate: Sanguineous Amount: Light Color: Red Odor: None Periwound Skin Appearance: Macerated Wound edges: approximated Pain (associated with wound): none at time of assessment How does patient state this happened? pt unable to state how this happened Patient bilateral lower extremities dry, red, flaky, warm and to touch upon assessment. No open area noted at time of assessment. Patient denied at time of assessment. Bilateral heels are red, boggy, blanchable at time of assessment. No open areas to bilateral heels at time of assessment. Surface the patient is resting on: Position Pro SKIN PREVENTION RECOMMENDATION: 1. Pressure redistribution support surface as appropriate 2. Elevate heels 3. Remove boots/TEDS every shift and reapply 4. Head of bed 30 degrees as tolerated 5. Assess nutrition and hydration 6. Manage moisture 7. Avoid the use of containment devices while in bed 8. Use absorptive products on surfaces limit layers of linens on bed 9. Turn and reposition every 1-2 hours in bed and every 1 hour in chair as tolerated 10. Weight shifts every 15 minutes while up in chair 11. Offloading with pillows or device to keep heels elevated off bed 12. Monitor skin at least every shift 13. Inspect under medical devices twice a day WOUND TREATMENT RECOMMENDATIONS: Wheelchair cushion when oob Cleanse intergluteal fold with soap and water and apply calazime every shift and prn for soiling. Cleanse bilateral lower extremities with soap and water and apply aqauphor ointment bid.
--- NOTE | 2020-02-03 04:28 | NUR ---
DEEPTI BEST [id number] Please refer to the physician's history and physical for past medical history, comorbid conditions, and allergies. Diagnosis: FALL UNSTEADY GAIT GENERAL WEAKNESS Matt Score: 15,AT RISK WOUND DESCRIPTIONS: Wound Number: 1 Location of the wound: intergluteal fold Type of wound: MASD Thickness: Partial Size: 3.0cm x 3.5cm x 0.1cm Tunneling: none Undermining: none Sinus Tract: none Presence of Exudate: Sanguineous Amount: Light Color: Red Odor: None Periwound Skin Appearance: Macerated Wound edges: approximated Pain (associated with wound): none at time of assessment How does patient state this happened? pt unable to state how this happened Patient bilateral lower extremities dry, red, flaky, warm and to touch upon assessment. No open area noted at time of assessment. Patient denied at time of assessment. Bilateral heels are red, boggy, blanchable at time of assessment. No open areas to bilateral heels at time of assessment. Surface the patient is resting on: Position Pro SKIN PREVENTION RECOMMENDATION: 1. Pressure redistribution support surface as appropriate 2. Elevate heels 3. Remove boots/TEDS every shift and reapply 4. Head of bed 30 degrees as tolerated 5. Assess nutrition and hydration 6. Manage moisture 7. Avoid the use of containment devices while in bed 8. Use absorptive products on surfaces limit layers of linens on bed 9. Turn and reposition every 1-2 hours in bed and every 1 hour in chair as tolerated 10. Weight shifts every 15 minutes while up in chair 11. Offloading with pillows or device to keep heels elevated off bed 12. Monitor skin at least every shift 13. Inspect under medical devices twice a day WOUND TREATMENT RECOMMENDATIONS: Wheelchair cushion when oob Heel raiser pro boots to bilateral feet Cleanse intergluteal fold with soap and water and apply calazime every shift and prn for soiling. Cleanse bilateral lower extremities with soap and water and apply aqauphor ointment bid. Patient states she will follow up in the wound care center upon discharge and will make her own appointment.
--- NOTE | 2020-02-03 05:00 | NUR ---
PER. DR. NAS ARCHULETA TO PUT WOUND CARE ORDERS IN.
[2020-02-03 06:32] LABS: HEMATOCRIT 23.9 % (37.0-47.0); HEMOGLOBIN 7.6 g/dl (12.0-16.0); MEAN CORPUSCULAR HGB 30.5 pg (27.0-31.0); MEAN CORPUSCULAR HGB CONC 31.8 g/dl (33.0-37.0); MEAN PLATELET VOLUME 10.1 fl (9.6-12.3); PLATELET COUNT AUTOMATED 40 10*3/uL (130-400); RED BLOOD COUNT 2.49 10*6/uL (4.10-5.10); RED CELL DISTRI WIDTH 18.1 % (0-14.5); WHITE BLOOD COUNT 7.2 10*3/uL (4.8-10.8)
[2020-02-03 07:03] LABS: PHOSPHOROUS 4.8 mg/dL (2.5-4.9); POTASSIUM 3.8 mmol/L (3.5-5.1)
[2020-02-03 07:12] LABS: FREE T4 1.47 ng/dl (0.76-1.46); THYROID STIM HORMONE (HS) 3.27 uIU/ml (0.358-4.75)
[2020-02-03 07:41] LABS: TOTAL CELLS COUNTED 100 #CELLS
[2020-02-03 07:42] LABS: BURR CELLS FEW; OVALOCYTES FEW; PLATELET SUFFICIENCY LOW (NORMAL); SCHISTOCYTES FEW; TARGET CELLS FEW
[2020-02-03 07:56] LABS: VITAMIN D, 25-HYDROXY 53.2 ng/mL (30-100)
[2020-02-03 08:00] VITALS: BP 142/46
--- NOTE | 2020-02-03 08:21 | NUR ---
IN PT ROOM AT THIS TIME TO COMPLETE ASSESSMENT, PT STATES THAT SHE IS HAVING NO PAIN AT THIS TIME. SHE IS UNCOMFORTABLE SO SHE IS REPOSITION AT THIS TIME TO BE MORE COMFORTABLE SO SHE CAN EAT HER BREAKFAST. CALL LIGHT IS WITHIN REACH, WILL CONTINUE TO MONITOR
--- NOTE | 2020-02-03 08:41 | NUR ---
JENNYFER faxed new referral information to [facility] on this date. Patient will need a precert before going to facility. Pending acceptance to facility.
--- NOTE | 2020-02-03 08:55 | NUR ---
Occupational Therapy evaluation completed on four with full evaluation to follow. Recommend occupational therapy per plan of care and SNF upon discharge. If refused, home with SN, OT, and PT with 01/06 supervision assist. Thank you for this referral. Liset Mathew OTR/L
--- NOTE | 2020-02-03 08:55 | NUR ---
PHYSICAL THERAPY Physical Therapy evaluation completed on 4E with full evaluation to follow. [place] complexity [place], [id number], per chart review and evaluation. Recommend physical therapy per plan of care and SNF upon discharge. Thank you for this referral. Gianna Hopson,PT,DPT
--- NOTE | 2020-02-03 09:00 | NUR ---
Digital Recruiter in to talk to patient. Patient states lives at home with granddaughter. There are no steps in the home. Physician: frank mondragon [facility]acy: [facility] Patient's level of ADLs: MINIMAL ASSIST Patient has working utilities: all working DME: walker Follow-up physician's appointment after d/c: will be made by hospitalist nurse director upon discharge Does patient want to access PORTAL?: no Discharge plan discussed with patient, she states she lives at home with granddaughter, she states he uses a walker for ambulation but is not able to ambulate well, discussed with her a short term long term for rehab and 24 hour care and she was agreeable only if she could go to [facility]. social group worker will send referral to [facility] and will wait on facility acceptance and insurance precert. LAUREANO LI
--- NOTE | 2020-02-03 09:51 | NUR ---
CALLED DR CHRIS TO UPDATED HIM ON PT ORTHOSTATICS AND THAT SHE WAS ASYMPTOMATIC. I ASKED IS HE WANTED ME TO HOLD COZAAR AND METOPROLOL, HE STATES IT IS FINE TO GIVE MEDS STILL
--- NOTE | 2020-02-03 10:40 | NUR ---
Precert for [facility] started on this date. Once precert obtained and patient is medically stable patient can discharge.
[2020-02-03 12:00] VITALS: BP 138/56
--- NOTE | 2020-02-03 12:50 | NUR ---
PHYSICAL THERAPY Patient seen this pm 1:1 for therapy visit and was resting semi reclined in bedside chair upon therapist arrival. Patient identified by name / and presented with R hip heat flow pad, voicing increased stiffness, feeling a bit sore. Patient stated she was too sore to attempt gait this session, however agreed to and performed seated B LE therex, all planes, 2 x 10, to increase LE strength, needing v/c to improve full AROM. Patient tolerated all treatment voicing no new c/o's and remained in semi reclined in bedside chair with call light, tray table, telephone and body alarm for safety. Will continue per POC as tolerated, total treatment time 14 minutes. Nicola Almazan, BEER MERCHANT
--- NOTE | 2020-02-03 12:51 | NUR ---
PT REFUSING HEEL PROTECTORS DUE TO NOT BEING ABLE TO MOVE WHEN THEY ARE ON AND IS REFUSING THE SEAT CUSHION. AQUAPHOR APPLIED TO BOTH LEGS AT THIS TIME
--- NOTE | 2020-02-03 15:00 | NUR ---
PHYSICAL THERAPY CO-SIGN I approve of the Physical Therapy notes written above. MARIANN PAZ PT, DPT
--- NOTE | 2020-02-03 15:39 | NUR ---
JENNYFER recieved word that precert for patient approved on this date. Once medically stable patient can be discharged to [facility]. PRECERT IS GOOD FOR 4 DAYS STARTING 02/03/2020.
[2020-02-03 16:00] VITALS: BP 125/64
[2020-02-03 20:00] VITALS: BP 152/58
--- NOTE | 2020-02-03 21:23 | NUR ---
PATIENT REQUESTING TYLENOL WITH HER NIGHT TIME MEDS FOR BACK PAIN. GIVEN AT THIS TIME, WILL CONTINUE TO MONITOR.
--- NOTE | 2020-02-03 22:32 | NUR ---
PATIENT MEDICATED WITH NORCO FOR COMPLAINTS OF HIP AND BACK PAIN. RATES 05/18. WILL CHECK EFFECTIVENESS.
--- NOTE | 2020-02-04 04:34 | NUR ---
PATIENT SLEEPING, NO SIGNS OF DISTRESS. RESPIRATIONS EASY,NON LABORED. BED IN LOWEST POSITION,CALL LIGHT WITIN REACH. WILL CONTINUE TO MONITOR.
[2020-02-04 07:04] LABS: CREATININE 3.89 mg/dL (0.55-1.02); POTASSIUM 3.6 mmol/L (3.5-5.1)
[2020-02-04 07:54] LABS: HEMATOCRIT 25.1 % (37.0-47.0); HEMOGLOBIN 7.9 g/dl (12.0-16.0); MEAN CORPUSCULAR HGB 31.2 pg (27.0-31.0); MEAN CORPUSCULAR HGB CONC 31.5 g/dl (33.0-37.0); MEAN PLATELET VOLUME 9.9 fl (9.6-12.3); PLATELET COUNT AUTOMATED 41 10*3/uL (130-400); RED BLOOD COUNT 2.53 10*6/uL (4.10-5.10); RED CELL DISTRI WIDTH 18.2 % (0-14.5); WHITE BLOOD COUNT 5.7 10*3/uL (4.8-10.8)
[2020-02-04 07:56] LABS: MEAN CELL VOLUME 99.2 fl (81.0-99.0)
[2020-02-04 08:00] VITALS: BP 153/64
[2020-02-04 08:19] LABS: TOTAL CELLS COUNTED 100 #CELLS
[2020-02-04 08:20] LABS: PLATELET SUFFICIENCY LOW (NORMAL); POLYCHROMASIA SLIGHT
[2020-02-04 12:00] VITALS: BP 143/40
[2020-02-04 16:00] VITALS: BP 166/62
[2020-02-04 20:00] VITALS: BP 151/55
[2020-02-05] VITALS: BP 152/56
[2020-02-05 06:54] LABS: HEMATOCRIT 25.4 % (37.0-47.0); MEAN CELL VOLUME 98.8 fl (81.0-99.0); MEAN CORPUSCULAR HGB 31.1 pg (27.0-31.0); MEAN CORPUSCULAR HGB CONC 31.5 g/dl (33.0-37.0); MEAN PLATELET VOLUME 10.5 fl (9.6-12.3); PLATELET COUNT AUTOMATED 43 10*3/uL (130-400); RED BLOOD COUNT 2.57 10*6/uL (4.10-5.10); RED CELL DISTRI WIDTH 18.2 % (0-14.5); WHITE BLOOD COUNT 5.2 10*3/uL (4.8-10.8)
[2020-02-05 06:55] LABS: CREATININE 3.84 mg/dL (0.55-1.02); POTASSIUM 3.9 mmol/L (3.5-5.1)
[2020-02-05 08:00] VITALS: BP 141/69
[2020-02-05 08:12] LABS: TOTAL CELLS COUNTED 100 #CELLS
[2020-02-05 08:13] LABS: PLATELET SUFFICIENCY LOW (NORMAL); SCHISTOCYTES FEW
--- NOTE | 2020-02-05 08:30 | NUR ---
Patient resting quietly with no c/o discomfort. Respirations easy and regular. Vital signs stable. No overt distress. DONITA PHILLIPS R
--- NOTE | 2020-02-05 10:00 | NUR ---
CONSULT CALLED TO DR MCKEON ANSWERING SERVICE.
[2020-02-05 12:00] VITALS: BP 136/62
[2020-02-05 16:00] VITALS: BP 165/73
[2020-02-05 20:00] VITALS: BP 149/59
--- NOTE | 2020-02-05 20:00 | NUR ---
PATIENT UP IN CHAIR. VOICES NO COMPLAINTS OR NEEDS AT THIS TIME. RESPIRATIONS EASY, NON LABORED. JENISE BACK/HIP PAIN. NO SIGNS OF DISTRESS. CALL LIGHT WITHIN REACH. WILL CONTINUE TO MONITOR.
[2020-02-06] VITALS: BP 154/53
--- NOTE | 2020-02-06 01:45 | NUR ---
PATIENT IN CHAIR SLEEPING. NO SIGNS OF DISTRESS. RESPIRATIONS EASY NON LABORED. CALL LIGHT WITHIN REACH. WILL CONTINUE TO MONITOR.
[2020-02-06 07:02] LABS: HEMATOCRIT 25.5 % (37.0-47.0); MEAN CELL VOLUME 97.3 fl (81.0-99.0); MEAN CORPUSCULAR HGB 30.5 pg (27.0-31.0); MEAN CORPUSCULAR HGB CONC 31.4 g/dl (33.0-37.0); MEAN PLATELET VOLUME 9.9 fl (9.6-12.3); PLATELET COUNT AUTOMATED 50 10*3/uL (130-400); RED BLOOD COUNT 2.62 10*6/uL (4.10-5.10); RED CELL DISTRI WIDTH 18.4 % (0-14.5); WHITE BLOOD COUNT 5.2 10*3/uL (4.8-10.8)
[2020-02-06 07:07] LABS: CREATININE 3.73 mg/dL (0.55-1.02); POTASSIUM 3.9 mmol/L (3.5-5.1)
[2020-02-06 08:00] VITALS: BP 107/93
[2020-02-06 08:07] LABS: TOTAL CELLS COUNTED 100 #CELLS
[2020-02-06 08:08] LABS: OVALOCYTES FEW; PLATELET SUFFICIENCY LOW (NORMAL); POLYCHROMASIA SLIGHT; ROULEAUX SLIGHT; SCHISTOCYTES FEW
[2020-02-06 08:09] LABS: BURR CELLS FEW; TARGET CELLS FEW
--- NOTE | 2020-02-06 08:40 | NUR ---
OT NOTE Pt was seen this A.M. 1:1 for 20 minute OT session. Upon arrival pt was sitting upright in the recliner. Pt identified by name and and had no complaints at this time. Pt transferred sit to stand from chair level with modA X 2 and education on proper hand placement for increased I and improved technique. Upon inital rise pt had LOB backwards that required Ld to correct. Functional mobility was then completed to the bathroom with CGA and use of w/w with two standing rest breaks throughout due to fatigue. Pt transferred on to standard commode with Ld and use of grab bar for UE support and off with Ld and use of grab bar. Pt then stood sink side while washing her hands with CGA for safety. Functional mobility completed back to the recliner with CGA and use of w/w again requiring two standing rest breaks throughout due to fatigue. Once pt had returned to the recliner she had complaints of fatigue. Pt was left sitting reclined in the recliner with BLE's elevated with call light in hand, tray table in place, and body alarm activated for safety. Continue with rec D/C plan to SNF. SARAH Dominguez/Becky
--- NOTE | 2020-02-06 09:53 | NUR ---
PHYSICAL THERAPY TREATMENT TIME: 08:20 AM - 08:40 AM 20 MINUTES TOTAL Patient presented to therapy in sitting in bedside chair with chair alarm attached and report of no complaints. Patient gives informed consent for treatment. Patient was identified by name and on wristband. Patient does not have spO2. Patient has no pain. Patient completed sit to stand out of bedside chair with MOD A X 1. Patient ambulated with Wh Walker with CGA for 20' x 1 to low chair where she sat with CGA and verbal cues for putting hands back on armrests of chair. Patient sit to stand out of low chair with MIN A X 1. Patient ambulated back to bedside chair with Wh Walker and CGA for 20' x 1. Patient required verbal cues for upright posture and longer step-length. Patient was left in bedside chair with call light within reach, chair alarm tested and attached to patient and LEs in upright postion. Patient was 1:1 with this INTERNATIONAL RELATIONS PROFESSOR for 20 minutes total. NITHYA GRAY INTERNATIONAL RELATIONS PROFESSOR
--- NOTE | 2020-02-06 11:18 | NUR ---
JENNYFER spoke with Sheryl at . Sheryl is working to address the change of medications before patient can go to facility.
[2020-02-06 12:00] VITALS: BP 102/56
--- NOTE | 2020-02-06 12:46 | NUR ---
MEDICATED WITH PRN ZOFRAN PER ORDER AND REQUEST.
[2020-02-06] MEDS ORDERED: ERTAPENEM1 GM IV (14:51)
[2020-02-06] MEDS ORDERED: METOLAZONE2.5 MG PO (14:59)
[2020-02-06] MEDS ORDERED: HYDROCODONE-AC1 EAC1 PO (15:00)
--- NOTE | 2020-02-06 15:00 | NUR ---
Occupational therapy message received on 02/06/2020 at 13:05. Message stating "Please put compression sleeve on arm". 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 Patient had a RUE US on 02/06/2020, negative for DVT. OTR called materials management and left a message to discuss RUE sleeve for edema management. OTR spoke a second time with patient's nurse, whom stated patient is being discharged today at 4:30pm. If patient does not discharge this date, OTR will continue to address with elevation and UE movement to improve her RUE edema. Thank you. Liset Mathew OTR/Becky
--- NOTE | 2020-02-06 15:23 | NUR ---
Patient is discharged at this time to go to [facility] via [place] [phone]. DC informaiton faxed, PA, nursing/painter cleark and family notified.
--- NOTE | 2020-02-06 16:04 | NUR ---
MEDICATED WITH NORCO PER ORDER AND REWQUEST.
--- NOTE | 2020-02-06 16:12 | NUR ---
PATIENT DISCHARGED TO [facility]IA [facility]BULANCE.
--- NOTE | 2020-02-06 16:33 | NUR ---
NURSE TO NURSE REPORT GIVEN.
--- NOTE | 2020-02-07 07:46 | NUR ---
PHYSICAL THERAPY CO-SIGN I approve of the Physical Therapy notes written above. Cristiana Her PT
--- NOTE | 2020-02-07 07:58 | NUR ---
OCCUPATIONAL THERAPY CO-SIGN I approve of the Occupational Therapy notes written above. AGUSTIN TORRES, OTR/L
== END 2020-02-06 16:15 | disposition other institution (70) | DRG 689 ==
LOC: ED 05:45 → 4E 10:21 → EDHOLD 10:21 → 4E 10:41
PROVIDERS: Emergency Medicine; Hospitalist; Internal Medicine; ADMIT Family Medicine
DX: N39.0 Urinary tract infection, site not specified (principal); E43 Unspecified severe protein-calorie malnutrition; I50.32 Chronic diastolic (congestive) heart failure; D68.59 Other primary thrombophilia; N18.5 Chronic kidney disease, stage 5; K92.1 Melena; L97.909 Non-pressure chronic ulcer of unspecified part of unspecified lower leg with unspecified severity; I48.20 Chronic atrial fibrillation, unspecified; I13.2 Hypertensive heart and chronic kidney disease with heart failure and with stage 5 chronic kidney disease, or end stage renal disease; Z16.12 Extended spectrum beta lactamase (ESBL) resistance; R26.81 Unsteadiness on feet; R80.9 Proteinuria, unspecified; R31.21 Asymptomatic microscopic hematuria; D64.9 Anemia, unspecified; I44.0 Atrioventricular block, first degree; I25.10 Atherosclerotic heart disease of native coronary artery without angina pectoris; M19.90 Unspecified osteoarthritis, unspecified site; M48.00 Spinal stenosis, site unspecified; I73.9 Peripheral vascular disease, unspecified; I87.2 Venous insufficiency (chronic) (peripheral); D69.6 Thrombocytopenia, unspecified; E66.9 Obesity, unspecified; K57.90 Diverticulosis of intestine, part unspecified, without perforation or abscess without bleeding; E55.9 Vitamin D deficiency, unspecified; K59.00 Constipation, unspecified; K21.9 Gastro-esophageal reflux disease without esophagitis; B96.89 Other specified bacterial agents as the cause of diseases classified elsewhere; S30.91XA Unspecified superficial injury of lower back and pelvis, initial encounter; X58.XXXA Exposure to other specified factors, initial encounter; Y93.89 Activity, other specified; Z86.718 Personal history of other venous thrombosis and embolism; Y99.8 Other external cause status; I25.2 Old myocardial infarction; Z88.1 Allergy status to other antibiotic agents; Z79.01 Long term (current) use of anticoagulants; Z79.899 Other long term (current) drug therapy; Z90.710 Acquired absence of both cervix and uterus; Z96.653 Presence of artificial knee joint, bilateral; Z98.42 Cataract extraction status, left eye; Z98.41 Cataract extraction status, right eye; Z68.32 Body mass index [BMI] 32.0-32.9, adult; T50.995A Adverse effect of other drugs, medicaments and biological substances, initial encounter; Y92.89 Other specified places as the place of occurrence of the external cause

== ENCOUNTER 2020-02-12 15:35 | Emergency (ER) | payer MEDICARE ==
[2020-02-12 15:35] VITALS: BP 134/78
[~2020-02-12 15:35] MED LIST changes: +ELIQUIS2.5 M1 PO; +ERTAPENEM1 GM IV; +HYDROCODONE-AC1 EAC1 PO; +K-LOR 20MEQ20 ME1 PO; +PROCRIT20000 UNIT IJ
== END 2020-02-12 21:27 | disposition home or self-care (01) ==
LOC: ED 15:35
DX: S01.01XA Laceration without foreign body of scalp, initial encounter (principal); M54.2 Cervicalgia; M54.5 Low back pain; L53.9 Erythematous condition, unspecified; R10.2 Pelvic and perineal pain; I48.91 Unspecified atrial fibrillation; I25.10 Atherosclerotic heart disease of native coronary artery without angina pectoris; K21.9 Gastro-esophageal reflux disease without esophagitis; I25.2 Old myocardial infarction; M19.90 Unspecified osteoarthritis, unspecified site; I12.0 Hypertensive chronic kidney disease with stage 5 chronic kidney disease or end stage renal disease; N18.5 Chronic kidney disease, stage 5; I50.30 Unspecified diastolic (congestive) heart failure; E66.9 Obesity, unspecified; I73.9 Peripheral vascular disease, unspecified; Z88.1 Allergy status to other antibiotic agents; Z79.899 Other long term (current) drug therapy; Z68.30 Body mass index [BMI] 30.0-30.9, adult; Z90.710 Acquired absence of both cervix and uterus; Z96.653 Presence of artificial knee joint, bilateral; Z98.61 Coronary angioplasty status; Z86.718 Personal history of other venous thrombosis and embolism; Z95.828 Presence of other vascular implants and grafts; W01.0XXA Fall on same level from slipping, tripping and stumbling without subsequent striking against object, initial encounter; Y93.E8 Activity, other personal hygiene; Y92.128 Other place in nursing home as the place of occurrence of the external cause; Y99.8 Other external cause status

== ENCOUNTER 2020-02-16 09:47 | Emergency (ER) | payer MEDICARE ==
[~2020-02-16] VITALS: Ht 165.1 cm; Wt 81.6 kg
[2020-02-16 10:35] LABS: BASO % 0.3 % (0.0-1.0); EOS # 0.1 10*3/uL (0.0-0.4); EOS % 0.9 % (1.0-4.0); LYMPH # 3.7 10*3/uL (1.3-4.4); LYMPH % 57.3 % (27.0-41.0); MEAN CELL VOLUME 99.5 fl (81.0-99.0); MEAN CORPUSCULAR HGB 31.7 pg (27.0-31.0); MEAN CORPUSCULAR HGB CONC 31.8 g/dl (33.0-37.0); MONO # 0.3 10*3/uL (0.1-1.0); MONO % 4.7 % (3.0-9.0); NEUT # 2.3 10*3/uL (2.3-7.9); NEUT % 36.6 % (47.0-73.0); PLATELET COUNT AUTOMATED 88 10*3/uL (130-400); RED BLOOD COUNT 2.21 10*6/uL (4.10-5.10); RED CELL DISTRI WIDTH 18.7 % (0-14.5); WHITE BLOOD COUNT 6.4 10*3/uL (4.8-10.8)
[2020-02-16 10:50] LABS: ALBUMIN 2.1 gm/dl (3.1-4.5); CREATININE 3.96 mg/dL (0.55-1.02); POTASSIUM 4.1 mmol/L (3.5-5.1); TOTAL PROTEIN 5.1 gm/dL (6.4-8.2); TROPONIN I 0.023 ng/ml (<0.045)
[2020-02-16 10:53] LABS: BILIRUBIN NEGATIVE (NEGATIVE); CLARITY SL CLOUDY (CLEAR); COLOR YELLOW (YELLOW); GLUCOSE NEGATIVE (NEGATIVE); KETONE NEGATIVE (NEGATIVE)
[2020-02-16 10:54] LABS: BLOOD NEGATIVE (NEGATIVE); LEUKO ESTERASE 2+ (NEGATIVE); NITRITE NEGATIVE (NEGATIVE); UROBILINOGEN 0.2 E.U./dl (0.2-1.0)
[2020-02-16 10:59] LABS: BACTERIA 2+; WBC 41-50 wbc/hpf (0-5)
[2020-02-16 13:37] VITALS: BP 162/64
== END 2020-02-16 15:06 | disposition short-term general hospital (02) ==
LOC: ED 09:47
PROVIDERS: Nurse Practitioner Family
DX: S32.019A Unspecified fracture of first lumbar vertebra, initial encounter for closed fracture (principal); I25.2 Old myocardial infarction; I13.2 Hypertensive heart and chronic kidney disease with heart failure and with stage 5 chronic kidney disease, or end stage renal disease; N18.6 End stage renal disease; I50.9 Heart failure, unspecified; Z86.718 Personal history of other venous thrombosis and embolism; Z99.2 Dependence on renal dialysis; Z79.2 Long term (current) use of antibiotics; Z79.899 Other long term (current) drug therapy; Z96.653 Presence of artificial knee joint, bilateral; Z98.61 Coronary angioplasty status; Z90.710 Acquired absence of both cervix and uterus; W19.XXXA Unspecified fall, initial encounter; Y93.89 Activity, other specified; Y92.128 Other place in nursing home as the place of occurrence of the external cause; Y99.8 Other external cause status

== ENCOUNTER 2020-03-29 01:08 | Emergency (ER) | payer MEDICARE ==
[~2020-03-29] VITALS: Ht 170.1 cm; Wt 87.1 kg
[2020-03-29 02:10] LABS: HEMATOCRIT 21.2 % (37.0-47.0); MEAN CELL VOLUME 99.5 fl (81.0-99.0); MEAN CORPUSCULAR HGB 31.9 pg (27.0-31.0); MEAN CORPUSCULAR HGB CONC 32.1 g/dl (33.0-37.0); MEAN PLATELET VOLUME 9.4 fl (9.6-12.3); PLATELET COUNT AUTOMATED 113 10*3/uL (130-400); RED BLOOD COUNT 2.13 10*6/uL (4.10-5.10); RED CELL DISTRI WIDTH 18.7 % (0-14.5); WHITE BLOOD COUNT 6.3 10*3/uL (4.8-10.8)
[2020-03-29 02:42] LABS: BASOPHILS 1 % (0-1); PLATELET SUFFICIENCY LOW (NORMAL); TOTAL CELLS COUNTED 100 #CELLS
[2020-03-29 02:43] LABS: MICROCYTOSIS SLIGHT; OVALOCYTES FEW
[2020-03-29] MEDS ORDERED: AUGMENTIN 875875 MG PO (05:19)
== END 2020-03-29 05:42 | disposition home or self-care (01) ==
LOC: ED 01:08
PROVIDERS: Emergency Medicine
DX: R04.0 Epistaxis (principal); D64.9 Anemia, unspecified; I25.2 Old myocardial infarction; I50.9 Heart failure, unspecified; I11.0 Hypertensive heart disease with heart failure; I25.10 Atherosclerotic heart disease of native coronary artery without angina pectoris; K21.9 Gastro-esophageal reflux disease without esophagitis; E66.9 Obesity, unspecified; M19.90 Unspecified osteoarthritis, unspecified site; Z88.1 Allergy status to other antibiotic agents; Z79.899 Other long term (current) drug therapy; Z68.39 Body mass index [BMI] 39.0-39.9, adult

== ENCOUNTER 2020-04-01 10:21 | Inpatient (IN) | payer MEDICARE ==
[~2020-04-01] VITALS: Ht 167.6 cm; Wt 91.2 kg
[2020-04-01] VITALS (14 sets, daily range): BP systolic 122–161; BP diastolic 42–54
[2020-04-01 11:21] LABS: MEAN CELL VOLUME 100.6 fl (81.0-99.0); MEAN CORPUSCULAR HGB 31.7 pg (27.0-31.0); MEAN CORPUSCULAR HGB CONC 31.5 g/dl (33.0-37.0); MEAN PLATELET VOLUME 9.4 fl (9.6-12.3); PLATELET COUNT AUTOMATED 110 10*3/uL (130-400); RED CELL DISTRI WIDTH 18.9 % (0-14.5); WHITE BLOOD COUNT 6.5 10*3/uL (4.8-10.8)
[2020-04-01 11:26] LABS: HEMATOCRIT 18.1 % (37.0-47.0)
[2020-04-01 11:31] LABS: CREATININE 4.26 mg/dL (0.55-1.02); POTASSIUM 4.4 mmol/L (3.5-5.1)
[2020-04-01 11:34] LABS: ACT PARTIAL THROMBO TIME 31.3 SECONDS (20.0-32.1)
[2020-04-01 11:52] LABS: PLATELET SUFFICIENCY NORMAL (NORMAL); TOTAL CELLS COUNTED 100 #CELLS
--- NOTE | 2020-04-01 14:40 | NUR ---
A 84, admitted to , under the services of VIOLETA Singh DO with a diagnosis of HISTORY OF RETAINED FOREIGN BODY FULLY REMOVED, STA. Chief complaint is FATIGUED. Patient arrived via bed from ER. Monitor applied. Initial assessment completed. Vital signs taken and recorded. VIOLETA SINGH DO notified of admission to the unit. Orders received. See assessment for past medical history, medications and allergies. Patient and/or family oriented to unit. [facility] visitation policy reviewed. Clothing/patient valuable form completed. BERTO BAUER
--- NOTE | 2020-04-01 14:47 | NUR ---
DR JAQUEZ IN TO SEE PATIENT
--- NOTE | 2020-04-01 14:50 | NUR ---
PT NEEDS TO BE MOVED TO ICU PER DR ARELLANO, PT MOVED TO ICU AT THIS TIME. GIVING REPORT TO MARIANNE
--- NOTE | 2020-04-01 15:53 | NUR ---
[facility], AAOx3 on arrival. left eye is reddened w/ scant blood to lower lid, no noted nasal bleeding. IV present to right breast. rt. arm is grossly swollen , BLE have yellow plaques present., with small wound to RLE. Buttock is somewhat excoriated w/ small open area, see wound docu. Pt. requested ice chips and these were given.
--- NOTE | 2020-04-01 17:15 | NUR ---
WENT OVER PATIENTS MED LIST WITH HER GRANDDAUGHTER, HUBERT. NOTIFIED PATIENTS MED REC IS UP TO DATE.
[2020-04-01] MEDS ORDERED: MECLIZINE HYD12.5 MG PO (17:18)
--- NOTE | 2020-04-01 20:27 | NUR ---
PT. RESTING IN BED. 1ST UNIT OF BLOOD DONE INFUSING, H&H PENDING. LUNGS HAVE CRACKLES IN THE BASES BUT DIMINISHED BILAT, PULSE OX 100% ON RA. ABDOMEN SOFTLY DISTENDED AND NORMO. BLE ANKLE, PEDAL EDEMA NOTED. TUBI ROCKET MOTOR MECHANIC AND SCD'S ON BILAT. MULTIPLE BRUISES NOTED. PT. GIVEN LASIX BETWEEN UNITS ORDERED. UP TO BSC WITH ASSIST. ROSENDA STEWART RN
[2020-04-01 21:00] LABS: MEAN CORPUSCULAR HGB 31.8 pg (27.0-31.0); MEAN CORPUSCULAR HGB CONC 32.1 g/dl (33.0-37.0); MEAN PLATELET VOLUME 9.8 fl (9.6-12.3); PLATELET COUNT AUTOMATED 93 10*3/uL (130-400); RED BLOOD COUNT 1.98 10*6/uL (4.10-5.10); RED CELL DISTRI WIDTH 18.7 % (0-14.5)
[2020-04-01 21:04] LABS: HEMATOCRIT 19.6 % (37.0-47.0)
--- NOTE | 2020-04-01 21:10 | NUR ---
DR. LOVELL NOTIFIED OF H&H RESULTS OF 6.3/19.6, ORDERS TO GIVEN 2ND UNIT. ROSENDA STEWART RN
[2020-04-01 21:20] LABS: PLATELET SUFFICIENCY LOW (NORMAL); TOTAL CELLS COUNTED 100 #CELLS
[2020-04-01 21:21] LABS: BURR CELLS FEW; POLYCHROMASIA SLIGHT
[2020-04-02] VITALS (7 sets, daily range): BP systolic 109–144; BP diastolic 31–78
[2020-04-02 06:10] LABS: BASO % 0.2 % (0.0-1.0); EOS # 0.1 10*3/uL (0.0-0.4); HEMATOCRIT 21.1 % (37.0-47.0); LYMPH # 3.2 10*3/uL (1.3-4.4); LYMPH % 58.7 % (27.0-41.0); MEAN CORPUSCULAR HGB 31.5 pg (27.0-31.0); MEAN CORPUSCULAR HGB CONC 33.2 g/dl (33.0-37.0); MEAN PLATELET VOLUME 9.5 fl (9.6-12.3); MONO # 0.4 10*3/uL (0.1-1.0); MONO % 6.4 % (3.0-9.0); NEUT # 1.8 10*3/uL (2.3-7.9); NEUT % 32.5 % (47.0-73.0); PLATELET COUNT AUTOMATED 95 10*3/uL (130-400); RED BLOOD COUNT 2.22 10*6/uL (4.10-5.10); RED CELL DISTRI WIDTH 19.5 % (0-14.5); WHITE BLOOD COUNT 5.5 10*3/uL (4.8-10.8)
[2020-04-02 06:14] LABS: ALBUMIN 1.9 gm/dl (3.1-4.5); POTASSIUM 4.3 mmol/L (3.5-5.1)
[2020-04-02 06:25] LABS: CREATININE 4.14 mg/dL (0.55-1.02); FREE T4 1.2 ng/dl (0.76-1.46); THYROID STIM HORMONE (HS) 2.22 uIU/ml (0.358-4.75); TOTAL PROTEIN 4.9 gm/dL (6.4-8.2)
[2020-04-02 06:35] LABS: ACT PARTIAL THROMBO TIME 31.5 SECONDS (20.0-32.1)
[2020-04-02 07:25] LABS: VITAMIN D, 25-HYDROXY 54.9 ng/mL (30-100)
--- NOTE | 2020-04-02 07:40 | NUR ---
INTO ROOM, PATIENT SLEEPING. VITALS STABLE. PULSE OX 99% ON ROOM AIR. LUNGS CLEAR BILATERALLY. LEFT EYE SWOLLEN AND RED IN CORNER. VOICES THAT SOMETIMES BLOOD COMES OUT OF EYE. RIGHT ARM AND HAND VERY EDEMATOUS. SCD'S INTACT TO BILATERAL LOWER LEGS. UP TO BEDSIDE COMMODE WITH ASSIST TIMES ONE.
--- NOTE | 2020-04-02 10:00 | NUR ---
[facility] NOTIFIED OF PALLIATIVE CARE CONSULT.
[2020-04-02 11:46] LABS: BASO % 0.2 % (0.0-1.0); EOS # 0.1 10*3/uL (0.0-0.4); EOS % 2.2 % (1.0-4.0); HEMATOCRIT 21.8 % (37.0-47.0); LYMPH # 2.6 10*3/uL (1.3-4.4); LYMPH % 50.8 % (27.0-41.0); MEAN CELL VOLUME 94.4 fl (81.0-99.0); MEAN CORPUSCULAR HGB 31.2 pg (27.0-31.0); MEAN PLATELET VOLUME 8.8 fl (9.6-12.3); MONO # 0.4 10*3/uL (0.1-1.0); NEUT % 39.6 % (47.0-73.0); PLATELET COUNT AUTOMATED 77 10*3/uL (130-400); RED BLOOD COUNT 2.31 10*6/uL (4.10-5.10); RED CELL DISTRI WIDTH 20.1 % (0-14.5)
--- NOTE | 2020-04-02 14:58 | NUR ---
24 HR chart check completed.
--- NOTE | 2020-04-02 21:40 | NUR ---
PT RESTING IN BED, REPOSITIONED IN BED. TOELRATED ROUTINE MED WITH NO PROBLEM. C/O RIGHT HIP PAIN, RATES PAIN 4 OR 5 ON PAIN SCALE 0-10. MEDICATED WITH TYLENOL PO PER PRN ORDER, SEE EMAR. CALL LIGHT IN REACH. SEE SHIFT ASSESSMENT.
--- NOTE | 2020-04-02 22:35 | NUR ---
RESTING IN BED. STATES MEDICATION HELPS SOME. CALL LIGHT IN REACH. BED ALARM ON.
--- NOTE | 2020-04-02 23:48 | NUR ---
24 HR chart check completed.
[2020-04-03] VITALS: BP 131/49
--- NOTE | 2020-04-03 01:37 | NUR ---
Patient resting quietly with no c/o discomfort. Respirations easy and regular. Vital signs stable. No overt distress. LORNA LOCKE
[2020-04-03 07:30] LABS: BASO % 0.5 % (0.0-1.0); EOS # 0.2 10*3/uL (0.0-0.4); EOS % 3.8 % (1.0-4.0); HEMATOCRIT 21.9 % (37.0-47.0); LYMPH # 2.5 10*3/uL (1.3-4.4); LYMPH % 55.8 % (27.0-41.0); MEAN CELL VOLUME 94.4 fl (81.0-99.0); MEAN CORPUSCULAR HGB CONC 32.9 g/dl (33.0-37.0); MEAN PLATELET VOLUME 9.4 fl (9.6-12.3); MONO # 0.3 10*3/uL (0.1-1.0); NEUT # 1.5 10*3/uL (2.3-7.9); NEUT % 32.9 % (47.0-73.0); PLATELET COUNT AUTOMATED 83 10*3/uL (130-400); RED BLOOD COUNT 2.32 10*6/uL (4.10-5.10); RED CELL DISTRI WIDTH 19.7 % (0-14.5); WHITE BLOOD COUNT 4.4 10*3/uL (4.8-10.8)
[2020-04-03 07:50] LABS: POTASSIUM 4.4 mmol/L (3.5-5.1)
[2020-04-03 07:54] LABS: CREATININE 3.93 mg/dL (0.55-1.02)
[2020-04-03 08:00] VITALS: BP 140/52
--- NOTE | 2020-04-03 08:08 | NUR ---
DEEPTI BEST [id number] Please refer to the physician's history and physical for past medical history, comorbid conditions, and allergies. Diagnosis: HISTORY OF RETAINED FOREIGN BODY FULLY REMOVED,STA Matt Score: 15,AT RISK WOUND DESCRIPTIONS: This nurse along with with Diana Krueger RN evaluated patient for skin impairments. Wound Number: 1 Location of the wound: right lower leg Thickness: Full Size: 1.0cm x 0.7cm x 0.1cm Tunneling: none Undermining: none Sinus Tract: none Presence of Exudate: Serou Amount: Light Color: Yellow Odor: None Periwound Skin Appearance: edema, masurated around edges Wound edges: approximated Pain (associated with wound): none at time of assessment How does patient state this happened? pt is unsure how long it has been opened Wound Number: 2 Buttocks is red and blanchable at time of assessment. Dry areas noted at time of assessment. Wound Number: 3 Location of the wound: left buttocks (left coccyx) Type of wound: Stage 2 Thickness: Full Size: 1.0cm x 0.6cm x 0.1cm Tunneling: none Undermining: none Sinus Tract: none Presence of Exudate: Serous Amount: Light Color: Red Odor: None Periwound Skin Appearance: Normal Wound edges: approximated Pain (associated with wound): none at time of assessment How does patient state this happened? pt unable to state how this happened Surface the patient is resting on: Isoflex SKIN PREVENTION RECOMMENDATION: 1. Pressure redistribution support surface as appropriate 2. Elevate heels 3. Remove boots/TEDS every shift and reapply 4. Head of bed 30 degrees as tolerated 5. Assess nutrition and hydration 6. Manage moisture 7. Avoid the use of containment devices while in bed 8. Use absorptive products on surfaces limit layers of linens on bed 9. Turn and reposition every 1-2 hours in bed and every 1 hour in chair as tolerated 10. Weight shifts every 15 minutes while up in chair 11. Offloading with pillows or device to keep heels elevated off bed 12. Monitor skin at least every shift 13. Inspect under medical devices twice a day WOUND TREATMENT RECOMMENDATIONS: Patient refused podiatry consult at this time. Full thickness guidelines: Cleanse right lower extremity with nss and apply sureprep around the wound therahoney to wound bed and cover with optifoam gentle every 2 days and prn for soiling Heel raiser pro boots to bilateral feet while in bed Wheelchair cushion when oob Cleanse left buttocks with nss and apply calazime every shift and prn for soiling
--- NOTE | 2020-04-03 08:09 | NUR ---
PHYSICAL THERAPY Paul received pt initially on the 5th floor, but then transfered to ICCU due to anemia and requiring several units of blood. Will require new PT orders due to change in medical status once mediclly appropriate, thank you. Cristiana Her PT
--- NOTE | 2020-04-03 08:18 | NUR ---
Occupational therapy orders received and chart reviewed. Patient admitted initially to the fifth floor and transferred to the ICCU for a blood transfusion. When the patient is medically appropriate for an OT evaluation, will need new orders. Thank you. Liset Mathew OTR/L
--- NOTE | 2020-04-03 08:43 | NUR ---
Faxed palliative care order to [facility]. Notified [facility] nurse.
--- NOTE | 2020-04-03 09:36 | NUR ---
Faxed demographics and H&P to [facility] as requested per Palliative Care nurse
--- NOTE | 2020-04-03 09:37 | NUR ---
PT REMAINS UP TO THE CHAIR. PT C/O PAIN TO BUTTOCKS FROM PREVIOUS FALL AT HOME. MEDICATED PT PER PRN ORDER WITH TYLENOL FOR PT'S PAIN.
--- NOTE | 2020-04-03 10:40 | NUR ---
PHYSICAL THERAPY Eval order received per medical meeting this AM awaiting doppler studies UE/LE regarding possible DVT's will follow once tests complete/pt cleared. Cristiana Her PT
--- NOTE | 2020-04-03 11:00 | NUR ---
Laura Gilliam APRN-CUSTOM BOW MAKER notified of wound care recommendations.
[2020-04-03 12:00] VITALS: BP 138/50
--- NOTE | 2020-04-03 13:38 | NUR ---
OT NOTE Occupational therapy orders received and chart reviewed. Patient out of the room getting in ultrasound at this time. Will check back when patient is available for an OT evaluation. Thank you. Liset Mathew, OTR/L
--- NOTE | 2020-04-03 13:38 | NUR ---
PHYSICAL THERAPY Spoke with nsg staff reg status of doppler studies, pt taken off floor this PM for studies will follow. Cristiana Her PT
--- NOTE | 2020-04-03 14:18 | NUR ---
Inventory Taker in to talk to patient. Patient states lives at HOME with 24 HOUR CARE WITH FAMILY. There are NO steps in the home. Physician: REYNA WALKER Pharmacy: [facility] Home health services: [facility] Patient's level of ADLs: MODERATE ASSIST Patient has working utilities: YES DME: WALKER ROLLATOR Follow-up physician's appointment after d/c: WILL BE MADE BY HOSPITALIST NURSE DIRECTOR ON DISCHARGE Does patient want to access PORTAL?: NO Discharge plan PT LIVES AT HOME WITH 24 HOUR CARE PER GRAND DAUGHTER. GRAND DAUGHTER STATES PT HAS 7 DAYS LEFT OF HER 100 SNF DAYS. EXPLAINED TO HER THAT PT IS REFUSING TO GO ANYWHERE AT THIS TIME. GRAND DAUGHTER IS GOING TO CALL HER GRANDMOTHER AND TALK TO HER AND WILL CALL ME BACK. SHE ALSO STATES THEY ARE WORKING WITH GETTING HELP FROM [facility]. ALSO TOLD HER WE SENT A ORDER TO PALLIATIVE CARE. SHE STATES THEY WILL TAKE ALL THE HELP THEY CAN GET. WILL CONTINUE TO FOLLOW. . MIC VALDOVINOS
--- NOTE | 2020-04-03 14:42 | NUR ---
RECEIVED A RETURN CALL FROM HUBERT PT GRAND DAUGHTER. STATES HER UNCLE WHO IS MINAL BRIGHT IS GOING TO TALK WITH HER AND TRY TO GET HER TO GO TO REHAB SUITES FOR HER FINAL 7 DAYS THAT SHE HAS PRIOR TO GOING HOME. STATES HE SONIA BE DONE WITH WORK IN AN HOUR AND WILL CALL PT AND TALK WITH HER ABOUT IT.
--- NOTE | 2020-04-03 15:13 | NUR ---
REGIONAL GEODETIC ADVISOR faxed referral to [facility]. Will need PT/OT Evals to complete referral. PRECERT will need to be obtained along with acceptance.
[2020-04-03 16:00] VITALS: BP 137/62
--- NOTE | 2020-04-03 16:17 | NUR ---
IN PT ROOM AT THIS TIME, EXPLAINED PT HOW TO USE THE PHONE WHEN DIALING OUT. PT STATES THAT SHE NEEDS NOTHING AT THIS TIME. CALL LIGHT WITHIN REACH, WILL CONTINUE TO MONITOR
--- NOTE | 2020-04-03 16:26 | NUR ---
[facility] ON THE FLOOR AND GOING OVER PATIENT INFORMATION. SHE IS IN NOW TO SEE PATIENT
[2020-04-03 20:00] VITALS: BP 140/68
--- NOTE | 2020-04-03 20:09 | NUR ---
PATIENT'S FAMILY CALLED IN FOR AN UPDATE. PASSWORD PROVIDED. NO FURTHER QUESTIONS.
--- NOTE | 2020-04-03 21:03 | NUR ---
TYLENOL GIVEN PER PATIENT REQUEST FOR COMPLAINTS OF HIP PAIN RATED 4/10. WILL ASSESS EFFECTIVENESS.
--- NOTE | 2020-04-03 22:00 | NUR ---
PATIENT STATED TYLENOL WAS EFFECTIVE. HIP PAIN RATED 1/10.
[2020-04-04] VITALS: BP 138/66
--- NOTE | 2020-04-04 03:38 | NUR ---
Upon discharge recommend patient to follow up for wound care in outpatient setting continue current wound care orders at discharging facility.
[2020-04-04 06:26] LABS: BASO % 0.5 % (0.0-1.0); EOS # 0.1 10*3/uL (0.0-0.4); EOS % 2.8 % (1.0-4.0); HEMATOCRIT 21.8 % (37.0-47.0); LYMPH # 2.3 10*3/uL (1.3-4.4); LYMPH % 57.3 % (27.0-41.0); MEAN CELL VOLUME 94.8 fl (81.0-99.0); MEAN CORPUSCULAR HGB 31.7 pg (27.0-31.0); MEAN CORPUSCULAR HGB CONC 33.5 g/dl (33.0-37.0); MONO # 0.3 10*3/uL (0.1-1.0); MONO % 6.8 % (3.0-9.0); NEUT # 1.3 10*3/uL (2.3-7.9); NEUT % 32.3 % (47.0-73.0); PLATELET COUNT AUTOMATED 89 10*3/uL (130-400); RED CELL DISTRI WIDTH 19.5 % (0-14.5)
[2020-04-04 06:41] LABS: CREATININE 3.93 mg/dL (0.55-1.02); POTASSIUM 4.5 mmol/L (3.5-5.1); TOTAL PROTEIN 5.1 gm/dL (6.4-8.2)
--- NOTE | 2020-04-04 07:08 | NUR ---
Faxed consultation note [facility].
[2020-04-04 08:00] VITALS: BP 128/64
--- NOTE | 2020-04-04 08:00 | NUR ---
0800 AM ASSESSMENT COMPLETE. PT AWAITING BREAKFAST. DENIES C/O AT PRESENT TIME. BED IN LOW LOCKED POSTION, CALL LIGHT WITH IN REACH. WILL MONITOR.
--- NOTE | 2020-04-04 08:40 | NUR ---
Physical Therapy evaluation completed on fourth floor with full evaluation to follow. Recommend physical therapy per plan of care and SNF upon discharge. Thank you for this referral. Cristiana Her PT
--- NOTE | 2020-04-04 08:55 | NUR ---
SPOKE WITH PT GRAND DAUGHTER HUBERT AND SHE STATES PT IS NOW AGREEABLE TO GO TO REHAB SUITES FOR REHAB. REFERRAL WAS SENT YESTERDAY AND THEY ARE WORKING ON IT.
--- NOTE | 2020-04-04 10:36 | NUR ---
Occupational Therapy evaluation completed on four with full evaluation to follow. Recommend occupational therapy per plan of care and SNF upon discharge. Thank you for this referral. Liset Mathew OTR/L
--- NOTE | 2020-04-04 11:17 | NUR ---
PATIENT HAS BEEN ACCEPTED. PRECERT IS REQUIRED. PATIENT HAS 52 DAYS AT 100% REMAINING.
--- NOTE | 2020-04-04 11:26 | NUR ---
FRONT WINDOW CASHIER FAXED UPDATES TO [facility].
[2020-04-04 12:00] VITALS: BP 129/61
--- NOTE | 2020-04-04 12:10 | NUR ---
OT NOTE Patient was seen this date for 1:1 OT treatment to maximize safety and independence with ADLs, transfers, and functional mobility. Patient was seated in the chair upon arrival and stating "I need to hurry to the bathroom." Patient completed a functional chair transfer with Mod Ax1 with cues for safe hand placement and "nose over toes". While in stance, patient complained of dizziness which subsided in approximately 15 seconds. Patient performed functional mobility into the bathroom with Min A with good WW navigation in the bathroom. While standing with Min A for balance. Patient completed clothing management of her brief with Mod A for donning over B/L feet and bringing brief to knees. She completed toileting hygiene with Min A and toilet transfer sit/stand with Mod A with cues to use the grab bar for stability and safety. Patient returned to her recliner chair and had good carryover of safe hand placement during transfers. Patient mildly SOB, 100% on RA. While seated in the recliner, patient complained of her "my right arm is worse today...and my elbow really hurts." Patient had a tubigrip on the RUE, which was gathered at the right elbow. OTR assisted with smoothing out tubigrip and patient stated "Oh, that helps with the pain..that's better." Patient seated in chair with all needs within reach awaiting lunch. Nursing notified of patient location, functional status, and gathering of tubigrip on R elbow. Will continue with POC as able, rec d/c to SNF. Liset Mathew, OTR/L
--- NOTE | 2020-04-04 14:20 | NUR ---
PRECERT HAS BEEN SUBMITTE PER [facility]
[2020-04-04 16:00] VITALS: BP 145/55
[2020-04-04 20:00] VITALS: BP 153/67
--- NOTE | 2020-04-04 20:24 | NUR ---
TYLENOL GIVEN PER PATIENT REQUEST FOR RIGHT HIP AND RIGHT NECK PAIN RATED 4/10. WILL ASSESS EFFECTIVENESS.
--- NOTE | 2020-04-04 21:20 | NUR ---
TYLENOL EFFECTIVE PER PATIENT. PAIN RATED 1/10. WILL CONTINUE TO MONITOR.
[2020-04-05] VITALS: BP 141/51
--- NOTE | 2020-04-05 01:54 | NUR ---
24 HR chart check completed.
--- NOTE | 2020-04-05 07:00 | NUR ---
PATIENT RESTING IN BED WITH NO COMPLAINTS AT THIS TIME. ASSESSMENT COMPLETE. VSS. RESPS EASY AND REGULAR. CALL LIGHT IN REACH. WILL MONITOR.
[2020-04-05 07:30] LABS: POTASSIUM 4.4 mmol/L (3.5-5.1)
[2020-04-05 07:32] LABS: HEMATOCRIT 21.8 % (37.0-47.0); MEAN CELL VOLUME 95.6 fl (81.0-99.0); MEAN CORPUSCULAR HGB 31.6 pg (27.0-31.0); MEAN PLATELET VOLUME 9.6 fl (9.6-12.3); PLATELET COUNT AUTOMATED 89 10*3/uL (130-400); RED BLOOD COUNT 2.28 10*6/uL (4.10-5.10); RED CELL DISTRI WIDTH 19.2 % (0-14.5)
[2020-04-05 07:33] LABS: CREATININE 3.75 mg/dL (0.55-1.02)
[2020-04-05 08:00] VITALS: BP 127/57
--- NOTE | 2020-04-05 08:23 | NUR ---
PATIENT PRECERT HAS BEEN APPROVED CAN GO TO [facility] TODAY 04/05/2020 IF MEDICALLY STABLE.
--- NOTE | 2020-04-05 08:30 | NUR ---
PHYSICAL THERAPY Patient seen this am 1;1 for therapy visit and was resting supine in bed upon therapist arrival. Patient identified by name / and c/o on mild 1/ R hip pain during all standing activities. OT marketing assistant was also present this session for observation only as patient transfers supine to sit EOB with MIN A. Patient performed sit to stand transfer, CGA x 1 and ambulated with use of wh walker, 20'x 2 to bathroom, CGA, while demonstrating slow, cautious gait pattern. Patient returned to bedside chair with mild fatigue and was able to complete seated B LE therex, all planes, x 10 reps each to increase LE strength without c/o. Patient remained in chair with call light, tray table, telephone and body alarm for safety. Will continue per POC as tolerated, total treatment time 18 minutes. Nicola Almazan, HYDROELECTRIC PRODUCTION TECHNICIAN
--- NOTE | 2020-04-05 08:50 | NUR ---
OT NOTE Pt was seen this A.M. 1:1 for 29 minute OT session. Upon arrival pt was supine in bed. Pt identified by name and and had complaints of 1/10 R hip pain and presented to therapy with mod edema in her R hand/UE. Pt transferred supine to sit EOB with Ld for assist with UB. While sitting EOB pt donned B socks with modA. Sit to stand completed from bed level with CGA and use of w/w for UE support followed by functional mobility to the bathroom with CGA. There she transferred on/off standard commode with CGA and use of grab bar for UE support. Clothing management completed with CGA for safety and toilet hygiene completed with supervision while seated. Pt then stood sink side while washing her hands and completing UB bathing and hair care with SBA for safety. After returning to the recliner educated pt on edema control and pumping exercises which pt then completed for 2 X 10. Pt was left sitting upright in the recliner with RUE elevated, call light in hand, and body alarm activated for safety. Continue with rec D/C plan to SNF. SARAH Dominguez/Becky
--- NOTE | 2020-04-05 09:15 | NUR ---
THERAPY IN WORKING WITH PATIENT.
[2020-04-05 09:33] LABS: BURR CELLS MODERATE; TOTAL CELLS COUNTED 100 #CELLS
[2020-04-05 09:34] LABS: ACANTHOCYTES FEW; PLATELET SUFFICIENCY LOW (NORMAL)
[2020-04-05 12:00] VITALS: BP 136/52
--- NOTE | 2020-04-05 12:03 | NUR ---
SET PATIENT UP IN HER CHAIR TO EAT HER LUNCH. NO COMPLAINTS AT THIS TIME. CALL LIGHT IN REACH.
--- NOTE | 2020-04-05 12:57 | NUR ---
PSYCHOMETRIC EXAMINER COMPLETED HENS.
[2020-04-05] MEDS ORDERED: SEVELAMER HCL800 MG PO (13:13)
--- NOTE | 2020-04-05 13:42 | NUR ---
HOUSESMITH IS REACHING OUT TO [facility] FOR TRANSPORTATION WILL AWAIT RETURN CALL.
--- NOTE | 2020-04-05 14:32 | NUR ---
PATIENT STATES SHE DOES NOT WANT WOUND DISCHARGE ORDERS BECAUSE SHE DOESN'T FEEL IT IS NECESSARY.
--- NOTE | 2020-04-05 15:00 | NUR ---
NURSE TO NURSE REPORT GIVEN TO NURSE AT [facility].
--- NOTE | 2020-04-05 15:07 | NUR ---
Discharge instructions reviewed with patient/family. Patient receptive and verbalizes understanding. Follow-up care arranged. Written instructions given to patient/family. IV REMOVED. PATIENT LEFT IN CARE OF HER GRANDDAUGHTER TO GO TO [facility]. LIVAN MEIER
--- NOTE | 2020-04-05 15:17 | NUR ---
PHYSICAL THERAPY CO-SIGN I approve of the Physical Therapy notes written above. MARIANN PAZ PT, DPT
--- NOTE | 2020-04-06 15:19 | NUR ---
OCCUPATIONAL THERAPY CO-SIGN I approve of the Occupational Therapy notes written above. Cha Rodriguez OTR/L
== END 2020-04-05 14:45 | disposition other institution (70) | DRG 682 ==
LOC: ED 10:21 → EDHOLD 11:56 → 5E 11:56 → 4E 11:56 → 5E 12:10 → ICCU 15:06 → 4E 04-02 14:29
PROVIDERS: Emergency Medicine; Hospitalist; Registered Nurse; Student in an Organized Health Care Education/Training Program; ADMIT Internal Medicine
PROC: 30233N1 Transfusion of Nonautologous Red Blood Cells into Peripheral Vein, Percutaneous Approach (ICD-10-PCS; principal; 2020-04-01)
DX: N17.0 Acute kidney failure with tubular necrosis (principal); E43 Unspecified severe protein-calorie malnutrition; E87.2 Acidosis; I50.32 Chronic diastolic (congestive) heart failure; I13.2 Hypertensive heart and chronic kidney disease with heart failure and with stage 5 chronic kidney disease, or end stage renal disease; D68.59 Other primary thrombophilia; E87.1 Hypo-osmolality and hyponatremia; D62 Acute posthemorrhagic anemia; N18.5 Chronic kidney disease, stage 5; I87.2 Venous insufficiency (chronic) (peripheral); R04.0 Epistaxis; D69.6 Thrombocytopenia, unspecified; I25.10 Atherosclerotic heart disease of native coronary artery without angina pectoris; M19.90 Unspecified osteoarthritis, unspecified site; I73.9 Peripheral vascular disease, unspecified; I48.91 Unspecified atrial fibrillation; K21.9 Gastro-esophageal reflux disease without esophagitis; R29.6 Repeated falls; E83.41 Hypermagnesemia; E83.39 Other disorders of phosphorus metabolism; K57.90 Diverticulosis of intestine, part unspecified, without perforation or abscess without bleeding; Z66 Do not resuscitate; Z51.5 Encounter for palliative care; Z68.30 Body mass index [BMI] 30.0-30.9, adult; Z79.01 Long term (current) use of anticoagulants; Z88.1 Allergy status to other antibiotic agents; Z79.899 Other long term (current) drug therapy; I25.2 Old myocardial infarction; Z86.718 Personal history of other venous thrombosis and embolism; Z90.710 Acquired absence of both cervix and uterus; Z96.653 Presence of artificial knee joint, bilateral; Z98.42 Cataract extraction status, left eye; Z98.41 Cataract extraction status, right eye; Z83.79 Family history of other diseases of the digestive system

== ENCOUNTER 2020-04-13 09:00 | Inpatient (IN) | payer MEDICARE ==
[~2020-04-13] VITALS: Ht 170.1 cm; Wt 92.3 kg
[2020-04-13] VITALS (13 sets, daily range): BP systolic 102–146; BP diastolic 42–56
[~2020-04-13 09:00] MED LIST changes: +MECLIZINE HYD12.5 MG PO; +SEVELAMER HCL800 MG PO
[2020-04-13 10:01] LABS: HEMATOCRIT 21.7 % (37.0-47.0); MEAN CELL VOLUME 99.1 fl (81.0-99.0); MEAN CORPUSCULAR HGB CONC 32.3 g/dl (33.0-37.0); MEAN PLATELET VOLUME 9.1 fl (9.6-12.3); PLATELET COUNT AUTOMATED 79 10*3/uL (130-400); RED BLOOD COUNT 2.19 10*6/uL (4.10-5.10); RED CELL DISTRI WIDTH 19.2 % (0-14.5); WHITE BLOOD COUNT 4.6 10*3/uL (4.8-10.8)
--- NOTE | 2020-04-13 10:12 | NUR ---
PT UP TO RESTROOM WITH X1 ASSIST. CALL LIGHT WITHIN REACH. NO COMPLAINTS AT THIS TIME
[2020-04-13 10:15] LABS: ALBUMIN 2.1 gm/dl (3.1-4.5); ALKALINE PHOSPHATASE 133 U/L (45-117); BUN 65 mg/dl (7-24); CHLORIDE 103 mmol/L (98-107); IRON 65 ug/dL (50-170); LIPASE 151 U/L (73-393); POTASSIUM 4.4 mmol/L (3.5-5.1); SGOT/AST 24 IU/L (3-35); SGPT/ALT 16 U/L (12-78); SODIUM 133 mmol/L (136-145); TOTAL IRON BINDING CAPACITY 209 ug/dl (250-450); TOTAL PROTEIN 5.4 gm/dL (6.4-8.2)
[2020-04-13 10:16] LABS: ACT PARTIAL THROMBO TIME 33.2 SECONDS (20.0-32.1); TROPONIN I < 0.015 ng/ml (<0.045)
[2020-04-13 10:34] LABS: PLATELET SUFFICIENCY LOW (NORMAL); TOTAL CELLS COUNTED 100 #CELLS
--- NOTE | 2020-04-13 11:06 | NUR ---
BLOOD OCCULT NEGATIVE. PERFORMED BY DR SALINAS
--- NOTE | 2020-04-13 11:32 | NUR ---
PT TO BATHROOM WHERE SHE PASSED A BM. ASSISTED BACK TO BED. PT READY FOR TRANSFER TO 4TH FLOOR
[2020-04-13] MEDS ORDERED: GOOD SENSE PAI650 M1 PO (12:43)
--- NOTE | 2020-04-13 12:44 | NUR ---
DR RODRIGUEZ CALLED AND MADE AWARE THAT HOME MEDS ARE UP TO DATE.
[2020-04-13 18:24] LABS: BASO % 0.4 % (0.0-1.0); EOS # 0.1 10*3/uL (0.0-0.4); EOS % 2.9 % (1.0-4.0); HEMATOCRIT 24.9 % (37.0-47.0); LYMPH # 2.7 10*3/uL (1.3-4.4); LYMPH % 54.4 % (27.0-41.0); MEAN CORPUSCULAR HGB 31.9 pg (27.0-31.0); MEAN CORPUSCULAR HGB CONC 33.3 g/dl (33.0-37.0); MEAN PLATELET VOLUME 8.9 fl (9.6-12.3); MONO # 0.3 10*3/uL (0.1-1.0); MONO % 5.5 % (3.0-9.0); NEUT # 1.8 10*3/uL (2.3-7.9); NEUT % 36.6 % (47.0-73.0); PLATELET COUNT AUTOMATED 75 10*3/uL (130-400); RED CELL DISTRI WIDTH 18.6 % (0-14.5); WHITE BLOOD COUNT 4.9 10*3/uL (4.8-10.8)
[2020-04-13 19:02] LABS: MEAN CELL VOLUME 95.8 fl (81.0-99.0)
--- NOTE | 2020-04-13 20:00 | NUR ---
Patient resting quietly with no c/o discomfort. Respirations easy and regular. Vital signs stable. No overt distress. RAEGAN CAALBRESE
--- NOTE | 2020-04-13 20:50 | NUR ---
MEDICATED WITH PO TYLENOL ORDERED PER PT REQUEST FOR C/O NECK PAIN.
--- NOTE | 2020-04-13 22:00 | NUR ---
MEDICATION EFFECTIVE FOR PAIN.
[2020-04-14] VITALS (12 sets, daily range): BP systolic 103–166; BP diastolic 52–81
--- NOTE | 2020-04-14 00:38 | NUR ---
24 HR chart check completed.
--- NOTE | 2020-04-14 04:08 | NUR ---
ASSISTED TO [facility]. DENIES ANY DISTRESS.
[2020-04-14 06:55] LABS: CREATININE 4.3 mg/dL (0.55-1.02); POTASSIUM 4.4 mmol/L (3.5-5.1)
[2020-04-14 06:59] LABS: BASO % 0.2 % (0.0-1.0); EOS # 0.1 10*3/uL (0.0-0.4); EOS % 2.4 % (1.0-4.0); HEMATOCRIT 24.7 % (37.0-47.0); LYMPH # 2.7 10*3/uL (1.3-4.4); LYMPH % 59.9 % (27.0-41.0); MEAN CELL VOLUME 96.5 fl (81.0-99.0); MEAN CORPUSCULAR HGB 30.9 pg (27.0-31.0); MEAN PLATELET VOLUME 9.2 fl (9.6-12.3); MONO # 0.3 10*3/uL (0.1-1.0); MONO % 7.2 % (3.0-9.0); NEUT # 1.4 10*3/uL (2.3-7.9); NEUT % 30.3 % (47.0-73.0); PLATELET COUNT AUTOMATED 82 10*3/uL (130-400); RED BLOOD COUNT 2.56 10*6/uL (4.10-5.10); RED CELL DISTRI WIDTH 18.8 % (0-14.5); WHITE BLOOD COUNT 4.6 10*3/uL (4.8-10.8)
--- NOTE | 2020-04-14 10:30 | NUR ---
Informed consent obtained from patient for Blood transfussion by Dr. RUSH. VITALS OBTAINED. Patient identified by arm band. Vital signs recorded. Blood unit number verified by 2 R.N.'s. I.V. site satisfactory. Unit 1 started at a KVO rate with Normal Saline. RHONDA DESIR
--- NOTE | 2020-04-14 10:30 | NUR ---
Chestnut Tanner in to talk to patient. Patient states lives at HOME with 24 HOUR CARE. There are NO steps in the home. Physician: REYNA WALKER Pharmacy: [facility] Home health services: [facility] Patient's level of ADLs: MINIMAL ASSIST Patient has working utilities: YES DME: WALKER, ROLLATOR Follow-up physician's appointment after d/c: WILL BE MADE BY HOSPITALIST RN COORDINATOR Does patient want to access PORTAL?: NO Discharge plan CONSTRUCTION SUPERVISOR SPOKE WITH THE PATIENT. PATIENT STATED SHE IS OUT OF SNF DAYS. PATIENT STATED SHE WILL BE RETURNING HOME UPON DISCHARGE WITH 24 HOUR CARE. PATIENT STATED SHE USES [facility]. PATIENT DOES AMBULATE WITH A WALKER AND ROLLATOR. PATIENT HAS [facility]. . CONSTRUCTION SUPERVISOR REACHED OUT TO THE PATIENTS GRANDDAUGHTER HUBERT. PATIENTS GRANDDAUGHTER DID CONFIRM THE PATIENT WILL HAVE 24HR CARE PROVIDED BY FAMILY MEMBERS. SHE ALSO STATED SHE COMPLETED THE PAPER WORK FOR [facility] AND [facility] SEE[facility]. THE FAMILY IS GOING TO BE MEETING TO DISCUSS PALLIATIVE CARE OPTIONS FOR THE PATIENT. PER HUBERT ONE OF THE PATIENTS SONS WILL TRANSPORT HER HOME UPON DISCHARGE. HUBERT LOVING
--- NOTE | 2020-04-14 13:40 | NUR ---
1 UNIT PRBC'S COMPLETED. VITALS OBTAINED.PT TOLERATED WELL. VOICES NO C/O.CALL LIGHT IN REACH.
--- NOTE | 2020-04-14 14:30 | NUR ---
DR CHILD ROUNDED AND SEEN PT.
--- NOTE | 2020-04-14 20:21 | NUR ---
MEDICATED WITH TYLENOL FOR C/O PAIN IN THE BACK OF HER HEAD. PT. VOICES NO OTHER COMPLAINTS AT THIS TIME. CALL LIGHT WITHIN REACH.
--- NOTE | 2020-04-14 23:30 | NUR ---
REPORT RECIEVED FROM OUTGOING NURSE. RESUMED CARE OF THIS PATIENT.
--- NOTE | 2020-04-14 23:45 | NUR ---
PATIENT STATED BACKED PAIN WAS RATED 1/10 AT THIS TIME. TYLENOL THAT WAS ADMINISTERED PREVIOUS TO MY SHIFT WAS EFFECTIVE PER PATIENT AND STILL WORKING. CALL LIGHT WITHIN REACH. WILL CONTINUE TO MONITOR.
[2020-04-15] VITALS: BP 165/66
--- NOTE | 2020-04-15 02:33 | NUR ---
24 HR chart check completed.
[2020-04-15 06:14] LABS: BASO % 0.2 % (0.0-1.0); EOS # 0.1 10*3/uL (0.0-0.4); EOS % 2.3 % (1.0-4.0); HEMATOCRIT 27.1 % (37.0-47.0); LYMPH # 2.8 10*3/uL (1.3-4.4); LYMPH % 58.9 % (27.0-41.0); MEAN CELL VOLUME 95.4 fl (81.0-99.0); MEAN CORPUSCULAR HGB 31.3 pg (27.0-31.0); MEAN CORPUSCULAR HGB CONC 32.8 g/dl (33.0-37.0); MEAN PLATELET VOLUME 8.9 fl (9.6-12.3); MONO # 0.3 10*3/uL (0.1-1.0); MONO % 6.5 % (3.0-9.0); NEUT # 1.5 10*3/uL (2.3-7.9); NEUT % 31.9 % (47.0-73.0); PLATELET COUNT AUTOMATED 74 10*3/uL (130-400); RED BLOOD COUNT 2.84 10*6/uL (4.10-5.10); RED CELL DISTRI WIDTH 18.6 % (0-14.5); WHITE BLOOD COUNT 4.7 10*3/uL (4.8-10.8)
[2020-04-15 06:40] LABS: CREATININE 4.26 mg/dL (0.55-1.02); POTASSIUM 4.4 mmol/L (3.5-5.1)
--- NOTE | 2020-04-15 08:03 | NUR ---
IN PT ROOM TO COMPLETE ASSESSMENT, DR RUSH PRESENT WELL. HE STATES THAT TOMORROW AN US OF THE RIGHT ARM WILL BE TAKEN, AND IF THERE IS NO BLOOD CLOT THAT HE WILL DISCHARGE THE PATIENT HOME, IF THERE IS A BLOOD CLOT THERE WILL BE A NEED FOR A MEDICATION CHANGE FOR HER BLOOD THINNER. PT HAS NO FURTHER QUESTIONS OR COMPLAINTS AT THIS TIME. CALL LIGHT WITHIN REACH, WILL CONTINUE TO MONITOR
--- NOTE | 2020-04-15 11:29 | NUR ---
Shift chart check completed.
[2020-04-15 12:00] VITALS: BP 150/80
[2020-04-15 16:00] VITALS: BP 145/90
--- NOTE | 2020-04-15 19:54 | NUR ---
PATIENT RESTING IN BED QUIETLY. NO STATED COMPLAINTS AT THIS TIME. RESPIRATIONS EASY, REGULAR, NO DISTRESS NOTED. CALL LIGHT WITHIN REACH. WILL CONTINUE TO MONITOR.
[2020-04-15 20:00] VITALS: BP 155/56
--- NOTE | 2020-04-15 21:39 | NUR ---
TYLENOL GIVEN PER PATIENT REQUEST FOR COMPLAINTS OF HEADACHE AND BACKACHE RATED 3/10. WILL ASSESS EFFECTIVENESS.
--- NOTE | 2020-04-15 22:30 | NUR ---
TYLENOL EFFECTIVE PER PATIENT. PAIN RATED 1/10. WILL CONTINUE TO MONITOR.
[2020-04-16] VITALS: BP 145/55
[2020-04-16 06:31] LABS: HEMATOCRIT 26.8 % (37.0-47.0); MEAN CORPUSCULAR HGB 30.9 pg (27.0-31.0); MEAN CORPUSCULAR HGB CONC 32.8 g/dl (33.0-37.0); MEAN PLATELET VOLUME 9.1 fl (9.6-12.3); PLATELET COUNT AUTOMATED 78 10*3/uL (130-400); RED BLOOD COUNT 2.85 10*6/uL (4.10-5.10); RED CELL DISTRI WIDTH 18.6 % (0-14.5); WHITE BLOOD COUNT 4.8 10*3/uL (4.8-10.8)
[2020-04-16 07:02] LABS: CREATININE 4.3 mg/dL (0.55-1.02); POTASSIUM 4.5 mmol/L (3.5-5.1)
[2020-04-16 07:12] LABS: ATYPICAL LYMPHS 1 % (0-0); BURR CELLS FEW; OVALOCYTES FEW; PLATELET SUFFICIENCY LOW (NORMAL); TOTAL CELLS COUNTED 100 #CELLS
--- NOTE | 2020-04-16 07:45 | NUR ---
IN PT ROOM TO COMPLETE ASSESSMENT. PT WENT DOWN FOR HER US OF RIGHT ARM, SO WE ARE WAITING FOR RESULTS OF THAT TO COME BACK TO SEE WHETHER SHE WILL BE DISCHARGED OR NOT. PT VOICES NO NEW COMPLAINTS. SHE IS REPOSITIONED IN BED AND HAS THE PHONE WITH HER TO CALL IN BREAKFAST. CALL LIGHT WITHIN REACH, WILL CONTINUE TO MONITOR
[2020-04-16 08:00] VITALS: BP 144/56
--- NOTE | 2020-04-16 08:18 | NUR ---
PHYSICAL THERAPY PT screen complete and chart reviewed. PT order received. Will follow. Thank you. Gianna Hopson,PT,DPT
--- NOTE | 2020-04-16 09:18 | NUR ---
IN PT ROOM TO TELL HER I CAN HAVE HER DISCHARGE COMPLETE AT 1030, SHE STATES THAT HER RIDE IS ALREADY HERE AND READY. REFUSING DISCHARGE WOUND PICS DUE TO RIDE ALREADY BEING HERE. WILL GET DISCHARGE DONE
--- NOTE | 2020-04-16 09:35 | NUR ---
IN PT ROOM TO TAKE OUT IV, REMOVE JUNIOR ACCOUNT MANAGER. PT IS IN A BUENO BECAUSE FAMILY MEMBER IS HERE TO PICK HER UP. PT STATES SHE HAS NO QUESTIONS ABOUT DISCHARGE PLANS
--- NOTE | 2020-04-16 09:40 | NUR ---
CASE MANAGEMNT CALLED TO MAKE SURE PATIENT IS CLEAR TO GO HOME, SHE IS GOOD TO GO
--- NOTE | 2020-04-16 09:44 | NUR ---
PT LEAVING THE FLOOR AT THIS TIME WILL ALL OF HER BELONGINGS
--- NOTE | 2020-04-16 09:44 | NUR ---
JUNCTION MAKER RECEIVED PHONE CALL FROM [facility]. PATIENTS GRANDDAUGHTER HUBERT REACHED OUT TO THEM WANTING TO GO WITH THEIR SERVICES. PATIENT ALSO WOULD LIKE TO HAVE [facility]. JUNCTION MAKER TO FAX/CLINICALS BOTH ORDERS TO [facility].
--- NOTE | 2020-04-16 09:55 | NUR ---
PHYSICAL THERAPY Eval received chart reviewed, per chart review and discussion with nurse pt is being discharged home at this time with family and home health no futher needs at this time, thank you for the referral. Cristiana Her PT
--- NOTE | 2020-04-16 10:12 | NUR ---
OT evaluation was received and chart was reviewed. Per chart review, Pt planned to be d/c at this time. No further OT indicated. Thank you for this referral. Cha Rodriguez OTR/L
== END 2020-04-16 09:44 | disposition home health service (06) | DRG 808 ==
LOC: ED 09:00 → 4E 11:13 → EDHOLD 11:13 → 4E 11:27
PROVIDERS: Emergency Medicine; Internal Medicine; ADMIT Internal Medicine
PROC: 30233N1 Transfusion of Nonautologous Red Blood Cells into Peripheral Vein, Percutaneous Approach (ICD-10-PCS; principal; 2020-04-13)
DX: D61.818 Other pancytopenia (principal); E43 Unspecified severe protein-calorie malnutrition; E87.1 Hypo-osmolality and hyponatremia; N18.5 Chronic kidney disease, stage 5; L97.909 Non-pressure chronic ulcer of unspecified part of unspecified lower leg with unspecified severity; I13.2 Hypertensive heart and chronic kidney disease with heart failure and with stage 5 chronic kidney disease, or end stage renal disease; I50.30 Unspecified diastolic (congestive) heart failure; I48.91 Unspecified atrial fibrillation; R04.0 Epistaxis; K21.9 Gastro-esophageal reflux disease without esophagitis; M48.00 Spinal stenosis, site unspecified; I35.0 Nonrheumatic aortic (valve) stenosis; I73.9 Peripheral vascular disease, unspecified; I25.10 Atherosclerotic heart disease of native coronary artery without angina pectoris; Z96.653 Presence of artificial knee joint, bilateral; M19.90 Unspecified osteoarthritis, unspecified site; I87.2 Venous insufficiency (chronic) (peripheral); R22.31 Localized swelling, mass and lump, right upper limb; R73.9 Hyperglycemia, unspecified; E83.41 Hypermagnesemia; Z86.718 Personal history of other venous thrombosis and embolism; I25.2 Old myocardial infarction; Z91.81 History of falling; Z98.42 Cataract extraction status, left eye; Z98.41 Cataract extraction status, right eye; Z90.711 Acquired absence of uterus with remaining cervical stump; Z83.79 Family history of other diseases of the digestive system; Z88.1 Allergy status to other antibiotic agents; Z79.899 Other long term (current) drug therapy; Z79.01 Long term (current) use of anticoagulants; Z83.3 Family history of diabetes mellitus; Z82.49 Family history of ischemic heart disease and other diseases of the circulatory system; Z80.8 Family history of malignant neoplasm of other organs or systems; Z68.31 Body mass index [BMI] 31.0-31.9, adult

== ENCOUNTER 2020-04-25 02:02 | Emergency (ER) | payer MEDICARE ==
[~2020-04-25] VITALS: Ht 170.1 cm; Wt 90.7 kg
[~2020-04-25 02:02] MED LIST changes: +GOOD SENSE PAI650 M1 PO
[2020-04-25 02:15] VITALS: BP 133/47
[2020-04-25 02:40] LABS: BASO % 0.4 % (0.0-1.0); EOS # 0.2 10*3/uL (0.0-0.4); EOS % 4.3 % (1.0-4.0); HEMATOCRIT 25.9 % (37.0-47.0); LYMPH # 2.4 10*3/uL (1.3-4.4); LYMPH % 49.4 % (27.0-41.0); MEAN CELL VOLUME 97.7 fl (81.0-99.0); MEAN CORPUSCULAR HGB 31.3 pg (27.0-31.0); MEAN PLATELET VOLUME 9.1 fl (9.6-12.3); MONO # 0.3 10*3/uL (0.1-1.0); MONO % 5.5 % (3.0-9.0); PLATELET COUNT AUTOMATED 81 10*3/uL (130-400); RED BLOOD COUNT 2.65 10*6/uL (4.10-5.10); RED CELL DISTRI WIDTH 19.3 % (0-14.5); WHITE BLOOD COUNT 4.9 10*3/uL (4.8-10.8)
[2020-04-25 02:51] LABS: ACT PARTIAL THROMBO TIME 35.7 SECONDS (20.0-32.1); CREATININE 5.05 mg/dL (0.55-1.02); POTASSIUM 4.6 mmol/L (3.5-5.1)
== END 2020-04-25 03:15 | disposition home or self-care (01) ==
LOC: ED 02:02
PROVIDERS: Emergency Medicine
DX: R04.0 Epistaxis (principal); D64.9 Anemia, unspecified; I25.2 Old myocardial infarction; I50.9 Heart failure, unspecified; I11.0 Hypertensive heart disease with heart failure; Z88.1 Allergy status to other antibiotic agents; Z79.899 Other long term (current) drug therapy